=== PATIENT | male | born 1955 | race Caucasian/White ===

== ENCOUNTER 2018-12-06 20:51 | Outpatient (CLI) | payer BC | END 2018-12-07 07:10 | disposition home or self-care (01) | LOC: SLEEP 20:51 | PROVIDERS: ATTEND Nurse Practitioner Family | DX: G47.10 Hypersomnia, unspecified (principal); G47.50 Parasomnia, unspecified; Z72.0 Tobacco use | CPT/HCPCS: 95811 ==

== ENCOUNTER 2019-06-25 09:54 | Inpatient (IN) | payer BC ==
[~2019-06-25] VITALS: Ht 175.3 cm; Wt 65.8 kg
[2019-06-25] MEDS ORDERED: ONDANSETRON 4 MG (ZOFRAN) ORAL DISSOLVE TAB PO PRN (10:30)
[2019-06-25] MEDS ORDERED: DOCUSATE SODIUM 100 MG (COLACE) CAP PO PRN (10:30)
[2019-06-25] MEDS ORDERED: diphenhydrAMINE 25 MG TAB (BENADRYL) PO PRN (10:30)
[2019-06-25] MEDS ORDERED: LOPERAMIDE 2 MG (IMODIUM) TABLET PO PRN (10:30)
[2019-06-25] MEDS ORDERED: MELATONIN 3 MG TABLET PO PRN (10:30)
[2019-06-25] MEDS ORDERED: ACETAMINOPHEN 500 MG TAB (TYLENOL) PO PRN (10:30)
[2019-06-25] MEDS ORDERED: CALCIUM CARBONATE 500 MG (TUMS) TAB.CHEW PO PRN (10:30)
--- NOTE | 2019-06-25 14:15 | NUR ---
Luis Carlos Oneal admitted to room 223-1, with an admitting diagnosis of Right pelvic, rib and facial fractures , on 06/25/19 from via private vehicle from [place], accompanied by Asya, and two adult daughters. LUIS CARLOS ONEAL introduced to surroundings, call light, bed controls, phone, TV, temperature control, lights, meal times, smoking policy, visitor policy, side rail policy, bathrooms and showers. Patient Rights given to patient in the handbook. LUIS CARLOS ONEAL verbalizes understanding that [facility] is not responsible for the loss or damage to any personal effects or valuables that are kept in the patients posession during their hospitalization. The following Patient Care Plans were discussed with the Immobility, Fracture and Discharge Planning. LUIS CARLOS ONEAL verbalizes understanding of Interdisciplinary Patient Education. Patient received Patient Rights Booklet, which includes Privacy Act Statement and Data Collection Information Summary.
[2019-06-25] MEDS ORDERED: HYDR-3820 PO (14:43)
--- NOTE | 2019-06-25 14:44 | NUR ---
UPDATED MED [facility] WITH DISCHARGE ORDERS FROM [facility]. THERE WERE NOT MEDICATIONS TO CONTINUE OR STOP JUST ONE TO START: HYDROCODONE 10-325MG Q4H PRN I WILL REMOVE THIS AND SET THE PROFILE TO NO HOME MEDICATIONS AT A LATER DATE FOR PROPER DISCHARGE TO HOME ORDERS. Addendum: 06/26/19 at 0808 by ALEX PADILLA cigarette package examiner REMOVED THE NEW MEDICATION STARTED AT DISCHARGE AND SET THE PROFILE TO NO MEDICATIONS AT THIS TIME.
--- NOTE | 2019-06-25 15:21 | Occupational Therapy Eval ---
OT Evaluation-General/PLF Medical Diagnosis Admission Date Jun 25, 2019 at 14:15 Medical Diagnosis: Multiple fx secondary to traumatic event. Onset Date: Jun 21, 2019 Therapy Diagnosis Therapy Diagnosis: Weakness, Decreased ADL skills Height/Weight Height (Feet): 5 Height (Inches): 10.00 Weight (Pounds): 165 Weight Bear Status Weight Bearing Restriction: Touch Toe Bearing Location Restriction: R LE Referral Physician: Dr. De La Fuente Referral Reason: Activity Tolerance, Self Care, Evaluation/Treatment, Strengthening/ROM Medical History Additional Medical History COPD, Lung mass Current History Pt. fell off ladder. Pt. sustained right iliac fx, right zygomatic arch fx, right orbital bone fx, and posterior 8th rib fx. Pt. is currently TTWB in right LE. Reviewed History: Yes Social History Home: Single Level Current Living Status: Spouse Entry Into Home: Stairs With Railing Steps Into Home: 2 ADL-Prior Level of Function SCALE: Activities may be completed with or without assistive devices. 8-Kjbuxdqaqd-etrjltv completes the activity by him/herself with no assistance from a helper. 5-Set-up or Clean-up Assistance-helper sets up or cleans up; patient completes activity. [place] assists only prior to or following the activity. 4-Supervision or Touching Assistance-helper provides verbal cues and/or touching/steadying and/or contact guard assistance as patient completes activity. Assistance may be provided throughout the activity or intermittently. 3-Partial/Moderate Assistance-helper does LESS THAN HALF the effort. [place] lifts, holds or supports trunk or limbs, but provides less than half the effort. 2-Substantial/Maximal Assistance-helper does MORE THAN HALF the effort. [place] lifts or holds trunk or limbs and provides more than half the effort. 2-Ebvegqquh-qrmyoi does ALL the effort. Patient does none of the effort to complete the activity. Or, the assistance of 2 or more helpers is required for the patient to complete the activity. If activity was not attempted, code reason: 7-Patient Refused. 9-Not Applicable-not attempted and the patient did not perform the activity before the current illness, exacerbation or injury. 10-Not Attempted due to Environmental Limitations-(lack of equipment, weather restraints, etc.). 88-Not Attempted due to Medical Conditions or Safety Concerns. ADL PLOF Comments Pt. was independent with daily tasks prior to this hospitalization. Self Care: Independent Functional Cognition: Independent DME/Equipment: Shower DME/Equipment Comments Pt. has no AE. Occupation: Pt. just retired from [employer] business. OT Current Status Subjective Pt. states, "I'm okay" when asked if he is having pain. Appearance Pt. in wheelchair. Agrees to treatment. Mental Status/Objective Patient Orientation: Person, Place, Time, Situation Current Glasses/Contacts: Yes Hand Dominance: Right Upper Extremity ROM WFL Pt. reports that he was planning on having a left shoulder replacement this year. ADL-Treatment Lower Body Dressing (QC): 4 On/Off Footwear (QC): 4 Toileting Hygiene (QC): 4 Toilet Transfer (QC): 4 OT/PT co-treated pt. due to fatigue from car ride, decreased activity level, and need of two skilled therapists. OT facilitated ADL skills and energy conservation training while PT focused on mobility and transfers. Pt. is curr ently TTWB. Completed mobility with walker and min assist with wheelchair follow, (see PT note for distance.) Multiple rest breaks needed in between activities. Pt. able to doff/don sock with increased time and discomfort noted. Stood at toilet and managed clothing with min assist for upright stance and balance. Pt. and family educated on therapy goals, as well as rehab goals and treatment. Pt. verbalizes understanding. Transferred sit-supine with mod assist. All needs met. Education OT Patient Education: Correct positioning, Modified ADL techniques, Progress toward Goal/Update tx plan, Purpose of tx/functional activities, Reviewed precautions, Rehab process, Transfer techniques Teaching Recipient: Patient Teaching Methods: Demonstration, Discussion Response to Teaching: Verbalize Understanding, Return Demonstration OT Short Term Goals Short Term Goals 1=Demonstrate adherence to instructed precautions during ADL tasks. 2=Patient will verbalize/demonstrate understanding of assistive devices/modif ications for ADL. 3=Patient will improve strength/tolerance for activity to enable patient to perform ADL's. 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 2=Patient will verbalize/demonstrate understanding of assistive devices/modifications for ADL. 3=Patient will improve strength/tolerance for activity to enable patient to perform ADL's. OT Education/Plan Problem List/Assessment Assessment: Decreased Activ Tolerance, Dependent Transfers, Impaired Bed Mobility, Impaired Funct Balance, Impaired I ADL's, Impaired Self-Care Skills Discharge Recommendations Plan/Recommendations: Continue POC Therapy Discharge Recommendati: Post Acute OT Equpiment Recommendations-D/C: Bath Chair, Hip Kit Comment Pt. will need walker. Treatment Plan/Plan of Care Treatment,Training & Education: Yes Patient would benefit from OT for education, treatment and training to promote i ndependence in ADL's, mobility, safety and/or upper extremity function for ADL's. Plan of Care: ADL Retraining, Functional Mobility, Group Exercise/Act as Ind, UE Funct Exercise/Act Treatment Duration: Jul 09, 2019 Frequency: At least 5 of 7 days/Wk (IRF) Estimated Hrs Per Day: 1.5 hours per day Agreement: Yes Rehab Potential: Good Time/GCodes Start Time: 14:25 Stop Time: 15:05 Total Time Billed (hr/min): 40 Billed Treatment Time 3238-8649 1, EVM x 10minutes [id number] FA x 30 minutes. Co-treat with PT. Please see above note for de signated roles. OMA CORTÉS OT Jun 25, 2019 15:21
[2019-06-25] MEDS: HYDROcodone/APAP 5 MG/325 MG (LORTAB) TAB PO PRN ×2 (15:26→19:30)
--- NOTE | 2019-06-25 15:48 | Progress Note ---
DELFINA AMARO [facility] 06/25/19 1548: Progress Note CC: Fell from ladder, Right facial bone fractures, Right Rib fracture, Right Hip fracture HPI: Pt is alert and oriented x3, pleasant, and excited to be able to come to the rehab unit prior to going home. He states he has some pain in his hip and ribs mainly that has been getting better the last couple days, but has been limiting his ability to move normally. He states he has a cough due to stopping smoking since the accident, which has caused him increased pain in his fractured rib. He also states he has a little bit of a headache near his facial fractures, but this has gotten much better as well. He has been getting a little dizzy when he is struggling to move around. He has sleep apnea that he has recently been wearing a CPAP makes but is not sure it will work with his facial fracture. Barriers: * He is able to use a wheelchair to move himself around very well * He was able to walk a short distance using a walker with only minimal assistance * He was able to stand from the wheelchair and turn to sit in the bed with minimal assistance * He was able to take off and put back on his sock without help * He was able to go in the restroom and transfer to the toilet with some janneth tance * He is still having significant pain with turning himself into the bed from seated to lying * He had pain straightening himself in the bed * He does have 2 steps into the house from the garage that would be his biggest barrier * He thinks he will be able to use the walker for most of his trips inside the house due to the short distances Goals: * He would like to be able to take a shower and get dressed by himself prior to going home * He would like to feel a little more confident using the walker by himself * He would like to gain some strength and learn techniques to make his daily activities easier * He would like to walk without a walker in the future, but understands it may take a couple months of healing MELYSSA SAAVEDRA DO 06/25/192053: Supervisory-Addendum Brief Verification & Attestation Participated in pt care: history, MDM, physical Personally performed: exam, history, MDM, supervision of care Care discussed with: Medical Student Procedures: n/a Results interpretation: Verified all documentation Verification and Attestation of Medical Student E/M Service A medical student performed and documented this service in my presence. I reviewed and verified all information documented by the medical student and made modifications to such information, when appropriate. I personally performed the physical exam and medical decision making. Melyssa Saavedra, Jun 25, 2019,20:54 DELFINA AMARO [facility] Jun 25, 2019 15:48 MELYSSA SAAVEDRA DO Jun 25, 2019 20:54
--- NOTE | 2019-06-25 16:12 | Physical Therapy Evaluation ---
PT Evaluation-General Medical Diagnosis Admission Date Jun 25, 2019 at 14:15 Medical Diagnosis: Multiple fx secondary to traumatic event. Onset Date: Jun 21, 2019 Therapy Diagnosis Therapy Diagnosis: abnormal gait Height/Weight Height (Feet): 5 Height (Inches): 10.00 Weight (Pounds): 165 Precautions Precautions/Isolations: Fall Prevention, Standard Precautions Weight Bear Status Right Lower Extremity: Right Touch Toe Bearing Left Lower Extremity: Left Full Weight Bearing Referral Physician: Dr. De La Fuente Reason for Referral: Evaluation/Treatment Medical History Pertinent Medical History: COPD Additional Medical History newly diagnosed lung CA. Current History Admitted to ARU post acute hospital stay at [facility]. On 06/21/2019, pt fell from a ladder, unwitnessed fall with subsequent short amnesia. Pt was found quickly post fall. Pt taken via EMS to [facility] where he was found to have R iliac crest fx, facial fractures and 8th rib fx. Pt admitted to this unit for skilled therapy intervention to allow him to return home as before. Reviewed History: Yes Social History Home: Single Level Current Living Status: Spouse Entry Into Home: Stairs With Railing PT Steps Into Home: 2 Prior Prior Level of Function SCALE: Activities may be completed with or without assistive devices. 8-Pmjgegogac-nwhgaba completes the activity by him/herself with no assistance from a helper. 5-Set-up or Clean-up Assistance-helper sets up or cleans up; patient completes activity. [place] assists only prior to or following the activity. 4-Supervision or Touching Assistance-helper provides verbal cues and/or touching/steadying and/or contact guard assistance as patient completes activity. Assistance may be provided throughout the activity or intermittently. 3-Partial/Moderate Assistance-helper does LESS THAN HALF the effort. [place]ner lifts, holds or supports trunk or limbs, but provides less than half the effort. 2-Substantial/Maximal Assistance-helper does MORE THAN HALF the effort. Verner lifts or holds trunk or limbs and provides more than half the effort. 6-Adidzscep-bxetmm does ALL the effort. Patient does none of the effort to complete the activity. Or, the assistance of 2 or more helpers is required for the patient to complete the activity. If activity was not attempted, code reason: 7-Patient Refused. 9-Not Applicable-not attempted and the patient did not perform the activity before the current illness, exacerbation or injury. 10-Not Attempted due to Environmental Limitations-(lack of equipment, weather restraints, etc.). 88-Not Attempted due to Medical Conditions or Safety Concerns. Bed Mobility: 6 Transfers (B,C,W/C): 6 Gait: 6 Indoor Mobility (Ambulation): Independent Stairs: Independent Pt indep PLOF; working; able to climb ladders; active; active golfer. PT Evaluation-Current Subjective Agrees to PT. Denies need for pain meds at time of evaluation. and daughter present. Pain Numeric Pain Scale: 4 Location: Right Location Body Site: Hip (pelvic area) Pain Description: Ache, Stabbing Objective Patient Orientation: Person, Place, Time, Situation ROM/Strength ROM Lower Extremities WFL; difficulty with the right LE due to fx; Strength Lower Extremities strength left LE WNL; right LE DF 5/5; quads/hamstrings 3/5; hip flexion 1/5, limited by pain. Integumentary/Posture Integumentary Refer to nursing notes. Bowel Incontinence: No Bladder Incontinence: No Posture normal and symmetrical; good upright posture. Neuromuscular (Tone, Coordination, Reflexes) no noted functional deficits. Sensory Vision: Wears Glasses Hearing: Functional Hand Dominance: Right Sensation Right Lower Extremit: Intact Sensation Left Lower Extremity: Intact Transfers Roll Left to Right (QC): 3 Sit to Lying (QC): 3 (assist with right LE to lift into and out of bed) Lying to Sitting/Side of Bed(Q: 3 Sit to Stand (QC): 3 (min assist to come to a stand with skilled cues for hand placement) Chair/Bgp-dl-Wituc Xfer(QC): 4 (CGA for safety.) Car Transfer (QC): 3 (min assist to move right LE) Gait Does the Patient Walk?: Yes Mode of Locomotion: Walk Anticipated Mode of Locomotion: Walk Distance (FIM): 1=up to 49 ft Walk 10 feet (QC): 3 (min assist for balance and safety.) Walk 50 ft with 2 Turns(QC): 88 Walk 150 ft (QC): 88 Walking 10ft/uneven surface-QC: 88 Distance: 40 ft Gait Assistive Device: FWW Comments/Gait Description Pt demonstrated ability to maintain TTWB right LE. Slow but steady with gait. Wheelchair Training Does the Pt Use a Wheelchair?: Yes Wheel 50 ft with 2 turns (QC): 4 Wheel 150 ft (QC): 4 Type of Wheelchair: Manual Stairs 1 Step (curb) (QC): 88 (unsafe to attempt this date. ) 4 Steps (QC): 88 12 Steps (QC): 88 Balance Sitting Static: Normal Sitting Dynamic: Normal Standing Static: Fair Standing Dynamic: Fair Picking up an Object (QC): 88 (unsafe to attempt) Treatment Functional transfer and static/dynamic standing balance during functional mobiltiy and tasks. Co treat with OT due to the need for 2 skilled clinicians to safely and effectively facilitate transfers and mobility. As OT addressed self care, PT addressed transitional mobiltiy with transfers, standing, turning and functional activity/balance. Assessment/Needs Post fall from ladder with above noted fx. Pt has impaired functional strength and balance as well as pain that limits his ability to safely perform transfers, bed mobility and gait. He will benefit from skilled PT services to address mobility with adaptations as needed to allow him to return home safely at a mod indep level. He has good family support and excellent potential to make functional gains. 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 Stone Driller Goals PT Skilled Nursing Goals Time Frame: Jul 09, 2019 Sit to Lying (QC): 6 Lying-Sitting on Side/Bed(QC): 6 Sit to Stand (QC): 6 Roll Left to Right (QC): 6 Chair/Kkh-zi-Ptsbe Xfer(QC): 6 Car Transfer (QC): 6 Does the Patient Walk: Yes Walk 10 feet (QC): 6 Walk 10ft-Uneven Surface(QC): 6 Walk 50ft with 2 Turns (QC): 6 Walk 150 ft (QC): 6 Gait Assistive Device: FWW Wheel 50 feet with 2 turns (QC: 6 1 Step (curb) (QC): 6 4 Steps (QC): 6 12 Steps (QC): 88 Picking up an Object (QC): 88 PT Plan Problem List Problem List: Activity Tolerance, Functional Strength, Safety, Balance, Gait, Transfer, Bed Mobility Treatment/Plan Treatment Plan: Continue Plan of Care Treatment Plan: Bed Mobility, Education, Functional Activity Francisco, Functional Strength, Group Therapy, Gait, Safety, Therapeutic Exercise, Transfers Treatment Duration: Jul 09, 2019 Frequency: At least 5 of 7 days/Wk (IRF) Estimated Hrs Per Day: 1.5 hours per day Patient and/or Family Agrees t: Yes Safety Risks/Education Patient Education: Transfer Techniques, Safety Issues Teaching Recipient: Patient Teaching Methods: Demonstration, Discussion Response to Teaching: Reinforcement Needed Discharge Recommendations Therapy Discharge Recommendati: Post Acute PT Time/GCodes Time In: 1415 Time Out: 1425 ([id number] treat with OT) Total Billed Treatment Time: 40 Total Billed Treatment visit EVM 10 FA 30 MOISES SALAZAR PT Jun 25, 2019 16:12
[2019-06-25 17:23] VITALS: BP 157/79
--- NOTE | 2019-06-25 17:28 | Consultation - Surgery ---
[facility] 06/25/19 1727: History of Present Illness History of Present Illness Patient Consulted On(toby/time) 06/25/19 17:22 Date Seen by Provider: Jun 25, 2019 Time Seen by Provider: 16:30 History of Present Illness CC: Trauma from fall off of ladder Sunday, patient fell from a ladder resulting in a fracture to his pelvis, ribs, and facial bones. Patient does not complain of any abdominal pain or Shortness of breath. Patient does state he did lose consciousness but denies photophobia, rhinorrhea, or n/v. Coughing and weigh bearing makes his pain worse, but pain medication has helped his pain. Right now he rates his pain as a 3/10 but had just received pain medication. , Allergies and Home Medications Allergies Coded Allergies: No Known Drug Allergies (Unverified , 08/14/14) Home Medications Hydrocodone/Acetaminophen 1 Each Tablet, 1 TAB PO Q4H PRN for PAIN-MODERATE, (Reported) Past Wglmcue-Aidiqd-Kempmm Hx Patient Social History Alcohol Use: Occasionally Uses Number of Drinks Today: 0 Recreational Drug Use: No Smoking Status: Current Everyday Smoker Type Used: Cigarettes Recent Foreign Travel: No Contact w/Someone Who Travel: No Recent Infectious Disease Expo: No Physical Abuse Screen: No Sexual Abuse: No Immunizations Up To Date Date of Influenza Vaccine: Jun 09, 2019 Family Medical History Significant Family History: Other Conditions/Hx (Dad had alzheimers, mom had parkinsons) Family Medial History: Alzheimer's disease 19 FATHER Cataracts 19 MOTHER Osteoporosis 19 MOTHER Parkinson's disease 19 MOTHER Review of Systems-General Constitutional: No chills, No fever EENTM: No blurred vision, No double vision, No vision loss Respiratory: No cough, No dyspnea on exertion Gastrointestinal: No abdominal pain, No nausea, No vomiting Musculoskeletal: other (Rib pain) Other Has had lightheadedness and dizziness Physical Exam-General Problems Physical Exam Vital Signs Capillary Refill : General Appearance: WD/WN, no apparent distress Neck: non-tender, full range of motion, supple Respiratory: lungs clear, normal breath sounds, no respiratory distress, no accessory muscle use Cardiovascular: regular rate, rhythm, no edema, no murmur Peripheral Pulses: 2+ Radial Pulses (R), 2+ Radial Pulses (L) Gastrointestinal: non tender, soft Neurologic/Psychiatric: alert, normal mood/affect, oriented x 3 Assessment/Plan Assessment/Plan Assessment/Plan Pain control and monitor Vitals Clinical Quality Measures DVT/VTE Risk/Contraindication: Risk Factor Score Per Nursin RFS Level Per Nursing on Admit: 4+=Very High HAYDEE LANDAVERDE DO 06/25/192105: History of Present Illness History of Present Illness Time Seen by Provider: 17:04 History of Present Illness Pt seen and examined, surgery asked to consult because he was a Trauma pt and need to make sure all his injuries are cared for and followed up on. Pt thinks the only thing that hasn't been done is regarding the upper jaw fracture. He states they looked at his eye multiple times and it is getting better. He is in rehab for his pelvis fracture. Allergies and Home Medications Allergies Coded Allergies: No Known Drug Allergies (Unverified , 08/14/14) Home Medications Hydrocodone/Acetaminophen 1 Each Tablet, 1 TAB PO Q4H PRN for PAIN-MODERATE, (Reported) Patient Home Medication List Home Medication List Reviewed: Yes Past Cxugpqo-Umbskr-Mmxqlw Hx Family Medical History Significant Family History: Other Conditions/Hx (Dad had alzheimers, mom had parkinsons) Family Medial History: Alzheimer's disease 19 FATHER Cataracts 19 MOTHER Osteoporosis 19 MOTHER Parkinson's disease 19 MOTHER Review of Systems-General EENTM: blurred vision (right eye), eye pain (right); No ear discharge, No mouth swelling, No throat swelling Musculoskeletal: back pain, joint pain, joint swelling, muscle pain, muscle stiffness, muscle cramps, other (Rib pain) Skin: No lesions, No pruritus Psychiatric/Neurological: Denies Anxiety, Denies Depressed, Denies Seizure, Denies Tremors Physical Exam-General Problems Physical Exam HEENT: other (right eye sclera is injected with blood) Back: vertebral tenderness (right side) Extremities: no pedal edema, no calf tenderness, normal capillary refill Assessment/Plan Assessment/Plan Assessment/Plan Right Maxillary Fracture Pelvis Fx Closed head Trauma At this point I need to get the actual films from [place] so I can go over them and find all consults, results and DC summary from [place]. We do not have a complete chart; at this time pt needs PT/OT and rehab no impending surgery needed. Pt had no questions. Supervisory-Addendum Brief Verification & Attestation Participated in pt care: history, MDM, physical Personally performed: exam, history, MDM Care discussed with: Medical Student Procedures: n/a Verification and Attestation of Medical Student E/M Service A medical student performed and documented this service in my presence. I reviewed and verified all information documented by the medical student and made modifications to such information, when appropriate. I personally performed the physical exam and medical decision making. Haydee Landaverde, Jun 25, 2019,21:08 KAYE OLMSTEAD Jun 25, 2019 17:27 HAYDEE LANDAVERDE DO Jun 25, 2019 21:06
[2019-06-25 18:38] VITALS: BP 157/79
[2019-06-25] MEDS ORDERED: LACTULOSE SYRUP 10GM/15ML (ENULOSE) 30ML UDC ONE (19:25)
[2019-06-25] MEDS: ENOXAPARIN 40 MG/0.4 ML (LOVENOX) SYR SQ SCH (19:29)
[2019-06-25] MEDS: SENNA W/DOCUSATE (SENOKOT S) TABLET PO SCH (19:30)
--- NOTE | 2019-06-25 21:01 | PM&R H&P / Post Admit Assess ---
History of Present Illness HPI/Chief Complaint CC: Fall off ladder with multiple fractures HPI: This is a 63yoWM who suffered a fall on 06/21/19 and transferred to [place] for trauma suffered facial fractures and right globe injury and multiple other fracture including ribs and pelvis and was stabilized participating in therapy but in need of increased therapy in order to return home. He did have a mass in his lung that was biopsied and just today received results it is lung cancer but patient is now aware of the dx yet. Pt PCP is Dr. Sandoval and I will reach out to him. He is a smoker and has COPD and he does decrease his O2 saturations at night. He previously was independent with ADLs and ambulation. [facility] CC: Fell from ladder, Right facial bone fractures, Right Rib fracture, Right Hip fracture HPI: Pt is alert and oriented x3, pleasant, and excited to be able to come to the rehab unit prior to going home. He states he has some pain in his hip and ribs mainly that has been getting better the last couple days, but has been limiting his ability to move normally. He states he has a cough due to stopping smoking since the accident, which has caused him increased pain in his fractured rib. He also states he has a little bit of a headache near his facial fractures, but this has gotten much better as well. He has been getting a little dizzy when he is struggling to move around. He has sleep apnea that he has recently been wearing a CPAP makes but is not sure it will work with his facial fracture. Barriers: * He is able to use a wheelchair to move himself around very well * He was able to walk a short distance using a walker with only minimal assistance * He was able to stand from the wheelchair and turn to sit in the bed with minimal assistance * He was able to take off and put back on his sock without help * He was able to go in the restroom and transfer to the toilet with some assistance * He is still having significant pain with turning himself into the bed from seated to lying * He had pain straightening himself in the bed * He does have 2 steps into the house from the garage that would be his biggest barrier * He thinks he will be able to use the walker for most of his trips inside the house due to the short distances Goals: * He would like to be able to take a shower and get dressed by himself prior to going home * He would like to feel a little more confident using the walker by himself * He would like to gain some strength and learn techniques to make his daily activities easier * He would like to walk without a walker in the future, but understands it may take a couple months of healing Source: patient, family, old records Exam Limitations: no limitations Date Seen 06/25/19 Time Seen by a Provider: 17:00 Attending Physician Melyssa De La Fuente DO PCP Simon Sandoval MD Referring Physician Date of Admission Jun 25, 2019 at 14:15 Home Medications & Allergies Home Medications Reviewed patient Home Medication Reconciliation performed by pharmacy medication reconciliations museum technician and/or nursing. Patients Allergies have been reviewed. Allergies Allergies Coded Allergies No Known Drug Allergies (Tzdrbrmriv26/12/14) Past Kuptbdq-Avujxt-Yiuhpd Hx Past Med/Social Hx: Reviewed Nursing Past Med/Soc Hx, Reviewed and Corrections made Patient Social History Marrital Status: Employed/Student: retired Alcohol Use: Occasionally Uses Number of Drinks Today: 0 Alcohol Beverage of Choice: Whiskey Recreational Drug Use: No Smoking Status: Current Everyday Smoker Type Used: Cigarettes Physical Abuse Screen: No Sexual Abuse: No Recent Foreign Travel: No Contact w/other who traveled: No Recent Infectious Disease Expo: No Immunizations Up To Date Date of Influenza Vaccine: Jun 09, 2019 Past Medical History Musculoskeletal: Fractures Family History Alzheimer's disease 19 FATHER Cataracts 19 MOTHER Osteoporosis 19 MOTHER Parkinson's disease 19 MOTHER Other Conditions/Hx (Dad had alzheimers, mom had parkinsons) Review of Systems Constitutional: see HPI, weakness EENTM: eye pain Respiratory: other (right rib pain) Cardiovascular: no symptoms reported Gastrointestinal: constipation Genitourinary: no symptoms reported Musculoskeletal: back pain, joint pain Skin: no symptoms reported Psychiatric/Neurological: No Symptoms Reported All Other Systems Reviewed Negative Unless Noted: Yes Physical Exam Exam Vital Signs Vital Signs Date Time Temp Pulse Resp B/P (MAP) Pulse Ox O2 Delivery O2 Flow Rate FiO2 06/25/19 18:38 37.3 66 18 157/79 (105) 95 Room Air 0.00 Capillary Refill : Less Than 3 Seconds General Appearance: No Apparent Distress, WD/WN, Chronically ill, Thin HEENT: PERRL/EOMI, Normal ENT Inspection, Pharynx Normal, Moist Mucous Membranes Neck: Full Range of Motion, Normal Inspection, Non Tender, Supple Respiratory: Chest Non Tender, Lungs Clear, Normal Breath Sounds, No Accessory Muscle Use, No Respiratory Distress, Decreased Breath Sounds Cardiovascular: Regular Rate, Rhythm, No Edema, No Gallop, No JVD, No Murmur Gastrointestinal: Normal Bowel Sounds, No Organomegaly, No Pulsatile Mass, Non Tender, Soft Back: Normal Inspection, No CVA Tenderness, Decreased Range of Motion, Vertebral Tenderness Extremity: Normal Capillary Refill, Normal Inspection, Normal Range of Motion (except right leg), Non Tender, No Calf Tenderness, No Pedal Edema Neurologic/Psychiatric: Alert, Oriented x3, No Motor/Sensory Deficits, Normal 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 Assessment/Plan Assessment and Plan Assess & Plan/Chief Complaint Assessment: Fall from ladder 15 ft 06/21/19 Facial fractures Right globe eye injury Pelvic fracture Rib fractures Night time hypoxia Plan: Pain management BM regimen Dr Sandoval consultation Lung bx eval (1) Brain injury (2) Facial fracture due to fall (3) Injury of globe of right eye (4) Pelvic fracture (5) Rib fractures (6) COPD (chronic obstructive pulmonary disease) (7) Smoker (8) Lung mass (9) History of lung biopsy Post Admission Physician Asses Date seen by provider: Jun 25, 2019 Time seen by provider: 17:00 Admisison Dx: (1) Brain injury The preadmission screen agrees with the post admission assessment that the patie nt is a good candidate for inpatient rehabilitation. The patient will have a comprehensive program of inpatient rehabilitation with a goal of maximizing level of functional independence prior to discharge home with family. The patient will have PT/OT ninety minutes per day, each discipline, five days a week for gait, strengthening, conditioning, balance, ADLs, any patient/family/caregiver training as necessary. Speech therapy to do cognitive assessment and treat as indicated. Rehabilitation nursing to assist with bowel, bladder, skin, wound care, medication administration, pain management. Line Helper to assist with discharge planning, community reentry. SCD's for DVT prophylaxis. He appears to be well motivated to participate in three hours of therapy a day. He should be able to tolerate three hours of therapy a day from a medical standpoint. He should benefit from the three hours of therapy a day. He has a reasonable discharge plan, reasonable discharge rehabilitation goals and a supportive family. He has various comorbidities that need to be closely monitored with medications and treatments adjusted on a daily basis as needed. These include: see list Barriers to discharge for this patient who had been independent prior to this are for him to be modified independent to supervision for ADLs and mobility skills prior to discharge home with family, so as to lessen the burden of the caregivers. Risks for this patient include: 1. Fall 2. Fracture 3. DVT 4. Pulmonary embolism 5. Wound infection 6. Skin breakdown 7. Contractures 8. Poorly controlled pain 9. Urinary retention 10. UTI 11. Respiratory infection 12. Aspiration Estimated Length of Stay: 7 days Prognosis: Rehab prognosis appears good for goal of discharge home with family modified independent to supervision for ADLs and mobility skills. MELYSSA DE LA FUENTE DO Jun 25, 2019 21:01
[2019-06-26 06:29] VITALS: BP 154/77
[2019-06-26 06:31] LABS: BASOPHILS # (AUTO) 0.1 10^3/uL (0.0-0.1); BASOPHILS % (AUTO) 1 % (0-10); EOSINOPHILS # (AUTO) 0.2 10^3/uL (0.0-0.3); EOSINOPHILS % (AUTO) 3 % (0-10); HEMATOCRIT 35 % (40-54); HEMOGLOBIN 11.7 G/DL (13.3-17.7); LYMPHOCYTES # (AUTO) 1.5 X 10^3 (1.0-4.0); LYMPHOCYTES % (AUTO) 20 % (12-44); MEAN CORPUSCULAR HEMOGLOBIN 30 PG (25-34); MEAN CORPUSCULAR HGB CONC 34 G/DL (32-36); MEAN CORPUSCULAR VOLUME 89 FL (80-99); MEAN PLATELET VOLUME 8.3 FL (7.4-10.4); MONOCYTES # (AUTO) 0.7 X 10^3 (0.0-1.0); MONOCYTES % (AUTO) 9 % (0-12); NEUTROPHILS # (AUTO) 5.3 X 10^3 (1.8-7.8); NEUTROPHILS % (AUTO) 68 % (42-75); PLATELET COUNT 322 10^3/uL (130-400); RED CELL DISTRIBUTION WIDTH 13.2 % (10.0-14.5); WHITE BLOOD COUNT 7.8 10^3/uL (4.3-11.0)
[2019-06-26] MEDS: HYDROcodone/APAP 10 MG/325 MG (LORTAB) TAB PO PRN ×2 (06:41→20:42)
[2019-06-26 06:50] LABS: ALANINE AMINOTRANSFERASE 52 U/L (0-55); ALBUMIN 3.4 GM/DL (3.2-4.5); ALKALINE PHOSPHATASE 107 U/L (40-136); BUN/CREATININE RATIO 16; CALCIUM 8.8 MG/DL (8.5-10.1); CARBON DIOXIDE 25 MMOL/L (21-32); CHLORIDE 106 MMOL/L (98-107); CREATININE SERUM 0.95 MG/DL (0.60-1.30); GFR ESTIMATED > 60; GLUCOSE 122 MG/DL (70-105); POTASSIUM 3.9 MMOL/L (3.6-5.0); SODIUM 141 MMOL/L (135-145); TOTAL PROTEIN 6.1 GM/DL (6.4-8.2)
--- NOTE | 2019-06-26 08:57 | Physical Therapy Daily Note ---
PT Daily Note-Current Subjective Pt is in chair pre-tx. Pt agrees to PT this morning. Pt reports 2/10 pain in the R hip but states it is feeling much better today. Pt reports he has a little pain in his R elbow that is from previous tendonitis. Appearance Pt in chair post-tx. Pt with call light, room phone, tray table, and all needs met at this time. Mental Status Patient Orientation: Person, Place, Time, Situation Transfers SCALE: Activities may be completed with or without assistive devices. 4-Emsqxzqfuf-vklsxim completes the activity by him/herself with no assistance from a helper. 5-Set-up or Clean-up Assistance-helper sets up or cleans up; patient completes activity. [place] assists only prior to or following the activity. 4-Supervision or Touching Assistance-helper provides verbal cues and/or touching/steadying and/or contact guard assistance as patient completes activity. Assistance may be provided throughout the activity or intermittently. 3-Partial/Moderate Assistance-helper does LESS THAN HALF the effort. [place] lifts, holds or supports trunk or limbs, but provides less than half the effort. 2-Substantial/Maximal Assistance-helper does MORE THAN HALF the effort. [place] lifts or holds trunk or limbs and provides more than half the effort. 1-Zisdhubvp-ixdehl does ALL the effort. Patient does none of the effort to complete the activity. Or, the assistance of 2 or more helpers is required for the patient to complete the activity. If activity was not attempted, code reason: 7-Patient Refused. 9-Not Applicable-not attempted and the patient did not perform the activity before the current illness, exacerbation or injury. 10-Not Attempted due to Environmental Limitations-(lack of equipment, weather restraints, etc.). 88-Not Attempted due to Medical Conditions or Safety Concerns. Sit to Stand (QC): 6 Pt is indep for transferring to toilet. Weight Bearing Right Lower Extremity: Right Touch Toe Bearing Left Lower Extremity: Left Full Weight Bearing Gait Training Does the Patient Walk?: Yes Distance: 80'x2, 40'x1 Walk 10 feet (QC): 6 Walk 50 ft with 2 Turns(QC): 6 Walking 10ft/uneven surface-QC: 4 (SBA) Gait Assistive Device: FWW Pt maintains TTWB with the R LE. Pt ambulates with the R LE behind himself with toe on the ground but is functional with this gait. Pt able to ambulate with wit h a 3 point pattern (walker, L LE, R LE) Wheelchair Training Does the Pt Use a Wheelchair?: Yes Wheel 50 ft with 2 turns (QC): 4 (SBA) Type of Wheelchair: Manual Pt wheeled back to room from PT gym and got too close to [place] on 2 occasions and had to readjust to get by. Stair Training Stair Training: Handrails/: uses walker #of Steps: 1 1 Step (curb) (QC): 4 (SBA) Stairs: Pattern: Hops Exercises Seated Therapy Exercises: Ankle pumps, Hip flexion (L LE only. caused pain in R hip), Kicking activity Seated Reps: 15 NuStep Minutes: 10 NuStep Workload: 1 (for R LE ROM) Treatments Pt performed LE strengthening exercise, Stair training, gait training, WCH training, functional transfer training, and education this date. Assessment Current Status: Good Progress Pt katie increased ambulation distance without any complaints of SOB, pain, or fatigue. Pt transferred from chair to toilet with FWW indep and pt feels safe with doing this on his own. Nurse notified that patient can be independent in his room and toilet himself, patient agrees. PT Fpc Goals Fpc Goals PT Fpc Goals Time Frame: Jul 09, 2019 Sit to Lying (QC): 6 Lying-Sitting on Side/Bed(QC): 6 Sit to Stand (QC): 6 Roll Left to Right (QC): 6 Chair/Pyz-hw-Lxgyv Xfer(QC): 6 Car Transfer (QC): 6 Does the Patient Walk: Yes Walk 10 feet (QC): 6 Walk 10ft-Uneven Surface(QC): 6 Walk 50ft with 2 Turns (QC): 6 Walk 150 ft (QC): 6 Gait Assistive Device: FWW Wheel 50 feet with 2 turns (QC: 6 1 Step (curb) (QC): 6 4 Steps (QC): 6 12 Steps (QC): 88 Picking up an Object (QC): 88 PT Plan Problem List Problem List: Activity Tolerance, Functional Strength, Safety, Gait, Transfer Treatment/Plan Treatment Plan: Continue Plan of Care Treatment Plan: Bed Mobility, Education, Functional Activity Francisco, Functional Strength, Group Therapy, Gait, Safety, Therapeutic Exercise, Transfers Treatment Duration: Jul 09, 2019 Frequency: At least 5 of 7 days/Wk (IRF) Estimated Hrs Per Day: 1.5 hours per day Patient and/or Family Agrees t: Yes Safety Risks/Education Patient Education: Gait Training, Transfer Techniques, Steps, Reviewed Precautions, Correct Positioning, W/C Management, Safety Issues Teaching Recipient: Patient Teaching Methods: Demonstration, Discussion Response to Teaching: Verbalize Understanding, Return Demonstration, Reinforcement Needed Time/GCodes Time In: 800 Time Out: 900 Total Billed Treatment Time: 60 Total Billed Treatment 1 visit GT 30' FA 30 ROGE SHULTZ PT Jun 26, 2019 08:57
[2019-06-26] MEDS: LACTULOSE SYRUP 10GM/15ML (ENULOSE) 30ML UDC PO SCH ×2 (09:34→20:36)
[2019-06-26] MEDS: SENNA W/DOCUSATE (SENOKOT S) TABLET PO SCH ×2 (09:34→20:39)
--- NOTE | 2019-06-26 09:38 | PM&R Progress Note ---
Subjective HPI/CC On Admission Date Seen by Provider: Jun 26, 2019 Time Seen by Provider: 08:30 CC: Fall off ladder with multiple fractures HPI: This is a 63yoWM who suffered a fall on 06/21/19 and transferred to [place] for trauma suffered facial fractures and right globe injury and multiple other fracture including ribs and pelvis and was stabilized participating in therapy but in need of increased therapy in order to return home. He did have a mass in his lung that was biopsied and just today received results it is lung cancer but patient is now aware of the dx yet. Pt PCP is Dr. Sandoval and I will reach out to him. He is a smoker and has COPD and he does decrease his O2 saturations at night. He previously was independent with ADLs and ambulation. [facility] CC: Fell from ladder, Right facial bone fractures, Right Rib fracture, Right Hip fracture HPI: Pt is alert and oriented x3, pleasant, and excited to be able to come to the rehab unit prior to going home. He states he has some pain in his hip and ribs mainly that has been getting better the last couple days, but has been limiting his ability to move normally. He states he has a cough due to stopping smoking since the accident, which has caused him increased pain in his fractured rib. He also states he has a little bit of a headache near his facial fractures, but this has gotten much better as well. He has been getting a little dizzy when he is struggling to move around. He has sleep apnea that he has recently been wearing a CPAP makes but is not sure it will work with his facial fracture. Barriers: * He is able to use a wheelchair to move himself around very well * He was able to walk a short distance using a walker with only minimal assistance * He was able to stand from the wheelchair and turn to sit in the bed with minimal assistance * He was able to take off and put back on his sock without help * He was able to go in the restroom and transfer to the toilet with some assistance * He is still having significant pain with turning himself into the bed from seated to lying * He had pain straightening himself in the bed * He does have 2 steps into the house from the garage that would be his biggest barrier * He thinks he will be able to use the walker for most of his trips inside the house due to the short distances Goals: * He would like to be able to take a shower and get dressed by himself prior to going home * He would like to feel a little more confident using the walker by himself * He would like to gain some strength and learn techniques to make his daily activities easier * He would like to walk without a walker in the future, but understands it may take a couple months of healing Subjective/Events-last exam Pt had a good night but Toradol, Ibuprofen and Valium combination was stated by the family what really helped him at [facility] so will evaluate the dosing for that and not for Toradol and Ibuprofen because they are on the same class of medication but will entertain Valium and Ibuprofen. Dr. Sandoval will see the Pt since I did review the pathology and the lung biopsy seems to be Squamous cell carcinoma. No BM yet so will initiate a suppository and soap suds enema to get that moving. Pain is pretty well controlled now. Checked meds and labs Reviewed therapy notes Conferred with office [employer] consultant of Systems General: Fatigue Neurological: Weakness, Numbness, Incoordination Objective Exam Vital Signs Vital Signs Date Time Temp Pulse Resp B/P (MAP) Pulse Ox O2 Delivery O2 Flow Rate FiO2 06/26/19 17:20 37.4 85 16 136/75 (95) 97 06/26/19 08:15 Room Air 0.00 Capillary Refill : Less Than 3 Seconds General Appearance: No Apparent Distress, WD/WN, Chronically ill, Thin HEENT: PERRL/EOMI, Normal ENT Inspection, Pharynx Normal, Moist Mucous Membranes Neck: Full Range of Motion, Normal Inspection, Non Tender, Supple Respiratory: Chest Non Tender, Lungs Clear, Normal Breath Sounds, No Accessory Muscle Use, No Respiratory Distress, Decreased Breath Sounds Cardiovascular: Regular Rate, Rhythm, No Edema, No Gallop, No JVD, No Murmur Gastrointestinal: Normal Bowel Sounds, No Organomegaly, No Pulsatile Mass, Non Tender, Soft Back: Normal Inspection, No CVA Tenderness, Decreased Range of Motion, Vertebral Tenderness Extremity: Normal Capillary Refill, Normal Inspection, Normal Range of Motion (except right leg), Non Tender, No Calf Tenderness, No Pedal Edema Neurologic/Psychiatric: Alert, Oriented x3, No Motor/Sensory Deficits, Normal Mood/Affect, 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 FIM Transfers Therapy Code Descriptions/Definitions Functional Ellis Measure: 0=Not Assessed/NA 4=Minimal Assistance 1=Total Assistance 5=Supervision or Setup 2=Maximal Assistance 6=Modified Ellis 3=Moderate Assistance 7=Complete IndependenceSCALE: Activities may be completed with or without assistive devices. 6-Yxnwcgbadt-fudlfyn completes the activity by him/herself with no assistance from a helper. 5-Set-up or Clean-up Assistance-helper sets up or cleans up; patient completes activity. [place] assists only prior to or following the activity. 4-Supervision or Touching Assistance-helper provides verbal cues and/or touching/steadying and/or contact guard assistance as patient completes activity. Assistance may be provided throughout the activity or intermittently. 3-Partial/Moderate Assistance-helper does LESS THAN HALF the effort. [place] l ifts, holds or supports trunk or limbs, but provides less than half the effort. 2-Substantial/Maximal Assistance-helper does MORE THAN HALF the effort. [place] lifts or holds trunk or limbs and provides more than half the effort. 4-Lnibhtxyl-jvdmjs does ALL the effort. Patient does none of the effort to complete the activity. Or, the assistance of 2 or more helpers is required for the patient to complete the activity. If activity was not attempted, code reason: 7-Patient Refused. 9-Not Applicable-not attempted and the patient did not perform the activity before the current illness, exacerbation or injury. 10-Not Attempted due to Environmental Limitations-(lack of equipment, weather restraints, etc.). 88-Not Attempted due to Medical Conditions or Safety Concerns. Roll Left to Right (QC): 3 Sit to Lying (QC): 3 (assist with right LE to lift into and out of bed) Sit to Stand (QC): 6 Chair/Cqc-fh-Oepyn Xfer(QC): 4 (CGA for safety.) Car Transfer (QC): 3 (min assist to move right LE) Gait Training Does the Patient Walk?: Yes Distance (FIM): 1=up to 49 ft Distance: 80'x2, 40'x1 Walk 10 feet (QC): 6 Walk 50 ft with 2 Turns(QC): 6 Walk 150 ft (QC): 88 Walking 10ft/uneven surface-QC: 4 (SBA) Gait Assistive Device: FWW Wheelchair Training Does the Pt Use a Wheelchair?: Yes Wheel 50 ft with 2 turns (QC): 4 (SBA) Wheel 150 ft (QC): 4 Type of Wheelchair: Manual Stair Training Stair Training: Handrails/: uses walker #of Steps: 1 1 Step (curb) (QC): 4 (SBA) 4 Steps (QC): 88 12 Steps (QC): 88 Stairs: Pattern: Hops Balance Picking up an Object (QC): 88 (unsafe to attempt) ADL-Treatment Lower Body Dressing (QC): 4 On/Off Footwear (QC): 4 Toileting Hygiene (QC): 4 Toilet Transfer (QC): 4 Assessment/Plan Assessment and Plan Assess & Plan/Chief Complaint Assessment: Fall from ladder 15 ft 06/21/19 Facial fractures Right globe eye injury Pelvic fracture Rib fractures Night time hypoxia SCC of lung s/p biopsy at [place] prior to DC Plan: Pain management BM regimen Dr Sandoval consultation Lung bx results will be given by PCP and Dr Melchor (1) Brain injury (2) Squamous cell lung cancer (3) COPD (chronic obstructive pulmonary disease) (4) Rib fractures (5) Pelvic fracture (6) Lung mass (7) Facial fracture due to fall (8) Injury of globe of right eye (9) History of lung biopsy (10) Smoker MÓNICA SAVAEDRA DO Jun 26, 2019 09:38
--- NOTE | 2019-06-26 10:01 | Progress Note ---
[facility] 06/26/19 1001: Progress Note CC: Pelvic Fracture, Facial Fracture, Rib Fracture * Pt reports sleeping well last night with 2L of O2 * Pt reports the PT this morning went very well and they have made him Ad Sintia in his room * Pt reports having some pain with chewing reynoso due to pain, but otherwise was able to eat well * He states his pain as gotten better in his hip especially after PT today * He states he is able to sit up and turn to side of the bed by himself, but does report it still being painful and moderately difficult MELYSSA DE LA FUENTE DO 06/26/192052: Supervisory-Addendum Brief Verification & Attestation Participated in pt care: history, MDM, physical Personally performed: exam, history, MDM, supervision of care Care discussed with: Medical Student Procedures: n/a Results interpretation: Verified all documentation Verification and Attestation of Medical Student E/M Service A medical student performed and documented this service in my presence. I reviewed and verified all information documented by the medical student and made modifications to such information, when appropriate. I personally performed the physical exam and medical decision making. Melyssa De La Fuente, Jun 26, 2019,20:53 [facility] Jun 26, 2019 10:01 MELYSSA DE LA FUENTE DO Jun 26, 2019 20:53
--- NOTE | 2019-06-26 11:22 | ST Cognitive Linguistic Eval ---
Speech Evaluation-General Medical Diagnosis Multiple fx secondary to traumatic event. Onset Date: Jun 21, 2019 Therapy Diagnosis Therapy Diagnosis: Cognitive-communication Precautions Precautions: Fall Referral Referring Physician: Dr. De La Fuente Reason for Referral: Evaluation/Treatment Medical History Pertinent Medical History: COPD Reviewed History: Yes Social History Current Living Status: Spouse Speech PLF-Current Status Prior Level of Function Patient lived at home with his where he was independent for his daily needs. Subjective Patient was pleasant and cooperative with the cognitive assessment. Language Eval: Auditory Comprehends Simple Yes/No Ques: Functional Indent/Objects Multiple [place]: Functional Ident/Pics in Multiple Sampson: Functional Follows 1-Step Commands: Functional Follows Complex Directions: Functional Follows General Conversations: Functional Language Eval: Verbal Language Completes Spontaneous Greeting: Functional Produces Auto, Serial Info: Functional Imitates Simple Words/Phrases: Functional Word Finding: Functional Requests Basic Needs: Functional States Basic Personal Info: Functional Expresses Complex Ideas: Functional Objective Cognitive Domain Attention: WNL Memory: Mild Problem Solving: Functional Executive Functions: WNL Visuospatial Skills: WNL Composite Severity Rating: WNL Clock Drawing Severity Rating: WNL Objective Formal/Standardized Tests [facility] Status ([facility]) Results , within normal range of function Oral Motor/Speech Production Within Functional Limits Impression Patient is a pleasant 63 year old man who was admitted to the ARU s/p fall with injury. The patient was given the SLUMS with a result of . Patient is within normal range of function. He does not require skilled ST at this time. Speech Patient Assess Expression of Ideas/Wants: Expression (4) Understanding Verbal Content: Understands (4) Brief Interview-Mental Status: Yes Repetition of Three Words: Three (3) Temporal Orientation: Year: Correct (3) Temporal Orientation: Month: Accurate within 5 days(2) Temporal Orientation: Day: Correct (1) Recall : Wear to say "Sock": Yes,after cueing (1) Recall : Color: Yes, after cueing (1) Recall : Bed: Yes,after cueing (1) Memory/Recall Ability: Current season, That he or she is in a hsp/hsp unit Speech-Plan Patient/Family Goals Patient/Family Goals: Patient plans on returning to his home, where he lives with his , upon discharge. Treatment Plan Speech Therapy Treatment Plan: Discontinue ST Patient does not require skilled ST at this time. Treatment Duration: Jun 26, 2019 Frequency: 1 time per week Estimated Hrs Per Day: .25 hour per day Rehab Potential: Good Barriers to Learning: None identified Pt/Family Agrees to Plan: Yes Safety Risks/Education Teaching Recipient: Patient, Family Teaching Methods: Discussion Response to Teaching: Verbalize Understanding Education Topics Provided: Safety within his room and communication of his wants/needs Time Speech Therapy Time In: 00:30 Speech Therapy Time Out: 11:45 Total Billed Time: 15 Billed Treatment Time 1, ALLISON Marlow Jun 26, 2019 11:22
--- NOTE | 2019-06-26 12:51 | Occupational Ther Daily Note ---
OT Current Status-Daily Note Subjective Pt seen in recliner chair, present. pt states 3-4/10 pain in R hip. Pt agreeable to OT tx session. Mental Status/Objective Patient Orientation: Person, Place, Time, Situation, Normal For Age ADL-Treatment Therapy Code Descriptions/Definitions Functional [place] Measure: 0=Not Assessed/NA 4=Minimal Assistance 1=Total Assistance 5=Supervision or Setup 2=Maximal Assistance 6=Modified [place] 3=Moderate Assistance 7=Complete IndependenceSCALE: Activities may be completed with or without assistive devices. 9-Egnbkrmjov-empadkr completes the activity by him/herself with no assistance from a helper. 5-Set-up or Clean-up Assistance-helper sets up or cleans up; patient completes activity. [place] assists only prior to or following the activity. 4-Supervision or Touching Assistance-helper provides verbal cues and/or touching/steadying and/or contact guard assistance as patient completes activity. Assistance may be provided throughout the activity or intermittently. 3-Partial/Moderate Assistance-helper does LESS THAN HALF the effort. [place] lifts, holds or supports trunk or limbs, but provides less than half the effort. 2-Substantial/Maximal Assistance-helper does MORE THAN HALF the effort. [place] lifts or holds trunk or limbs and provides more than half the effort. 5-Vhdotppkm-stemeb does ALL the effort. Patient does none of the effort to complete the activity. Or, the assistance of 2 or more helpers is required for the patient to complete the activity. If activity was not attempted, code reason: 7-Patient Refused. 9-Not Applicable-not attempted and the patient did not perform the activity before the current illness, exacerbation or injury. 10-Not Attempted due to Environmental Limitations-(lack of equipment, weather restraints, etc.). 88-Not Attempted due to Medical Conditions or Safety Concerns. Eating (QC): 6 Oral Hygiene (QC): 6 Shower/Bathe Self (QC): 5 (SUP during stance) Upper Body Dressing (QC): 6 (Pt gathers clothing items from closet, dons while seated in recliner chair.) Lower Body Dressing (QC): 5 (Gathers clothes, dons with SBA) Toileting Hygiene (QC): 5 (completes in shower with SUP in stance.) Toilet Transfer (QC): 5 (completes sit to stand with SBA) QC: footwear on/off: 6- completes in chair pt declines use of AE, able to complete without AE Other Treatment Pt completes ADLs within room, functional mobility with FWW. Pt educated on OT role, pt agreeable to therapy gym. Pt completes 10 minutes with 25 watt resistance without breaks, requests increase of resistance. pt demonstrates no SOB. Pt ambulates to room with FWW and SBA, sits in recliner chair. Pt completes theraband exercises with red theraband and skilled cues for positioning and recommendations to accommodate for restricted L shoulder motion and R medial epicondylitis. Pt educated on rest process for healing bones and epicondylitis. Pt expresses understanding. Pt educated on contusions and healing rates, completes skilled manual lymph drainage techniques to decrease swelling of bruised areas for increased healing rates. Pt demonstrates back with accuracy. pt left in room with call light in reach, all needs met. Education OT Patient Education: Exercise program, Home exercise program, Progress toward Goal/Update tx plan, Purpose of tx/functional activities, Rehab process, Safety issues Teaching Recipient: Patient Teaching Methods: Demonstration, Discussion Response to Teaching: Verbalize Understanding, Return Demonstration OT Short Term Goals Short Term Goals 1=Demonstrate adherence to instructed precautions during ADL tasks. 2=Patient will verbalize/demonstrate understanding of assistive devices/modifications for ADL. 3=Patient will improve strength/tolerance for activity to enable patient to perform ADL's. OT Long-Term Goals Ems Instructor Goals Time Frame: Jul 09, 2019 Eating (QC): 6 (met) Oral Hygiene (QC): 6 (met) Shower/Bathe Self (QC): 6 Upper Body Dressing (QC): 6 (met) Lower Body Dressing (QC): 6 On/Off Footwear (QC): 6 (met) Toileting Hygiene (QC): 6 Toilet/Commode Transfer (QC): 6 Additional Goals: 1-Demonstrate ADL Tasks, 2-Verbalize Understanding, 3- ImproveStrength/Francisco 1=Demonstrate adherence to instructed precautions during ADL tasks. 2=Patient will verbalize/demonstrate understanding of assistive devices/modifications for ADL. 3=Patient will improve strength/tolerance for activity to enable patient to perform ADL's. OT Education/Plan Problem List/Assessment Assessment: Decreased Activ Tolerance, Impaired I ADL's, Restricted Funct UE ROM Discharge Recommendations Plan/Recommendations: Continue POC Treatment Plan/Plan of Care Treatment,Training & Education: Yes Patient would benefit from OT for education, treatment and training to promote independence in ADL's, mobility, safety and/or upper extremity function for ADL's. Plan of Care: ADL Retraining, Functional Mobility, Group Exercise/Act as Ind, UE Funct Exercise/Act Treatment Duration: Jul 09, 2019 Frequency: At least 5 of 7 days/Wk (IRF) Estimated Hrs Per Day: 1.5 hours per day Agreement: Yes Rehab Potential: Good Time/GCodes Start Time: 09:45 Stop Time: 11:15 Total Time Billed (hr/min): 90 Billed Treatment Time 1, ADL 4 (60), EX 2 (30)= 90 FRANSISCO BALDERAS OTR Jun 26, 2019 12:51
--- NOTE | 2019-06-26 13:39 | NUR ---
RD ASSESSMENT PMHx: No pertinent PMH. PT INTERACTION: Pt was awake and pleasant during rehab nutrition assessment. Pt states current appetite is "so-so", and it has been this way for the "past week or so." Note pt has been eating well since admit, per chart review. Pt states following a regular diet at home, and currently has some difficulty with chewing food related to facial fractures. Pt states no recent issues with n/v/c/d at this time. Pt states no recent wt changes. Note unable to determine recent wt hx, per chart review. ABNORMAL NUTRITION-RELATED LAB VALUES: glu 122 (H); AST 39 (H); Pro 6.1 (L) Est. kcal needs: 6965-5260 kcal (25-30 kcal/kg) Est. Pro needs: 81-94 g Pro (1.2-1.4 g Pro/kg) PES STATEMENT: Inadequate protein intake ([id number]) related to increased protein needs as evidenced by multiple fractures INTERVENTION: Continue with current diet order of Regular diet. Add Ensure Enlive (vary) to meals TID. Provides 350 kcal and 20 g Pro per serving. MONITOR/EVALUATE: PO Intake; Plan of Care; Hydration Status; Weight Status; Lab Values Akua Kearney, MS, RD, LD Ext. [phone]
--- NOTE | 2019-06-26 13:53 | Physical Therapy Daily Note ---
PT Daily Note-Current Subjective Pt walking toward bathroom pre-tx. Pt agrees to PT this afternoon. pt reports continued pain at this time and RN is notified. Appearance Pt in bed post-tx. Pt has call light, room phone, tray table and FWW in reach and all needs met at this time. Mental Status Patient Orientation: Person, Place, Time, Situation Transfers SCALE: Activities may be completed with or without assistive devices. 8-Hbbtonbjnt-pgofotf completes the activity by him/herself with no assistance from a helper. 5-Set-up or Clean-up Assistance-helper sets up or cleans up; patient completes activity. [place] assists only prior to or following the activity. 4-Supervision or Touching Assistance-helper provides verbal cues and/or touching/steadying and/or contact guard assistance as patient completes activity. Assistance may be provided throughout the activity or intermittently. 3-Partial/Moderate Assistance-helper does LESS THAN HALF the effort. [place] lifts, holds or supports trunk or limbs, but provides less than half the effort. 2-Substantial/Maximal Assistance-helper does MORE THAN HALF the effort. [place] lifts or holds trunk or limbs and provides more than half the effort. 9-Jqkzxdziv-iriemp does ALL the effort. Patient does none of the effort to com plete the activity. Or, the assistance of 2 or more helpers is required for the patient to complete the activity. If activity was not attempted, code reason: 7-Patient Refused. 9-Not Applicable-not attempted and the patient did not perform the activity before the current illness, exacerbation or injury. 10-Not Attempted due to Environmental Limitations-(lack of equipment, weather restraints, etc.). 88-Not Attempted due to Medical Conditions or Safety Concerns. Sit to Lying (QC): 3 (María for R LE) Sit to Stand (QC): 6 Pt requires assist for getting the R LE into bed from EOB. Weight Bearing Right Lower Extremity: Right Touch Toe Bearing Left Lower Extremity: Left Full Weight Bearing Gait Training Does the Patient Walk?: Yes Distance: 180' Walk 10 feet (QC): 6 Walk 50 ft with 2 Turns(QC): 6 Walk 150 ft (QC): 5 Gait Assistive Device: FWW Pt continues to use slow and steady hopping pattern on the L LE with the R LE behind him as he walks. Pt continues to follow TTWB status Wheelchair Training Does the Pt Use a Wheelchair?: No Treatments Pt performed bed mobility, skilled ambulation training, and education this date. Assessment Current Status: Good Progress Pt katie increased distance this afternoon with no breaks and no increase from baseline pain this session. PT Car Installations Supervisor Goals Care Home Goals PT Care Home Goals Time Frame: Jul 09, 2019 Sit to Lying (QC): 6 Lying-Sitting on Side/Bed(QC): 6 Sit to Stand (QC): 6 Roll Left to Right (QC): 6 Chair/Awz-la-Flslu Xfer(QC): 6 Car Transfer (QC): 6 Does the Patient Walk: Yes Walk 10 feet (QC): 6 Walk 10ft-Uneven Surface(QC): 6 Walk 50ft with 2 Turns (QC): 6 Walk 150 ft (QC): 6 Gait Assistive Device: FWW Wheel 50 feet with 2 turns (QC: 6 1 Step (curb) (QC): 6 4 Steps (QC): 6 12 Steps (QC): 88 Picking up an Object (QC): 88 PT Plan Problem List Problem List: Activity Tolerance, Functional Strength, Safety, Balance, Gait, Transfer, Bed Mobility Treatment/Plan Treatment Plan: Bed Mobility, Education, Functional Activity Francisco, Functional Strength, Group Therapy, Gait, Safety, Therapeutic Exercise, Transfers Treatment Duration: Jul 09, 2019 Frequency: At least 5 of 7 days/Wk (IRF) Estimated Hrs Per Day: 1.5 hours per day Patient and/or Family Agrees t: Yes Safety Risks/Education Patient Education: Gait Training, Transfer Techniques, Correct Positioning, Safety Issues Teaching Recipient: Patient Teaching Methods: Demonstration, Discussion Response to Teaching: Return Demonstration, Reinforcement Needed Time/GCodes Time In: 1325 Time Out: 1345 Total Billed Treatment Time: 20 Total Billed Treatment 1 Visit GT 20' MOISES SALAZAR PT Jun 26, 2019 13:53
[2019-06-26] MEDS ORDERED: BISACODYL 10 MG SUPP (DULCOLAX) PR PRN (14:00)
[2019-06-26] MEDS: IBUPROFEN TABLET 200 MG TAB PO PRN (14:02)
[2019-06-26] MEDS: DIAZEPAM 5 MG (VALIUM) TABLET PO PRN (14:03)
--- NOTE | 2019-06-26 15:28 | NUR ---
Met with patient, patient's spouse and patient's daughter to complete initial assessment. Patient admitted to ARU on 06/25/19 with multiple fractures and head injury from a fall off a ladder. Patient lives at home with his spouse, Asya, in a single-level home with 2 entry steps with railing. Prior to hospitalization, patient reports he was independent with ADLs and functional mobility. He was not using any adaptive equipment. Patient reports they have a walker at home that was a family member's. Patient's daughter reports she has a stool for the shower if needed. Patient's reports they have a friend who is currently working on installing a ramp at the front entrance. Patient confirms PCP is Dr. Sandoval. Patient's preferred pharmacy is [email or web address] in [place], [place]. Patient confirms primary insurance as [employer] Blue [employer]. Patient's emergency contacts are: Asya Oneal () - and Margarita (daughter) - . Purpose of the weekly team conference was discussed and patient and his family verbalize understanding. Patient's discharge goal is to return home with his spouse.
[2019-06-26] MEDS: ENOXAPARIN 40 MG/0.4 ML (LOVENOX) SYR SQ SCH (17:17)
[2019-06-26 17:20] VITALS: BP 136/75
[2019-06-27] MEDS: HYDROcodone/APAP 10 MG/325 MG (LORTAB) TAB PO PRN ×3 (02:23→18:32)
[2019-06-27 05:29] VITALS: BP 167/82
--- NOTE | 2019-06-27 08:52 | Physical Therapy Daily Note ---
PT Daily Note-Current Subjective Pt in chair pre-tx. Pt agrees to PT this morning. Pt reports decreased pain this morning to 4/10 in the R hip as he gets up to start ambulating. Follow up about pt's room heat and problem was resolved yesterday. Appearance Pt in chair post-tx with call light, room phone, tray table in reach and all needs met at this time. Pt present in room at this time. Mental Status Patient Orientation: Person, Place, Time, Situation Transfers SCALE: Activities may be completed with or without assistive devices. 7-Ayycidgyfb-zzwwchy completes the activity by him/herself with no assistance from a helper. 5-Set-up or Clean-up Assistance-helper sets up or cleans up; patient completes activity. [place] assists only prior to or following the activity. 4-Supervision or Touching Assistance-helper provides verbal cues and/or touching/steadying and/or contact guard assistance as patient completes activity. Assistance may be provided throughout the activity or intermittently. 3-Partial/Moderate Assistance-helper does LESS THAN HALF the effort. [place] lifts, holds or supports trunk or limbs, but provides less than half the effort. 2-Substantial/Maximal Assistance-helper does MORE THAN HALF the effort. [place] lifts or holds trunk or limbs and provides more than half the effort. 4-Ngecatlyr-relblh does ALL the effort. Patient does none of the effort to complete the activity. Or, the assistance of 2 or more helpers is required for the patient to complete the activity. If activity was not attempted, code reason: 7-Patient Refused. 9-Not Applicable-not attempted and the patient did not perform the activity before the current illness, exacerbation or injury. 10-Not Attempted due to Environmental Limitations-(lack of equipment, weather restraints, etc.). 88-Not Attempted due to Medical Conditions or Safety Concerns. Sit to Stand (QC): 6 Weight Bearing Right Lower Extremity: Right Touch Toe Bearing Left Lower Extremity: Left Full Weight Bearing Gait Training Does the Patient Walk?: Yes Distance: 100' 50' Walk 10 feet (QC): 6 Walk 50 ft with 2 Turns(QC): 6 Gait Assistive Device: FWW Pt continues to use a slow 3 point hop gait pattern with the R LE in TTWB behind the pt. Exercises Seated Therapy Exercises: Ankle pumps, Long arc quads (B/L: LLE used 3# ankle weight. RLE no weight), Hamstring Curls (B/L; LLE with Red Tbd 2 sets. RLE with red Tbd for 2nd set only.) Seated Reps: 30 (2 sets of 15) NuStep Minutes: 10 (5 minutes B/L LE workload 15 minutes with R LE on ground workload 5) NuStep Workload: 1 (see Nustep minutes comments) Treatments Pt performed transfer training, LE strengthening, skilled ambulation training, and education this session Assessment Current Status: Good Progress Pt continues to ambulate indep with no imbalance this session. Pt katie strengthening ex with mod fatigue in L LE following this session. PT Senior Systems Software Engineer Goals Senior Systems Software Engineer Goals PT Fdc Goals Time Frame: Jul 09, 2019 Sit to Lying (QC): 6 Lying-Sitting on Side/Bed(QC): 6 Sit to Stand (QC): 6 Roll Left to Right (QC): 6 Chair/Blh-kb-Hvvrf Xfer(QC): 6 Car Transfer (QC): 6 Does the Patient Walk: Yes Walk 10 feet (QC): 6 Walk 10ft-Uneven Surface(QC): 6 Walk 50ft with 2 Turns (QC): 6 Walk 150 ft (QC): 6 Gait Assistive Device: FWW Wheel 50 feet with 2 turns (QC: 6 1 Step (curb) (QC): 6 4 Steps (QC): 6 12 Steps (QC): 88 Picking up an Object (QC): 88 PT Plan Problem List Problem List: Activity Tolerance, Functional Strength, Safety, Balance, Gait, Transfer Treatment/Plan Treatment Plan: Continue Plan of Care Treatment Plan: Bed Mobility, Education, Functional Activity Francisco, Functional Strength, Group Therapy, Gait, Safety, Therapeutic Exercise, Transfers Treatment Duration: Jul 09, 2019 Frequency: At least 5 of 7 days/Wk (IRF) Estimated Hrs Per Day: 1.5 hours per day Patient and/or Family Agrees t: Yes Safety Risks/Education Patient Education: Gait Training, Transfer Techniques, Reviewed Precautions, Correct Positioning, Safety Issues Teaching Recipient: Patient Teaching Methods: Demonstration, Discussion Response to Teaching: Return Demonstration, Reinforcement Needed Time/GCodes Time In: 800 Time Out: 900 Total Billed Treatment Time: 60 Total Billed Treatment 1 visit EX 30' GT 30' ROGE SHULTZ PT Jun 27, 2019 08:52
--- NOTE | 2019-06-27 09:04 | Individualized Plan of Care ---
Individualized Plan of Care Rehab Nursing IPOC Order Admission Date Jun 25, 2019 at 14:15 Current Orders Orders Admission Order(Inpt,Obs,Sdc) (06/25/19 10:17) Vital Signs: Per Unit Policy ( 08,16,00 (06/25/19 10:17) Eleuterio Bonilla 09,21 (06/25/19 10:17) Sequential Compression Device Q4H (06/25/19 10:17) Paint Factory Worker-Inpt Rehab Con (06/25/19 10:17) Rehab Nursing Orders-Ipoc (06/25/19 10:17) Physical Therapy Rehab Orders (06/25/19 10:17) Occupational Therapy Rehab Ord (06/25/19 10:17) Speech Therapy Rehab Orders (06/25/19 10:17) General/Regular (06/25/19 Dinner) Intake & Output 06,14,22 (06/25/19 10:17) Precautions (Aru) (06/25/19 10:17) Weekly Weight WEEK (06/25/19 10:17) Rehab-Intensity Of Therapy (06/25/19 10:17) Initiate Admission Nursing Pro .admission (06/25/19 10:17) Initiate Admission Nursing Pro .admission (06/25/19 10:17) Cbc With Automated Diff (06/26/19 06:00) Comprehensive Metabolic Panel (06/26/19 06:00) Acetaminophen Tablet (Tylenol Tablet) (06/25/19 10:30) Calcium Carbonate Chew Tablet (Antacid C (06/25/19 10:30) Diphenhydramine Tablet (Benadryl Tablet) (06/25/19 10:30) Docusate Sodium Capsule (Colace Capsule) (06/25/19 10:30) Hydrocodone/Apap 5/325 Tablet (Lortab 5 (06/25/19 10:30) Loperamide Tablet (Imodium Tablet) (06/25/19 10:30) Melatonin Tablet (Melatonin Tablet) (06/25/19 10:30) Ondansetron Oral Dissolve Tab (Zofran (06/25/19 10:30) Senna S Tablet (Senokot S Tablet) (06/25/19 21:00) Follow-Up Appointment D/C (06/25/19 14:26) Follow-Up Appointment D/C (06/25/19 14:26) Follow-Up Appointment D/C (06/25/19 14:26) Follow-Up Appointment D/C (06/25/19 14:26) Physical Therapy Order (06/25/19 14:26) Nursing Communication (Order) (06/25/19 14:26) Patient Visit (06/25/19 ) Pt Eval Moderate Complexity (06/25/19 ) Functional Activities, Ea 15 (06/25/19 ) Sequential Compression Device Q4H (06/25/19 16:13) Dvt/Vte Risk - Notifiy Physici Q4H (06/25/19 16:13) Enoxaparin Injection (Lovenox Injection) (06/25/19 16:30) Lactulose Oral Solution (Enulose Oral So (06/25/19 19:25) Lactulose Oral Solution (Enulose Oral So (06/26/19 09:00) Hydrocodone/Apap 10/325 Tablet (Lortab 1 (06/25/19 21:00) Consult Internal Medicine (06/26/19 09:25) Patient Visit (06/26/19 ) Speech Sound Lang Comp (06/26/19 ) Patient Visit (06/26/19 ) Gait Training, Ea 15 Min (06/26/19 ) Functional Activities, Ea 15 (06/26/19 ) Ibuprofen Tablet (Motrin Tablet) (06/26/19 13:30) Diazepam Tablet (Valium Tablet) (06/26/19 13:30) Bisacodyl Suppository (Dulcolax Supposit (06/26/19 14:00) Soap Suds Enema Until Clear (06/26/19 13:52) Patient Visit (06/26/19 ) Gait Training, Ea 15 Min (06/26/19 ) Ensure Enlive (06/27/19 Breakfast) Incentive Spirometry (Nursing) Q2H (06/26/19 15:33) Rt Request For Service (06/26/19 15:58) Rehab Nursing Orders: Ongoing Assess. of Cognitive Status, Ongoing Assess. of Function Status, Bladder Training, Bowel Training, Disease Management & Educaiton, DVT Prophylaxis, Fall Prevention, Fluid/Electrolyte/Nutrition Mgmt, Infection Prevention, Medication Management & Education, Management of Risks & Complications, Management of Skin Intergrity, Nutrition Management, Pain Management, Patient/Family Support, Safety Management Intensity of Therapy to be met Patient to be seen: Min.3h per day/5 of 7d PT IPOC Problem List: Activity Tolerance, Functional Strength, Safety, Balance, Gait, Transfer Treatment Plan: Continue Plan of Care Bed Mobility, Education, Functional Activity Francisco, Functional Strength, Group Therapy, Gait, Safety, Therapeutic Exercise, Transfers Treatment Duration: Jul 09, 2019 Frequency: At least 5 of 7 days/Wk (IRF) Estimated Hrs Per Day: 1.5 hours per day OT IPOC Problems: Decreased Activ Tolerance, Impaired I ADL's, Restricted Funct UE ROM OT Treatment, Training and Edu: Yes Plan of Care: ADL Retraining, Functional Mobility, Group Exercise/Act as Ind, UE Funct Exercise/Act Treatment Duration: Jul 09, 2019 Frequency: At least 5 of 7 days/Wk (IRF) Estimated Hrs Per Day: 1.[address] IPOC Speech Therapy Treatment Plan: Discontinue ST Treatment Duration: Jun 26, 2019 Frequency: 1 time per week Estimated Hrs Per Day: .25 hour per day Paint Factory Worker/Case Mgmt Paint Factory Worker/Case Managemen: Discharge Planning Dietitian/Reimbursement Analyst Dietitian/Reimbursement Analyst to monitor nutritional status and make changes and/or recommendations as needed and work with speech pathology on dietary upgrades as the occur. Physician IPOC Medical Issues being managed closely and that require the 24 hour availability of a physician: Patient with recent severe injuries from fall off ladder with new diagnosis of lung cancer COPD and hypoxia will be at high risk for decompensation Medical Issues: Bowel/Bladder Function, DVT Prophylaxis, Falls Precautions, Fluid/Electrolyte/Nutrition Balance, Infection Protection, Pain Management Brief Synthesis of Preadmission Screen, Post-Admission Evaluation, and Therapy Evaluations: PT will focus on ambulation with walker OT we'll focus on improving independence with ADLs Medical Prognosis: Good Anticipated Length of Stay: 7 days MÓNICA SAAVEDRA DO Jun 27, 2019 09:04
--- NOTE | 2019-06-27 09:04 | PM&R Progress Note ---
Subjective HPI/CC On Admission Date Seen by Provider: Jun 27, 2019 Time Seen by Provider: 09:15 CC: Fall off ladder with multiple fractures HPI: This is a 63yoWM who suffered a fall on 06/21/19 and transferred to [place] for trauma suffered facial fractures and right globe injury and multiple other fracture including ribs and pelvis and was stabilized participating in therapy but in need of increased therapy in order to return home. He did have a mass in his lung that was biopsied and just today received results it is lung cancer but patient is now aware of the dx yet. Pt PCP is Dr. Sandoval and I will reach out to him. He is a smoker and has COPD and he does decrease his O2 saturations at night. He previously was independent with ADLs and ambulation. CC[facility]HPI [facility] CC: Fell from ladder, Right facial bone fractures, Right Rib fracture, Right Hip fracture HPI: Pt is alert and oriented x3, pleasant, and excited to be able to come to the rehab unit prior to going home. He states he has some pain in his hip and ribs mainly that has been getting better the last couple days, but has been limiting his ability to move normally. He states he has a cough due to stopping smoking since the accident, which has caused him increased pain in his fractured rib. He also states he has a little bit of a headache near his facial fractures, but this has gotten much better as well. He has been getting a little dizzy when he is struggling to move around. He has sleep apnea that he has recently been wearing a CPAP makes but is not sure it will work with his facial fracture. Barriers: * He is able to use a wheelchair to move himself around very well * He was able to walk a short distance using a walker with only minimal assistance * He was able to stand from the wheelchair and turn to sit in the bed with minimal assistance * He was able to take off and put back on his sock without help * He was able to go in the restroom and transfer to the toilet with some assistance * He is still having significant pain with turning himself into the bed from se ated to lying * He had pain straightening himself in the bed * He does have 2 steps into the house from the garage that would be his biggest barrier * He thinks he will be able to use the walker for most of his trips inside the house due to the short distances Goals: * He would like to be able to take a shower and get dressed by himself prior to going home * He would like to feel a little more confident using the walker by himself * He would like to gain some strength and learn techniques to make his daily a ctivities easier * He would like to walk without a walker in the future, but understands it may take a couple months of healing Subjective/Events-last exam Pt had a good night and taking less and less pain medication Patient was notified by the [place] doctor at the 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 Checked meds and labs Reviewed therapy notes Conferred with tube builder of Systems Musculoskeletal: other (facial pain with rib pain), leg pain Objective Exam Vital Signs Vital Signs Date Time Temp Pulse Resp B/P (MAP) Pulse Ox O2 Delivery O2 Flow Rate FiO2 06/27/19 09:00 Room Air 06/27/19 05:29 36.9 68 18 167/82 (110) 98 06/26/19 08:15 0.00 Capillary Refill : Less Than 3 Seconds General Appearance: No Apparent Distress, WD/WN, Chronically ill, Thin HEENT: PERRL/EOMI (except for right eye with bruising), Normal ENT Inspection, Pharynx Normal, Moist Mucous Membranes Neck: Full Range of Motion, Normal Inspection, Non Tender, Supple Respiratory: Chest Non Tender, Lungs Clear, Normal Breath Sounds, No Accessory Muscle Use, No Respiratory Distress, Decreased Breath Sounds Cardiovascular: Regular Rate, Rhythm, No Edema, No Gallop, No JVD, No Murmur Gastrointestinal: Normal Bowel Sounds, No Organomegaly, No Pulsatile Mass, Non Tender, Soft Back: Normal Inspection, No CVA Tenderness, Decreased Range of Motion, Vertebral Tenderness Extremity: Normal Capillary Refill, Normal Inspection, Normal Range of Motion (except right leg), Non Tender, No Calf Tenderness, No Pedal Edema Neurologic/Psychiatric: Alert, Oriented x3, No Motor/Sensory Deficits, Normal Mood/Affect, auction clerk II-XII Norm as Tested Skin: Normal Color, Warm/Dry Lymphatic: No Adenopathy Results/Procedures Lab Patient resulted labs reviewed. FIM Transfers Therapy Code Descriptions/Definitions Functional [place] Measure: 0=Not Assessed/NA 4=Minimal Assistance 1=Total Assistance 5=Supervision or Setup 2=Maximal Assistance 6=Modified [place] 3=Moderate Assistance 7=Complete IndependenceSCALE: Activities may be completed with or without assistive devices. 1-Jsmtgaoqow-blctoev completes the activity by him/herself with no assistance from a helper. 5-Set-up or Clean-up Assistance-helper sets up or cleans up; patient completes activity. [place] assists only prior to or following the activity. 4-Supervision or Touching Assistance-helper provides verbal cues and/or touching/steadying and/or contact guard assistance as patient completes activit y. Assistance may be provided throughout the activity or intermittently. 3-Partial/Moderate Assistance-helper does LESS THAN HALF the effort. [place] lifts, holds or supports trunk or limbs, but provides less than half the effort. 2-Substantial/Maximal Assistance-helper does MORE THAN HALF the effort. [place] lifts or holds trunk or limbs and provides more than half the effort. 2-Drfycfyrv-jmzvab does ALL the effort. Patient does none of the effort to complete the activity. Or, the assistance of 2 or more helpers is required for the patient to complete the activity. If activity was not attempted, code reason: 7-Patient Refused. 9-Not Applicable-not attempted and the patient did not perform the activity before the current illness, exacerbation or injury. 10-Not Attempted due to Environmental Limitations-(lack of equipment, weather restraints, etc.). 88-Not Attempted due to Medical Conditions or Safety Concerns. Roll Left to Right (QC): 3 Sit to Lying (QC): 3 (María for R LE) Sit to Stand (QC): 6 Chair/Wuq-ms-Rtbsq Xfer(QC): 4 (CGA for safety.) Car Transfer (QC): 3 (min assist to move right LE) Gait Training Does the Patient Walk?: Yes Distance (FIM): 1=up to 49 ft Distance: 100' 50' Walk 10 feet (QC): 6 Walk 50 ft with 2 Turns(QC): 6 Walk 150 ft (QC): 5 Walking 10ft/uneven surface-QC: 4 (SBA) Gait Assistive Device: FWW Wheelchair Training Does the Pt Use a Wheelchair?: No Wheel 50 ft with 2 turns (QC): 4 (SBA) Wheel 150 ft (QC): 4 Type of Wheelchair: Manual Stair Training Stair Training: Handrails/: uses walker #of Steps: 1 1 Step (curb) (QC): 4 (SBA) 4 Steps (QC): 88 12 Steps (QC): 88 Stairs: Pattern: Hops Balance Picking up an Object (QC): 88 (unsafe to attempt) ADL-Treatment Eating (QC): 6 Oral Hygiene (QC): 6 Shower/Bathe Self (QC): 5 (SUP during stance) Upper Body Dressing (QC): 6 (Pt gathers clothing items from closet, dons while seated in recliner chair.) Lower Body Dressing (QC): 5 (Gathers clothes, dons with SBA) On/Off Footwear (QC): 4 Toileting Hygiene (QC): 5 (completes in shower with SUP in stance.) Toilet Transfer (QC): 5 (completes sit to stand with SBA) Assessment/Plan Assessment and Plan Assess & Plan/Chief Complaint Assessment: Fall from ladder 15 ft 06/21/19 Facial fractures Right globe eye injury Pelvic fracture Rib fractures Night time hypoxia SCC of lung s/p biopsy at [place] prior to DC and patient was notified yesterday 06/26/19 Plan: Pain management BM regimen Dr Sandoval consultation Inpatient rehabilitation protocol (1) Brain injury (2) Squamous cell lung cancer (3) COPD (chronic obstructive pulmonary disease) (4) Rib fractures (5) Pelvic fracture (6) Lung mass (7) Facial fracture due to fall (8) Injury of globe of right eye (9) History of lung biopsy (10) Smoker MÓNICA SAAVEDRA DO Jun 27, 2019 09:04
[2019-06-27] MEDS: SENNA W/DOCUSATE (SENOKOT S) TABLET PO SCH ×2 (09:53→19:52)
[2019-06-27] MEDS: LACTULOSE SYRUP 10GM/15ML (ENULOSE) 30ML UDC PO SCH ×2 (09:53→19:52)
--- NOTE | 2019-06-27 10:30 | Occupational Ther Daily Note ---
OT Current Status-Daily Note Subjective Pt seen in recliner chair, wrapped in blankets. Pt states his pain is "alright," states 2/10 pain at rest and 4/10 pain with ambulation with FWW. Pt agreeable to OT tx session. Mental Status/Objective Patient Orientation: Normal For Age ADL-Treatment Therapy Code Descriptions/Definitions Functional [place] Measure: 0=Not Assessed/NA 4=Minimal Assistance 1=Total Assistance 5=Supervision or Setup 2=Maximal Assistance 6=Modified [place] 3=Moderate Assistance 7=Complete IndependenceSCALE: Activities may be completed with or without assistive devices. 3-Blltnyknct-ejplmxa completes the activity by him/herself with no assistance from a helper. 5-Set-up or Clean-up Assistance-helper sets up or cleans up; patient completes activity. [place] assists only prior to or following the activity. 4-Supervision or Touching Assistance-helper provides verbal cues and/or touching/steadying and/or contact guard assistance as patient completes activity. Assistance may be provided throughout the activity or intermittently. 3-Partial/Moderate Assistance-helper does LESS THAN HALF the effort. [place] lifts, holds or supports trunk or limbs, but provides less than half the effort. 2-Substantial/Maximal Assistance-helper does MORE THAN HALF the effort. [place] lifts or holds trunk or limbs and provides more than half the effort. 3-Svnkrueri-tluylf does ALL the effort. Patient does none of the effort to complete the activity. Or, the assistance of 2 or more helpers is required for the patient to complete the activity. If activity was not attempted, code reason: 7-Patient Refused. 9-Not Applicable-not attempted and the patient did not perform the activity before the current illness, exacerbation or injury. 10-Not Attempted due to Environmental Limitations-(lack of equipment, weather restraints, etc.). 88-Not Attempted due to Medical Conditions or Safety Concerns. Eating (QC): 6 Other Treatment Pt sit to stand from chair with SBA, ambulates with FWW to therapy gym with SBA - SUP. Pt completes 16 min of arm bike at moderate resistance (25 watt) with one break at 7min. Pt demonstrates ability to complete physical challenge while maintaining attention on conversation and jeopardy game with ease. Pt completes balance/ core activity with skilled cues for positioning and movements from abdomen. Pt utilizes 2 lb weighted bar to bat ball back and forth with diagonal patterns and reaching out of base of support. Pt completes with good hand eye contact, good dynamic sitting balance, and moderate endurance. Pt completes UE bar exercises with 5 lb weighted bar, completes shoulder flexion, biceps curls and abdominal twists (3 sets of 15 exercises). Pt sit to stand from EOM, returns to recliner chair with call light in reach, all needs met. Education OT Patient Education: Correct positioning, Exercise program, Purpose of tx/functional activities, Rehab process, Safety issues Teaching Recipient: Patient Teaching Methods: Demonstration, Discussion Response to Teaching: Verbalize Understanding, Return Demonstration OT Short Term Goals Short Term Goals 1=Demonstrate adherence to instructed precautions during ADL tasks. 2=Patient will verbalize/demonstrate understanding of assistive devices/modifications for ADL. 3=Patient will improve strength/tolerance for activity to enable patient to perform ADL's. OT Orthopedic Technician Goals Long-Term Goals Time Frame: Jul 09, 2019 Eating (QC): 6 (met) Oral Hygiene (QC): 6 (met) Shower/Bathe Self (QC): 6 Upper Body Dressing (QC): 6 (met) Lower Body Dressing (QC): 6 On/Off Footwear (QC): 6 (met) Toileting Hygiene (QC): 6 Toilet/Commode Transfer (QC): 6 Additional Goals: 1-Demonstrate ADL Tasks, 2-Verbalize Understanding, 3-ImproveStrength/Francisco 1=Demonstrate adherence to instructed precautions during ADL tasks. 2=Patient will verbalize/demonstrate understanding of assistive devices/modifications for ADL. 3=Patient will improve strength/tolerance for activity to enable patient to perform ADL's. OT Education/Plan Problem List/Assessment Assessment: Decreased Activ Tolerance, Impaired I ADL's, Impaired Self-Care Skills, Restricted Funct UE ROM Discharge Recommendations Plan/Recommendations: Continue POC Treatment Plan/Plan of Care Treatment,Training & Education: Yes Patient would benefit from OT for education, treatment and training to promote independence in ADL's, mobility, safety and/or upper extremity function for ADL's. Plan of Care: ADL Retraining, Functional Mobility, Group Exercise/Act as Ind, UE Funct Exercise/Act Treatment Duration: Jul 09, 2019 Frequency: At least 5 of 7 days/Wk (IRF) Estimated Hrs Per Day: 1.5 hours per day Agreement: Yes Rehab Potential: Good Time/GCodes Start Time: 09:00 Stop Time: 10:00 Total Time Billed (hr/min): 60 Billed Treatment Time 1, EX 4= 60 FRANSISCO BALDERAS OTR Jun 27, 2019 10:30
--- NOTE | 2019-06-27 14:34 | Therapy Group Daily Note ---
Therapy Daily Group Note Patient Education Topic Other List Below (orientation to rehab expectations and requirements, gait patterns and safety and devices) Exercises LE Seated Exercise, UE Exercise Session Ratio (pt:therapist): 3:1 Goal of Session: UE/LE Strengthing, Other (list) increased gait safety and use of devices, understanding of rehab goals and requirements Goal Met for this Session: Yes Pt Benefit of Group: Contributions to Others, F/U Use of Strategies @Home, Increased Functional Strength, Recognition of Peers, Socialization Other/Notes Pt participated in group PT OT session this date. Pt ambulated to from up ad jon. Pts were social and shared names and hometowns as well as a joke they may recall. Pts. all participated in group U&L extremity exercises and were educated with demonstration of proper gait patterns, gait dysfunction as well as various devices . Pt. back to room after group in chair, light close by. Start Time: 13:00 Stop Time: 14:15 Total Billed Treatment Time: 75 Total Billed Treatment 1,GRP TINO SANDOVAL PAVILION CUTTER Jun 27, 2019 14:34 MOISES POLK Jun 27, 2019 14:57
[2019-06-27] MEDS: ENOXAPARIN 40 MG/0.4 ML (LOVENOX) SYR SQ SCH (17:03)
[2019-06-27 18:01] VITALS: BP 156/84
[2019-06-27] MEDS: DIAZEPAM 5 MG (VALIUM) TABLET PO PRN (19:52)
[2019-06-28] MEDS: HYDROcodone/APAP 10 MG/325 MG (LORTAB) TAB PO PRN ×2 (01:41→19:15)
[2019-06-28 05:04] VITALS: BP 150/87
--- NOTE | 2019-06-28 08:00 | NUR ---
STATES VALIUM HELPED HIM TO SLEEP LAST NIGHT. STATES GETS UNCOMFORTABLE IN BED AND SITTING IN CHAIR IS MOST COMFORTABLE. CAN'T CHEW ON RIGHT SIDE OF MOUTH AND OFFERED TO CHANGE DIET TO MECHANICAL SOFT, BUT PATIENT WISHES TO REMAIN ON A REGULAR DIET FOR NOW. AT BEDSIDE STATES HER BROTHER ALSO JUST DIAGNOSED WITH CANCER AND FEELS THIS HAS BEEN AN OVERWHELMING WEEK.
--- NOTE | 2019-06-28 08:18 | Physical Therapy Daily Note ---
PT Daily Note-Current Subjective Pt sitting up in bed upon arrival. Pt agrees to PT. Pain Numeric Pain Scale: 9 Location Body Site: Pelvic Pain Description: Ache Mental Status Patient Orientation: Person, Place, Time, Situation Transfers SCALE: Activities may be completed with or without assistive devices. 3-Uvjptswjwg-flsismi completes the activity by him/herself with no assistance from a helper. 5-Set-up or Clean-up Assistance-helper sets up or cleans up; patient completes activity. [place] assists only prior to or following the activity. 4-Supervision or Touching Assistance-helper provides verbal cues and/or touching/steadying and/or contact guard assistance as patient completes activity. Assistance may be provided throughout the activity or intermittently. 3-Partial/Moderate Assistance-helper does LESS THAN HALF the effort. [place] lifts, holds or supports trunk or limbs, but provides less than half the effort. 2-Substantial/Maximal Assistance-helper does MORE THAN HALF the effort. [place] lifts or holds trunk or limbs and provides more than half the effort. 7-Uqxupoead-jrurpf does ALL the effort. Patient does none of the effort to complete the activity. Or, the assistance of 2 or more helpers is required for the patient to complete the activity. If activity was not attempted, code reason: 7-Patient Refused. 9-Not Applicable-not attempted and the patient did not perform the activity before the current illness, exacerbation or injury. 10-Not Attempted due to Environmental Limitations-(lack of equipment, weather restraints, etc.). 88-Not Attempted due to Medical Conditions or Safety Concerns. Transfers (B, C, W/C): 5 Sit to Lying (QC): 5 Sit to Stand (QC): 5 Chair/Hmn-vn-Oilnp Xfer(QC): 5 Bed to/from Chair: 5 Weight Bearing Right Lower Extremity: Right Touch Toe Bearing Left Lower Extremity: Left Full Weight Bearing Gait Training Does the Patient Walk?: Yes Gait: 5 Distance: 200' Walk 10 feet (QC): 5 Walk 50 ft with 2 Turns(QC): 5 Walk 150 ft (QC): 5 Gait Persons Needed: 1 Gait Assistive Device: FWW Pt does great job of maintaining WB status. Wheelchair Training Does the Pt Use a Wheelchair?: No Exercises NuStep Minutes: 13 NuStep Workload: 5 Treatments Pt transfers from bed to standing then ambulates in hallway. Pt maintaining WB status. Pt uses NuStep for 13m at WL 5. After short RB, pt returns to room to rest in recliner. Pt has all needs met, call light in hand. Assessment Current Status: Good Progress Pt is motivated to get better and return home. Pt does not let pain limit participation in Rx. Pt is gaining strength and independence of tasks. PT [facility] Goals [facility] Goals PT [facility] Goals Time Frame: Jul 09, 2019 Sit to Lying (QC): 6 Lying-Sitting on Side/Bed(QC): 6 Sit to Stand (QC): 6 Roll Left to Right (QC): 6 Chair/Xry-ca-Bspnr Xfer(QC): 6 Car Transfer (QC): 6 Does the Patient Walk: Yes Walk 10 feet (QC): 6 Walk 10ft-Uneven Surface(QC): 6 Walk 50ft with 2 Turns (QC): 6 Walk 150 ft (QC): 6 Gait Assistive Device: FWW Wheel 50 feet with 2 turns (QC: 6 1 Step (curb) (QC): 6 4 Steps (QC): 6 12 Steps (QC): 88 Picking up an Object (QC): 88 PT Plan Problem List Problem List: Activity Tolerance, Functional Strength Treatment/Plan Treatment Plan: Continue Plan of Care Treatment Plan: Bed Mobility, Education, Functional Activity [place], Functional Strength, Group Therapy, Gait, Safety, Therapeutic Exercise, Transfers Treatment Duration: Jul 09, 2019 Frequency: At least 5 of 7 days/Wk (IRF) Estimated Hrs Per Day: 1.5 hours per day Patient and/or Family Agrees t: Yes Safety Risks/Education Patient Education: Gait Training, Transfer Techniques, Correct Positioning, Safety Issues Teaching Recipient: Patient Teaching Methods: Discussion Response to Teaching: Verbalize Understanding Time/GCodes Time In: 715 Time Out: 745 Total Billed Treatment Time: 30 Total Billed Treatment 1, GT (15m) & EX (15m) FARRUKH BASS CALCULATOR OPERATOR Jun 28, 2019 08:18
[2019-06-28] MEDS: LACTULOSE SYRUP 10GM/15ML (ENULOSE) 30ML UDC PO SCH ×2 (08:49→19:26)
[2019-06-28] MEDS: SENNA W/DOCUSATE (SENOKOT S) TABLET PO SCH ×2 (08:49→19:26)
--- NOTE | 2019-06-28 08:56 | Occupational Ther Daily Note ---
OT Current Status-Daily Note Subjective Pt seen in recliner chair, states minimal pain during the night, no current pain. Pt agreeable to OT tx session. Mental Status/Objective Patient Orientation: Normal For Age ADL-Treatment Therapy Code Descriptions/Definitions Functional [place] Measure: 0=Not Assessed/NA 4=Minimal Assistance 1=Total Assistance 5=Supervision or Setup 2=Maximal Assistance 6=Modified [place] 3=Moderate Assistance 7=Complete IndependenceSCALE: Activities may be completed with or without assistive devices. 9-Hmynvltdzm-nnxncry completes the activity by him/herself with no assistance from a helper. 5-Set-up or Clean-up Assistance-helper sets up or cleans up; patient completes activity. [place] assists only prior to or following the activity. 4-Supervision or Touching Assistance-helper provides verbal cues and/or touching/steadying and/or contact guard assistance as patient completes activity. Assistance may be provided throughout the activity or intermittently. 3-Partial/Moderate Assistance-helper does LESS THAN HALF the effort. [place] lifts, holds or supports trunk or limbs, but provides less than half the effort. 2-Substantial/Maximal Assistance-helper does MORE THAN HALF the effort. [place] lifts or holds trunk or limbs and provides more than half the effort. 1-Vbcumzvii-kmthml does ALL the effort. Patient does none of the effort to complete the activity. Or, the assistance of 2 or more helpers is required for the patient to complete the activity. If activity was not attempted, code reason: 7-Patient Refused. 9-Not Applicable-not attempted and the patient did not perform the activity before the current illness, exacerbation or injury. 10-Not Attempted due to Environmental Limitations-(lack of equipment, weather restraints, etc.). 88-Not Attempted due to Medical Conditions or Safety Concerns. Eating (QC): 6 Shower/Bathe Self (QC): 5 (SUP, pt requires no assist in/out of shower or showering tasks.) Upper Body Dressing (QC): 5 (SBA due to stance while donning shirt. Pt became dizzy during donning, requires SBA. ) Lower Body Dressing (QC): 6 Toileting Hygiene (QC): 6 Toilet Transfer (QC): 6 QC on/off footwear= 6 (increased time.) Other Treatment Pt completes ADLs within room. present end of session. Call light in reach, present, all needs met, nursing present. Education OT Patient Education: Correct positioning, Instructions to caregiver, Purpose of tx/functional activities Teaching Recipient: Patient Teaching Methods: Demonstration, Discussion Response to Teaching: Verbalize Understanding, Return Demonstration OT Short Term Goals Short Term Goals 1=Demonstrate adherence to instructed precautions during ADL tasks. 2=Patient will verbalize/demonstrate understanding of assistive devices/modifications for ADL. 3=Patient will improve strength/tolerance for activity to enable patient to perform ADL's. OT Grooving Lathe Tender Goals Grooving Lathe Tender Goals Time Frame: Jul 09, 2019 Eating (QC): 6 (met) Oral Hygiene (QC): 6 (met) Shower/Bathe Self (QC): 6 Upper Body Dressing (QC): 6 (met) Lower Body Dressing (QC): 6 (met) On/Off Footwear (QC): 6 (met) Toileting Hygiene (QC): 6 (met) Toilet/Commode Transfer (QC): 6 (met) Additional Goals: 1-Demonstrate ADL Tasks, 2-Verbalize Understanding, 3- ImproveStrength/Francisco 1=Demonstrate adherence to instructed precautions during ADL tasks. 2=Patient will verbalize/demonstrate understanding of assistive devices/modifications for ADL. 3=Patient will improve strength/tolerance for activity to enable patient to perform ADL's. OT Education/Plan Problem List/Assessment Assessment: Decreased Activ Tolerance, Impaired Funct Balance, Impaired I ADL's, Restricted Funct UE ROM Discharge Recommendations Plan/Recommendations: Continue POC Equpiment Recommendations-D/C: None Treatment Plan/Plan of Care Treatment,Training & Education: Yes Patient would benefit from OT for education, treatment and training to promote independence in ADL's, mobility, safety and/or upper extremity function for ADL's. Plan of Care: ADL Retraining, Functional Mobility, Group Exercise/Act as Ind, UE Funct Exercise/Act Treatment Duration: Jul 09, 2019 Frequency: At least 5 of 7 days/Wk (IRF) Estimated Hrs Per Day: 1.5 hours per day Agreement: Yes Rehab Potential: Good Time/GCodes Start Time: 08:30 Stop Time: 09:10 Total Time Billed (hr/min): 40 Billed Treatment Time 1 ADL x3= 40 FRANSISCO BALDERAS OTR Jun 28, 2019 08:55
[2019-06-28] MEDS: IBUPROFEN TABLET 200 MG TAB PO PRN (11:30)
--- NOTE | 2019-06-28 12:00 | NUR ---
ADMITS TO RIGHT RIB AND PELVIC PAIN, BUT HESITANT TO TAKE PAIN MEDS. AGREED TO TAKE MOTRIN, BUT STATES IT DIDN'T HELP MUCH.
--- NOTE | 2019-06-28 14:52 | PM&R Progress Note ---
Subjective HPI/CC On Admission Date Seen by Provider: Jun 28, 2019 Time Seen by Provider: 13:30 CC: Fall off ladder with multiple fractures HPI: This is a 63yoWM who suffered a fall on 06/21/19 and transferred to [place] for trauma suffered facial fractures and right globe injury and multiple other fracture including ribs and pelvis and was stabilized participating in therapy but in need of increased therapy in order to return home. He did have a mass in his lung that was biopsied and just today received results it is lung cancer but patient is now aware of the dx yet. Pt PCP is Dr. Sandoval and I will reach out to him. He is a smoker and has COPD and he does decrease his O2 saturations at night. He previously was independent with ADLs and ambulation. CC/HPI per [facility] CC: Fell from ladder, Right facial bone fractures, Right Rib fracture, Right Hip fracture HPI: Pt is alert and oriented x3, pleasant, and excited to be able to come to the rehab unit prior to going home. He states he has some pain in his hip and ribs mainly that has been getting better the last couple days, but has been limiting his ability to move normally. He states he has a cough due to stopping smoking since the accident, which has caused him increased pain in his fractured rib. He also states he has a little bit of a headache near his facial fractures, but this has gotten much better as well. He has been getting a little dizzy when he is struggling to move around. He has sleep apnea that he has recently been wearing a CPAP makes but is not sure it will work with his facial fracture. Barriers: * He is able to use a wheelchair to move himself around very well * He was able to walk a short distance using a walker with only minimal assistance * He was able to stand from the wheelchair and turn to sit in the bed with minimal assistance * He was able to take off and put back on his sock without help * He was able to go in the restroom and transfer to the toilet with some assistance * He is still having significant pain with turning himself into the bed from se ated to lying * He had pain straightening himself in the bed * He does have 2 steps into the house from the garage that would be his biggest barrier * He thinks he will be able to use the walker for most of his trips inside the house due to the short distances Goals: * He would like to be able to take a shower and get dressed by himself prior to going home * He would like to feel a little more confident using the walker by himself * He would like to gain some strength and learn techniques to make his daily a ctivities easier * He would like to walk without a walker in the future, but understands it may take a couple months of healing Subjective/Events-last exam Pt had a good night and Valium helped him sleep Dr Sandoval talked to the patient about the next steps in managing the new dx of lung cancer SCC type Bowels are moving Transferring pretty well now Pain is pretty well controlled now and doesn't like to take pain meds. O2 at night since he can't use his CPAP due to facial fractures on the right Using IS Checked meds and labs Reviewed therapy notes Conferred with real estate site analyst of Systems General: Fatigue HEENT: Eye Pain Pulmonary: Dyspnea Musculoskeletal: arm pain, back pain Objective Exam Vital Signs Vital Signs Date Time Temp Pulse Resp B/P (MAP) Pulse Ox O2 Delivery O2 Flow Rate FiO2 06/28/19 09:00 Room Air 06/28/19 07:01 91 06/28/19 05:04 36.7 71 19 150/87 (108) 06/26/19 08:15 0.00 Capillary Refill : Less Than 3 Seconds General Appearance: No Apparent Distress, WD/WN, Chronically ill, Thin HEENT: PERRL/EOMI (except for right eye with bruising), Normal ENT Inspection, Pharynx Normal, Moist Mucous Membranes Neck: Full Range of Motion, Normal Inspection, Non Tender, Supple Respiratory: Chest Non Tender, Lungs Clear, Normal Breath Sounds, No Accessory Muscle Use, No Respiratory Distress, Decreased Breath Sounds Cardiovascular: Regular Rate, Rhythm, No Edema, No Gallop, No JVD, No Murmur Gastrointestinal: Normal Bowel Sounds, No Organomegaly, No Pulsatile Mass, Non Tender, Soft Back: Normal Inspection, No CVA Tenderness, Decreased Range of Motion, Vertebral Tenderness Extremity: Normal Capillary Refill, Normal Inspection, Normal Range of Motion (except right leg), Non Tender, No Calf Tenderness, No Pedal Edema Neurologic/Psychiatric: Alert, Oriented x3, No Motor/Sensory Deficits, Normal Mood/Affect, menagerie superintendent II-XII Norm as Tested Skin: Normal Color, Warm/Dry Lymphatic: No Adenopathy Results/Procedures Lab Patient resulted labs reviewed. FIM Transfers Therapy Code Descriptions/Definitions Functional [place] Measure: 0=Not Assessed/NA 4=Minimal Assistance 1=Total Assistance 5=Supervision or Setup 2=Maximal Assistance 6=Modified [place] 3=Moderate Assistance 7=Complete IndependenceSCALE: Activities may be completed with or without assistive devices. 7-Ihkvmorajr-tshjvzv completes the activity by him/herself with no assistance from a helper. 5-Set-up or Clean-up Assistance-helper sets up or cleans up; patient completes activity. [place] assists only prior to or following the activity. 4-Supervision or Touching Assistance-helper provides verbal cues and/or touching/steadying and/or contact guard assistance as patient completes activity. Assistance may be provided throughout the activity or intermittently. 3-Partial/Moderate Assistance-helper does LESS THAN HALF the effort. [place] lif ts, holds or supports trunk or limbs, but provides less than half the effort. 2-Substantial/Maximal Assistance-helper does MORE THAN HALF the effort. [place] lifts or holds trunk or limbs and provides more than half the effort. 1-Ovlruwzqv-cnwmfd does ALL the effort. Patient does none of the effort to complete the activity. Or, the assistance of 2 or more helpers is required for the patient to complete the activity. If activity was not attempted, code reason: 7-Patient Refused. 9-Not Applicable-not attempted and the patient did not perform the activity before the current illness, exacerbation or injury. 10-Not Attempted due to Environmental Limitations-(lack of equipment, weather restraints, etc.). 88-Not Attempted due to Medical Conditions or Safety Concerns. Transfers (B, C, W/C) (FIM): 5 Roll Left to Right (QC): 3 Sit to Lying (QC): 5 Sit to Stand (QC): 5 Chair/Qka-xh-Cgfek Xfer(QC): 5 Bed to/from Chair: 5 Car Transfer (QC): 3 (min assist to move right LE) Gait Training Does the Patient Walk?: Yes Gait (FIM): 5 Distance (FIM): 1=up to 49 ft Distance: 200' Walk 10 feet (QC): 5 Walk 50 ft with 2 Turns(QC): 5 Walk 150 ft (QC): 5 Walking 10ft/uneven surface-QC: 4 (SBA) Gait Persons Needed: 1 Gait Assistive Device: FWW Wheelchair Training Does the Pt Use a Wheelchair?: No Wheel 50 ft with 2 turns (QC): 4 (SBA) Wheel 150 ft (QC): 4 Type of Wheelchair: Manual Stair Training Stair Training: Handrails/: uses walker #of Steps: 1 1 Step (curb) (QC): 4 (SBA) 4 Steps (QC): 88 12 Steps (QC): 88 Stairs: Pattern: Hops Balance Picking up an Object (QC): 88 (unsafe to attempt) ADL-Treatment Eating (QC): 6 Oral Hygiene (QC): 6 Shower/Bathe Self (QC): 5 (SUP, pt requires no assist in/out of shower or showering tasks.) Upper Body Dressing (QC): 5 (SBA due to stance while donning shirt. Pt became dizzy during donning, requires SBA. ) Lower Body Dressing (QC): 6 On/Off Footwear (QC): 4 Toileting Hygiene (QC): 6 Toilet Transfer (QC): 6 Assessment/Plan Assessment and Plan Assess & Plan/Chief Complaint Assessment: Fall from ladder 15 ft 06/21/19 Facial fractures Right globe eye injury Pelvic fracture Rib fractures Night time hypoxia SCC of lung s/p biopsy at [place] prior to DC and patient was notified 06/26/19 Plan: Pain management BM regimen Dr Sandoval consultation Inpatient rehabilitation protocol Lung cancer treatment plan per PCP (1) Brain injury (2) Squamous cell lung cancer (3) COPD (chronic obstructive pulmonary disease) (4) Rib fractures (5) Pelvic fracture (6) Lung mass (7) Facial fracture due to fall (8) Injury of globe of right eye (9) History of lung biopsy (10) Smoker MÓNICA SAAVEDRA DO Jun 28, 2019 14:52
[2019-06-28] MEDS: ENOXAPARIN 40 MG/0.4 ML (LOVENOX) SYR SQ SCH (16:30)
[2019-06-28 17:23] VITALS: BP 149/78
--- NOTE | 2019-06-28 18:00 | NUR ---
HAS EATEN WELL SOFT FOODS BROUGHT IN FROM HOME. A FAIRLY GOOD DAY.
[2019-06-28] MEDS: DIAZEPAM 5 MG (VALIUM) TABLET PO PRN (19:40)
[2019-06-29] MEDS: HYDROcodone/APAP 10 MG/325 MG (LORTAB) TAB PO PRN ×2 (01:57→18:27)
[2019-06-29 05:10] VITALS: BP 121/85
--- NOTE | 2019-06-29 08:30 | NUR ---
KEEPS PILLOW NEARBY TO SPLINT SELF WHEN COUGHING OR SNEEZING. MEDICATED WITH TYLENOL FOR RIGHT-SIDED HEADACHE.
[2019-06-29] MEDS: IBUPROFEN TABLET 200 MG TAB PO PRN (08:32)
[2019-06-29] MEDS: LACTULOSE SYRUP 10GM/15ML (ENULOSE) 30ML UDC PO SCH ×2 (08:33→19:13)
[2019-06-29] MEDS: SENNA W/DOCUSATE (SENOKOT S) TABLET PO SCH ×2 (08:33→19:14)
--- NOTE | 2019-06-29 09:10 | PM&R Progress Note ---
Subjective HPI/CC On Admission Date Seen by Provider: Jun 29, 2019 Time Seen by Provider: 09:15 CC: Fall off ladder with multiple fractures HPI: This is a 63yoWM who suffered a fall on 06/21/19 and transferred to [place] for trauma suffered facial fractures and right globe injury and multiple other fracture including ribs and pelvis and was stabilized participating in therapy but in need of increased therapy in order to return home. He did have a mass in his lung that was biopsied and just today received results it is lung cancer but patient is now aware of the dx yet. Pt PCP is Dr. Sandoval and I will reach out to him. He is a smoker and has COPD and he does decrease his O2 saturations at night. He previously was independent with ADLs and ambulation. CC/HPI per [facility] CC: Fell from ladder, Right facial bone fractures, Right Rib fracture, Right Hip fracture HPI: Pt is alert and oriented x3, pleasant, and excited to be able to come to the rehab unit prior to going home. He states he has some pain in his hip and ribs mainly that has been getting better the last couple days, but has been limiting his ability to move normally. He states he has a cough due to stopping smoking since the accident, which has caused him increased pain in his fractured rib. He also states he has a little bit of a headache near his facial fractures, but this has gotten much better as well. He has been getting a little dizzy when he is struggling to move around. He has sleep apnea that he has recently been wearing a CPAP makes but is not sure it will work with his facial fracture. Barriers: * He is able to use a wheelchair to move himself around very well * He was able to walk a short distance using a walker with only minimal assistance * He was able to stand from the wheelchair and turn to sit in the bed with minimal assistance * He was able to take off and put back on his sock without help * He was able to go in the restroom and transfer to the toilet with some assistance * He is still having significant pain with turning himself into the bed from se ated to lying * He had pain straightening himself in the bed * He does have 2 steps into the house from the garage that would be his biggest barrier * He thinks he will be able to use the walker for most of his trips inside the house due to the short distances Goals: * He would like to be able to take a shower and get dressed by himself prior to going home * He would like to feel a little more confident using the walker by himself * He would like to gain some strength and learn techniques to make his daily a ctivities easier * He would like to walk without a walker in the future, but understands it may take a couple months of healing Subjective/Events-last exam Pt had another good night and Valium helped him sleep so will maintain that Ribs are sore from sneezing Bowels are moving well with meds Transferring pretty well now and appears improved Pain is pretty well controlled now and doesn't like to take pain meds. O2 at night since he can't use his CPAP due to facial fractures on the right. Had f/u with Dr Lanier that had to be rescheduled since fall so will have Dr Lanier see him tomorrow Overnight O2 study will be done tomorrow night Using IS Checked meds and labs Reviewed therapy notes Conferred with research and insights executive of Systems General: Fatigue Pulmonary: Dyspnea, Cough Musculoskeletal: arm pain Objective Exam Vital Signs Vital Signs Date Time Temp Pulse Resp B/P (MAP) Pulse Ox O2 Delivery O2 Flow Rate FiO2 06/29/19 05:10 36.2 72 18 121/85 (97) 98 Room Air 06/26/19 08:15 0.00 Capillary Refill : Less Than 3 Seconds General Appearance: No Apparent Distress, WD/WN, Chronically ill, Thin HEENT: PERRL/EOMI (except for right eye with bruising), Normal ENT Inspection, Pharynx Normal, Moist Mucous Membranes Neck: Full Range of Motion, Normal Inspection, Non Tender, Supple Respiratory: Chest Non Tender, Lungs Clear, Normal Breath Sounds, No Accessory Muscle Use, No Respiratory Distress, Decreased Breath Sounds Cardiovascular: Regular Rate, Rhythm, No Edema, No Gallop, No JVD, No Murmur Gastrointestinal: Normal Bowel Sounds, No Organomegaly, No Pulsatile Mass, Non Tender, Soft Back: Normal Inspection, No CVA Tenderness, Decreased Range of Motion, Vertebral Tenderness Extremity: Normal Capillary Refill, Normal Inspection, Normal Range of Motion (except right leg), Non Tender, No Calf Tenderness, No Pedal Edema Neurologic/Psychiatric: Alert, Oriented x3, No Motor/Sensory Deficits, Normal Mood/Affect, data analytics analyst II-XII Norm as Tested Skin: Normal Color, Warm/Dry Lymphatic: No Adenopathy Results/Procedures Lab Patient resulted labs reviewed. FIM Transfers Therapy Code Descriptions/Definitions Functional [place] Measure: 0=Not Assessed/NA 4=Minimal Assistance 1=Total Assistance 5=Supervision or Setup 2=Maximal Assistance 6=Modified [place] 3=Moderate Assistance 7=Complete IndependenceSCALE: Activities may be completed with or without assistive devices. 3-Fgnowgdhnt-bopdooy completes the activity by him/herself with no assistance from a helper. 5-Set-up or Clean-up Assistance-helper sets up or cleans up; patient completes activity. [place] assists only prior to or following the activity. 4-Supervision or Touching Assistance-helper provides verbal cues and/or touching/steadying and/or contact guard assistance as patient completes activity. Assistance may be provided throughout the activity or intermittently. 3-Partial/Moderate Assistance-helper does LESS THAN HALF the effort. [place] lifts, holds or supports trunk or limbs, but provides less than half the effort. 2-Substantial/Maximal Assistance-helper does MORE THAN HALF the effort. [place] lifts or holds trunk or limbs and provides more than half the effort. 1-Pdjejveyp-ezbyhd does ALL the effort. Patient does none of the effort to complete the activity. Or, the assistance of 2 or more helpers is required for the patient to complete the activity. If activity was not attempted, code reason: 7-Patient Refused. 9-Not Applicable-not attempted and the patient did not perform the activity before the current illness, exacerbation or injury. 10-Not Attempted due to Environmental Limitations-(lack of equipment, weather restraints, etc.). 88-Not Attempted due to Medical Conditions or Safety Concerns. Transfers (B, C, W/C) (FIM): 5 Roll Left to Right (QC): 3 Sit to Lying (QC): 5 Sit to Stand (QC): 5 Chair/Pbl-vp-Ematr Xfer(QC): 5 Bed to/from Chair: 5 Car Transfer (QC): 3 (min assist to move right LE) Gait Training Does the Patient Walk?: Yes Gait (FIM): 5 Distance (FIM): 1=up to 49 ft Distance: 200' Walk 10 feet (QC): 5 Walk 50 ft with 2 Turns(QC): 5 Walk 150 ft (QC): 5 Walking 10ft/uneven surface-QC: 4 (SBA) Gait Persons Needed: 1 Gait Assistive Device: FWW Wheelchair Training Does the Pt Use a Wheelchair?: No Wheel 50 ft with 2 turns (QC): 4 (SBA) Wheel 150 ft (QC): 4 Type of Wheelchair: Manual Stair Training Stair Training: Handrails/: uses walker #of Steps: 1 1 Step (curb) (QC): 4 (SBA) 4 Steps (QC): 88 12 Steps (QC): 88 Stairs: Pattern: Hops Balance Picking up an Object (QC): 88 (unsafe to attempt) ADL-Treatment Eating (QC): 6 Oral Hygiene (QC): 6 Shower/Bathe Self (QC): 5 (SUP, pt requires no assist in/out of shower or showering tasks.) Upper Body Dressing (QC): 5 (SBA due to stance while donning shirt. Pt became dizzy during donning, requires SBA. ) Lower Body Dressing (QC): 6 On/Off Footwear (QC): 4 Toileting Hygiene (QC): 6 Toilet Transfer (QC): 6 Assessment/Plan Assessment and Plan Assess & Plan/Chief Complaint Assessment: Fall from ladder 15 ft 06/21/19 Facial fractures Right globe eye injury Pelvic fracture Rib fractures Night time hypoxia SCC of lung s/p biopsy at [place] prior to DC and patient was notified 06/26/19 Plan: Pain management BM regimen Dr Sandoval consultation Inpatient rehabilitation protocol Lung cancer treatment plan per PCP Dr Lanier consultation (1) Brain injury (2) Squamous cell lung cancer (3) COPD (chronic obstructive pulmonary disease) (4) Rib fractures (5) Pelvic fracture (6) Lung mass (7) Facial fracture due to fall (8) Injury of globe of right eye (9) History of lung biopsy (10) Smoker MÓNICA SAAVEDRA DO Jun 29, 2019 09:10
--- NOTE | 2019-06-29 10:00 | NUR ---
DOES WEAR O2 AT HS. STATES THEY HAVE MISSED A DR. JOHNSON APPOINTMENT AND HE IS CONSULTED AND WILL SEE PATIENT TOMORROW RE: SLEEP APNEA AND OVERNIGHT SLEEP OX SCHEDULED FOR TOMORROW NIGHT.
[2019-06-29] MEDS: ENOXAPARIN 40 MG/0.4 ML (LOVENOX) SYR SQ SCH (17:26)
[2019-06-29 18:00] VITALS: BP 144/79
[2019-06-29] MEDS: DIAZEPAM 5 MG (VALIUM) TABLET PO PRN (19:10)
[2019-06-30] MEDS: HYDROcodone/APAP 10 MG/325 MG (LORTAB) TAB PO PRN ×4 (00:44→20:47)
[2019-06-30 05:13] VITALS: BP 137/83
[2019-06-30 05:34] LABS: BASOPHILS # (AUTO) 0.1 10^3/uL (0.0-0.1); BASOPHILS % (AUTO) 1 % (0-10); EOSINOPHILS # (AUTO) 0.4 10^3/uL (0.0-0.3); EOSINOPHILS % (AUTO) 5 % (0-10); HEMATOCRIT 33 % (40-54); HEMOGLOBIN 10.9 G/DL (13.3-17.7); LYMPHOCYTES # (AUTO) 1.9 X 10^3 (1.0-4.0); LYMPHOCYTES % (AUTO) 25 % (12-44); MEAN CORPUSCULAR HEMOGLOBIN 30 PG (25-34); MEAN CORPUSCULAR HGB CONC 34 G/DL (32-36); MEAN CORPUSCULAR VOLUME 91 FL (80-99); MEAN PLATELET VOLUME 8.3 FL (7.4-10.4); MONOCYTES # (AUTO) 1.1 X 10^3 (0.0-1.0); MONOCYTES % (AUTO) 14 % (0-12); NEUTROPHILS # (AUTO) 4.3 X 10^3 (1.8-7.8); NEUTROPHILS % (AUTO) 56 % (42-75); PLATELET COUNT 500 10^3/uL (130-400); RED CELL DISTRIBUTION WIDTH 13.8 % (10.0-14.5); WHITE BLOOD COUNT 7.6 10^3/uL (4.3-11.0)
[2019-06-30 06:06] LABS: ALANINE AMINOTRANSFERASE 40 U/L (0-55); ALBUMIN 3.1 GM/DL (3.2-4.5); ALKALINE PHOSPHATASE 122 U/L (40-136); BILIRUBIN,TOTAL 0.5 MG/DL (0.1-1.0); BUN/CREATININE RATIO 15; CALCIUM 8.6 MG/DL (8.5-10.1); CARBON DIOXIDE 26 MMOL/L (21-32); CHLORIDE 104 MMOL/L (98-107); CREATININE SERUM 0.82 MG/DL (0.60-1.30); GFR ESTIMATED > 60; GLUCOSE 87 MG/DL (70-105); POTASSIUM 4.2 MMOL/L (3.6-5.0); SODIUM 138 MMOL/L (135-145); TOTAL PROTEIN 5.5 GM/DL (6.4-8.2)
--- NOTE | 2019-06-30 08:14 | Progress Note ---
SONDRAMAHNAZ NELSONER [facility] 06/30/19 0813: Progress Note CC: Right Rib fracture, Right Facial fracture, Right Pelvic fracture * Pt states he has been been doing good * He is able to walk around the unit with no assistance * He states his pain is doing better and he only takes the pain medication at night * He is still doing the Toe Touch walking using a walker with no concerns * He reports doing better moving and turning in bed which had previously been the most difficult/painful movements * He is wanting to have the surgery to remove his lung cancer nodule, but states the other doctor told him they wanted to have him heal before the procedure * He states his ribs have been feeling better, but still hurt with coughing and sneezing was tremendously painful * He currently does not appear to have any barriers to returning home Discharge possibly tomorrow or Wed after team meeting. MELYSSA SAAVEDRA DO 06/30/192024: Supervisory-Addendum Brief Verification & Attestation Participated in pt care: history, MDM, physical Personally performed: exam, history, MDM, supervision of care Care discussed with: Medical Student Procedures: n/a Results interpretation: Verified all documentation Verification and Attestation of Medical Student E/M Service A medical student performed and documented this service in my presence. I reviewed and verified all information documented by the medical student and made modifications to such information, when appropriate. I personally performed the physical exam and medical decision making. Melyssa Saavedra, Jun 30, 2019,20:25 DELFINA AMARO [facility] Jun 30, 2019 08:13 MELYSSA CAMPA DO Jun 30, 2019 20:25 POS
[2019-06-30] MEDS: LACTULOSE SYRUP 10GM/15ML (ENULOSE) 30ML UDC PO SCH ×2 (08:49→21:14)
[2019-06-30] MEDS: SENNA W/DOCUSATE (SENOKOT S) TABLET PO SCH ×2 (08:50→21:15)
--- NOTE | 2019-06-30 08:56 | Physical Therapy Daily Note ---
PT Daily Note-Current Subjective Pt in chair pre-tx. Pt agrees to PT this morning. Pt initially reports 4/10 pain in the R flank/ribs Appearance Pt in chair post-tx with present. Pt with call light, room phone, tray table in reach and all needs met at this time. Pt reports increased pain from attempting to roll to R up to 6/10 Mental Status Patient Orientation: Person, Place, Time, Situation Transfers SCALE: Activities may be completed with or without assistive devices. 2-Vbcktfjuxn-fjelziv completes the activity by him/herself with no assistance from a helper. 5-Set-up or Clean-up Assistance-helper sets up or cleans up; patient completes activity. [place] assists only prior to or following the activity. 4-Supervision or Touching Assistance-helper provides verbal cues and/or touching/steadying and/or contact guard assistance as patient completes activity. Assistance may be provided throughout the activity or intermittently. 3-Partial/Moderate Assistance-helper does LESS THAN HALF the effort. [place] lifts, holds or supports trunk or limbs, but provides less than half the effort. 2-Substantial/Maximal Assistance-helper does MORE THAN HALF the effort. [place] lifts or holds trunk or limbs and provides more than half the effort. 5-Bhhfvaame-fbtzis does ALL the effort. Patient does none of the effort to complete the activity. Or, the assistance of 2 or more helpers is required for the patient to complete the activity. If activity was not attempted, code reason: 7-Patient Refused. 9-Not Applicable-not attempted and the patient did not perform the activity before the current illness, exacerbation or injury. 10-Not Attempted due to Environmental Limitations-(lack of equipment, weather restraints, etc.). 88-Not Attempted due to Medical Conditions or Safety Concerns. Roll Left to Right (QC): 88 (Pt unable to roll to R due to R hip and rib pain. Pt indep rolling to L) Sit to Lying (QC): 6 Sit to Stand (QC): 6 Chair/Oum-al-Jeani Xfer(QC): 6 Car Transfer (QC): 6 Weight Bearing Right Lower Extremity: Right Touch Toe Bearing Left Lower Extremity: Left Full Weight Bearing Gait Training Distance: 150'x2 Walk 10 feet (QC): 6 Walk 50 ft with 2 Turns(QC): 6 Walk 150 ft (QC): 6 Walking 10ft/uneven surface-QC: 6 Gait Assistive Device: FWW Pt has started to use a step to pattern and not leaving the R LE as far behind him during ambulation. Pt continues to use a slower gait speed. Compliant with WB status Wheelchair Training Does the Pt Use a Wheelchair?: No Stair Training Stair Training: Handrails/: uses walker #of Steps: 1 1 Step (curb) (QC): 4 (SBA) Stairs: Pattern: Hops Pt able to maintain WB status in R LE. Balance Picking up an Object (QC): 6 Exercises Seated Therapy Exercises: Ankle pumps, Long arc quads (3#), Hamstring Curls (3#) Seated Reps: 15 NuStep Minutes: 10 NuStep Workload: 1 Treatments Pt performed skilled gait training, functional transfer training, step training, and education this date. Assessment Current Status: Good Progress Pt improving gait pattern and maintaining WB status. Pt has increased pain in R flank this date. Pt katie manipulation of step with walker this date. this PT spoke with pt about home situation and possibility of home getting a larger step into garage for pt to use FWW to get into house. 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 PT Usp Goals Time Frame: Jul 09, 2019 Sit to Lying (QC): 6 Lying-Sitting on Side/Bed(QC): 6 Sit to Stand (QC): 6 Roll Left to Right (QC): 6 Chair/Olp-mc-Dpmzf Xfer(QC): 6 Car Transfer (QC): 6 Does the Patient Walk: Yes Walk 10 feet (QC): 6 Walk 10ft-Uneven Surface(QC): 6 Walk 50ft with 2 Turns (QC): 6 Walk 150 ft (QC): 6 Gait Assistive Device: FWW Wheel 50 feet with 2 turns (QC: 6 1 Step (curb) (QC): 6 4 Steps (QC): 6 12 Steps (QC): 88 Picking up an Object (QC): 88 PT Plan Problem List Problem List: Activity Tolerance, Functional Strength, Safety, Gait, Transfer Treatment/Plan Treatment Plan: Continue Plan of Care Treatment Plan: Bed Mobility, Education, Functional Activity Francisco, Functional Strength, Group Therapy, Gait, Safety, Therapeutic Exercise, Transfers Treatment Duration: Jul 09, 2019 Frequency: At least 5 of 7 days/Wk (IRF) Estimated Hrs Per Day: 1.5 hours per day Patient and/or Family Agrees t: Yes Safety Risks/Education Patient Education: Gait Training, Transfer Techniques, Steps, Reviewed Precautions, Correct Positioning, Safety Issues Teaching Recipient: Patient, Family Teaching Methods: Demonstration, Discussion Response to Teaching: Verbalize Understanding, Return Demonstration, Reinforce ment Needed Time/GCodes Time In: 800 Time Out: 900 Total Billed Treatment Time: 60 Total Billed Treatment 1 visit EX 15' GT 30' FA 15' ROGE SHULTZ PT Jun 30, 2019 08:56
--- NOTE | 2019-06-30 09:00 | NUR ---
Pt up ad jon in room. Hygeine done and tolerated well/ bed change done. Pt up with PT/active/cooperative.
--- NOTE | 2019-06-30 09:00 | PM&R Progress Note ---
Subjective HPI/CC On Admission Date Seen by Provider: Jun 30, 2019 Time Seen by Provider: 08:30 CC: Fall off ladder with multiple fractures HPI: This is a 63yoWM who suffered a fall on 06/21/19 and transferred to [facility] for trauma suffered facial fractures and right globe injury and multiple other fracture including ribs and pelvis and was stabilized participating in therapy but in need of increased therapy in order to return home. He did have a mass in his lung that was biopsied and just today received results it is lung cancer but patient is now aware of the dx yet. Pt PCP is Dr. Sandoval and I will reach out to him. He is a smoker and has COPD and he does decrease his O2 saturations at night. He previously was independent with ADLs and ambulation. CC/HPI [facility] CC: Fell from ladder, Right facial bone fractures, Right Rib fracture, Right Hip fracture HPI: Pt is alert and oriented x3, pleasant, and excited to be able to come to the rehab unit prior to going home. He states he has some pain in his hip and ribs mainly that has been getting better the last couple days, but has been limiting his ability to move normally. He states he has a cough due to stopping smoking since the accident, which has caused him increased pain in his fractured rib. He also states he has a little bit of a headache near his facial fractures, but this has gotten much better as well. He has been getting a little dizzy when he is struggling to move around. He has sleep apnea that he has recently been wearing a CPAP makes but is not sure it will work with his facial fracture. Barriers: * He is able to use a wheelchair to move himself around very well * He was able to walk a short distance using a walker with only minimal assistance * He was able to stand from the wheelchair and turn to sit in the bed with minimal assistance * He was able to take off and put back on his sock without help * He was able to go in the restroom and transfer to the toilet with some assistance * He is still having significant pain with turning himself into the bed from seated to lying * He had pain straightening himself in the bed * He does have 2 steps into the house from the garage that would be his biggest barrier * He thinks he will be able to use the walker for most of his trips inside the house due to the short distances Goals: * He would like to be able to take a shower and get dressed by himself prior to going home * He would like to feel a little more confident using the walker by himself * He would like to gain some strength and learn techniques to make his daily activities easier * He would like to walk without a walker in the future, but understands it may take a couple months of healing Subjective/Events-last exam Doing an overnight oxygen study tonight Suture removal per surgery over at [facility], will reach out to them today No pain is reported currently Bowels are moving Pt appearing to be stronger everyday Using IS Checked meds and labs Reviewed therapy notes 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 General: Fatigue Musculoskeletal: back pain, leg pain Objective Exam Vital Signs Vital Signs Date Time Temp Pulse Resp B/P (MAP) Pulse Ox O2 Delivery O2 Flow Rate FiO2 06/30/19 18:11 37.2 85 20 137/74 (95) 95 Room Air 06/30/19 06:16 2.00 Capillary Refill : Less Than 3 Seconds General Appearance: No Apparent Distress, WD/WN, Chronically ill, Thin HEENT: PERRL/EOMI (except for right eye with bruising), Normal ENT Inspection, Pharynx Normal, Moist Mucous Membranes Neck: Full Range of Motion, Normal Inspection, Non Tender, Supple Respiratory: Chest Non Tender, Lungs Clear, Normal Breath Sounds, No Accessory Muscle Use, No Respiratory Distress, Decreased Breath Sounds Cardiovascular: Regular Rate, Rhythm, No Edema, No Gallop, No JVD, No Murmur Gastrointestinal: Normal Bowel Sounds, No Organomegaly, No Pulsatile Mass, Non Tender, Soft Back: Normal Inspection, No CVA Tenderness, Decreased Range of Motion, Vertebral Tenderness Extremity: Normal Capillary Refill, Normal Inspection, Normal Range of Motion (except right leg), Non Tender, No Calf Tenderness, No Pedal Edema Neurologic/Psychiatric: Alert, Oriented x3, No Motor/Sensory Deficits, Normal Mood/Affect, 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 FIM Transfers Therapy Code Descriptions/Definitions Functional [place] Measure: 0=Not Assessed/NA 4=Minimal Assistance 1=Total Assistance 5=Supervision or Setup 2=Maximal Assistance 6=Modified [place] 3=Moderate Assistance 7=Complete IndependenceSCALE: Activities may be completed with or without assistive devices. 1-Fpirsgzsui-yweedhr completes the activity by him/herself with no assistance from a helper. 5-Set-up or Clean-up Assistance-helper sets up or cleans up; patient completes activity. [place] assists only prior to or following the activity. 4-Supervision or Touching Assistance-helper provides verbal cues and/or touching/steadying and/or contact guard assistance as patient completes activity. Assistance may be provided throughout the activity or intermittently. 3-Partial/Moderate Assistance-helper does LESS THAN HALF the effort. [place] lifts, holds or supports trunk or limbs, but provides less than half the effort. 2-Substantial/Maximal Assistance-helper does MORE THAN HALF the effort. [place] lifts or holds trunk or limbs and provides more than half the effort. 7-Cbtoxobws-ztuefv does ALL the effort. Patient does none of the effort to complete the activity. Or, the assistance of 2 or more helpers is required for the patient to complete the activity. If activity was not attempted, code reason: 7-Patient Refused. 9-Not Applicable-not attempted and the patient did not perform the activity before the current illness, exacerbation or injury. 10-Not Attempted due to Environmental Limitations-(lack of equipment, weather r estraints, etc.). 88-Not Attempted due to Medical Conditions or Safety Concerns. Transfers (B, C, W/C) (FIM): 5 Roll Left to Right (QC): 3 Sit to Lying (QC): 5 Sit to Stand (QC): 5 Chair/Bch-kp-Caucm Xfer(QC): 5 Bed to/from Chair: 5 Car Transfer (QC): 3 (min assist to move right LE) Gait Training Does the Patient Walk?: Yes Gait (FIM): 5 Distance (FIM): 1=up to 49 ft Distance: 200' Walk 10 feet (QC): 5 Walk 50 ft with 2 Turns(QC): 5 Walk 150 ft (QC): 5 Walking 10ft/uneven surface-QC: 4 (SBA) Gait Persons Needed: 1 Gait Assistive Device: FWW Wheelchair Training Does the Pt Use a Wheelchair?: No Wheel 50 ft with 2 turns (QC): 4 (SBA) Wheel 150 ft (QC): 4 Type of Wheelchair: Manual Stair Training Stair Training: Handrails/: uses walker #of Steps: 1 1 Step (curb) (QC): 4 (SBA) 4 Steps (QC): 88 12 Steps (QC): 88 Stairs: Pattern: Hops Balance Picking up an Object (QC): 88 (unsafe to attempt) ADL-Treatment Eating (QC): 6 Oral Hygiene (QC): 6 Shower/Bathe Self (QC): 5 (SUP, pt requires no assist in/out of shower or showering tasks.) Upper Body Dressing (QC): 5 (SBA due to stance while donning shirt. Pt became dizzy during donning, requires SBA. ) Lower Body Dressing (QC): 6 On/Off Footwear (QC): 4 Toileting Hygiene (QC): 6 Toilet Transfer (QC): 6 Assessment/Plan Assessment and Plan Assess & Plan/Chief Complaint Assessment: Fall from ladder 15 ft 06/21/19 Facial fractures Right globe eye injury Pelvic fracture Rib fractures Night time hypoxia GIL usually compliant with CPAP SCC of lung s/p biopsy at [facility] prior to DC and patient was notified 06/26/19 Plan: Pain management BM regimen Dr Sandoval consultation Inpatient rehabilitation protocol Lung cancer treatment plan per PCP Dr Lanier consultation (1) Brain injury (2) Squamous cell lung cancer (3) COPD (chronic obstructive pulmonary disease) (4) Rib fractures (5) Pelvic fracture (6) Lung mass (7) Facial fracture due to fall (8) Injury of globe of right eye (9) History of lung biopsy (10) Smoker MÓNICA SAAVEDRA DO Jun 30, 2019 09:00 POS
--- NOTE | 2019-06-30 11:16 | Occupational Ther Daily Note ---
OT Current Status-Daily Note Subjective Pt seen in recliner chair, present through start and end of session. Pt states 7/10 pain in ribs due to sneeze. Pt agreeable to OT tx session; nursing notified of pain and administration of medication prior to start. Mental Status/Objective Patient Orientation: Normal For Age ADL-Treatment Therapy Code Descriptions/Definitions Functional [place] Measure: 0=Not Assessed/NA 4=Minimal Assistance 1=Total Assistance 5=Supervision or Setup 2=Maximal Assistance 6=Modified [place] 3=Moderate Assistance 7=Complete IndependenceSCALE: Activities may be completed with or without assistive devices. 3-Fwhcjwkkdy-qxvmyha completes the activity by him/herself with no assistance from a helper. 5-Set-up or Clean-up Assistance-helper sets up or cleans up; patient completes activity. Angela assists only prior to or following the activity. 4-Supervision or Touching Assistance-helper provides verbal cues and/or touching/steadying and/or contact guard assistance as patient completes activity. Assistance may be provided throughout the activity or intermittently. 3-Partial/Moderate Assistance-helper does LESS THAN HALF the effort. Angela lifts, holds or supports trunk or limbs, but provides less than half the effort. 2-Substantial/Maximal Assistance-helper does MORE THAN HALF the effort. Angela lifts or holds trunk or limbs and provides more than half the effort. 3-Scfvnarla-xmkmaa does ALL the effort. Patient does none of the effort to complete the activity. Or, the assistance of 2 or more helpers is required for the patient to complete the activity. If activity was not attempted, code reason: 7-Patient Refused. 9-Not Applicable-not attempted and the patient did not perform the activity before the current illness, exacerbation or injury. 10-Not Attempted due to Environmental Limitations-(lack of equipment, weather restraints, etc.). 88-Not Attempted due to Medical Conditions or Safety Concerns. Eating (QC): 6 (Pt pours drink and drinks with straw with IND.) Oral Hygiene (QC): 6 (Completes at sink with FWW.) Shower/Bathe Self (QC): 6 (Completes on shower chair, shower transfer with FWW and IND. Pt and spouse educated on recommendations of shower bench and grab bars within walk in shower. ) Upper Body Dressing (QC): 6 (Gathers clothes, completes with IND in chair.) Lower Body Dressing (QC): 6 (Gathers clothes, completes with IND at FWW) Toileting Hygiene (QC): 6 (Completes IND after BM) Toilet Transfer (QC): 6 (Completes without use of grab bars; utilizes FWW. Completes with IND.) QC: on/ off footwear 6= completes edge of chair with IND. Other Treatment Pt completes ADLs with IND within room. Pt and spouse educated on therapy home modification recommendations. Pt and state modifications being completed on stairs into home. Pt and state readiness for d/c. Pt ambulates with FWW and correct WB status to therapy gym, completes 15 minutes of 30 watt resistance of arm bike without SOB with skilled intervention for placement and increased resistance; pt demonstrates good endurance and strength. Pt completes UE exercises focusing on back strengthening and biceps with 3# weight (2 sets of 15 reps). Pt returns to room, sits in recliners with call light in reach, all needs met. Education OT Patient Education: Correct positioning, Disease process, Exercise program, Home exercise program, Instructions to caregiver, Purpose of tx/functional acti vities, Reviewed precautions, Safety issues, Other (therapy home modification recommendations.) Teaching Recipient: Patient, Significant Other Teaching Methods: Demonstration, Discussion Response to Teaching: Verbalize Understanding, Return Demonstration OT Short Term Goals Short Term Goals 1=Demonstrate adherence to instructed precautions during ADL tasks. 2=Patient will verbalize/demonstrate understanding of assistive devices/modifications for ADL. 3=Patient will improve strength/tolerance for activity to enable patient to perform ADL's. 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 2=Patient will verbalize/demonstrate understanding of assistive devices/modifications for ADL. 3=Patient will improve strength/tolerance for activity to enable patient to perform ADL's. OT Education/Plan Problem List/Assessment Assessment: Decreased Activ Tolerance, Impaired I ADL's, Restricted Funct UE ROM Discharge Recommendations Plan/Recommendations: Continue POC Equpiment Recommendations-D/C: Rails on Tub/Shower, Bath Chair Treatment Plan/Plan of Care Treatment,Training & Education: Yes Patient would benefit from OT for education, treatment and training to promote independence in ADL's, mobility, safety and/or upper extremity function for ADL's. Plan of Care: ADL Retraining, Functional Mobility, Group Exercise/Act as Ind, UE Funct Exercise/Act Treatment Duration: Jul 09, 2019 Frequency: At least 5 of 7 days/Wk (IRF) Estimated Hrs Per Day: 1.5 hours per day Agreement: Yes Rehab Potential: Good Time/GCodes Start Time: 09:00 Stop Time: 10:30 Total Time Billed (hr/min): 90 Billed Treatment Time 1, ADLx4 (60), EX x2 (30)= 90 FRANSISCO BALDERAS OTR Jun 30, 2019 11:16
--- NOTE | 2019-06-30 11:52 | Physical Therapy Daily Note ---
PT Daily Note-Current Subjective pt in chair pre-tx. Pt agrees to PT at this time. Pt has pain 5/10 in the ribs at this time. Appearance pt in chair post-tx with in room. Pt has room phone, call light, tray table in reach with all needs met at this time. Pt spouse reports they are going to extend the steps into the house so the pt can ambulate the stairs with the FWW. Mental Status Patient Orientation: Person, Place, Time, Situation Transfers SCALE: Activities may be completed with or without assistive devices. 2-Sjpnleirul-pagtroh completes the activity by him/herself with no assistance from a helper. 5-Set-up or Clean-up Assistance-helper sets up or cleans up; patient completes activity. Petty assists only prior to or following the activity. 4-Supervision or Touching Assistance-helper provides verbal cues and/or touching/steadying and/or contact guard assistance as patient completes activity. Assistance may be provided throughout the activity or intermittently. 3-Partial/Moderate Assistance-helper does LESS THAN HALF the effort. Petty lifts, holds or supports trunk or limbs, but provides less than half the effort. 2-Substantial/Maximal Assistance-helper does MORE THAN HALF the effort. Petty lifts or holds trunk or limbs and provides more than half the effort. 4-Lygtfguft-vhztky does ALL the effort. Patient does none of the effort to complete the activity. Or, the assistance of 2 or more helpers is required for the patient to complete the activity. If activity was not attempted, code reason: 7-Patient Refused. 9-Not Applicable-not attempted and the patient did not perform the activity before the current illness, exacerbation or injury. 10-Not Attempted due to Environmental Limitations-(lack of equipment, weather restraints, etc.). 88-Not Attempted due to Medical Conditions or Safety Concerns. Sit to Stand (QC): 6 Weight Bearing Right Lower Extremity: Right Touch Toe Bearing Left Lower Extremity: Left Full Weight Bearing Gait Training Does the Patient Walk?: Yes Distance: 100'x2 Walk 10 feet (QC): 6 Walk 50 ft with 2 Turns(QC): 6 Gait Assistive Device: FWW Pt beginning to demonstrate slight step through pattern this session with the R LE swing much shorter the L. Wheelchair Training Does the Pt Use a Wheelchair?: No Stair Training Stair Training: Handrails/: uses walker #of Steps: 8 (One step on the floor 8 times.) 1 Step (curb) (QC): 6 4 Steps (QC): 6 Stairs: Pattern: Step to Pt educated on up with the L LE and down with the R LE. Pt reports he is maintaining WB status during steps and has no problem with steps this session. Exercises Standin way Ex=Flex, Abd, Ext Standing Reps: 30 (2sets 15reps) Treatments LE exercises, skilled gait training, Stair training. Assessment Current Status: Good Progress Pt was able to maintain WB status during multiple stairs while using FWW. Pt will be going home using a FWW to climb 3 steps and pt was able to katie this today. PT Store Leader Goals Intermediate Goals PT Store Leader Goals Time Frame: Jul 09, 2019 Sit to Lying (QC): 6 Lying-Sitting on Side/Bed(QC): 6 Sit to Stand (QC): 6 Roll Left to Right (QC): 6 Chair/Rbz-hy-Sghie Xfer(QC): 6 Car Transfer (QC): 6 Does the Patient Walk: Yes Walk 10 feet (QC): 6 Walk 10ft-Uneven Surface(QC): 6 Walk 50ft with 2 Turns (QC): 6 Walk 150 ft (QC): 6 Gait Assistive Device: FWW Wheel 50 feet with 2 turns (QC: 6 1 Step (curb) (QC): 6 4 Steps (QC): 6 12 Steps (QC): 88 Picking up an Object (QC): 88 PT Plan Problem List Problem List: Activity Tolerance, Functional Strength, Safety, Balance, Gait, Transfer Treatment/Plan Treatment Plan: Continue Plan of Care Treatment Plan: Bed Mobility, Education, Functional Activity Francisco, Functional Strength, Group Therapy, Gait, Safety, Therapeutic Exercise, Transfers Treatment Duration: Jul 09, 2019 Frequency: At least 5 of 7 days/Wk (IRF) Estimated Hrs Per Day: 1.5 hours per day Patient and/or Family Agrees t: Yes Safety Risks/Education Patient Education: Gait Training, Transfer Techniques, Steps, Correct Positi oning, Safety Issues Teaching Recipient: Patient Teaching Methods: Demonstration, Discussion Response to Teaching: Verbalize Understanding, Return Demonstration, Reinforcement Needed Time/GCodes Time In: 1122 Time Out: 1152 Total Billed Treatment Time: 30 Total Billed Treatment 1 visit GT 15' EX 15' ROGE SHULTZ PT Jun 30, 2019 11:52
--- NOTE | 2019-06-30 13:42 | NUR ---
New order from Dr Sandoval for referral to [facility]. Dr Melchor notified of Consult for new diagnosis lung cancer
--- NOTE | 2019-06-30 13:57 | NUR ---
Discussed with pt and about [facility] Referral. Pt / state understanding
--- NOTE | 2019-06-30 15:33 | NUR ---
Initial visit with the pt and his . 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 He feels he is healing well, and hopes he can return home soon. The pt grew up working in [employer] 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 They both said they feel they are getting out of the business at a good time as it is no longer as lucrative. I offered active listening and encouraged that sharing of personal experiences and values important to them both.
--- NOTE | 2019-06-30 15:36 | NUR ---
Dr Dinh here to see pt for consult. Pt has at side during consult.
--- NOTE | 2019-06-30 16:25 | Pulmonary Consultation ---
History of Present Illness History of Present Illness Date of Consultation 06/30/19 16:25 Date of Admission Allergies and Home Medications Allergies Coded Allergies: No Known Drug Allergies (Unverified , 08/14/14) Home Medications No Active Prescriptions or Reported Meds Past Qzpcerq-Uqhxjp-Mynzsi Hx Past Med/Social Hx: Reviewed Nursing Past Med/Soc Hx, Reviewed and Corrections made Patient Social History Alcohol Use: Occasionally Uses Number of Drinks Today: 0 Alcohol Beverage of Choice: Whiskey Recreational Drug Use: No Smoking Status: Current Everyday Smoker Type Used: Cigarettes Recent Foreign Travel: No Contact w/Someone Who Travel: No Recent Infectious Disease Expo: No Immunizations Up To Date Date of Influenza Vaccine: Jun 09, 2019 Past Medical History Fractures Family Medical History Alzheimer's disease 19 FATHER Cataracts 19 MOTHER Osteoporosis 19 MOTHER Parkinson's disease 19 MOTHER Other Conditions/Hx (Dad had alzheimers, mom had parkinsons) Sepsis Event Evaluation Height, Weight, BMI Height: 5'10.00" Weight: 165lbs. oz. 74.783801pc; 2.18 BMI Method: Exam Exam Vital Signs Date Time Temp Pulse Resp B/P (MAP) Pulse Ox O2 Delivery O2 Flow Rate FiO2 06/30/19 09:00 Room Air 06/30/19 06:16 Nasal Cannula 2.00 06/30/19 05:13 36.5 71 20 137/83 (101) 97 Room Air 06/29/19 21:39 94 Nasal Cannula 2.00 06/29/19 19:30 Room Air 06/29/19 18:00 36.9 71 18 144/79 (100) 97 Room Air I & O 06/30/19 07:00 Intake Total 1610 ml Balance 1610 ml Height & Weight Height: 5'10.00" Weight: 165lbs. oz. 74.722301ak; 2.18 BMI Method: General Appearance: No Apparent Distress, WD/WN, Chronically ill, Thin HEENT: PERRL/EOMI (except for right eye with bruising), Normal ENT Inspection, Pharynx Normal, Moist Mucous Membranes Neck: Full Range of Motion, Normal Inspection, Non Tender, Supple Respiratory: Chest Non Tender, Lungs Clear, Normal Breath Sounds, No Accessory Muscle Use, No Respiratory Distress, Decreased Breath Sounds Cardiovascular: Regular Rate, Rhythm, No Edema, No Gallop, No JVD, No Murmur Peripheral Pulses: 2+ Radial Pulses (R), 2+ Radial Pulses (L) Gastrointestinal: non tender, soft Extremity: Normal Capillary Refill, Normal Inspection, Normal Range of Motion (except right leg), Non Tender, No Calf Tenderness, No Pedal Edema Neurologic/Psychiatric: Alert, Oriented x3, No Motor/Sensory Deficits, Normal Mood/Affect, language path II-XII Norm as Tested Skin: Normal Color, Warm/Dry Lymphatic: No Adenopathy Results Lab Laboratory Tests 06/30/19 04:40 PHYLLIS JOHNSON DO Jun 30, 2019 16:25 POS
--- NOTE | 2019-06-30 16:33 | NUR ---
Dr Lanier to room to see pt/ Chest x ray 1 view also done at this time
[2019-06-30] MEDS: ENOXAPARIN 40 MG/0.4 ML (LOVENOX) SYR SQ SCH (16:42)
[2019-06-30 18:11] VITALS: BP 137/74
--- NOTE | 2019-06-30 18:30 | Diagnostic Imaging Report ---
EXAMINATION: Chest 1 view HISTORY: Shortness of breath FINDINGS: No comparison available. There is a 3.0 cm nodule in the right mid zone. Lungs are emphysematous. Another nodule more inferiorly in the right lung may represent fluid trapped in the fissure. Heart size is normal. No pneumothorax. No edema or pneumonia. IMPRESSION: 1. Right midlung nodules highly concerning for malignancy. CT of the chest with contrast is recommended for further evaluation. 2. Emphysematous lungs. Dictated by: Dictated on workstation # [id number]
[2019-06-30] MEDS: DIAZEPAM 5 MG (VALIUM) TABLET PO PRN (20:24)
--- NOTE | 2019-06-30 20:59 | CONSULTATION REPORT ---
DATE OF SERVICE: 06/30/2019 REFERRING AND PRIMARY PHYSICIAN: Simon Sandoval MD. The patient is admitted to room 223. IMPRESSION: 1. A 63-year-old male with a history of fall from a ladder on 06/21/2019 with a right facial fracture, right eighth rib fracture and right iliac/pelvic fracture. 2. Right lung nodule with probable hilar and mediastinal lymph nodes incidentally found during evaluations with scans. 3. Status post CT-guided needle biopsy with diagnosis of squamous cell carcinoma. 4. With available CT scans of the chest, abdomen and pelvis, there is no evidence of distant metastatic disease. RECOMMENDATIONS: 1. Continue rehabilitation as you are doing and discharge home when stable. 2. I will see the patient in 1-2 weeks for reevaluation and if he has recovered adequately from the trauma, we will schedule him for a staging CT scan as well as pulmonary function studies on an outpatient basis. 3. Based on these results, we can determine if the patient is a surgical candidate or not. If he is not a surgical candidate, and has limited disease, we will consider combined chemoradiation. If he has evidence of distant metastatic disease, treatment would be palliative in nature. Thank you for allowing me to participate in this patient's care. I will follow the patient with you and make appropriate recommendations. BRIEF HISTORY: The patient is a 63-year-old male who suffered a fall from a ladder on 06/21/2019 in [place]. He is unsure about what happened or how he fell. He was taken to the hospital at [facility] in [place] and had a workup done. He was found to have right facial fractures, right-sided rib fracture and right pelvic fracture, but did not require any surgical intervention. During the workup, incidentally 4.5 cm right lung mass was noted. He underwent a CT-guided biopsy of this mass, which turned out to be a squamous cell carcinoma. The patient was transferred to [facility] for continuation of rehabilitation. He is improving and he is able to ambulate with a walker and a toe touch using the right lower extremity. Medical oncology consultation was requested for further evaluation and management of non-small cell lung cancer. PAST MEDICAL HISTORY: Has been unremarkable except a recent diagnosis of obstructive sleep apnea earlier in 2019. He was using CPAP machine at home with some benefit. PAST SURGICAL HISTORY: No major surgical procedures in the past. SOCIAL HISTORY: The patient is and lives in [place], [place]. He has a biological daughter who lives in [place] and two stepchildren, a stepdaughter who lives in [place] and a stepson who lives in [place]. He gives a history of approximately 41-[id number]-zzzp history of tobacco use and was smoking 1 pack of cigarettes a day until his fall. He uses alcohol socially and denied any recreational drug use. 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 Approximately two months ago, he sold his business and was in the process of completing repairs prior to final closing when he had the fall. FAMILY HISTORY: Only significant for paternal grandfather with an unknown malignancy at an elderly age. No other significant medical problems in the family that the patient knows of. PHYSICAL EXAMINATION: GENERAL: Showed an elderly male, well developed and well nourished, awake and oriented, in mild discomfort due to pain. HEENT: Normocephalic, extraocular muscles are intact, resolving right periorbital hematoma and ecchymosis. Oral mucosa was moist without lesions. unchanged. NECK: Supple, with no JVD. No cervical, supraclavicular or axillary lymphadenopathy palpable. CHEST: Symmetrical. LUNGS: Fairly clear to auscultation without wheezes or rales. CARDIOVASCULAR: Regular in rate and rhythm without murmurs or gallops. ABDOMEN: Soft, nontender with no hepatosplenomegaly or other masses palpable. EXTREMITIES: Showed no edema. NEUROLOGIC: Showed no focal motor deficits. The patient is not bearing full weight on the right lower extremity due to the right pelvic fracture. He uses a front wheel walker for ambulation. CT scan of the chest with contrast done on 06/21/2019 at [facility] in [place] showed a nondisplaced right posterior 8th rib fracture. There was a 4.5 cm right upper lobe mass lesion, which was malignant appearing, nonspecific small, but prominent mediastinal or hilar lymph nodes noted. Further workup was recommended including tissue sampling. Evidence of emphysema. CT scan of the abdomen and pelvis done on the same day showed no solid organ injury. There was comminuted fracture of the right iliac bone with adjacent hematoma. Fracture extends to the right anterior acetabulum. The liver, pancreas, spleen and bilateral adrenal glands demonstrate no acute problems. CT scan of the brain without contrast showed no acute intracranial abnormality. Facial fracture with mildly displaced right zygomatic arch fracture as well as through the right maxillary sinus at right orbit. The age-related cerebral changes with atrophy, white matter chronic small vessel ischemic changes and atherosclerotic calcifications noted. The patient underwent a CT-guided biopsy of the right lung mass on 06/24/2019 which showed a poorly differentiated squamous cell carcinoma. Thank you for allowing me to participate in this patient's care. I will follow the patient with you and make appropriate recommendations. Job ID: [id number] DocumentID: [id number] Dictated Date: 06/30/2019 16:48:54 Night Monitor Date: 06/30/2019 20:58:24 Dictated By: MICA AGRAWAL MD
--- NOTE | 2019-06-30 21:30 | NUR ---
HAS BEEN MEDICATED WITH LORTAB AND VALIUM FOR SLEEP, BUT "CAN'T GET COMFORTABLE DUE TO RIGHT SIDED RIB PAIN". HAS BEEN STARTED ON NOCTURNAL SLEEP STUDY.
[2019-07-01] MEDS: HYDROcodone/APAP 10 MG/325 MG (LORTAB) TAB PO PRN ×2 (00:36→07:48)
--- NOTE | 2019-07-01 06:30 | NUR ---
SLEEP STUDY ENDED. PATIENT TOOK OFF OXIMETER EVERY TIME HE WENT TO BATHROOM AND NURSE NOTICED AT 0300 THAT OXIMETER WAS OFF FINGER AND MACHINE WAS TURNED OFF. NOTED SEVERAL TIMES THAT ROOM AIR SAT WAS 88-89%.
[2019-07-01] MEDS: IBUPROFEN TABLET 200 MG TAB PO PRN (06:33)
[2019-07-01 06:35] VITALS: BP 154/83
--- NOTE | 2019-07-01 08:15 | Progress Note ---
DELFINA AMARO [facility] 07/01/19 0815: Progress Note CC: Right side Facial fracture, Rib fracture, Pelvic fracture * He has been able to walk using the walker unassisted * He states he does still have some pain when adjusting and moving in the bed * He states he feels pretty good and has no worries about returning home * He states that someone came to his house yesterday to fix the stairs in his garage that were the only real concern for him about being home * He also states they worked with him yesterday in OT on going up and down the stairs * He only takes his pain medication at night to help him sleep MELYSSA SAAVEDRA DO 07/01/1920: Supervisory-Addendum Brief Verification & Attestation Participated in pt care: history, MDM, physical Personally performed: exam, history, MDM, supervision of care Care discussed with: Medical Student Procedures: n/a Results interpretation: Verified all documentation Verification and Attestation of Medical Student E/M Service A medical student performed and documented this service in my presence. I reviewed and verified all information documented by the medical student and made modifications to such information, when appropriate. I personally performed the physical exam and medical decision making. Melyssa Saavedra, Jul 01, 2019,09:20 DELFINA AMARO Jul 01, 2019 08:15 MELYSSA CAMPA DO Jul 01, 2019 09:20 POS
[2019-07-01] MEDS: LACTULOSE SYRUP 10GM/15ML (ENULOSE) 30ML UDC PO SCH (08:31)
[2019-07-01] MEDS: SENNA W/DOCUSATE (SENOKOT S) TABLET PO SCH (08:31)
[2019-07-01] MEDS ORDERED: DIAZ5TAB3 PO (08:32)
[2019-07-01] MEDS ORDERED: IBUP-2055 PO (08:32)
[2019-07-01] MEDS ORDERED: HYDR-3820 PO (08:32)
[2019-07-01] MEDS ORDERED: SENN-20 PO (08:32)
--- NOTE | 2019-07-01 08:34 | Discharge Summary ---
Diagnosis/Chief Complaint Date of Admission Jun 25, 2019 at 14:15 Date of Discharge Discharge Date: Jul 01, 2019 Discharge Diagnosis Assessment: Fall from ladder 15 ft 06/21/19 Facial fractures Right globe eye injury Pelvic fracture Rib fractures Night time hypoxia GIL usually compliant with CPAP SCC of lung s/p biopsy at [facility] prior to DC and patient was notified 06/26/19 Plan: Pain management BM regimen Dr Sandoval consultation Inpatient rehabilitation protocol Lung cancer treatment plan per PCP Dr Lanier consultation (1) Brain injury (2) Squamous cell lung cancer (3) COPD (chronic obstructive pulmonary disease) (4) Rib fractures (5) Pelvic fracture (6) Lung mass (7) Facial fracture due to fall (8) Injury of globe of right eye (9) History of lung biopsy (10) Smoker Discharge Summary Discharge Physical Examination Allergies: Coded Allergies: No Known Drug Allergies (Unverified , 08/14/14) Vitals & I&Os Vital Signs Date Time Temp Pulse Resp B/P (MAP) Pulse Ox O2 Delivery O2 Flow Rate FiO2 07/01/19 06:35 36.8 65 18 154/83 (106) 95 Room Air 06/30/19 06:16 2.00 General Appearance: Alert, Oriented X3, Cooperative Respiratory: Clear to Auscultation, Normal Air Movement Cardiovascular: Regular Rate Neuro: Normal Speech, Strength at 5/5 X4 Ext Psych/Mental Status: Mental Status NL, Mood NL Hospital Course Was the Problem List Reviewed?: Yes Hospital course: Patient had an uneventful hospital course for nearly one week in inpatient rehabilitation after [facility] injuries rib fractures and right eye injury. Lung mass biopsy showed squamous cell carcinoma primary care provider was notified an d Dr. Dinh was consulted. He was unable to use his sleep apnea machine due to facial fractures on the right sole oxygen overnight study was evaluated he met criteria for 2 L continuous at night and will have close follow-up with Dr. Lanier. Overall he tolerated therapies well is able to walk up steps and pain was well-controlled and bowels return back to normal and he was assessed to be ready for discharge with his . Labs (last 24 hrs) Laboratory Tests 06/26/19 06:10: White Blood Count 7.8, Red Blood Count 3.87L, Hemoglobin 11.7L, Hematocrit 35L, Mean Corpuscular Volume 89, Mean Corpuscular Hemoglobin 30, Mean Corpuscular Hemoglobin Concent 34, Red Cell Distribution Width 13.2, Platelet Count 322, Mean Platelet Volume 8.3, Neutrophils (%) (Auto) 68, Lymphocytes (%) (Auto) 20, Monocytes (%) (Auto) 9, Eosinophils (%) (Auto) 3, Basophils (%) (Auto) 1, Neutrophils # (Auto) 5.3, Lymphocytes # (Auto) 1.5, Monocytes # (Auto) 0.7, Eosinophils # (Auto) 0.2, Basophils # (Auto) 0.1, Sodium Level 141, Potassium Level 3.9, Chloride Level 106, Carbon Dioxide Level 25, Anion Gap 10, Blood Urea Nitrogen 15, Creatinine 0.95, Estimat Glomerular Filtration Rate > 60, BUN/Creatinine Ratio 16, Glucose Level 122H, Calcium Level 8.8, Corrected Calcium 9.3, Total Bilirubin 1.0, Aspartate Amino Transf (AST/SGOT) 39H, Alanine Aminotransferase (ALT/SGPT) 52, Alkaline Phosphatase 107, Total Protein 6.1L, Albumin 3.4 06/30/19 04:40: White Blood Count 7.6, Red Blood Count 3.59L, Hemoglobin 10.9L, Hematocrit 33L, Mean Corpuscular Volume 91, Mean Corpuscular Hemoglobin 30, Mean Corpuscular Hemoglobin Concent 34, Red Cell Distribution Width 13.8, Platelet Count 500H, Mean Platelet Volume 8.3, Neutrophils (%) (Auto) 56, Lymphocytes (%) (Auto) 25, Monocytes (%) (Auto) 14H, Eosinophils (%) (Auto) 5, Basophils (%) (Auto) 1, Neutrophils # (Auto) 4.3, Lymphocytes # (Auto) 1.9, Monocytes # (Auto) 1.1H, Eosinophils # (Auto) 0.4H, Basophils # (Auto) 0.1, Sodium Level 138, Potassium Level 4.2, Chloride Level 104, Carbon Dioxide Level 26, Anion Gap 8, Blood Urea Nitrogen 12, Creatinine 0.82, Estimat Glomerular Filtration Rate > 60, BUN/Creatinine Ratio 15, Glucose Level 87, Calcium Level 8.6, Corrected Calcium 9.3, Total Bilirubin 0.5, Aspartate Amino Transf (AST/SGOT) 35H, Alanine Aminotransferase (ALT/SGPT) 40, Alkaline Phosphatase 122, Total Protein 5.5L, Albumin 3.1L Pending Labs Laboratory Tests 06/26/19 06:10: White Blood Count 7.8, Red Blood Count 3.87, Hemoglobin 11.7, Hematocrit 35, Mean Corpuscular Volume 89, Mean Corpuscular Hemoglobin 30, Mean Corpuscular Hemoglobin Concent 34, Red Cell Distribution Width 13.2, Platelet Count 322, Mean Platelet Volume 8.3, Neutrophils (%) (Auto) 68, Lymphocytes (%) (Auto) 20, Monocytes (%) (Auto) 9, Eosinophils (%) (Auto) 3, Basophils (%) (Auto) 1, Neutrophils # (Auto) 5.3, Lymphocytes # (Auto) 1.5, Monocytes # (Auto) 0.7, Eosinophils # (Auto) 0.2, Basophils # (Auto) 0.1, Sodium Level 141, Potassium Level 3.9, Chloride Level 106, Carbon Dioxide Level 25, Anion Gap 10, Blood Urea Nitrogen 15, Creatinine 0.95, Estimat Glomerular Filtration Rate > 60, BUN/Creatinine Ratio 16, Glucose Level 122, Calcium Level 8.8, Corrected Calcium 9.3, Total Bilirubin 1.0, Aspartate Amino Transf (AST/SGOT) 39, Alanine Aminotransferase (ALT/SGPT) 52, Alkaline Phosphatase 107, Total Protein 6.1, Albumin 3.4 06/30/19 04:40: White Blood Count 7.6, Red Blood Count 3.59, Hemoglobin 10.9, Hematocrit 33, Mean Corpuscular Volume 91, Mean Corpuscular Hemoglobin 30, Mean Corpuscular Hemoglobin Concent 34, Red Cell Distribution Width 13.8, Platelet Count 500, Mean Platelet Volume 8.3, Neutrophils (%) (Auto) 56, Lymphocytes (%) (Auto) 25, Monocytes (%) (Auto) 14, Eosinophils (%) (Auto) 5, Basophils (%) (Auto) 1, Neutrophils # (Auto) 4.3, Lymphocytes # (Auto) 1.9, Monocytes # (Auto) 1.1, Eosinophils # (Auto) 0.4, Basophils # (Auto) 0.1, Sodium Level 138, Potassium Level 4.2, Chloride Level 104, Carbon Dioxide Level 26, Anion Gap 8, Blood Urea Nitrogen 12, Creatinine 0.82, Estimat Glomerular Filtration Rate > 60, BUN/Creatinine Ratio 15, Glucose Level 87, Calcium Level 8.6, Corrected Calcium 9.3, Total Bilirubin 0.5, Aspartate Amino Transf (AST/SGOT) 35, Alanine Aminotransferase (ALT/SGPT) 40, Alkaline Phosphatase 122, Total Protein 5.5, Albumin 3.1 Discharge Home Medications: Active Scripts Active Senna-Time S Tablet (Sennosides/Docusate Sodium) 1 Each Tablet 2 Ea PO BID Diazepam 5 Mg Tablet 5 Mg PO Q8HR PRN Hydrocodon-Acetaminophn 10-325 (Hydrocodone/Acetaminophen) 1 Each Tablet 1 Ea PO Q4H PRN Ibuprofen 200 Mg Tablet 400 Mg PO Q6H PRN 30 Days Instructions to patient/family Please see electronic discharge instructions given to patient. Diagnosis/Problems Diagnosis/Problems (1) Brain injury Qualifiers: Qualified Codes: S06.9X9A - Unspecified intracranial injury with loss of consciousness of unspecified duration, initial encounter (2) Squamous cell lung cancer (3) COPD (chronic obstructive pulmonary disease) (4) Rib fractures (5) Pelvic fracture (6) Lung mass (7) Facial fracture due to fall (8) Injury of globe of right eye (9) History of lung biopsy (10) Smoker Clinical Quality Measures DVT/VTE Risk/Contraindication: Risk Factor Score Per Nursin RFS Level Per Nursing on Admit: 4+=Very High MÓNICA SAAVEDRA DO Jul 01, 2019 08:34 POS
--- NOTE | 2019-07-01 08:54 | Physical Therapy Daily Note ---
PT Daily Note-Current Subjective pt in chair pre-tx. Pt agrees to PT this morning. pt reports step into the house has been fixed and he is ready to go home. pt reports he doesn't really have pain he just has discomfort in his R hip that he rates 5/10. Appearance pt in chair post-tx. pt with call light, room phone, tray table, and FWW in reach with all needs met at this time. Mental Status Patient Orientation: Person, Place, Time, Situation Transfers SCALE: Activities may be completed with or without assistive devices. 1-Kffxoueakm-tbixjap completes the activity by him/herself with no assistance from a helper. 5-Set-up or Clean-up Assistance-helper sets up or cleans up; patient completes activity. [place] assists only prior to or following the activity. 4-Supervision or Touching Assistance-helper provides verbal cues and/or touching/steadying and/or contact guard assistance as patient completes activity. Assistance may be provided throughout the activity or intermittently. 3-Partial/Moderate Assistance-helper does LESS THAN HALF the effort. [place] lifts, holds or supports trunk or limbs, but provides less than half the effort. 2-Substantial/Maximal Assistance-helper does MORE THAN HALF the effort. [place] lifts or holds trunk or limbs and provides more than half the effort. 8-Djqspuird-nvgvtr does ALL the effort. Patient does none of the effort to complete the activity. Or, the assistance of 2 or more helpers is required for the patient to complete the activity. If activity was not attempted, code reason: 7-Patient Refused. 9-Not Applicable-not attempted and the patient did not perform the activity before the current illness, exacerbation or injury. 10-Not Attempted due to Environmental Limitations-(lack of equipment, weather restraints, etc.). 88-Not Attempted due to Medical Conditions or Safety Concerns. Roll Left to Right (QC): 5 (very painful for pt to roll this direction. Pt is indep rolling to left.) Sit to Lying (QC): 6 Sit to Stand (QC): 6 Chair/Cgp-xb-Idhnl Xfer(QC): 6 Car Transfer (QC): 6 (Pt uses UE to get R LE into car.) Weight Bearing Right Lower Extremity: Right Touch Toe Bearing Left Lower Extremity: Left Full Weight Bearing Gait Training Does the Patient Walk?: Yes Distance: 150'x2 Walk 10 feet (QC): 6 Walk 50 ft with 2 Turns(QC): 6 Walk 150 ft (QC): 6 Walking 10ft/uneven surface-QC: 6 Gait Assistive Device: FWW Pt continues to improve step length and velocity. Pt continues to improve step through with the R LE. Wheelchair Training Does the Pt Use a Wheelchair?: No Stair Training #of Steps: 1 1 Step (curb) (QC): 6 Stairs: Pattern: Step to Pt steps up onto step with FWW and is indep as he will at home. Balance Picking up an Object (QC): 6 Exercises Seated Therapy Exercises: Long arc quads Seated Reps: 30 (2set 15reps) Standing: Hip Abduction (right side), Hamstring curls (with hip flexion, right side), Heel/toe raises (only left side) Standing Reps: 30 (2sets 15reps) NuStep Minutes: 10 NuStep Workload: 5 (right side not used) Treatments Pt performed LE strengthening/endurance exercises, skilled ambulation training, transfer training, and education. Assessment Current Status: Good Progress Pt continues to improve katie being up on his legs. Pt has decreased pain with movement. Pt is able to manipulate step safely. 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 PT [facility] Goals Time Frame: Jul 09, 2019 Sit to Lying (QC): 6 Lying-Sitting on Side/Bed(QC): 6 Sit to Stand (QC): 6 Roll Left to Right (QC): 6 Chair/Qhc-gv-Ggfdr Xfer(QC): 6 Car Transfer (QC): 6 Does the Patient Walk: Yes Walk 10 feet (QC): 6 Walk 10ft-Uneven Surface(QC): 6 Walk 50ft with 2 Turns (QC): 6 Walk 150 ft (QC): 6 Gait Assistive Device: FWW Wheel 50 feet with 2 turns (QC: 6 1 Step (curb) (QC): 6 4 Steps (QC): 6 12 Steps (QC): 88 Picking up an Object (QC): 88 PT Plan Problem List Problem List: Activity Tolerance, Functional Strength, Safety, Balance, Gait, Transfer Treatment/Plan Treatment Plan: Continue Plan of Care Treatment Plan: Bed Mobility, Education, Functional Activity Francisco, Functional Strength, Group Therapy, Gait, Safety, Therapeutic Exercise, Transfers Treatment Duration: Jul 09, 2019 Frequency: At least 5 of 7 days/Wk (IRF) Estimated Hrs Per Day: 1.5 hours per day Patient and/or Family Agrees t: Yes Safety Risks/Education Patient Education: Gait Training, Transfer Techniques, Steps, Correct Positioning Teaching Recipient: Patient, Family, Friend Teaching Methods: Demonstration, Discussion Response to Teaching: Verbalize Understanding, Return Demonstration, Reinforcement Needed Time/GCodes Time In: 800 Time Out: 900 Total Billed Treatment Time: 60 Total Billed Treatment 1 visit GT 15' FA 25' EX 10' ROGE SHULTZ PT Jul 01, 2019 08:54 POS
--- NOTE | 2019-07-01 09:28 | NUR ---
Informed by RN that patient has orders to discharge home today. Discussed discharge with patient and his ; both feel that the patient is ready for discharge. PT recommends FWW (which the patient has at home) and outpatient PT. Patient verbalizes he would like to utilize [facility] [facility]. Referral faxed. OT recommends shower chair (which the patient has at home) and grab bars in the bathroom. When discussed grab bars with the patient and his , they report grab bars in all bathrooms can only be installed on the right side and the patient is unable to pull with his right arm due to right side rib fracture. Patient and his report they think the patient will not require grab bars, OT notified and will discuss this with the patient. Patient had nocturnal oxygen study last night and does qualify for nocturnal oxygen at home. Patient states he has a CPAP, but is not sure he will be able to wear the mask due to facial fractures. Patient and his request nocturnal oxygen order be sent to [facility], as that is where he obtained his CPAP machine. Order sent to [facility].
--- NOTE | 2019-07-01 11:21 | NUR ---
in room at this time. Discharge Instructions discussed/Stitches removed from right eye contusion/ 2 steri strips placed. pt tolerated well
--- NOTE | 2019-07-01 11:24 | NUR ---
Talked with employee's representative from [employer] regarding nocturnal oxygen. [facility] will deliver and set-up nocturnal oxygen today after patient is discharged. Completed Certification of Disability for Disable Parking Placard for patient. Instructed patient and his that Dr. Sandoval would have to sign the form before taking it to the [facility]. Both verbalized understanding.
--- NOTE | 2019-07-01 11:46 | NUR ---
DIETARY CONSULT PUT IN PER 'S REQUEST AND LILY GALICIA, IN TO SPEAK WITH PATIENT/.
--- NOTE | 2019-07-01 11:48 | NUR ---
PATIENT TO F/U WITH DR. JOHNSON ON 07/15/19 AT 10:30. ADDED TO DISCHARGE INSTRUCTIONS AND PATIENT/ VERBALIZE UNDERSTANDING.
--- NOTE | 2019-07-01 11:57 | Occupational Ther Daily Note ---
OT Current Status-Daily Note Subjective Pt seen in recliner chair, pt states minimal pain. Pt drowsy. Pt plans to d/c on this date, agreeable to OT tx session. Mental Status/Objective Patient Orientation: Normal For Age ADL-Treatment Therapy Code Descriptions/Definitions Functional [place] Measure: 0=Not Assessed/NA 4=Minimal Assistance 1=Total Assistance 5=Supervision or Setup 2=Maximal Assistance 6=Modified [place] 3=Moderate Assistance 7=Complete IndependenceSCALE: Activities may be completed with or without assistive devices. 2-Mhisyxgnua-ajxhxai completes the activity by him/herself with no assistance from a helper. 5-Set-up or Clean-up Assistance-helper sets up or cleans up; patient completes activity. Knapp assists only prior to or following the activity. 4-Supervision or Touching Assistance-helper provides verbal cues and/or touching/steadying and/or contact guard assistance as patient completes activity. Assistance may be provided throughout the activity or intermittently. 3-Partial/Moderate Assistance-helper does LESS THAN HALF the effort. Knapp lift s, holds or supports trunk or limbs, but provides less than half the effort. 2-Substantial/Maximal Assistance-helper does MORE THAN HALF the effort. Knapp lifts or holds trunk or limbs and provides more than half the effort. 8-Afjfbevyg-vehnft does ALL the effort. Patient does none of the effort to complete the activity. Or, the assistance of 2 or more helpers is required for the patient to complete the activity. If activity was not attempted, code reason: 7-Patient Refused. 9-Not Applicable-not attempted and the patient did not perform the activity before the current illness, exacerbation or injury. 10-Not Attempted due to Environmental Limitations-(lack of equipment, weather restraints, etc.). 88-Not Attempted due to Medical Conditions or Safety Concerns. Other Treatment Pt states he is ready to go home; pt and clinician discuss pt's shower and recommendation for grab bars. Pt states he can only place grab bars on the R side of the wall, states he does not want to encourage utilizing specific arm if falling as pt states a desire for shoulder replacement/ pain. Pt educated that holding on to grab bar for balance is more beneficial than falling. Pt nodded in agreement; additional home obstacles addressed with education for adaptation. Pt educated on OP/ HH OT role; pt states he may eventually have OT for shoulder replacement in future as he desires to rehab prior to [place] [employer] season, but agrees that OT for current condition is not required. Pt educated on continued use of theraband and other UE exercises at home for continued strengthening/ endurance training. Pt states agreement and knowledge of how to complete. All questions answered. Pt left in recliner chair, all needs met, call light in reach. Education OT Patient Education: Home exercise program, Reviewed precautions, Rehab process, Safety issues, Transfer techniques, Use of adapted equipment Teaching Recipient: Patient Teaching Methods: Demonstration, Discussion Response to Teaching: Verbalize Understanding, Return Demonstration OT Short Term Goals Short Term Goals 1=Demonstrate adherence to instructed precautions during ADL tasks. 2=Patient will verbalize/demonstrate understanding of assistive devices/modifications for ADL. 3=Patient will improve strength/tolerance for activity to enable patient to perform ADL's. OT Derrick Helper Goals Derrick Helper Goals Time Frame: Jul 09, 2019 Eating (QC): 6 (met) Oral Hygiene (QC): 6 (met) Shower/Bathe Self (QC): 6 (met) Upper Body Dressing (QC): 6 (met) Lower Body Dressing (QC): 6 (met) On/Off Footwear (QC): 6 (met) Toileting Hygiene (QC): 6 (met) Toilet/Commode Transfer (QC): 6 (met) Additional Goals: 1-Demonstrate ADL Tasks, 2-Verbalize Understanding, 3- ImproveStrength/Francisco 1=Demonstrate adherence to instructed precautions during ADL tasks. 2=Patient will verbalize/demonstrate understanding of assistive devices/modifications for ADL. 3=Patient will improve strength/tolerance for activity to enable patient to perform ADL's. OT Education/Plan Problem List/Assessment Assessment: Impaired I ADL's, Restricted Funct UE ROM Discharge Recommendations Plan/Recommendations: Discharge/Goals Met Equpiment Recommendations-D/C: Rails on Tub/Shower Treatment Plan/Plan of Care Treatment,Training & Education: Yes Patient would benefit from OT for education, treatment and training to promote independence in ADL's, mobility, safety and/or upper extremity function for ADL's. Plan of Care: ADL Retraining, Functional Mobility, Group Exercise/Act as Ind, UE Funct Exercise/Act Treatment Duration: Jul 09, 2019 Frequency: At least 5 of 7 days/Wk (IRF) Estimated Hrs Per Day: 1.5 hours per day Agreement: Yes Rehab Potential: Good Time/GCodes Start Time: 09:39 Stop Time: 09:49 Total Time Billed (hr/min): 10 Billed Treatment Time 1, FA (10) FRANSISCO BALDERAS OTR Jul 01, 2019 11:57 POS
--- NOTE | 2019-07-01 13:02 | NUR ---
NNAMDI DAVIES demonstrates understanding of discharge instructions and accurately returns instructions upon questioning. Copy of Post-Discharge Instructions given to PATIENT. NNAMDI DAVIES is able to manage continuing needs after discharge. Patient's belongings returned to PATIENT. Patient discharged from [facility] on 07/01/19 at 1300. NNAMDI DAVIES left floor via WHEELCHAIR, accompanied by AND RN.
--- NOTE | 2019-07-01 13:04 | NUR ---
Received consult for dietary education on healthful diet. Pt and had questions on incorporating more fruits/vegetables into pt's eating habits. Pt provided diet hx regarding "excessive sweets." RD provided answers to questions and suggestions for healthier options of desserts. Suggested fresh fruit after supper instead of Oreo cookies. Pt's wanted suggestions for increasing vegetable intake. RD provided suggestion of different preparation methods (roasting instead of boiling). appeared confident to attempt this suggestion at discharge. Discussed with pt and contact information upon discharge if they had more questions. Akua Kearney MS, RD, LD O: Ext 133 C: [phone]
[2019-07-01 13:06] VITALS: BP 154/83
--- NOTE | 2019-07-01 13:10 | Pulmonary Consultation ---
History of Present Illness History of Present Illness Date of Consultation 07/01/19 13:06 Time Seen by Provider: 13:06 Date of Admission History of Present Illness 63yo with hx of COPD who was hospitalized at [facility] after fall resulting in facial fractures, and rib fractures. PT was also found to have a lung mass that was bx at [facility]. 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 Allergies and Home Medications Allergies Coded Allergies: No Known Drug Allergies (Unverified , 08/14/14) Home Medications Diazepam 5 Mg Tablet, 5 MG PO Q8HR PRN for MUSCLE SPASMS Prescribed by: MÓNICA SAAVEDRA on 07/01/19 0832 Hydrocodone/Acetaminophen 1 Each Tablet, 1 EA PO Q4H PRN for PAIN-MODERATE Prescribed by: MÓNICA SAAVEDRA on 07/01/19 0832 Ibuprofen 200 Mg Tablet, 400 MG PO Q6H PRN for PAIN-MILD Prescribed by: MÓNICA SAAVEDRA on 07/01/19 0832 Sennosides/Docusate Sodium 1 Each Tablet, 2 EA PO BID Prescribed by: MÓNICA SAAVEDRA on 07/01/19 0832 Past Cfzwalc-Gckjuy-Syosiq Hx Past Med/Social Hx: Reviewed Nursing Past Med/Soc Hx, Reviewed and Corrections made Patient Social History Alcohol Use: Occasionally Uses Number of Drinks Today: 0 Alcohol Beverage of Choice: Whiskey Recreational Drug Use: No Smoking Status: Current Everyday Smoker Type Used: Cigarettes Recent Foreign Travel: No Contact w/Someone Who Travel: No Recent Infectious Disease Expo: No Immunizations Up To Date Date of Influenza Vaccine: Jun 09, 2019 Past Medical History Fractures Family Medical History Alzheimer's disease 19 FATHER Cataracts 19 MOTHER Osteoporosis 19 MOTHER Parkinson's disease 19 MOTHER Other Conditions/Hx (Dad had alzheimers, mom had parkinsons) Sepsis Event Evaluation Height, Weight, BMI Height: 5'69.00" Weight: 145lbs. oz. 74.712807lh; 2.18 BMI Method: Exam Exam Vital Signs Date Time Temp Pulse Resp B/P (MAP) Pulse Ox O2 Delivery O2 Flow Rate FiO2 07/01/19 09:00 Room Air 07/01/19 06:35 36.8 65 18 154/83 (106) 95 Room Air 06/30/19 21:12 94 Room Air 06/30/19 20:25 Room Air 06/30/19 18:11 37.2 85 20 137/74 (95) 95 Room Air I & O 07/01/19 07:00 Intake Total 2540 ml Balance 2540 ml Height & Weight Height: 5'69.00" Weight: 145lbs. oz. 74.028872dl; 2.18 BMI Method: General Appearance: No Apparent Distress, WD/WN, Chronically ill, Thin HEENT: PERRL/EOMI (except for right eye with bruising), Normal ENT Inspection, Pharynx Normal, Moist Mucous Membranes Neck: Full Range of Motion, Normal Inspection, Non Tender, Supple Respiratory: Chest Non Tender, Lungs Clear, Normal Breath Sounds, No Accessory Muscle Use, No Respiratory Distress, Decreased Breath Sounds Cardiovascular: Regular Rate, Rhythm, No Edema, No Gallop, No JVD, No Murmur Peripheral Pulses: 2+ Radial Pulses (R), 2+ Radial Pulses (L) Gastrointestinal: non tender, soft Extremity: Normal Capillary Refill, Normal Inspection, Normal Range of Motion (except right leg), Non Tender, No Calf Tenderness, No Pedal Edema Neurologic/Psychiatric: Alert, Oriented x3, No Motor/Sensory Deficits, Normal Mood/Affect, quality compliance consultant II-XII Norm as Tested Skin: Normal Color, Warm/Dry Lymphatic: No Adenopathy Results Lab Laboratory Tests 06/30/19 04:40 Assessment/Plan Assessment/Plan PHYLLIS JOHNSON DO Jul 01, 2019 13:10 POS
--- NOTE | 2019-07-02 11:54 | Therapy Team Discharge Summary ---
Therapy Discharge Summary Discharge Recommendations Date of Discharge Jul 01, 2019 at 13:00 Physical Therapy Patient came to rehab with multiple fx secondary to traumatic event. Upon evaluation patient performed bed mobility and transfers with min assist, car transfer min assist, ambulated 40' with a rolling walker with min assist (including 10' over an uneven surface), and was SBA for a manual wheelchair. Patient has been performing bed mobility and transfer training, balance and endurance training, functional strengthening, stair training, gait training, and education. Patient has made good progress and has met all of his longterm goals except for going up and down 4 steps. Now, patient performs bed mobility and transfers with independence, car transfer independent, can to up and down 1 step using a rolling walker with independence, and can ambulate 150' with a rolling walker with independence (including 50' with at least 2 turns of 90 d egrees and 10' over an uneven surface). Patient was discharged from this facility yesterday and will be discharged from PT at this time. Occupational Therapy Impaired I ADL's, Restricted Funct UE ROM PT Journeyman Pipefitter Goals Journeyman Pipefitter Goals PT Intermediate Goals Time Frame: Jul 09, 2019 Roll Left to Right (QC): 6 Sit to Lying (QC): 6 Lying-Sitting on Side/Bed(QC): 6 Sit to Stand (QC): 6 Chair/Dib-fc-Fjkxi Xfer(QC): 6 Car Transfer (QC): 6 Does the Patient Walk: Yes Walk 10 feet (QC): 6 Walk 10ft-Uneven Surface(QC): 6 Walk 50ft with 2 Turns (QC): 6 Walk 150 ft (QC): 6 Gait Assistive Device: FWW Wheel 50 feet with 2 turns (QC: 6 1 Step (curb) (QC): 6 4 Steps (QC): 6 12 Steps (QC): 88 Picking up an Object (QC): 88 OT Journeyman Pipefitter Goals Intermediate Goals Time Frame: Jul 09, 2019 Eating (QC): 6 (met) Oral Hygiene (QC): 6 (met) Shower/Bathe Self (QC): 6 (met) Upper Body Dressing (QC): 6 (met) Lower Body Dressing (QC): 6 (met) On/Off Footwear (QC): 6 (met) Toileting Hygiene (QC): 6 (met) Toilet/Commode Transfer (QC): 6 (met) Additional Goals: 1-Demonstrate ADL Tasks, 2-Verbalize Understanding, 3-ImproveStrength/Francisco 1=Demonstrate adherence to instructed precautions during ADL tasks. 2=Patient will verbalize/demonstrate understanding of assistive devices/modifications for ADL. 3=Patient will improve strength/tolerance for activity to enable patient to perform ADL's. ROGE SHULTZ PT Jul 02, 2019 11:54 POS
--- NOTE | 2019-07-03 11:33 | Therapy Team Discharge Summary ---
Therapy Discharge Summary Discharge Recommendations Date of Discharge Jul 01, 2019 at 13:00 Occupational Therapy Pt admitted with diagnoses of multiple fractures due to traumatic event. Pt TTWB on R LE, use of FWW for ambulation. Upon eval, pt CGA with the following: footwear (with increased time and distress), LB dressing, toileting hygiene and transfer. Pt and OT worked toward IND within I/ADLs by focusing on ADLs, strength/ endurance, HEP, and education. Pt IND within all QC's upon d/c, demonstrates competency with HEP. Therapy d/c recommendations: grab bars; pt and OT discussed proper placement of grab bars in home shower, discussed other home environment modifications/ safety. D/c skilled OT therapy services. Impaired I ADL's, Restricted Funct UE ROM PT Forming Department Supervisor Goals Mcc Goals PT Forming Department Supervisor Goals Time Frame: Jul 09, 2019 Roll Left to Right (QC): 6 Sit to Lying (QC): 6 Lying-Sitting on Side/Bed(QC): 6 Sit to Stand (QC): 6 Chair/Hvr-gg-Tdvue Xfer(QC): 6 Car Transfer (QC): 6 Does the Patient Walk: Yes Walk 10 feet (QC): 6 Walk 10ft-Uneven Surface(QC): 6 Walk 50ft with 2 Turns (QC): 6 Walk 150 ft (QC): 6 Gait Assistive Device: FWW Wheel 50 feet with 2 turns (QC: 6 1 Step (curb) (QC): 6 4 Steps (QC): 6 12 Steps (QC): 88 Picking up an Object (QC): 88 OT Forming Department Supervisor Goals Forming Department Supervisor Goals Time Frame: Jul 09, 2019 Eating (QC): 6 (met) Oral Hygiene (QC): 6 (met) Shower/Bathe Self (QC): 6 (met) Upper Body Dressing (QC): 6 (met) Lower Body Dressing (QC): 6 (met) On/Off Footwear (QC): 6 (met) Toileting Hygiene (QC): 6 (met) Toilet/Commode Transfer (QC): 6 (met) Additional Goals: 1-Demonstrate ADL Tasks, 2-Verbalize Understanding, 3- ImproveStrength/Francisco 1=Demonstrate adherence to instructed precautions during ADL tasks. 2=Patient will verbalize/demonstrate understanding of assistive devices/modifications for ADL. 3=Patient will improve strength/tolerance for activity to enable patient to perform ADL's. FRANSISCO BALDERAS OTR Jul 03, 2019 11:33 POS
== END 2019-07-01 13:00 | disposition home or self-care (01) | DRG 560 ==
PROVIDERS: ADMIT Internal Medicine; ATTEND Internal Medicine
DX: S32.431D Displaced fracture of anterior column [iliopubic] of right acetabulum, subsequent encounter for fracture with routine healing (principal); S02.40ED Zygomatic fracture, right side, subsequent encounter for fracture with routine healing; S02.40CD Maxillary fracture, right side, subsequent encounter for fracture with routine healing; S22.31XD Fracture of one rib, right side, subsequent encounter for fracture with routine healing; C34.11 Malignant neoplasm of upper lobe, right bronchus or lung; J43.9 Emphysema, unspecified; G47.33 Obstructive sleep apnea (adult) (pediatric); F17.210 Nicotine dependence, cigarettes, uncomplicated; R09.02 Hypoxemia; W11.XXXD Fall on and from ladder, subsequent encounter; Y92.513 Shop (commercial) as the place of occurrence of the external cause
CPT/HCPCS: 36415; 71045; 80053; 85025; 94760; 94762

== ENCOUNTER 2019-07-03 15:17 | Outpatient (RCR) | payer BC ==
[~2019-07-03 15:17] MED LIST: DIAZ5TAB49 PO; HYDR-3820 PO; IBUP-2473 PO; SENN-20 PO
== END 2019-09-23 09:08 | disposition home or self-care (01) ==
PROVIDERS: ATTEND Internal Medicine
DX: S32.391D Other fracture of right ilium, subsequent encounter for fracture with routine healing (principal); S22.41XD Multiple fractures of ribs, right side, subsequent encounter for fracture with routine healing; R29.898 Other symptoms and signs involving the musculoskeletal system

== ENCOUNTER → 2019-07-14 | Outpatient (CLI) | payer BC ==
[~2019-07-14] MED LIST changes: +DIAZ5TAB3 PO; -DIAZ5TAB49 PO; +IBUP-2055 PO; -IBUP-2473 PO; +RT-ALBUTEROL SULF 2.5 MG/3 ML PRE-MIX VIAL INH ONE
== END ==
LOC: RT 13:06
PROVIDERS: ATTEND Internal Medicine Hematology & Oncology
DX: C34.90 Malignant neoplasm of unspecified part of unspecified bronchus or lung (principal)
CPT/HCPCS: 94060; 94726; 94729

== ENCOUNTER → 2019-07-22 | Outpatient (CLI) | payer BC ==
[~2019-07-22] MED LIST changes: -RT-ALBUTEROL SULF 2.5 MG/3 ML PRE-MIX VIAL INH ONE
--- NOTE | 2019-07-22 13:17 | Diagnostic Imaging Report ---
INDICATION: Right lung masses. This study is performed for further evaluation. TECHNIQUE: The serum blood glucose level at the time of injection was 83 mg/dL. The patient was administered 14 mCi of F18 FDG intravenously in the right antecubital location and PET imaging from the top of the skull to the mid thighs was performed. Noncontrast CT was also performed for attenuation correction and anatomic correlation. COMPARISON: Correlation is made with the chest radiograph from 06/30/2019. No prior PET or CT study is available for comparison. FINDINGS: There is symmetric activity throughout the brain. Physiologic activity in the soft tissues of the neck is identified. There is a focus of increased uptake involving the right vocal cord with an SUV max of approximately 4.9. There is also mild uptake involving a right thyroid nodule with an SUV max of approximately 5.9. Imaging through the chest demonstrates a markedly hypermetabolic mass in the right upper lobe with an SUV max value of approximately 20. This correlates with the 4 cm spiculated mass in the posterior right upper lobe. No definite mediastinal or hilar hypermetabolism is seen. There is some mild uptake involving right sided rib fractures. Physiologic activity within the GI and tracts within the abdomen and pelvis is noted. No suspicious hypermetabolism is seen. IMPRESSION: 1. Hypermetabolic right upper lobe mass, consistent with the patient's known primary lung neoplasm. No definite mediastinal or hilar hypermetabolism is seen to suggest metastatic disease. 2. Mild uptake involving the right vocal cord which shows some thickening on the CT study. Direct visualization with laryngoscopy would be useful. There is also some uptake involving a right thyroid nodule. A dedicated thyroid ultrasound would be useful for further evaluation. Dictated by: Dictated on workstation # [id number]
== END ==
LOC: RAD 07:57
PROVIDERS: ATTEND Internal Medicine Hematology & Oncology
DX: C34.90 Malignant neoplasm of unspecified part of unspecified bronchus or lung (principal); J38.3 Other diseases of vocal cords; E04.1 Nontoxic single thyroid nodule; R91.8 Other nonspecific abnormal finding of lung field

== ENCOUNTER → 2019-07-25 | Outpatient (CLI) | payer BC ==
--- NOTE | 2019-07-25 10:00 | Diagnostic Imaging Report ---
PROCEDURE: US Thyroid. TECHNIQUE: Multiple real-time grayscale images were obtained of the thyroid in various projections. INDICATION: Abnormal PET demonstrating right thyroid nodule uptake. COMPARISON: Correlation is made with a PET study from 07/22/2019. FINDINGS: Right lobe of the thyroid measures 5.9 x 2.3 x 1.9 cm and the left lobe measures 4.9 x 1.6 x 1.5 cm. Isthmus is 3 mm in thickness. Tiny approximately 5 mm hypoechoic nodule in the lower pole right lobe of the thyroid is noted. This could account for the uptake on PET. A left lobe does demonstrate a hypoechoic nodule in the upper pole measuring 6 mm x 4 mm. There is also a cystic nodule in the lower pole of the left lobe approximately 8 mm in size. No dominant thyroid mass is identified. IMPRESSION: Bilateral thyroid nodules. No dominant thyroid mass is detected. Dictated by: Dictated on workstation # [id number]
== END ==
LOC: RAD 08:45
PROVIDERS: ATTEND Internal Medicine Hematology & Oncology
DX: E04.2 Nontoxic multinodular goiter (principal)
CPT/HCPCS: 76536

== ENCOUNTER 2019-08-15 08:46 | Outpatient (RCR) | payer BC ==
[~2019-08-15 08:46] MED LIST changes: -DIAZ5TAB3 PO; +DIAZ5TAB49 PO; -IBUP-2055 PO; +IBUP-2473 PO
== END 2019-10-09 08:59 | disposition home or self-care (01) ==
LOC: ONC 08:46
PROVIDERS: ATTEND Internal Medicine Hematology & Oncology
DX: C34.91 Malignant neoplasm of unspecified part of right bronchus or lung (principal); Z87.891 Personal history of nicotine dependence
CPT/HCPCS: 99213

== ENCOUNTER 2019-10-23 13:50 | Emergency (ER) | payer MEDICARE ==
[~2019-10-23] VITALS: Ht 175 cm; Wt 73.5 kg
[2019-10-23] MEDS ORDERED: diphenhydrAMINE 50 MG/ML INJ (BENADRYL) IVP ONE (14:30)
[2019-10-23] MEDS ORDERED: NS IV 1000 ML 1,000 ML IV SCH (14:30)
[2019-10-23] MEDS ORDERED: PANTOPRAZOLE 40 MG (PROTONIX) VIAL IV ONE (14:30)
[2019-10-23] MEDS ORDERED: PROCHLORPERAZINE 10 MG/2ML INJ (COMPAZINE) IV ONE (14:30)
[2019-10-23 14:33] LABS: BASOPHILS % (AUTO) 0 % (0-10); EOSINOPHILS % (AUTO) 0 % (0-10); HEMATOCRIT 42 % (40-54); HEMOGLOBIN 14.2 G/DL (13.3-17.7); LYMPHOCYTES # (AUTO) 0.6 X 10^3 (1.0-4.0); LYMPHOCYTES % (AUTO) 4 % (12-44); MEAN CORPUSCULAR HEMOGLOBIN 29 PG (25-34); MEAN CORPUSCULAR HGB CONC 34 G/DL (32-36); MEAN CORPUSCULAR VOLUME 87 FL (80-99); MEAN PLATELET VOLUME 8.2 FL (7.4-10.4); MONOCYTES # (AUTO) 0.7 X 10^3 (0.0-1.0); MONOCYTES % (AUTO) 5 % (0-12); NEUTROPHILS % (AUTO) 91 % (42-75); PLATELET COUNT 477 10^3/uL (130-400); RED CELL DISTRIBUTION WIDTH 13.9 % (10.0-14.5); WHITE BLOOD COUNT 13.2 10^3/uL (4.3-11.0)
--- NOTE | 2019-10-23 14:34 | ED GI ---
General Chief Complaint: Abdominal/GI Problems Stated Complaint: N/V;REACTION TO CHEMO Nursing Triage Note: TO TRIAGE WITH COMPLAINTS OF VOMITING STARTING AT 0200. STATES HE HAD HIS FIRST DOSE OF CHEMO YETERDAY. Sepsis Screen: No Definite Risk Source of Information: Patient Exam Limitations: No Limitations History of Present Illness Date Seen by Provider: Oct 23, 2019 Time Seen by Provider: 14:29 Initial Comments ER with reports of nausea and vomiting. This began about 2 AM this morning. He received his first dose of chemotherapy (which believes was gemcitabine and cisplatin) yesterday for treatment of lung cancer. He has a headache but he had that on Sunday before starting the chemotherapy. He is still quite nauseous, he's had hiccups as well which he believes contributes to the nausea and vomiting. He formerly took ibupforen 3 tabs 3 times a day for general aches and pain. Vomit at one point was "coffee ground" appearance according to . His headache is quite a bit better at this time. Timing/Duration: 1-2 Days Severity/Quality: Moderate Radiation: No Radiation Activities at Onset: None Associated Symptoms: No Fever/Chills; Headache, Nausea/Vomiting Allergies and Home Medications Allergies Coded Allergies: No Known Drug Allergies (Unverified , 08/14/14) Home Medications Diazepam 5 Mg Tablet, 5 MG PO Q8HR PRN for MUSCLE SPASMS Prescribed by: MÓNICA SAAVEDRA on 07/01/19831 Hydrocodone/Acetaminophen 1 Each Tablet, 1 EA PO Q4H PRN for PAIN-MODERATE Prescribed by: MÓNICA SAAVEDRA on 07/01/19831 Ibuprofen 200 Mg Tablet, 400 MG PO Q6H PRN for PAIN-MILD Prescribed by: MÓNICA SAAVEDRA on 07/01/19831 Sennosides/Docusate Sodium 1 Each Tablet, 2 EA PO BID Prescribed by: MÓNICA SAAVEDRA on 07/01/19831 Patient Home Medication List Home Medication List Reviewed: Yes Review of Systems Review of Systems Constitutional: see HPI EENTM: No Symptoms Reported Respiratory: No Symptoms Reported Cardiovascular: No Symptoms Reported Gastrointestinal: See HPI; Denies Diarrhea; Nausea, Vomiting Genitourinary: No Symptoms Reported Musculoskeletal: no symptoms reported Skin: no symptoms reported Psychiatric/Neurological: No Symptoms Reported Endocrine: No Symptoms Reported Hematologic/Lymphatic: No Symptoms Reported Past Msdtqej-Elibna-Xyvxua Hx Patient Social History Alcohol Use: Rarely Uses Alcohol Beverage of Choice: Whiskey Recreational Drug Use: No Smoking Status: Former Smoker Type Used: Cigarettes Recent Foreign Travel: No Contact w/Someone Who Travel: No Recent Infectious Disease Expo: No Recent Hopitalizations: No Immunizations Up To Date Date of Influenza Vaccine: Jun 09, 2019 Seasonal Allergies Seasonal Allergies: No Past Medical History Lobectomy Respiratory: No Cardiac: No Neurological: No Genitourinary: No Gastrointestinal: No Musculoskeletal: No Fractures Endocrine: No Cancer: Yes Lung Did You Recieve Any Treatments: Yes What Type of Treatment Did You: Chemotherapy Psychosocial: No Family Medical History Alzheimer's disease 19 FATHER Cataracts 19 MOTHER Osteoporosis 19 MOTHER Parkinson's disease 19 MOTHER Other Conditions/Hx Physical Exam Vital Signs Vital Signs - First Documented 10/23/19 14:00 Temp 36.5 Pulse 82 Resp 16 B/P (MAP) 160/99 (119) Pulse Ox 98 O2 Delivery Room Air Capillary Refill : Less Than 3 Seconds Height/Weight/BMI Height: 5'69.00" Weight: 145lbs. oz. 74.336165hu; 24.00 BMI Method: General Appearance: WD/WN, no apparent distress HEENT: PERRL/EOMI, normal ENT inspection Respiratory: no respiratory distress, no accessory muscle use Cardiovascular: regular rate, rhythm, no murmur Gastrointestinal: normal bowel sounds, non tender, soft Extremities: normal range of motion, non-tender Neurologic/Psychiatric: alert, normal mood/affect, oriented x 3 Skin: normal color, warm/dry Progress/Results/Core Measures Results/Orders Lab Results Laboratory Tests Test 10/23/19 14:10 Range/Units White Blood Count 13.2 H 4.3-11.0 10^3/uL Red Blood Count 4.84 4.35-5.85 10^6/uL Hemoglobin 14.2 13.3-17.7 G/DL Hematocrit 42 40-54 % Mean Corpuscular Volume 87 80-99 FL Mean Corpuscular Hemoglobin 29 25-34 PG Mean Corpuscular Hemoglobin Concent 34 32-36 G/DL Red Cell Distribution Width 13.9 10.0-14.5 % Platelet Count 477 H 130-400 10^3/uL Mean Platelet Volume 8.2 7.4-10.4 FL Neutrophils (%) (Auto) 91 H 42-75 % Lymphocytes (%) (Auto) 4 L 12-44 % Monocytes (%) (Auto) 5 0-12 % Eosinophils (%) (Auto) 0 0-10 % Basophils (%) (Auto) 0 0-10 % Neutrophils # (Auto) 12.0 H 1.8-7.8 X 10^3 Lymphocytes # (Auto) 0.6 L 1.0-4.0 X 10^3 Monocytes # (Auto) 0.7 0.0-1.0 X 10^3 Eosinophils # (Auto) 0.0 0.0-0.3 10^3/uL Basophils # (Auto) 0.0 0.0-0.1 10^3/uL Lipase 32 8-78 U/L My Orders Orders - LEIGH DANIEL [employer]CE [employer]PERVIS[employer] Cbc With Automated Diff (10/23/19 14:27) Lipase (10/23/19 14:27) Ua Culture If Indicated (10/23/19 14:27) Ed Iv/Invasive Line Start (10/23/19 14:27) Pantoprazole Injection (Protonix Injecti (10/23/19 14:30) Diphenhydramine Injection (Benadryl Inje (10/23/19 14:30) Prochlorperazine Injection (Compazine In (10/23/19 14:30) Ns Iv 1000 Ml (Sodium Chloride 0.9%) (10/23/19 14:30) Ct Head Wo (10/23/19 14:40) Manual Differential (10/23/19 14:10) Comprehensive Metabolic Panel (10/23/19 15:01) Medications Given in ED Current Medications Medications Dose Ordered Sig/Teri Route Start Time Stop Time Status Last Admin Dose Admin Diphenhydramine HCl 25 mg ONCE ONCE IVP 10/23/19 14:30 10/23/19 14:31 DC 10/23/19 14:37 25 MG Pantoprazole 40 mg ONCE ONCE IV 10/23/19 14:30 10/23/19 14:31 DC 10/23/19 14:37 40 MG Prochlorperazine Edisylate 5 mg ONCE ONCE IV 10/23/19 14:30 10/23/19 14:31 DC 10/23/19 14:37 5 MG Vital Signs/I&O 10/23/19 14:00 Temp 36.5 Pulse 82 Resp 16 B/P (MAP) 160/99 (119) Pulse Ox 98 O2 Delivery Room Air Blood Pressure Mean: 119 Diagnostic Imaging Diagonstic Imaging: CT Comments NAME: NNAMDI [facility] REC#: [id number] PT STATUS: REG ER : 1955 PHYSICIAN: LEIGH DANIEL APRN ADMIT DATE: 10/23/19/ER Draft Date of Exam:10/23/19 CT HEAD WO CLINICAL INDICATION: Patient with nausea and vomiting, coughing up dark sputum. Patient with history of lung cancer. Patient started chemotherapy yesterday. EXAM: Axial CT scan of the brain performed without IV contrast. COMPARISON: None. FINDINGS: There is no evidence of acute cerebral infarct, intracranial hemorrhage, or gross mass effect. The brain parenchymal volume appears appropriate for patient's age. There are multiple patchy areas of low density changes involving both cerebral hemispheres. There is normal kauffman-white matter distinction. There is no significant midline shift or herniation. There is no evidence of hydrocephalus. The basal cisterns are unremarkable. The skull, extracranial soft tissue, and orbits are unremarkable. The paranasal sinuses are unremarkable. Temporal bones show no significant abnormality. IMPRESSION: 1. There is no definite evidence of acute intracranial process. If there is concern for intracranial metastasis, MRI of the brain with and without contrast would better evaluate. 2. There are multiple patchy areas of low attenuation white matter changes involving both cerebral hemispheres which is suspected to represent chronic small vessel ischemic disease. Dictated on workstation # [id number] Dict: 10/23/19 1458 Trans: 10/23/19 1503 [facility] [id number] Interpreted by: JAMISON ABDALLA MD Electronically signed by: Departure Impression Primary Impression: Nausea and vomiting Qualified Codes: R11.2 - Nausea with vomiting, unspecified Disposition: 01 HOME, SELF-CARE Condition: Stable Departure-Patient Inst. Decision time for Depature: 15:13 Referrals: KADY PINTO MD (PCP/Family) Primary Care Physician Patient Instructions: Nausea and Vomiting, Adult (DC) Add. Discharge Instructions: 1. Nausea medication as directed 2. Return to ER for any concerns 3. All discharge instructions reviewed with patient and/or family. Voiced understanding. Scripts Promethazine HCl (Promethazine Tablet) 25 Mg Tablet 25 MG PO Q8H PRN for NAUSEA/VOMITING, #14 TAB 0 Refills Prov: LEIGH DANIEL APRN 10/23/19 LEIGH DANIEL APRN Oct 23, 2019 14:34
--- NOTE | 2019-10-23 15:03 | Diagnostic Imaging Report ---
CLINICAL INDICATION: Patient with nausea and vomiting, coughing up dark sputum. Patient with history of lung cancer. Patient started chemotherapy yesterday. EXAM: Axial CT scan of the brain performed without IV contrast. COMPARISON: None. FINDINGS: There is no evidence of acute cerebral infarct, intracranial hemorrhage, or gross mass effect. The brain parenchymal volume appears appropriate for patient's age. There are multiple patchy areas of low density changes involving both cerebral hemispheres. There is normal kauffman-white matter distinction. There is no significant midline shift or herniation. There is no evidence of hydrocephalus. The basal cisterns are unremarkable. The skull, extracranial soft tissue, and orbits are unremarkable. The paranasal sinuses are unremarkable. Temporal bones show no significant abnormality. IMPRESSION: 1. There is no definite evidence of acute intracranial process. If there is concern for intracranial metastasis, MRI of the brain with and without contrast would better evaluate. 2. There are multiple patchy areas of low attenuation white matter changes involving both cerebral hemispheres which is suspected to represent chronic small vessel ischemic disease. Dictated by: Dictated on workstation # [id number]
[2019-10-23] MEDS ORDERED: PROM25TA14 PO (15:13)
[2019-10-23 15:21] LABS: ALANINE AMINOTRANSFERASE 50 U/L (0-55); ALBUMIN 4.1 GM/DL (3.2-4.5); ALKALINE PHOSPHATASE 86 U/L (40-136); BILIRUBIN,TOTAL 0.8 MG/DL (0.1-1.0); BUN/CREATININE RATIO 33; CALCIUM 9.1 MG/DL (8.5-10.1); CARBON DIOXIDE 23 MMOL/L (21-32); CHLORIDE 104 MMOL/L (98-107); CREATININE SERUM 0.89 MG/DL (0.60-1.30); GFR ESTIMATED > 60; GLUCOSE 116 MG/DL (70-105); POTASSIUM 4.4 MMOL/L (3.6-5.0); SODIUM 136 MMOL/L (135-145); TOTAL PROTEIN 6.9 GM/DL (6.4-8.2)
--- NOTE | 2019-10-23 15:30 | NUR ---
PT STATES HE IS FEELING MUCH BETTER.
[2019-10-23 15:37] LABS: BILIRUBIN,URINE NEGATIVE (NEGATIVE); CLARITY,URINE CLEAR; COLOR,URINE YELLOW; GLUCOSE, URINE (UA) NEGATIVE (NEGATIVE); KETONES,URINE NEGATIVE (NEGATIVE); LEUKOCYTE ESTERASE ,URINE NEGATIVE (NEGATIVE); NITRITE,URINE NEGATIVE (NEGATIVE); PROTEIN,URINE NEGATIVE (NEGATIVE)
[2019-10-23 15:53] LABS: BAND NEUTROPHILS 2 %; LYMPHOCYTES % (MANUAL) 2 %; MONOCYTES % (MANUAL) 7 %; NEUTROPHILS % (MANUAL) 89 %; RBC MORPH NORMAL
[2019-10-23 16:01] LABS: BACTERIA,URINE TRACE /HPF; SQUAMOUS EPITHELIAL CELL,UR RARE /HPF; WBC,URINE RARE /HPF
[2019-10-23 16:15] VITALS: BP 160/99
== END 2019-10-23 16:15 | disposition home or self-care (01) ==
LOC: EDUNIT# 13:50 → ER 13:51
DX: R11.2 Nausea with vomiting, unspecified (principal); C34.90 Malignant neoplasm of unspecified part of unspecified bronchus or lung; Z87.891 Personal history of nicotine dependence
CPT/HCPCS: 36415; 70450; 80053; 81000; 83690; 85007; 85027

== ENCOUNTER → 2019-11-05 | Outpatient (CLI) | payer MEDICARE ==
[~2019-11-05] MED LIST changes: +ACHYD1T PO; -HYDR-3820 PO; +PROM25TA14 PO; +RT-ALBUTEROL SULF 2.5 MG/3 ML PRE-MIX VIAL INH ONE
--- NOTE | 2019-11-05 15:11 | Diagnostic Imaging Report ---
Indication: Follow-up right pneumonectomy PA and lateral chest There are postsurgical changes from partial right pneumonectomy. There has been interval removal of the right perihilar mass. There are emphysematous changes in the lungs. There are no effusions or pneumothoraces. IMPRESSION: COPD. No acute abnormalities seen. Dictated by: Dictated on workstation # [id number]
== END ==
LOC: RT 13:17
PROVIDERS: ATTEND Internal Medicine Critical Care Medicine
DX: J44.9 Chronic obstructive pulmonary disease, unspecified (principal); Z90.2 Acquired absence of lung [part of]; Z72.0 Tobacco use
CPT/HCPCS: 71046; 94060; 94726; 94729

== ENCOUNTER 2019-12-09 08:50 | Outpatient (RCR) | payer MEDICARE ==
[2019-10-17 11:33] LABS: BASOPHILS % (AUTO) 1 % (0-10); EOSINOPHILS # (AUTO) 0.6 10^3/uL (0.0-0.3); EOSINOPHILS % (AUTO) 9 % (0-10); HEMATOCRIT 41 % (40-54); HEMOGLOBIN 13.7 G/DL (13.3-17.7); LYMPHOCYTES # (AUTO) 1.9 X 10^3 (1.0-4.0); LYMPHOCYTES % (AUTO) 27 % (12-44); MEAN CORPUSCULAR HEMOGLOBIN 29 PG (25-34); MEAN CORPUSCULAR HGB CONC 33 G/DL (32-36); MEAN CORPUSCULAR VOLUME 87 FL (80-99); MEAN PLATELET VOLUME 8.2 FL (7.4-10.4); MONOCYTES # (AUTO) 0.8 X 10^3 (0.0-1.0); MONOCYTES % (AUTO) 11 % (0-12); NEUTROPHILS # (AUTO) 3.7 X 10^3 (1.8-7.8); NEUTROPHILS % (AUTO) 52 % (42-75); PLATELET COUNT 397 10^3/uL (130-400); RED CELL DISTRIBUTION WIDTH 13.8 % (10.0-14.5); WHITE BLOOD COUNT 7.1 10^3/uL (4.3-11.0)
[2019-10-17 11:54] LABS: ALANINE AMINOTRANSFERASE 18 U/L (0-55); ALBUMIN 3.8 GM/DL (3.2-4.5); ALKALINE PHOSPHATASE 85 U/L (40-136); BILIRUBIN,TOTAL 0.4 MG/DL (0.1-1.0); BUN/CREATININE RATIO 19; CALCIUM 9.2 MG/DL (8.5-10.1); CARBON DIOXIDE 23 MMOL/L (21-32); CHLORIDE 107 MMOL/L (98-107); CREATININE SERUM 0.96 MG/DL (0.60-1.30); GFR ESTIMATED > 60; GLUCOSE 104 MG/DL (70-105); MAGNESIUM 2.1 MG/DL (1.6-2.4); POTASSIUM 4.1 MMOL/L (3.6-5.0); SODIUM 139 MMOL/L (135-145); TOTAL PROTEIN 6.5 GM/DL (6.4-8.2)
[2019-10-28 14:05] LABS: BASOPHILS % (AUTO) 0 % (0-10); EOSINOPHILS # (AUTO) 0.2 10^3/uL (0.0-0.3); EOSINOPHILS % (AUTO) 3 % (0-10); HEMATOCRIT 42 % (40-54); HEMOGLOBIN 14.3 G/DL (13.3-17.7); LYMPHOCYTES # (AUTO) 1.6 X 10^3 (1.0-4.0); LYMPHOCYTES % (AUTO) 31 % (12-44); MEAN CORPUSCULAR HEMOGLOBIN 29 PG (25-34); MEAN CORPUSCULAR HGB CONC 34 G/DL (32-36); MEAN CORPUSCULAR VOLUME 85 FL (80-99); MEAN PLATELET VOLUME 8.2 FL (7.4-10.4); MONOCYTES # (AUTO) 0.2 X 10^3 (0.0-1.0); MONOCYTES % (AUTO) 5 % (0-12); NEUTROPHILS # (AUTO) 3.1 X 10^3 (1.8-7.8); NEUTROPHILS % (AUTO) 60 % (42-75); PLATELET COUNT 216 10^3/uL (130-400); RED CELL DISTRIBUTION WIDTH 12.9 % (10.0-14.5); WHITE BLOOD COUNT 5.1 10^3/uL (4.3-11.0)
[2019-10-28 14:25] LABS: ALANINE AMINOTRANSFERASE 32 U/L (0-55); ALBUMIN 3.8 GM/DL (3.2-4.5); ALKALINE PHOSPHATASE 85 U/L (40-136); BILIRUBIN,TOTAL 0.6 MG/DL (0.1-1.0); BUN/CREATININE RATIO 15; CALCIUM 8.9 MG/DL (8.5-10.1); CARBON DIOXIDE 30 MMOL/L (21-32); CHLORIDE 101 MMOL/L (98-107); CREATININE SERUM 1.02 MG/DL (0.60-1.30); GFR ESTIMATED > 60; GLUCOSE 81 MG/DL (70-105); MAGNESIUM 2.1 MG/DL (1.6-2.4); POTASSIUM 4.1 MMOL/L (3.6-5.0); SODIUM 136 MMOL/L (135-145); TOTAL PROTEIN 6.5 GM/DL (6.4-8.2)
[2019-11-12 09:36] LABS: BASOPHILS # (AUTO) 0.1 10^3/uL (0.0-0.1); BASOPHILS % (AUTO) 1 % (0-10); EOSINOPHILS # (AUTO) 0.1 10^3/uL (0.0-0.3); EOSINOPHILS % (AUTO) 2 % (0-10); HEMATOCRIT 45 % (40-54); HEMOGLOBIN 14.9 G/DL (13.3-17.7); LYMPHOCYTES # (AUTO) 2.2 X 10^3 (1.0-4.0); LYMPHOCYTES % (AUTO) 28 % (12-44); MEAN CORPUSCULAR HEMOGLOBIN 29 PG (25-34); MEAN CORPUSCULAR HGB CONC 33 G/DL (32-36); MEAN CORPUSCULAR VOLUME 88 FL (80-99); MEAN PLATELET VOLUME 8.4 FL (7.4-10.4); MONOCYTES # (AUTO) 0.9 X 10^3 (0.0-1.0); MONOCYTES % (AUTO) 11 % (0-12); NEUTROPHILS # (AUTO) 4.6 X 10^3 (1.8-7.8); NEUTROPHILS % (AUTO) 58 % (42-75); PLATELET COUNT 534 10^3/uL (130-400); RED CELL DISTRIBUTION WIDTH 14.7 % (10.0-14.5); WHITE BLOOD COUNT 7.8 10^3/uL (4.3-11.0)
[2019-11-12 09:57] LABS: ALANINE AMINOTRANSFERASE 32 U/L (0-55); ALBUMIN 4.1 GM/DL (3.2-4.5); ALKALINE PHOSPHATASE 100 U/L (40-136); BILIRUBIN,TOTAL 0.6 MG/DL (0.1-1.0); BUN/CREATININE RATIO 17; CALCIUM 9.6 MG/DL (8.5-10.1); CARBON DIOXIDE 22 MMOL/L (21-32); CHLORIDE 104 MMOL/L (98-107); CREATININE SERUM 1.15 MG/DL (0.60-1.30); GFR ESTIMATED > 60; GLUCOSE 166 MG/DL (70-105); MAGNESIUM 1.9 MG/DL (1.6-2.4); POTASSIUM 4.2 MMOL/L (3.6-5.0); SODIUM 137 MMOL/L (135-145)
[2019-11-25 11:32] LABS: BASOPHILS # (AUTO) 0.2 10^3/uL (0.0-0.1); BASOPHILS % (AUTO) 1 % (0-10); EOSINOPHILS # (AUTO) 0.5 10^3/uL (0.0-0.3); EOSINOPHILS % (AUTO) 3 % (0-10); HEMATOCRIT 46 % (40-54); HEMOGLOBIN 15.6 G/DL (13.3-17.7); LYMPHOCYTES # (AUTO) 2.2 X 10^3 (1.0-4.0); LYMPHOCYTES % (AUTO) 13 % (12-44); MEAN CORPUSCULAR HEMOGLOBIN 29 PG (25-34); MEAN CORPUSCULAR HGB CONC 34 G/DL (32-36); MEAN CORPUSCULAR VOLUME 85 FL (80-99); MEAN PLATELET VOLUME 10.1 FL (7.4-10.4); MONOCYTES # (AUTO) 3.9 X 10^3 (0.0-1.0); MONOCYTES % (AUTO) 23 % (0-12); NEUTROPHILS # (AUTO) 10.1 X 10^3 (1.8-7.8); NEUTROPHILS % (AUTO) 60 % (42-75); PLATELET COUNT 191 10^3/uL (130-400); RED CELL DISTRIBUTION WIDTH 14.3 % (10.0-14.5); WHITE BLOOD COUNT 16.9 10^3/uL (4.3-11.0)
[2019-11-25 11:51] LABS: BUN/CREATININE RATIO 16; CALCIUM 9.5 MG/DL (8.5-10.1); CARBON DIOXIDE 25 MMOL/L (21-32); CHLORIDE 96 MMOL/L (98-107); CREATININE SERUM 1.18 MG/DL (0.60-1.30); GFR ESTIMATED > 60; GLUCOSE 110 MG/DL (70-105); POTASSIUM 4.1 MMOL/L (3.6-5.0); SODIUM 133 MMOL/L (135-145)
[2019-12-02 10:46] LABS: BASOPHILS # (AUTO) 0.1 10^3/uL (0.0-0.1); BASOPHILS % (AUTO) 0 % (0-10); EOSINOPHILS # (AUTO) 0.1 10^3/uL (0.0-0.3); EOSINOPHILS % (AUTO) 1 % (0-10); HEMATOCRIT 41 % (40-54); HEMOGLOBIN 13.9 G/DL (13.3-17.7); LYMPHOCYTES # (AUTO) 1.5 X 10^3 (1.0-4.0); LYMPHOCYTES % (AUTO) 7 % (12-44); MEAN CORPUSCULAR HEMOGLOBIN 29 PG (25-34); MEAN CORPUSCULAR HGB CONC 34 G/DL (32-36); MEAN CORPUSCULAR VOLUME 86 FL (80-99); MEAN PLATELET VOLUME 8.8 FL (7.4-10.4); MONOCYTES # (AUTO) 1.1 X 10^3 (0.0-1.0); MONOCYTES % (AUTO) 5 % (0-12); NEUTROPHILS % (AUTO) 87 % (42-75); PLATELET COUNT 406 10^3/uL (130-400); RED CELL DISTRIBUTION WIDTH 14.6 % (10.0-14.5); WHITE BLOOD COUNT 20.7 10^3/uL (4.3-11.0)
[2019-12-02 11:02] LABS: CALCIUM 9.6 MG/DL (8.5-10.1); CREATININE SERUM 1.47 MG/DL (0.60-1.30); POTASSIUM 4.5 MMOL/L (3.6-5.0)
[~2019-12-09] VITALS: Ht 175.3 cm; Wt 71.2 kg
[~2019-12-09 08:50] MED LIST changes: +CISPLATIN IV SCH; +FAMOTIDINE 20MG/2ML IV (CANCER CTR) IV SCH; +FOSAPREPITANT DIMEGLUMINE 150 MG in NS (IVPB) CANCER CENTER ONLY 150 ML IV SCH; +GEMCITABINE HCL IV SCH; +MANNITOL IV SCH; +NS IV 1000 ML (CANCER CTR) IV SCH; +NS IV SCH; +ONDANSETRON 8 MG, DEXAMETHASONE 4 MG/NS 50 ML IVPB (Cancer Ctr) IV SCH; +PALONOSETRON HCL 0.25 MG, DEXAMETHASONE INJECTION 10 MG in NS (IVPB) CANCER CENTER 50 ML IV SCH; +PEGFILGRASTIM 6 MG/0.6ML NEULASTA SC SCH; -RT-ALBUTEROL SULF 2.5 MG/3 ML PRE-MIX VIAL INH ONE; +SUCRALFATE 1 GM (CARAFATE) TAB PO ONE; +[UNRECOGNIZED DRUG - OTHER] IV SCH; +diphenhydrAMINE 50 MG/ML INJ (CANCER CENTER) IV PRN; +diphenhydrAMINE 50 MG/ML INJ (CANCER CENTER) ONE
[2019-12-09 09:08] LABS: BASOPHILS # (AUTO) 0.2 10^3/uL (0.0-0.1); BASOPHILS % (AUTO) 2 % (0-10); EOSINOPHILS # (AUTO) 0.2 10^3/uL (0.0-0.3); EOSINOPHILS % (AUTO) 3 % (0-10); HEMATOCRIT 41 % (40-54); HEMOGLOBIN 13.6 G/DL (13.3-17.7); LYMPHOCYTES # (AUTO) 1.7 X 10^3 (1.0-4.0); LYMPHOCYTES % (AUTO) 20 % (12-44); MEAN CORPUSCULAR HEMOGLOBIN 29 PG (25-34); MEAN CORPUSCULAR HGB CONC 33 G/DL (32-36); MEAN CORPUSCULAR VOLUME 87 FL (80-99); MONOCYTES # (AUTO) 0.8 X 10^3 (0.0-1.0); MONOCYTES % (AUTO) 10 % (0-12); NEUTROPHILS # (AUTO) 5.4 X 10^3 (1.8-7.8); NEUTROPHILS % (AUTO) 65 % (42-75); PLATELET COUNT 728 10^3/uL (130-400); RED CELL DISTRIBUTION WIDTH 14.9 % (10.0-14.5); WHITE BLOOD COUNT 8.3 10^3/uL (4.3-11.0)
[2019-12-09 09:17] LABS: CHLORIDE 103 MMOL/L (98-107); POTASSIUM 4.8 MMOL/L (3.6-5.0); SODIUM 138 MMOL/L (135-145)
[2019-12-09 09:19] LABS: CALCIUM 9.8 MG/DL (8.5-10.1)
[2019-12-09 09:20] LABS: GLUCOSE 92 MG/DL (70-105); TOTAL PROTEIN 7.4 GM/DL (6.4-8.2)
[2019-12-09 09:21] LABS: CARBON DIOXIDE 25 MMOL/L (21-32)
[2019-12-09 09:22] LABS: BILIRUBIN,TOTAL 0.3 MG/DL (0.1-1.0)
[2019-12-09 09:23] LABS: ALKALINE PHOSPHATASE 207 U/L (40-136); CREATININE SERUM 0.96 MG/DL (0.60-1.30); GFR ESTIMATED > 60
[2019-12-09 09:24] LABS: BUN/CREATININE RATIO 22
[2019-12-09 09:26] LABS: ALANINE AMINOTRANSFERASE 49 U/L (0-55); MAGNESIUM 2.1 MG/DL (1.6-2.4)
== END 2020-01-07 | disposition home or self-care (01) ==
LOC: ONC 08:50
PROVIDERS: ATTEND Internal Medicine Hematology & Oncology
DX: Z51.11 Encounter for antineoplastic chemotherapy (principal); C34.91 Malignant neoplasm of unspecified part of right bronchus or lung; Z87.891 Personal history of nicotine dependence; Z90.2 Acquired absence of lung [part of]
CPT/HCPCS: 80048; 80053; 83735; 85025; 96360; 96361; 96367; 96372; 96374; 96375; 96413; 96415; 96417; 99213

== ENCOUNTER → 2020-01-29 | Outpatient (CLI) | payer MEDICARE ==
[~2020-01-29] MED LIST changes: -CISPLATIN IV SCH; -FAMOTIDINE 20MG/2ML IV (CANCER CTR) IV SCH; -FOSAPREPITANT DIMEGLUMINE 150 MG in NS (IVPB) CANCER CENTER ONLY 150 ML IV SCH; -GEMCITABINE HCL IV SCH; -MANNITOL IV SCH; -NS IV 1000 ML (CANCER CTR) IV SCH; -NS IV SCH; -ONDANSETRON 8 MG, DEXAMETHASONE 4 MG/NS 50 ML IVPB (Cancer Ctr) IV SCH; -PALONOSETRON HCL 0.25 MG, DEXAMETHASONE INJECTION 10 MG in NS (IVPB) CANCER CENTER 50 ML IV SCH; -PEGFILGRASTIM 6 MG/0.6ML NEULASTA SC SCH; -SUCRALFATE 1 GM (CARAFATE) TAB PO ONE; -[UNRECOGNIZED DRUG - OTHER] IV SCH; -diphenhydrAMINE 50 MG/ML INJ (CANCER CENTER) IV PRN; -diphenhydrAMINE 50 MG/ML INJ (CANCER CENTER) ONE
--- NOTE | 2020-01-29 15:36 | Diagnostic Imaging Report ---
CLINICAL INDICATION: Follow-up thyroid nodule. COMPARISONS: Ultrasound of the thyroid gland dated 07/25/2019. FINDINGS: THYROID NODULES: There is a 5 mm x 3 mm x 4 mm circumscribed hypoechoic nodule within the mid to inferior aspect of the right thyroid gland. There is no significant central Doppler flow. This nodule is not significantly changed compared to the prior study. There is a 5 mm x 3 mm x 4 mm hypoechoic solid nodule involving the upper pole of the left thyroid gland which demonstrates central Doppler flow. This nodule previously measured 6 mm x 4 mm x 4 mm. There is a 6 mm x 5 mm x 6 mm circumscribed cystic nodule involving the inferior portion of the left thyroid lobe which previously measured 8 mm x 5 mm x 6 mm. There are smaller hypoechoic nodules involving both thyroid glands again noted. THYROID GLAND: Besides the thyroid nodules, the thyroid gland has normal size, shape and echogenicity. The right lobe measures 5.5 cm x 2.0 cm x 2.4 cm and the left lobe measures 5.1 cm x 1.6 cm x 1.3 cm in their three dimensions. ISTHMUS: The isthmus is unremarkable and measures 2.6 mm in thickness. IMPRESSION: Overall, there is no significant change in size of the multiple bilateral thyroid gland nodules which are all 6 mm or less in size. This is described above. Dictated by: Dictated on workstation # [id number]
== END ==
LOC: RAD 13:40
PROVIDERS: ATTEND Otolaryngology Otolaryngology/Facial Plastic Surgery
DX: E04.1 Nontoxic single thyroid nodule (principal)
CPT/HCPCS: 76536

== ENCOUNTER → 2020-03-08 | Outpatient (CLI) | payer MEDICARE ==
[~2020-03-08] MED LIST changes: +CATHETER FLUSH 10 ML SYR IV PRN; +HOLD METFORMIN - RECEIVED CONTRAST 20 ML VIAL IV SCH; +IOHEXOL 350 MG/ML 100 ML (OMNIPAQUE 350) VIAL IV ONE; +NS 100 ML (IVPB) BAG IV ONE
--- NOTE | 2020-03-08 12:13 | Diagnostic Imaging Report ---
PROCEDURE: CT chest with contrast only. TECHNIQUE: Multiple contiguous axial images were obtained through the chest after administration of intravenous contrast. Auto Exposure Controls were utilized during the CT exam to meet ALARA standards for radiation dose reduction. INDICATION: Squamous cell carcinoma right lung. Correlation is made with prior PET/CT study from 07/22/2019. FINDINGS: No axillary lymphadenopathy is identified. No definite pathologically enlarged mediastinal or hilar lymph nodes are identified. There are postop changes of a right upper lobectomy with volume loss in the right hemithorax. Significant bolus emphysematous changes in both lungs are noted. No discrete mass is seen. There is an area of pleural thickening posteriorly and right upper chest. Upper abdomen demonstrates a large stone in the region of the gallbladder neck. No adrenal mass is detected. IMPRESSION: Status post right upper lobectomy with resection of known right upper lobe malignancy. No mediastinal or hilar lymphadenopathy or evidence of recurrent mass is identified. Dictated by: Dictated on workstation # [id number]
== END ==
LOC: RAD 10:43
PROVIDERS: ATTEND Nurse Practitioner Adult Health
DX: Z01.89 Encounter for other specified special examinations (principal); Z85.118 Personal history of other malignant neoplasm of bronchus and lung; Z90.2 Acquired absence of lung [part of]
CPT/HCPCS: 71260

== ENCOUNTER 2020-03-10 09:58 | Outpatient (RCR) | payer MEDICARE ==
[2020-03-08 10:27] LABS: BASOPHILS # (AUTO) 0.1 10^3/uL (0.0-0.1); BASOPHILS % (AUTO) 1 % (0-10); EOSINOPHILS # (AUTO) 0.4 10^3/uL (0.0-0.3); EOSINOPHILS % (AUTO) 5 % (0-10); HEMATOCRIT 43 % (40-54); HEMOGLOBIN 14.4 G/DL (13.3-17.7); LYMPHOCYTES # (AUTO) 2.3 X 10^3 (1.0-4.0); LYMPHOCYTES % (AUTO) 29 % (12-44); MEAN CORPUSCULAR HEMOGLOBIN 29 PG (25-34); MEAN CORPUSCULAR HGB CONC 34 G/DL (32-36); MEAN CORPUSCULAR VOLUME 87 FL (80-99); MONOCYTES # (AUTO) 0.9 X 10^3 (0.0-1.0); MONOCYTES % (AUTO) 11 % (0-12); NEUTROPHILS # (AUTO) 4.3 X 10^3 (1.8-7.8); NEUTROPHILS % (AUTO) 54 % (42-75); PLATELET COUNT 383 10^3/uL (130-400)
[2020-03-08 10:43] LABS: ALANINE AMINOTRANSFERASE 29 U/L (0-55); ALBUMIN 3.8 GM/DL (3.2-4.5); ALKALINE PHOSPHATASE 81 U/L (40-136); BILIRUBIN,TOTAL 0.4 MG/DL (0.1-1.0); BUN/CREATININE RATIO 18; CALCIUM 8.8 MG/DL (8.5-10.1); CARBON DIOXIDE 24 MMOL/L (21-32); CHLORIDE 106 MMOL/L (98-107); CREATININE SERUM 0.99 MG/DL (0.60-1.30); GFR ESTIMATED > 60; GLUCOSE 87 MG/DL (70-105); POTASSIUM 4.5 MMOL/L (3.6-5.0); SODIUM 137 MMOL/L (135-145); TOTAL PROTEIN 6.4 GM/DL (6.4-8.2)
[~2020-03-10 09:58] MED LIST changes: -CATHETER FLUSH 10 ML SYR IV PRN; -HOLD METFORMIN - RECEIVED CONTRAST 20 ML VIAL IV SCH; -IOHEXOL 350 MG/ML 100 ML (OMNIPAQUE 350) VIAL IV ONE; -NS 100 ML (IVPB) BAG IV ONE
== END 2020-06-06 | disposition home or self-care (01) ==
LOC: ONC 09:58
PROVIDERS: ATTEND Internal Medicine Hematology & Oncology
DX: C34.11 Malignant neoplasm of upper lobe, right bronchus or lung (principal); E04.2 Nontoxic multinodular goiter; Z92.21 Personal history of antineoplastic chemotherapy; Z87.81 Personal history of (healed) traumatic fracture; Z91.81 History of falling; Z90.2 Acquired absence of lung [part of]; Z98.890 Other specified postprocedural states
CPT/HCPCS: 80053; 85025; 99213

== ENCOUNTER 2020-06-09 09:19 | Outpatient (RCR) | payer MEDICARE ==
[2020-06-09 09:29] LABS: BASOPHILS # (AUTO) 0.1 10^3/uL (0.0-0.1); BASOPHILS % (AUTO) 1 % (0-10); EOSINOPHILS # (AUTO) 0.2 10^3/uL (0.0-0.3); EOSINOPHILS % (AUTO) 4 % (0-10); HEMATOCRIT 44 % (40-54); HEMOGLOBIN 14.5 g/dL (13.3-17.7); LYMPHOCYTES # (AUTO) 1.8 10^3/uL (1.0-4.0); LYMPHOCYTES % (AUTO) 30 % (12-44); MEAN CORPUSCULAR HEMOGLOBIN 29 pg (25-34); MEAN CORPUSCULAR HGB CONC 33 g/dL (32-36); MEAN CORPUSCULAR VOLUME 88 fL (80-99); MEAN PLATELET VOLUME 8.3 fL (9.0-12.2); MONOCYTES # (AUTO) 0.7 10^3/uL (0.0-1.0); MONOCYTES % (AUTO) 11 % (0-12); NEUTROPHILS # (AUTO) 3.2 10^3/uL (1.8-7.8); NEUTROPHILS % (AUTO) 54 % (42-75); PLATELET COUNT 386 10^3/uL (130-400)
[2020-06-09 09:51] LABS: ALANINE AMINOTRANSFERASE 28 U/L (0-55); ALKALINE PHOSPHATASE 69 U/L (40-136); BILIRUBIN,TOTAL 0.9 MG/DL (0.1-1.0); BUN/CREATININE RATIO 21; CALCIUM 8.9 MG/DL (8.5-10.1); CARBON DIOXIDE 23 MMOL/L (21-32); CHLORIDE 104 MMOL/L (98-107); CREATININE SERUM 1.13 MG/DL (0.60-1.30); GFR ESTIMATED > 60; GLUCOSE 92 MG/DL (70-105); POTASSIUM 4.3 MMOL/L (3.6-5.0); SODIUM 139 MMOL/L (135-145); TOTAL PROTEIN 6.7 GM/DL (6.4-8.2)
[2020-09-06 10:32] LABS: BASOPHILS # (AUTO) 0.1 10^3/uL (0.0-0.1); BASOPHILS % (AUTO) 2 % (0-10); EOSINOPHILS # (AUTO) 0.4 10^3/uL (0.0-0.3); EOSINOPHILS % (AUTO) 6 % (0-10); HEMATOCRIT 45 % (40-54); HEMOGLOBIN 14.7 g/dL (13.3-17.7); LYMPHOCYTES # (AUTO) 1.6 10^3/uL (1.0-4.0); LYMPHOCYTES % (AUTO) 24 % (12-44); MEAN CORPUSCULAR HEMOGLOBIN 30 pg (25-34); MEAN CORPUSCULAR HGB CONC 33 g/dL (32-36); MEAN CORPUSCULAR VOLUME 90 fL (80-99); MEAN PLATELET VOLUME 8.2 fL (9.0-12.2); MONOCYTES # (AUTO) 0.7 10^3/uL (0.0-1.0); MONOCYTES % (AUTO) 10 % (0-12); NEUTROPHILS # (AUTO) 3.9 10^3/uL (1.8-7.8); NEUTROPHILS % (AUTO) 58 % (42-75); PLATELET COUNT 418 10^3/uL (130-400); WHITE BLOOD COUNT 6.7 10^3/uL (4.3-11.0)
[2020-09-06 10:52] LABS: ALANINE AMINOTRANSFERASE 34 U/L (0-55); ALKALINE PHOSPHATASE 91 U/L (40-136); BILIRUBIN,TOTAL 0.5 MG/DL (0.1-1.0); BUN/CREATININE RATIO 21; CALCIUM 9.3 MG/DL (8.5-10.1); CARBON DIOXIDE 25 MMOL/L (21-32); CHLORIDE 106 MMOL/L (98-107); CREATININE SERUM 1.14 MG/DL (0.60-1.30); GFR ESTIMATED > 60; GLUCOSE 87 MG/DL (70-105); POTASSIUM 4.6 MMOL/L (3.6-5.0); SODIUM 138 MMOL/L (135-145); TOTAL PROTEIN 7.3 GM/DL (6.4-8.2)
== END 2020-09-06 09:28 | disposition home or self-care (01) ==
LOC: ONC 09:19
PROVIDERS: ATTEND Internal Medicine Hematology & Oncology
DX: C34.11 Malignant neoplasm of upper lobe, right bronchus or lung (principal); E04.2 Nontoxic multinodular goiter; Z92.21 Personal history of antineoplastic chemotherapy; Z87.81 Personal history of (healed) traumatic fracture; Z91.81 History of falling; Z90.2 Acquired absence of lung [part of]; Z98.890 Other specified postprocedural states
CPT/HCPCS: 80053 ×2; 85025 ×2; G0463; 99213

== ENCOUNTER → 2020-09-06 | Outpatient (CLI) | payer MEDICARE ==
[~2020-09-06] MED LIST changes: +CATHETER FLUSH 10 ML SYR IV PRN; +HOLD METFORMIN - RECEIVED CONTRAST 20 ML VIAL IV SCH; +IOHEXOL 350 MG/ML 100 ML (OMNIPAQUE 350) VIAL IV ONE
[2020-09-06] MEDS: CATHETER FLUSH 10 ML SYR IV PRN ×2 (10:49→12:00)
--- NOTE | 2020-09-06 12:18 | Diagnostic Imaging Report ---
PROCEDURE: CT chest with contrast, CT abdomen with and without contrast. TECHNIQUE: Precontrast acquisitions were acquired through the abdomen. Multiple contiguous axial images were obtained through the chest and abdomen after administration of intravenous contrast. Auto Exposure Controls were utilized during the CT exam to meet ALARA standards for radiation dose reduction. INDICATION: Restage neoplasm. Patient has history of right lung carcinoma. COMPARISON: Correlation is made with prior CT chest from 03/08/2020. FINDINGS: CT chest: No axillary lymphadenopathy is identified. Small lymph nodes in the mediastinum are noted. No definite pathologically enlarged nodes are seen. No hilar lymphadenopathy is detected. No pericardial or pleural fluid is identified. Severe bullous emphysematous changes in both lungs are noted. There are postop changes right upper lobectomy again noted. No definite recurrent mass is identified. No pulmonary nodules or evidence of metastatic disease is detected. IMPRESSION: Postop changes right upper lobectomy. No recurrent mass or lymphadenopathy is seen. There are multiple lymph nodes in the mediastinum which appear to be slightly larger when compared with prior exam but remain within normal limits in size. Continued follow-up would be recommended. CT abdomen with and without: No discrete liver mass is detected. There appears to be stone in the region of the gallbladder neck. No gallbladder wall thickening or pericholecystic fluid is seen. There is no biliary ductal dilatation. Pancreas and spleen are unremarkable. There is no adrenal mass. Kidneys are unremarkable. Aorta is nonaneurysmal. There is no central retroperitoneal or mesenteric lymphadenopathy. Delayed images are unremarkable. Bony structures are nonacute. IMPRESSION: 1. No evidence of abdominal lymphadenopathy or metastatic disease. 2. Findings suggestive of cholelithiasis. Dictated by: Dictated on workstation # [id number]
--- NOTE | 2020-09-06 14:32 | Diagnostic Imaging Report ---
INDICATION: Lung carcinoma. TECHNIQUE: Patient was administered 26.1 mCi technetium 99m MDP intravenously and whole body imaging was performed after three-hour delay. COMPARISON: No prior studies are available for comparison. FINDINGS: Normal uptake of activity by the axial and appendicular skeleton is noted. There is uptake by the kidneys with excretion into the urinary bladder. There is uptake in the proximal left humerus as well as the mid shaft of the left humerus, consistent with left shoulder prosthesis. Vague uptake involving right-sided posterior ribs is noted which may represent healed fractures when correlated with CT from the same day. No other suspicious foci are identified. IMPRESSION: No scintigraphic evidence of osseous metastatic disease. Dictated by: Dictated on workstation # [id number]
== END ==
LOC: CARD 11:00
PROVIDERS: ATTEND Nurse Practitioner Adult Health
DX: Z01.89 Encounter for other specified special examinations (principal); C34.11 Malignant neoplasm of upper lobe, right bronchus or lung
CPT/HCPCS: 71260; 74170; 78306; A9503

== ENCOUNTER 2020-09-08 09:44 | Outpatient (RCR) | payer MEDICARE ==
[~2020-09-08 09:44] MED LIST changes: -CATHETER FLUSH 10 ML SYR IV PRN; -HOLD METFORMIN - RECEIVED CONTRAST 20 ML VIAL IV SCH; -IOHEXOL 350 MG/ML 100 ML (OMNIPAQUE 350) VIAL IV ONE
== END 2020-12-05 | disposition home or self-care (01) ==
LOC: ONC 09:44
PROVIDERS: ATTEND Internal Medicine Hematology & Oncology
DX: C34.11 Malignant neoplasm of upper lobe, right bronchus or lung (principal); E04.2 Nontoxic multinodular goiter; Z87.81 Personal history of (healed) traumatic fracture; Z91.81 History of falling; Z90.2 Acquired absence of lung [part of]; Z98.890 Other specified postprocedural states; Z92.21 Personal history of antineoplastic chemotherapy
CPT/HCPCS: 99213

== ENCOUNTER → 2021-01-17 | Outpatient (CLI) | payer MEDICARE ==
[~2021-01-17] MED LIST changes: +CATHETER FLUSH 10 ML SYR IV PRN; +HOLD METFORMIN - RECEIVED CONTRAST 20 ML VIAL IV SCH; +IOHEXOL 350 MG/ML 100 ML (OMNIPAQUE 350) VIAL IV ONE; +NS 100 ML (IVPB) BAG IV ONE
[2021-01-17 08:55] LABS: CREATININE SERUM 1.3 MG/DL (0.60-1.30)
--- NOTE | 2021-01-17 11:16 | Diagnostic Imaging Report ---
INDICATION: COPD, history of previous right lung surgery. TECHNIQUE: Multiple contiguous axial images were obtained through the chest after administration of intravenous contrast. Auto Exposure Controls were utilized during the CT exam to meet ALARA standards for radiation dose reduction. Comparison made with prior study of 09/06/2020. There are no appreciably enlarged nodes in the mediastinum or denisha. There are no enlarged axillary nodes or chest wall lesions. There are no overt bony abnormalities. There is no pleural or pericardial fluid. Lung parenchymal windows demonstrate severe emphysematous changes with large biapical bullae. There is a small density which may represent nodule or scar in the right upper lung, best seen on image 57 of series 3, measuring 14 x 8 mm. This density measured about 11 x 8 mm on the previous study. There is no other new abnormality. Visualized portions of the upper abdomen demonstrate a large gallstone in the gallbladder neck, unchanged compared to the prior study. IMPRESSION: There is severe emphysematous changes throughout both lungs. There is a area of scarring versus nodule in the right upper lobe which has increased in size compared to the prior study, recurrent neoplasm not excluded. Recommend continued follow-up or PET imaging for further evaluation. There is a gallstone in the gallbladder neck. There is no pleural fluid. There is no overt adenopathy. Dictated by: Dictated on workstation # [id number]
== END ==
LOC: RAD 08:24
PROVIDERS: ATTEND Nurse Practitioner Family
DX: J43.9 Emphysema, unspecified (principal); Z98.890 Other specified postprocedural states
CPT/HCPCS: 36415; 71260; 82565; 84520

== ENCOUNTER → 2021-01-25 | Outpatient (CLI) | payer MEDICARE ==
[~2021-01-25] MED LIST changes: -CATHETER FLUSH 10 ML SYR IV PRN; -HOLD METFORMIN - RECEIVED CONTRAST 20 ML VIAL IV SCH; -IOHEXOL 350 MG/ML 100 ML (OMNIPAQUE 350) VIAL IV ONE; -NS 100 ML (IVPB) BAG IV ONE
--- NOTE | 2021-01-25 14:08 | Diagnostic Imaging Report ---
INDICATION: Solitary pulmonary nodule. Serum blood glucose level at time of injection is 93 mg per deciliter. Patient was administered 14.4 mCi F-18 FDG intravenously and PET imaging was performed from the top of skull to middle thighs. Noncontrast CT was also performed for attenuation correction and anatomic correlation. Correlation is made with recent CT chest from 01/17/2021 as well as prior PET/CT study from 07/22/2019. There is symmetric activity throughout the brain. Hypermetabolic nodule right lobe of thyroid is noted with SUV max of 6.6. No other areas of significant uptake in the soft tissues of the neck are identified. There is an area of hypermetabolism corresponding with the new area of nodularity in the right upper chest with SUV max 9.7. This is suspicious for an area of recurrence. Severe bullous lung disease is identified bilaterally. No definite mediastinal or hilar hypermetabolism is identified. No other pulmonary parenchymal regions of hypermetabolism are identified. Physiologic activity throughout the gastrointestinal and genitourinary tracts of abdomen and pelvis is noted. No suspicious hypermetabolism is identified. IMPRESSION: The areas of nodularity described in the right upper lobe on recent CT chest demonstrates significant FDG avidity and are suspicious for focal recurrence. No mediastinal or hilar hypermetabolism is identified. Hypermetabolic right lobe thyroid nodule. Prior thyroid ultrasound in July 2019 demonstrated multiple small nodules but additional follow-up thyroid ultrasound could be performed for further evaluation. Dictated by: Dictated on workstation # [id number]
== END ==
LOC: RAD 08:15
PROVIDERS: ATTEND Internal Medicine Hematology & Oncology
DX: R91.1 Solitary pulmonary nodule (principal); Z85.118 Personal history of other malignant neoplasm of bronchus and lung
CPT/HCPCS: 78815; A9552

== ENCOUNTER → 2021-02-11 | Outpatient (CLI) | payer MEDICARE ==
--- NOTE | 2021-02-11 09:54 | Diagnostic Imaging Report ---
INDICATION: MULTINODULE GOITER, followup TECHNIQUE: Grayscale sonographic images of the thyroid gland. CORRELATION STUDY: 01/21/2020 FINDINGS: RIGHT LOBE: Mildly enlarged, 5.2 x 2.5 x 2.3 cm. Mid aspect is a hypoechoic largely cystic nodule at 0.7 x 0.5 x 0.6 cm (previously 0.5 x 0.3 x 0.4 cm). LEFT LOBE: Borderline enlarged 5.0 x 1.6 x 1.4 cm. Small hypoechoic cystic nodule inferior pole 0.7 x 0.5 x 0.6 cm (previously 0.6 x 0.5 x 0.6). Superior pole is a slightly hypoechoic but solid nodule 0.7 x 0.5 0.5 cm (previously 0.5 x 0.3 x 0.4 cm). Isthmus appears unremarkable. IMPRESSION: Bilateral thyroid nodules in a borderline enlarged thyroid gland. Solid nodule superior pole left lobe very slight increased in size from most recent imaging but generally stable from baseline. Followup ultrasound imaging one year recommended. No definitive concerning right sided nodule to account for recent PET findings. Findings at PET are rather pronounced and are changed from prior studies. Given this, correlation with thyroid laboratory function tests and potentially contrast-enhanced MRI soft tissue neck would be recommended. (Normal gland size: 4-5 x 2 x 2 cm) Dictated by: Dictated on workstation # [id number]
== END ==
LOC: RAD 08:45
PROVIDERS: ATTEND Otolaryngology Otolaryngology/Facial Plastic Surgery
DX: E04.2 Nontoxic multinodular goiter (principal)
CPT/HCPCS: 76536

== ENCOUNTER → 2021-02-22 | Outpatient (CLI) | payer MEDICARE ==
[~2021-02-22] MED LIST changes: +GADOBUTROL 7.5 MMOL/7.5 ML (GADAVIST) VIAL IV ONE
--- NOTE | 2021-02-22 12:06 | Diagnostic Imaging Report ---
PROCEDURE: MRI neck with and without contrast. TECHNIQUE: Multiplanar, multisequence MRI of the neck was performed with and without contrast. INDICATION: Right-sided thyroid nodule. Followup. COMPARISON: 02/11/2021. 01/25/2021. FINDINGS: The right lobe of the thyroid is asymmetrically larger than the left. No particularly suspicious thyroid nodules are visualized. No abnormal enhancement is seen within the thyroid gland. The parotid and submandibular glands are unremarkable. The posterior nasopharynx and oropharynx demonstrate appropriate symmetry. There is no displacement of the parapharyngeal fat planes. There is no abnormal process evident within the prevertebral or retropharyngeal space. There is no evidence of abnormal thickening of the epiglottis or aryepiglottic folds. The vocal folds appear symmetric. No pathologically enlarged cervical lymph nodes are evident. No focal inflammatory changes are demonstrated. No soft tissue mass or fluid collection demonstrated. The vascular structures the neck demonstrate no evidence of high-grade stenosis on this nondedicated exam. The visualized lung apices are clear. The visualized intracranial contents demonstrate no evidence of pathologic intracranial enhancement or intracranial mass effect. Visualized orbital contents are unremarkable. The visualized paranasal sinuses are clear. The mastoids and middle ears are clear. No acute osseous abnormality in the cervical spine. IMPRESSION: 1. Stable asymmetric prominence of the right lobe of the thyroid relative to the left. No suspicious enhancement or concerning thyroid nodules are seen. No pathologically enlarged lymphadenopathy in neck. Recommend continued surveillance of the thyroid with thyroid ultrasound 12 months from the prior exam on 02/11/2021. 2. Normal appearance of the aerodigestive tract. No evidence of soft tissue mass or fluid collection in the neck. No airway compromise. Dictated by: Dictated on workstation # [id number]
== END ==
LOC: RAD 10:11
PROVIDERS: ATTEND Otolaryngology Otolaryngology/Facial Plastic Surgery
DX: E04.1 Nontoxic single thyroid nodule (principal)
CPT/HCPCS: 70543

== ENCOUNTER 2021-02-28 09:25 | Outpatient (RCR) | payer MEDICARE ==
[2020-12-14 10:12] LABS: BASOPHILS # (AUTO) 0.1 10^3/uL (0.0-0.1); BASOPHILS % (AUTO) 1 % (0-10); EOSINOPHILS # (AUTO) 0.2 10^3/uL (0.0-0.3); EOSINOPHILS % (AUTO) 3 % (0-10); HEMATOCRIT 47 % (40-54); HEMOGLOBIN 15.6 g/dL (13.3-17.7); LYMPHOCYTES # (AUTO) 1.4 10^3/uL (1.0-4.0); LYMPHOCYTES % (AUTO) 22 % (12-44); MEAN CORPUSCULAR HEMOGLOBIN 29 pg (25-34); MEAN CORPUSCULAR HGB CONC 33 g/dL (32-36); MEAN CORPUSCULAR VOLUME 89 fL (80-99); MEAN PLATELET VOLUME 8.2 fL (9.0-12.2); MONOCYTES # (AUTO) 0.6 10^3/uL (0.0-1.0); MONOCYTES % (AUTO) 10 % (0-12); NEUTROPHILS # (AUTO) 4.1 10^3/uL (1.8-7.8); NEUTROPHILS % (AUTO) 64 % (42-75); PLATELET COUNT 373 10^3/uL (130-400); WHITE BLOOD COUNT 6.4 10^3/uL (4.3-11.0)
[2020-12-14 10:33] LABS: ALANINE AMINOTRANSFERASE 25 U/L (0-55); ALKALINE PHOSPHATASE 91 U/L (40-136); BILIRUBIN,TOTAL 0.4 MG/DL (0.1-1.0); BUN/CREATININE RATIO 20; CARBON DIOXIDE 23 MMOL/L (21-32); CHLORIDE 106 MMOL/L (98-107); CREATININE SERUM 1.19 MG/DL (0.60-1.30); GFR ESTIMATED > 60; GLUCOSE 97 MG/DL (70-105); POTASSIUM 4.2 MMOL/L (3.6-5.0); SODIUM 137 MMOL/L (135-145)
[~2021-02-28 09:25] MED LIST changes: -GADOBUTROL 7.5 MMOL/7.5 ML (GADAVIST) VIAL IV ONE
== END 2021-03-14 | disposition home or self-care (01) ==
LOC: ONC 09:25
PROVIDERS: ATTEND Internal Medicine Hematology & Oncology
DX: C34.11 Malignant neoplasm of upper lobe, right bronchus or lung (principal); E04.2 Nontoxic multinodular goiter; Z87.81 Personal history of (healed) traumatic fracture; Z91.81 History of falling; Z90.2 Acquired absence of lung [part of]; Z98.890 Other specified postprocedural states; Z92.21 Personal history of antineoplastic chemotherapy
CPT/HCPCS: 80053; 85025; G0463; 77290; 77293; 77300; 77301; 77334; 77338; 77370; 77470; 99204; 99213; 99214

== ENCOUNTER → 2021-03-08 | Outpatient (CLI) | payer MEDICARE ==
[2021-03-08 10:29] LABS: FREE T4 (FREE THYROXINE) 1.07 NG/DL (0.70-1.48)
== END ==
LOC: LAB 09:26
PROVIDERS: ATTEND Otolaryngology Otolaryngology/Facial Plastic Surgery
DX: E04.1 Nontoxic single thyroid nodule (principal)
CPT/HCPCS: 36415; 84439; 84443

== ENCOUNTER → 2021-05-05 | Outpatient (CLI) | payer MEDICARE ==
[~2021-05-05] MED LIST changes: +CATHETER FLUSH 10 ML SYR IV PRN; +HOLD METFORMIN - RECEIVED CONTRAST 20 ML VIAL IV SCH; +IOHEXOL 350 MG/ML 100 ML (OMNIPAQUE 350) VIAL IV ONE; +NS 100 ML (IVPB) BAG IV ONE
--- NOTE | 2021-05-05 10:39 | Diagnostic Imaging Report ---
PROCEDURE: CT chest with contrast, CT abdomen with and without contrast. TECHNIQUE: Precontrast acquisitions were acquired through the abdomen. Multiple contiguous axial images were obtained through the chest and abdomen after administration of intravenous contrast. Auto Exposure Controls were utilized during the CT exam to meet ALARA standards for radiation dose reduction. INDICATION: Right lung neoplasm. Patient is status post surgery and radiation therapy. COMPARISON: Correlation is made with prior CT from 01/17/2021. CT CHEST: No axillary lymphadenopathy is detected. No definite mediastinal or hilar lymphadenopathy is identified. No pericardial or pleural fluid is detected. Parenchymal evaluation does show severe emphysematous changes in both lungs. The area of nodularity in the right upper lobe is much less prominent on today's study. No discrete mass is seen. Left lung is unremarkable. IMPRESSION: The area of nodularity in the right upper lobe seen previously is no longer appreciated. No new mass or evidence of thoracic lymphadenopathy is identified. CT ABDOMEN: No discrete liver mass is detected. There is a stone in the region of the gallbladder neck. No biliary ductal dilatation is seen. The pancreas and spleen are unremarkable. No adrenal mass is detected. Kidneys are unremarkable. Aorta is nonaneurysmal. No central retroperitoneal or mesenteric lymphadenopathy is identified. Bowel loops are normal in caliber. There is no ascites. Bony structures are nonacute. IMPRESSION: 1. Cholelithiasis. CT abdomen is otherwise unremarkable. No abdominal lymphadenopathy or evidence of metastatic disease is detected. Dictated by: Dictated on workstation # [id number]
== END ==
LOC: RAD 09:43
PROVIDERS: ATTEND Internal Medicine Hematology & Oncology
DX: C34.11 Malignant neoplasm of upper lobe, right bronchus or lung (principal); K80.20 Calculus of gallbladder without cholecystitis without obstruction
CPT/HCPCS: 71260; 74170

== ENCOUNTER 2021-05-12 09:26 | Outpatient (RCR) | payer MEDICARE ==
[2021-04-18 09:36] LABS: BASOPHILS # (AUTO) 0.1 10^3/uL (0.0-0.1); BASOPHILS % (AUTO) 3 % (0-10); EOSINOPHILS # (AUTO) 0.3 10^3/uL (0.0-0.3); EOSINOPHILS % (AUTO) 6 % (0-10); HEMATOCRIT 45 % (40-54); HEMOGLOBIN 15.3 g/dL (13.3-17.7); LYMPHOCYTES # (AUTO) 0.9 10^3/uL (1.0-4.0); LYMPHOCYTES % (AUTO) 21 % (12-44); MEAN CORPUSCULAR HEMOGLOBIN 30 pg (25-34); MEAN CORPUSCULAR HGB CONC 34 g/dL (32-36); MEAN CORPUSCULAR VOLUME 88 fL (80-99); MEAN PLATELET VOLUME 8.3 fL (9.0-12.2); MONOCYTES # (AUTO) 0.7 10^3/uL (0.0-1.0); MONOCYTES % (AUTO) 15 % (0-12); NEUTROPHILS # (AUTO) 2.5 10^3/uL (1.8-7.8); NEUTROPHILS % (AUTO) 56 % (42-75); PLATELET COUNT 308 10^3/uL (130-400); WHITE BLOOD COUNT 4.4 10^3/uL (4.3-11.0)
[2021-04-18 09:56] LABS: ALBUMIN 3.8 GM/DL (3.2-4.5); BILIRUBIN,TOTAL 0.8 MG/DL (0.1-1.0); CALCIUM 8.9 MG/DL (8.5-10.1); CREATININE SERUM 1.11 MG/DL (0.60-1.30); POTASSIUM 4.1 MMOL/L (3.6-5.0); TOTAL PROTEIN 6.6 GM/DL (6.4-8.2)
[~2021-05-12 09:26] MED LIST changes: -CATHETER FLUSH 10 ML SYR IV PRN; -HOLD METFORMIN - RECEIVED CONTRAST 20 ML VIAL IV SCH; -IOHEXOL 350 MG/ML 100 ML (OMNIPAQUE 350) VIAL IV ONE; -NS 100 ML (IVPB) BAG IV ONE
== END 2021-06-13 | disposition home or self-care (01) ==
LOC: ONC 09:26
PROVIDERS: ATTEND Internal Medicine Hematology & Oncology
DX: Z51.0 Encounter for antineoplastic radiation therapy (principal); C34.11 Malignant neoplasm of upper lobe, right bronchus or lung; E04.2 Nontoxic multinodular goiter; Z87.81 Personal history of (healed) traumatic fracture; Z91.81 History of falling; Z90.2 Acquired absence of lung [part of]; Z98.890 Other specified postprocedural states; Z92.21 Personal history of antineoplastic chemotherapy
CPT/HCPCS: 77373; G0463; 77336; 80053; 85025; 99213

== ENCOUNTER → 2021-08-04 | Outpatient (CLI) | payer MEDICARE ==
[~2021-08-04] MED LIST changes: +CATHETER FLUSH 10 ML SYR IV PRN; +HOLD METFORMIN - RECEIVED CONTRAST 20 ML VIAL IV SCH; +IOHEXOL 350 MG/ML 100 ML (OMNIPAQUE 350) VIAL IV ONE; +NS 100 ML (IVPB) BAG IV ONE
--- NOTE | 2021-08-04 14:01 | Diagnostic Imaging Report ---
PROCEDURE: CT chest with contrast, CT abdomen with and without contrast. TECHNIQUE: Precontrast acquisitions were acquired through the abdomen. Multiple contiguous axial images were obtained through the chest and abdomen after administration of intravenous contrast. Auto Exposure Controls were utilized during the CT exam to meet ALARA standards for radiation dose reduction. INDICATION: Lung cancer. COMPARISON: Exam compared with studies of 05/05/2021. FINDINGS: CHEST: Severe bullous emphysema in the lungs is present. No discrete or measurable soft tissue lung mass. No pathologically enlarged or suspect thoracic lymph nodes. No effusion or pneumothorax. No chest wall abnormality. Aorta is patent, nonaneurysmal, and nonacute. No central PE. ABDOMEN: Stones at the gallbladder neck are present. No bile duct dilatation. There is no liver, adrenal, splenic, or pancreatic mass. The kidneys are unobstructed. There is no abdominal mesenteric or retroperitoneal lymphadenopathy. No acute or suspect bony lesion. There is no ascites. IMPRESSION: 1. Chest: Stable severe emphysematous changes without visualized neoplastic recurrence. 2. Abdomen: No findings of abdominal metastasis. Dictated by: Dictated on workstation # [id number]
== END ==
LOC: RAD 11:15
PROVIDERS: ATTEND Internal Medicine Hematology & Oncology
DX: C34.11 Malignant neoplasm of upper lobe, right bronchus or lung (principal); J43.9 Emphysema, unspecified
CPT/HCPCS: 71260; 74170

== ENCOUNTER 2021-08-08 09:59 | Outpatient (RCR) | payer MEDICARE ==
[2021-08-04 09:23] LABS: BASOPHILS # (AUTO) 0.1 10^3/uL (0.0-0.1); BASOPHILS % (AUTO) 1 % (0-10); EOSINOPHILS # (AUTO) 0.1 10^3/uL (0.0-0.3); EOSINOPHILS % (AUTO) 1 % (0-10); HEMATOCRIT 51 % (40-54); HEMOGLOBIN 17.2 g/dL (13.3-17.7); LYMPHOCYTES % (AUTO) 23 % (12-44); MEAN CORPUSCULAR HEMOGLOBIN 29 pg (25-34); MEAN CORPUSCULAR HGB CONC 34 g/dL (32-36); MEAN CORPUSCULAR VOLUME 87 fL (80-99); MEAN PLATELET VOLUME 8.2 fL (9.0-12.2); MONOCYTES # (AUTO) 0.8 10^3/uL (0.0-1.0); MONOCYTES % (AUTO) 9 % (0-12); NEUTROPHILS # (AUTO) 5.7 10^3/uL (1.8-7.8); NEUTROPHILS % (AUTO) 66 % (42-75); PLATELET COUNT 379 10^3/uL (130-400); WHITE BLOOD COUNT 8.6 10^3/uL (4.3-11.0)
[2021-08-04 09:48] LABS: ALBUMIN 4.1 GM/DL (3.2-4.5); BILIRUBIN,TOTAL 1.3 MG/DL (0.1-1.0); CALCIUM 9.5 MG/DL (8.5-10.1); CREATININE SERUM 1.19 MG/DL (0.60-1.30); POTASSIUM 3.8 MMOL/L (3.6-5.0); TOTAL PROTEIN 7.1 GM/DL (6.4-8.2)
[~2021-08-08 09:59] MED LIST changes: -CATHETER FLUSH 10 ML SYR IV PRN; -HOLD METFORMIN - RECEIVED CONTRAST 20 ML VIAL IV SCH; -IOHEXOL 350 MG/ML 100 ML (OMNIPAQUE 350) VIAL IV ONE; -NS 100 ML (IVPB) BAG IV ONE
== END 2021-09-02 | disposition home or self-care (01) ==
LOC: ONC 09:59
PROVIDERS: ATTEND Internal Medicine Hematology & Oncology
DX: C34.11 Malignant neoplasm of upper lobe, right bronchus or lung (principal); E04.2 Nontoxic multinodular goiter; J44.9 Chronic obstructive pulmonary disease, unspecified; Z87.81 Personal history of (healed) traumatic fracture; Z91.81 History of falling; Z90.2 Acquired absence of lung [part of]; Z98.890 Other specified postprocedural states; Z92.21 Personal history of antineoplastic chemotherapy
CPT/HCPCS: 80053; 85025; 99213

== ENCOUNTER → 2021-08-16 | Outpatient (CLI) | payer MEDICARE ==
[~2021-08-16] MED LIST changes: +GADOTERATE 0.5 MMOL/ML (CLARISCAN) 20 ML VIAL IV ONE
--- NOTE | 2021-08-16 14:58 | Diagnostic Imaging Report ---
PROCEDURE: MR imaging of the brain with and without contrast. TECHNIQUE: Multiplanar, multisequence MR imaging of the brain was performed with and without contrast. INDICATION: History of lung cancer with worsening memory. COMPARISON: Limited to head CT of 10/23/2019. FINDINGS: On images 13 and 14 of series 3, there are tiny punctate foci of abnormal diffusion restriction of about 2 mm in diameter in the inferomedial left occipital lobe, consistent with small foci of acute to subacute ischemia. No hemorrhagic component and no resultant mass effect. In addition, there are substantial areas of subcortical and periventricular white matter disease, T2 hyperintense and best seen on the FLAIR weighted pulse sequences. This was present on the earlier head CT but is more conspicuous at this exam; however, this may be owing to improved modality sensitivity or some progression of chronic white matter small vessel disease. The cerebral cortical volume is normal and there is no hydrocephalus. There is no mass or mass effect. After contrast was administered, there are no foci of abnormal parenchymal or meningeal enhancement. There are no features felt suggestive of metastatic disease. No findings of cortical edema or elevated pressures. The basilar cistern is patent. There is no sulcal effacement. The orbits and sinuses are unremarkable. IMPRESSION: 1. There are two tiny foci of left occipital lobe inferomedial diffusion restriction, consistent with tiny foci of recent ischemia. No mass effect or hemorrhagic component. 2. No findings suggestive of metastatic disease or hemorrhage. 3. Extensive subcortical white matter disease favors nonspecific chronic small vessel sequelae which may have progressed from the correlative head CT. Dictated by: Dictated on workstation # [id number]
== END ==
LOC: RAD 13:15
PROVIDERS: ATTEND Internal Medicine Hematology & Oncology
DX: D49.1 Neoplasm of unspecified behavior of respiratory system (principal); R90.82 White matter disease, unspecified; Z85.118 Personal history of other malignant neoplasm of bronchus and lung
CPT/HCPCS: 70553

== ENCOUNTER → 2021-09-06 | Outpatient (CLI) | payer MEDICARE ==
[~2021-09-06] MED LIST changes: -GADOTERATE 0.5 MMOL/ML (CLARISCAN) 20 ML VIAL IV ONE
--- NOTE | 2021-09-06 16:29 | Diagnostic Imaging Report ---
PROCEDURE: US carotid duplex bilateral. TECHNIQUE: Multiple real-time grayscale images were obtained over the carotid arteries in various projections bilaterally. Additional spectral analysis and color Doppler duplex images were also obtained. INDICATION: Hyperlipidemia. COMPARISON: There are no prior studies available for comparison. FINDINGS: There is mild soft plaque formation in both carotid systems. The flow velocities fail to show any sign of a hemodynamically significant stenosis of the common or internal carotid arteries. Both vertebral arteries were noted and there is antegrade flow bilaterally. IMPRESSION: There is mild atherosclerotic disease involving both carotid systems. There is no evidence for a hemodynamically significant stenosis. Parameters based on the consensus panel Lomas-Scale and Doppler ultrasound criteria published July 2003, Radiology, Volume 229. DOPPLER (peak systolic velocity M/S Right Left CCA .73 .80 ICA Proximal .85 .51 ICA Mid .77 .42 ICA Distal .85 .48 RATIO 1.17 .64 ECA 1.97 .62 VERT .57 .57 Dictated by: Dictated on workstation # [id number]
== END ==
LOC: RAD 13:45
PROVIDERS: ATTEND Internal Medicine
DX: I65.23 Occlusion and stenosis of bilateral carotid arteries (principal); E78.5 Hyperlipidemia, unspecified
CPT/HCPCS: 93880

== ENCOUNTER → 2021-11-02 | Outpatient (CLI) | payer MEDICARE ==
--- NOTE | 2021-11-02 12:57 | Diagnostic Imaging Report ---
PROCEDURE: CT sinuses without contrast TECHNIQUE: Multiple contiguous axial images were obtained through the sinuses without the use of intravenous contrast. Coronal and sagittal reformations were then performed. Auto Exposure Controls were utilized during the CT exam to meet ALARA standards for radiation dose reduction. INDICATION: Chronic sinus infections for several months, left worse. The frontal sinuses clear. Ethmoid air cells and sphenoid sinus are clear. Bilateral maxillary sinuses are clear. No mucosal thickening or air-fluid levels are detected. The ostiomeatal complexes are patent bilaterally. There is a nasal septal spur projecting projecting to the left. Mastoids are well aerated. IMPRESSION: No evidence of sinusitis. Dictated by: Dictated on workstation # [id number]
== END ==
LOC: RAD 11:15
PROVIDERS: ATTEND Otolaryngology Otolaryngology/Facial Plastic Surgery
DX: J32.9 Chronic sinusitis, unspecified (principal)
CPT/HCPCS: 70486

== ENCOUNTER 2022-01-05 05:30 | Outpatient (CLI) | payer MEDICARE ==
[~2022-01-05] VITALS: Ht 175.3 cm; Wt 79.5 kg
[2022-01-05 10:23] LABS: BASOPHILS # (AUTO) 0.1 10^3/uL (0.0-0.1); BASOPHILS % (AUTO) 1 % (0-10); EOSINOPHILS # (AUTO) 0.3 10^3/uL (0.0-0.3); EOSINOPHILS % (AUTO) 4 % (0-10); HEMATOCRIT 46 % (40-54); HEMOGLOBIN 15.7 g/dL (13.3-17.7); LYMPHOCYTES % (AUTO) 14 % (12-44); MEAN CORPUSCULAR HEMOGLOBIN 30 pg (25-34); MEAN CORPUSCULAR HGB CONC 34 g/dL (32-36); MEAN CORPUSCULAR VOLUME 88 fL (80-99); MONOCYTES # (AUTO) 0.6 10^3/uL (0.0-1.0); MONOCYTES % (AUTO) 8 % (0-12); NEUTROPHILS # (AUTO) 5.4 10^3/uL (1.8-7.8); NEUTROPHILS % (AUTO) 73 % (42-75); PLATELET COUNT 370 10^3/uL (130-400); WHITE BLOOD COUNT 7.3 10^3/uL (4.3-11.0)
[2022-01-05 10:43] LABS: CALCIUM 9.3 MG/DL (8.5-10.1); CREATININE SERUM 1.03 MG/DL (0.60-1.30); POTASSIUM 3.9 MMOL/L (3.6-5.0)
[2022-01-05] MEDS ORDERED: MONT-40 PO (11:28)
[2022-01-05] MEDS ORDERED: CAND1TAB14 PO (11:28)
[2022-01-05] MEDS ORDERED: FLUT12AE4 IH (11:28)
[2022-01-05] MEDS ORDERED: CETI10TA17 PO (11:28)
[2022-01-05] MEDS ORDERED: ALBU8.5H9 IH (11:28)
[2022-01-05] MEDS ORDERED: TIOT18CA2 IH (11:28)
[2022-01-05] MEDS ORDERED: PANT40TA52 PO (11:28)
[2022-01-05 11:47] VITALS: BP 154/103
--- NOTE | 2022-01-05 12:29 | Diagnostic Imaging Report ---
Indication: Preop for nasal septoplasty. Time of Exam: 11:04 AM Correlation is made with prior chest from 11/05/2019. Heart size normal. Right hemidiaphragm is elevated. Appears to be some infiltrate versus scarring in the right midlung field. There is some interstitial scarring in the left base as well. No effusion or pneumothorax is seen. Postop changes to the left shoulder are noted. IMPRESSION: There are chronic interstitial changes in both lungs. An area of infiltrate or scarring in the right midlung field is noted but new when compared to examination from 2 years earlier. Dictated by: Dictated on workstation # [id number]
== END 2022-01-05 11:59 ==
LOC: PREOP 05:30
PROVIDERS: ATTEND Otolaryngology Otolaryngology/Facial Plastic Surgery
DX: Z01.812 Encounter for preprocedural laboratory examination (principal); Z01.810 Encounter for preprocedural cardiovascular examination; J34.2 Deviated nasal septum; J98.8 Other specified respiratory disorders; J34.3 Hypertrophy of nasal turbinates
CPT/HCPCS: 36415; 71046; 80048; 85025; 87081; 93005

== ENCOUNTER → 2022-01-09 | Outpatient (CLI) | payer MEDICARE ==
[~2022-01-09] MED LIST changes: +ACHD5005 PO; +ALBU8.5H9 IH; +AMOX-355 PO; +CAND1TAB14 PO; +CETI10TA17 PO; +FLUT12AE4 IH; +MONT-40 PO; +PANT40TA52 PO; +RT-ALBUTEROL SULF 2.5 MG/3 ML PRE-MIX VIAL INH ONE; +TIOT18CA2 IH
== END ==
LOC: RT 10:45
PROVIDERS: ATTEND Internal Medicine Critical Care Medicine
DX: C34.11 Malignant neoplasm of upper lobe, right bronchus or lung (principal)
CPT/HCPCS: 94060; 94621; 94726; 94729

== ENCOUNTER 2022-01-12 06:55 | Day surgery (SDC) | payer MEDICARE ==
[~2022-01-12] VITALS: Ht 175.3 cm; Wt 79.5 kg
[2022-01-12] VITALS (12 sets, daily range): BP systolic 99–152; BP diastolic 64–93
[~2022-01-12 06:55] MED LIST changes: -ACHD5005 PO; -AMOX-355 PO; -RT-ALBUTEROL SULF 2.5 MG/3 ML PRE-MIX VIAL INH ONE
[2022-01-12] MEDS: LACTATED RINGERS 1,000 ML IV PRN ×2 (07:15→09:44)
--- NOTE | 2022-01-12 08:13 | Progress Note-Pre Operative ---
Pre-Operative Progress Note H&P Reviewed The H&P was reviewed, patient examined and no changes noted. Date Seen by Provider: January 12, 2022 Time Seen by Provider: 08:00 Date H&P Reviewed: January 12, 2022 Time H&P Reviewed: 08:00 Pre-Operative Diagnosis: Deviated Nasal Septum, Bilat Hyper of Inf Turbs MARIELA HAWKINS MD January 12, 2022 08:13
[2022-01-12] MEDS ORDERED: fentaNYL INJ 100 MCG/2 ML AMP ONE (08:15)
[2022-01-12] MEDS ORDERED: LIDOCAINE PF 2% 5 ML (XYLOCAINE) VIAL ONE (08:15)
[2022-01-12] MEDS ORDERED: proPOfol 200 MG/20 ML (DIPRIVAN) VIAL IV ONE (08:15)
[2022-01-12] MEDS ORDERED: MIDAZOLAM 2 MG/2 ML (VERSED) VIAL ONE (08:15)
[2022-01-12] MEDS ORDERED: PHENYLEPHRINE 0.5% NASAL SPR (NEO-SYNEPHRINE) REG ONE (08:16)
[2022-01-12] MEDS ORDERED: LIDOCAINE/EPI 1%-1:200,000 (XYLOCAINE) 30 ML VIAL ONE (08:16)
[2022-01-12] MEDS ORDERED: COCAINE HCL 4% 2 ML SYR ONE (08:16)
[2022-01-12] MEDS ORDERED: ONDANSETRON 4 MG/2 ML (SDV) Z0FRAN ONE (09:16)
[2022-01-12] MEDS ORDERED: PHENYLEPHRINE 100 MCG/ML 10 ML (ANESTHESIA) SYR ONE (09:16)
[2022-01-12] MEDS ORDERED: ROCURONIUM 50 MG/5 ML (ZEMURON) VIAL IV ONE (09:16)
[2022-01-12] MEDS ORDERED: SEVOFLURANE (ULTANE) 15 ML INHAL SOLN ONE (09:18)
--- NOTE | 2022-01-12 09:29 | Progress Note-Post Operative ---
Post-Operative Progess Note Surgeon (s)/Associate Professor Of Mathematics (s) Surgeon MARIELA HAWKINS MD Associate Professor Of Mathematics n/a Pre-Operative Diagnosis Deviated Nasal Septum, Bilat Hyper of Inf Turbs Post-Operative Diagnosis same Post-Op Procedure Note Date of Procedure: January 12, 2022 Name of Procedure Performed: Nasal Septoplasty, Bialteral Red of Inf Turbinates Description & Findings Description and Findings: n/a Anesthesia Type get Estimated Blood Loss minimal Packing none. Specimen(s) collected/removed nasal septum MARIELA HAWKINS MD January 12, 2022 09:29
[2022-01-12] MEDS ORDERED: PROMETHAZINE INJ 25 MG/ML (PHENERGAN) AMP IVP PRN (09:30)
[2022-01-12] MEDS ORDERED: HYDROcodone/APAP 5 MG/325 MG (LORTAB) TAB PO PRN (09:30)
[2022-01-12] MEDS ORDERED: D5 1/2 NS W/KCL 20 MEQ/L 1,000 ML IV SCH (09:30)
[2022-01-12] MEDS ORDERED: AMOX-355 PO (10:49)
[2022-01-12] MEDS ORDERED: ACHD5005 PO (10:49)
--- NOTE | 2022-01-12 12:30 | Anesthesia-General Post-Op ---
General Patient Condition Mental Status/LOC: Same as Preop Cardiovascular: Satisfactory Nausea/Vomiting: Absent Respiratory: Satisfactory Pain: Controlled Complications: Absent Post Op Complications Complications None Follow Up Care/Instructions Patient Instructions None needed. Anesthesia/Patient Condition Patient Condition Patient is doing well, no complaints, stable vital signs, no apparent adverse anesthesia problems. No complications reported per nursing. LILLIANA GAYLE CRNA January 12, 2022 12:30
== END 2022-01-12 11:35 | disposition home or self-care (01) ==
LOC: SDC 06:55
PROVIDERS: ATTEND Otolaryngology Otolaryngology/Facial Plastic Surgery
DX: J34.2 Deviated nasal septum (principal); J34.3 Hypertrophy of nasal turbinates; J31.0 Chronic rhinitis; Z98.890 Other specified postprocedural states
CPT/HCPCS: 87081; 88300

== ENCOUNTER → 2022-02-02 | Outpatient (CLI) | payer MEDICARE ==
[~2022-02-02] MED LIST changes: +ACHD5005 PO; +AMOX-355 PO
--- NOTE | 2022-02-02 17:08 | Diagnostic Imaging Report ---
PROCEDURE: US Thyroid. TECHNIQUE: Multiple real-time grayscale images were obtained of the thyroid in various projections. INDICATION: Thyroid nodules COMPARISON: 02/11/2021 and 07/25/2019 FINDINGS: The right lobe of the thyroid gland measures 5.7 x 2.4 x 2.2 cm, mildly increased in size. A 0.6 x 0.6 x 0.5 cm ovoid cystic nodule is present within the mid right thyroid lobe, stable from the prior examination, though very minimally more prominent than prior exam from 2019. No new right thyroid nodules. The left lobe of the thyroid gland measures 4.9 x 1.7 x 1.6 cm. A 0.7 x 0.5 x 0.4 cm ovoid solid hypoechoic circumscribed nodule within the superior pole of the left thyroid lobe is again identified, not significantly changed since 2019. A round thin-walled anechoic cyst without internal vascularity measuring 0.7 x 0.7 cm is identified within the inferior pole of the left thyroid lobe, not significantly changed since 2019. No new left thyroid nodules. The isthmus is unremarkable. IMPRESSION: Bilateral subcentimeter thyroid nodules, unchanged since the prior examination of one year prior. Additionally, nodules within the left thyroid lobe appear unchanged since 2019 while the nodule within the right thyroid lobe has changed by approximately 1 to 2 mm since 2019. No new thyroid nodules. Dictated by: Dictated on workstation # [id number]
== END ==
LOC: RAD 10:51
PROVIDERS: ATTEND Otolaryngology Otolaryngology/Facial Plastic Surgery
DX: E04.2 Nontoxic multinodular goiter (principal)
CPT/HCPCS: 76536

== ENCOUNTER → 2022-02-16 | Outpatient (CLI) | payer MEDICARE | LOC: RT 10:42 | PROVIDERS: ATTEND Internal Medicine Critical Care Medicine | DX: C34.11 Malignant neoplasm of upper lobe, right bronchus or lung (principal) | CPT/HCPCS: 94621 ==

== ENCOUNTER 2022-03-03 14:46 | Inpatient (IN) | payer MEDICARE ==
[~2022-03-03] VITALS: Ht 175 cm; Wt 76.4 kg
[2022-03-03 15:25] LABS: CLARITY,URINE CLEAR; COLOR,URINE YELLOW; GLUCOSE, URINE (UA) NEGATIVE (NEGATIVE); KETONES,URINE NEGATIVE (NEGATIVE); LEUKOCYTE ESTERASE ,URINE NEGATIVE (NEGATIVE); NITRITE,URINE NEGATIVE (NEGATIVE); PH,URINE 5.5 (5-9); PROTEIN,URINE NEGATIVE (NEGATIVE)
[2022-03-03 15:54] LABS: BACTERIA,URINE FEW /HPF; RBC,URINE 0-2 /HPF
[2022-03-03 16:08] LABS: BILIRUBIN,URINE 1+ (NEGATIVE)
[2022-03-03] MEDS ORDERED: BENZONATATE 100 MG (TESSALON) CAPSULE PO STA (16:20)
[2022-03-03 16:28] LABS: BASOPHILS % (AUTO) 0 % (0-10); EOSINOPHILS # (AUTO) 0.1 10^3/uL (0.0-0.3); EOSINOPHILS % (AUTO) 1 % (0-10); HEMATOCRIT 45 % (40-54); HEMOGLOBIN 15.1 g/dL (13.3-17.7); LYMPHOCYTES # (AUTO) 0.8 10^3/uL (1.0-4.0); LYMPHOCYTES % (AUTO) 8 % (12-44); MEAN CORPUSCULAR HEMOGLOBIN 31 pg (25-34); MEAN CORPUSCULAR HGB CONC 34 g/dL (32-36); MEAN CORPUSCULAR VOLUME 93 fL (80-99); MEAN PLATELET VOLUME 8.6 fL (9.0-12.2); MONOCYTES % (AUTO) 9 % (0-12); NEUTROPHILS # (AUTO) 8.6 10^3/uL (1.8-7.8); NEUTROPHILS % (AUTO) 82 % (42-75); PLATELET COUNT 339 10^3/uL (130-400); WHITE BLOOD COUNT 10.6 10^3/uL (4.3-11.0)
[2022-03-03] MEDS ORDERED: HYDROcodone/APAP 5 MG/325 MG (LORTAB) TAB PO ONE ×2 (16:30→17:15)
[2022-03-03] MEDS ORDERED: LACTATED RINGERS 1,000 ML IV ONE (16:30)
[2022-03-03 16:32] LABS: ALBUMIN 3.8 GM/DL (3.2-4.5)
[2022-03-03 16:33] LABS: POTASSIUM 4.1 MMOL/L (3.6-5.0)
[2022-03-03 16:34] LABS: PROTHROMBIN TIME PATIENT 13.1 SEC (12.2-14.7)
[2022-03-03 16:35] LABS: TOTAL PROTEIN 7.3 GM/DL (6.4-8.2)
[2022-03-03 16:37] LABS: BILIRUBIN,TOTAL 3.7 MG/DL (0.1-1.0)
[2022-03-03 16:39] LABS: CREATININE SERUM 1.08 MG/DL (0.60-1.30)
--- NOTE | 2022-03-03 16:45 | Diagnostic Imaging Report ---
CLINICAL INDICATION: Patient with cough and hemoptysis. EXAM: Chest x-ray PA and lateral views. COMPARISON: Chest x-ray dated 01/05/2022 FINDINGS: Again seen elevation of the right hemidiaphragm. There is slight progression of amorphous airspace opacities involving the peripheral right midlung field and an increase curvilinear opacities in left perihilar region. This is superimposed upon interstitial thickening throughout both lungs. There is no pleural effusion or pneumothorax. Pulmonary vasculature and cardiac silhouettes within normal limits. Reverse left total shoulder arthroplasty is seen. Tortuous spurs involving the spine. IMPRESSION: 1: There is interval progression of amorphous airspace opacities involving the peripheral right midlung field and increased curvilinear opacities in the left midlung field which may be related to lung infiltrates. 2: There is superimposed interstitial thickening and increased lung markings involving both lungs which may related to chronic lung changes. 3: Stable elevation of the right hemidiaphragm. Dictated by: Dictated on workstation # [id number]
[2022-03-03] MEDS ORDERED: ACETAMINOPHEN 500 MG TAB (TYLENOL) PO ONE (17:00)
[2022-03-03 17:06] LABS: ANISOCYTOSIS SLIGHT; LYMPHOCYTES % (MANUAL) 6 %; MONOCYTES % (MANUAL) 8 %; NEUTROPHILS % (MANUAL) 86 %
[2022-03-03] MEDS ORDERED: ACETAMINOPHEN 325 MG TABLET PO ONE (17:15)
[2022-03-03] MEDS ORDERED: ONDANSETRON 4 MG/2 ML (SDV) Z0FRAN IVP ONE (17:15)
[2022-03-03] MEDS ORDERED: CEFEPIME INJECTION 2,000 MG in NS (IVPB) 50 ML IV ONE (17:30)
--- NOTE | 2022-03-03 17:33 | ED General ---
General Chief Complaint: Cough/Cold/Flu Symptoms Stated Complaint: BLOOD IN URINE,COUGH,CONGESTION Nursing Triage Note: PT AMB TO RM 9. PT STATED THAT HE WOKE UP THIS MORNING WITH WEAKNESS "THAT IS NOT NORMAL FOR HIM", COUGHING, SOB, AND URINE THAT IS "DARK YELLOW WITH RED IN IT ONE HOUR AGO". PT STATED THAT HE COUGHED TODAY AND YESTERDAY AND NOTICED BLOOD IN THE SPUTUM. HE STATED THAT THE COUGHING STARTED 3 DAYS AGO. Source of Information: Patient Exam Limitations: No Limitations History of Present Illness Date Seen by Provider: Mar 03, 2022 Time Seen by Provider: 15:07 Initial Comments This is 66-year-old gentleman presents to the emergency room with complaints of intolerable persistent cough for 3 days. This morning he woke up feeling very fatigued. He reports some episodes of coughing up sputum that appears blood- tinged. He also noted his urine has been dark in color today. Temperature is almost febrile during assessment. He has chronic shortness of breath due to history of lung cancer and right upper lobectomy. He is presently in remission after surgical and radiation therapy. He also had surgery on his nose by Dr. Hassan several weeks ago. He has had persistent swelling of the left side of his nose making breathing at night difficult. He states this did not improve after the surgery. Allergies and Home Medications Allergies Coded Allergies: No Known Drug Allergies (Unverified , 08/14/14) Patient Home Medication List Home Medication List Reviewed: Yes Albuterol Sulfate (Proair Hfa) 90 Mcg Hfa.aer.ad, 8.5 GM IH UD, (Reported) Entered as Reported by: DEVONTE MORATAYA on 01/05/22 1128 Amoxicillin/Potassium Clav (Augmentin 500-125 Tablet) 500 Mg-125 Mg Tablet, 1 EACH PO BID Prescribed by: Yue Curiel on 01/12/22 1049 Candesartan/Hydrochlorothiazid (Candesartan-Hctz 16-12.5 mg Tb) 16 Mg-12.5 Mg Tablet, 1 EACH PO UD, (Reported) Entered as Reported by: DEVONTE MORATAYA on 01/05/22 1128 Cetirizine HCl (Cetirizine HCl) 10 Mg Tablet, 10 MG PO UD, (Reported) Entered as Reported by: DEVONTE MORATAYA on 01/05/22 1128 Fluticasone/Salmeterol (Advair Hfa 115-21 Mcg Inhaler) 115 Mcg-21 Mcg/Actuation Hfa.aer.ad, 12 GM IH UD, (Reported) Entered as Reported by: DEVONTE MORATAYA on 01/05/22 1128 Hydrocodone/Acetaminophen (Hydrocodone-Acetamin 5-325 mg) 5 Mg-325 Mg Tablet, 1- 2 TAB PO Q4H PRN for PAIN-MODERATE (5-7) Prescribed by: Yue Curiel on 01/12/22 1049 Montelukast Sodium (Montelukast Sodium) 10 Mg Tablet, 10 MG PO UD, (Reported) Entered as Reported by: DEVONTE MORATAYA on 01/05/22 1128 Pantoprazole Sodium (Pantoprazole Sodium) 40 Mg Tablet.dr, 40 MG PO DAILY, (Reported) Entered as Reported by: DEVONTE MORATAYA on 01/05/22 112 Tiotropium [place] (Spiriva) 18 Mcg Aerp, 1 INH IH UD, (Reported) Entered as Reported by: DEVONTE MORATAYA on 01/05/22 1128 Review of Systems Review of Systems Constitutional: see HPI EENTM: see HPI Respiratory: see HPI Cardiovascular: no symptoms reported Gastrointestinal: nausea Genitourinary: see HPI Musculoskeletal: no symptoms reported Skin: no symptoms reported Psychiatric/Neurological: No Symptoms Reported Hematologic/Lymphatic: No Symptoms Reported Immunological/Allergic: see HPI Past Hpuhwto-Jhjdry-Bqwqns Hx Patient Social History Tobacco Use?: Yes Smoking Status: Former Smoker Substance use?: No Alcohol Use?: Yes Alcohol type: Hard Liquor Alcohol Frequency: Several times a month Pt feels they are or have been: No Immunizations Up To Date First/Initial COVID19 Vaccinat: 2021 Second COVID19 Vaccination Rusty: 2021 Third COVID19 Vaccination Date: 2021 COVID19 Vaccine Proof Sorter: MODERNA Seasonal Allergies Seasonal Allergies: Yes (INHALER USE) Past Medical History Surgeries: Yes (LOBECTOMY FROM LUNG CA, SHOULDER X4, REVERSE SHOULDER REPLACEMENT) Lobectomy, Orthopedic Respiratory: Yes (HX OF LUNG CA, ) COPD Currently Using CPAP: No Currently Using BIPAP: No Cardiac: Yes Hypertension Neurological: Yes ("MINI STROKES TWICE") TIA Genitourinary: No Gastrointestinal: No Musculoskeletal: Yes Arthritis, Fractures Endocrine: No HEENT: Yes (WEARS GLASSES, CHRONIC SINUS ISSUES) Cancer: Yes Lung Did You Recieve Any Treatments: Yes What Type of Treatment Did You: Chemotherapy, Radiation, Surgical Intervention Psychosocial: Yes (DUE TO SINUS ISSUES AND MOUTH BREATHING) Sleep Difficulties Integumentary: No Blood Disorders: No Family Medical History Alzheimer's disease 19 FATHER Cataracts 19 MOTHER Osteoporosis 19 MOTHER Parkinson's disease 19 MOTHER Other Conditions/Hx Physical Exam-Suspected Sepsis Physical Exam Vital Signs Vital Signs - First Documented 03/03/22 03/03/22 03/03/22 15:00 18:39 19:36 Temp 37.8 Pulse 109 Resp 22 B/P (MAP) 138/103 (115) Pulse Ox 97 O2 Delivery Room Air O2 Flow Rate 2.00 FiO2 21 Capillary Refill : Less Than 3 Seconds Blood Pressure Mean: 115 Height, Weight, BMI Height: 5'69.00" Weight: 145lbs. oz. 74.595688ri; 24.00 BMI Method: General Appearance: WD/WN, Mild Distress, Thin HEENT: PERRL/EOMI, Normal ENT Inspection, Pharynx Normal Neck: Normal Inspection Respiratory: Lungs Clear, Normal Breath Sounds, No Accessory Muscle Use Cardiovascular: No Edema, No Murmur, Tachycardia Gastrointestinal: Normal Bowel Sounds, Non Tender, Soft; No Hernia Extremity: Normal Inspection, Non Tender, No Calf Tenderness, No Pedal Edema Neurologic/Psychiatric: Alert, Oriented x3, No Motor/Sensory Deficits, brickmason helper II- XII Norm as Tested, Other (Anxious) Skin: normal color, warm/dry Focused Exam Lactate Level 03/03/22 15:03: Lactic Acid Level 1.49 Lactic Acid Level Progress/Results/Core Measures Suspected Sepsis SIRS Temperature: Pulse: 109 Respiratory Rate: 22 Laboratory Tests 03/03/22 15:03: White Blood Count 10.6 Blood Pressure 138 /103 Mean: 115 03/03/22 15:03: Lactic Acid Level 1.49 Laboratory Tests 03/03/22 15:03: Creatinine 1.08, INR Comment 1.0, Platelet Count 339, Total Bilirubin 3.7H Results/Orders Lab Results Laboratory Tests Test 03/03/22 15:03 03/03/22 15:05 03/03/22 15:16 Range/Units White Blood Count 10.6 4.3-11.0 10^3/uL Red Blood Count 4.82 4.30-5.52 10^6/uL Hemoglobin 15.1 13.3-17.7 g/dL Hematocrit 45 40-54 % Mean Corpuscular Volume 93 80-99 fL Mean Corpuscular Hemoglobin 31 25-34 pg Mean Corpuscular Hemoglobin Concent 34 32-36 g/dL Red Cell Distribution Width 14.1 10.0-14.5 % Platelet Count 339 130-400 10^3/uL Mean Platelet Volume 8.6 L 9.0-12.2 fL Immature Granulocyte % (Auto) 0 % Neutrophils (%) (Auto) 82 H 42-75 % Lymphocytes (%) (Auto) 8 L 12-44 % Monocytes (%) (Auto) 9 0-12 % Eosinophils (%) (Auto) 1 0-10 % Basophils (%) (Auto) 0 0-10 % Neutrophils # (Auto) 8.6 H 1.8-7.8 10^3/uL Lymphocytes # (Auto) 0.8 L 1.0-4.0 10^3/uL Monocytes # (Auto) 1.0 0.0-1.0 10^3/uL Eosinophils # (Auto) 0.1 0.0-0.3 10^3/uL Basophils # (Auto) 0.0 0.0-0.1 10^3/uL Immature Granulocyte # (Auto) 0.0 0.0-0.1 10^3/uL Neutrophils % (Manual) 86 % Lymphocytes % (Manual) 6 % Monocytes % (Manual) 8 % Anisocytosis SLIGHT Prothrombin Time 13.1 12.2-14.7 SEC INR Comment 1.0 0.8-1.4 Activated Partial Thromboplast Time 35 24-35 SEC Sodium Level 132 L 135-145 MMOL/L Potassium Level 4.1 3.6-5.0 MMOL/L Chloride Level 98 98-107 MMOL/L Carbon Dioxide Level 22 21-32 MMOL/L Anion Gap 12 5-14 MMOL/L Blood Urea Nitrogen 17 7-18 MG/DL Creatinine 1.08 0.60-1.30 MG/DL Estimat Glomerular Filtration Rate 75 BUN/Creatinine Ratio 16 Glucose Level 99 70-105 MG/DL Lactic Acid Level 1.49 0.50-2.00 MMOL/L Calcium Level 10.0 8.5-10.1 MG/DL Corrected Calcium 10.2 H 8.5-10.1 MG/DL Total Bilirubin 3.7 H 0.1-1.0 MG/DL Aspartate Amino Transf (AST/SGOT) 44 H 5-34 U/L Alanine Aminotransferase (ALT/SGPT) 84 H 0-55 U/L Alkaline Phosphatase 210 H 40-136 U/L Total Protein 7.3 6.4-8.2 GM/DL Albumin 3.8 3.2-4.5 GM/DL Influenza Type A (RT-PCR) Not Detected Not Detecte Influenza Type B (RT-PCR) Not Detected Not Detecte SARS-CoV-2 RNA (RT-PCR) Not Detected Not Detecte C-Reactive Protein High Sensitivity 22.65 H 0.00-0.50 MG/DL Procalcitonin 0.27 H <0.10 NG/ML Urine Color YELLOW Urine Clarity CLEAR Urine pH 5.5 5-9 Urine Specific [place] 1.020 1.016-1.022 Urine Protein NEGATIVE NEGATIVE Urine Glucose (UA) NEGATIVE NEGATIVE Urine Ketones NEGATIVE NEGATIVE Urine Nitrite NEGATIVE NEGATIVE Urine Bilirubin 1+ H NEGATIVE Urine Urobilinogen 1.0 < = 1.0 MG/DL Urine Leukocyte Esterase NEGATIVE NEGATIVE Urine RBC (Auto) TRACE-I H NEGATIVE Urine RBC 0-2 /HPF Urine WBC NONE /HPF Urine Squamous Epithelial Cells NONE /HPF Urine Crystals NONE /LPF Urine Bacteria FEW H /HPF Urine Casts NONE /LPF Urine Mucus SMALL H /LPF Urine Culture Indicated YES My Orders Orders - PEPPER PATRICIA MD Ua Culture If Indicated (03/03/22 15:07) Covid 19 Inhouse Test (03/03/22 15:07) Influenza A And B By Pcr (03/03/22 15:07) Urine Culture (03/03/22 15:16) Cbc With Automated Diff (03/03/22 16:20) Comprehensive Metabolic Panel (03/03/22 16:20) Blood Culture (03/03/22 16:20) Sputum Culture (03/03/22 16:20) Protime With Inr (03/03/22 16:20) Partial Thromboplastin Time (03/03/22 16:20) Ed Iv/Invasive Line Start (03/03/22 16:20) Ed Iv/Invasive Line Start (03/03/22 16:20) Vital Signs Adult Sepsis Patie Q15M (03/03/22 16:20) O2 (03/03/22 16:20) Remove Rings In Anticipation O (03/03/22 16:20) Lactic Acid Analyzer (03/03/22 16:20) Hydrocodone/Apap 5/325 Tablet (Lortab 5 (03/03/22 16:30) Benzonatate Capsule (Tessalon Perles) (03/03/22 16:20) Lactated Ringers (Lr 1000 Ml Iv Solution (03/03/22 16:30) Chest Pa/Lat (2 View) (03/03/22 16:20) Manual Differential (03/03/22 15:03) Hs C Reactive Protein (03/03/22 16:37) Procalcitonin (Pct) (03/03/22 16:37) Ondansetron Injection (Zofran Injectio (03/03/22 17:15) Acetaminophen Tablet/Caplet (Tylenol T (03/03/22 17:15) Hydrocodone/Apap 5/325 Tablet (Lortab 5 (03/03/22 17:15) Cefepime Injection (Maxipime Injection) (03/03/22 17:30) Code/Resuscitation (03/03/22 17:29) Alprazolam Tablet (Xanax Tablet) (03/03/22 17:45) Medications Given in ED Current Medications Medications Dose Ordered Sig/Teri Route Start Time Stop Time Status Last Admin Dose Admin Acetaminophen 325 mg ONCE ONCE PO 03/03/22 17:15 03/03/22 17:16 DC 03/03/22 17:45 325 MG Acetaminophen/ Hydrocodone Bitart 1 ea ONCE ONCE PO 03/03/22 16:30 03/03/22 16:31 DC 03/03/22 16:45 1 EA Acetaminophen/ Hydrocodone Bitart 1 ea ONCE ONCE PO 03/03/22 17:15 03/03/22 17:16 DC 03/03/22 17:46 1 EA Lactated Ringer's 1,000 ml @ 0 mls/hr Q0M ONCE IV 03/03/22 16:30 03/03/22 16:31 DC 03/03/22 16:43 1,000 MLS/HR Ondansetron HCl 8 mg ONCE ONCE IVP 03/03/22 17:15 03/03/22 17:16 DC 03/03/22 17:10 8 MG Vital Signs/I&O 03/03/22 03/03/22 03/03/22 03/03/22 15:00 17:45 18:29 18:39 Temp 37.8 39.3 38.8 37.0 Pulse 109 115 111 Resp B/P (MAP) 138/103 (115) 107/69 138/81 Pulse Ox 97 96 96 O2 Delivery Room Air Room Air Nasal Cannula O2 Flow Rate 2.00 03/03/22 03/03/22 03/03/22 18:45 19:36 19:52 Temp 37.8 Pulse 109 101 Pulse Ox 96 97 O2 Delivery Nasal Cannula O2 Flow Rate 2.00 FiO2 21 Capillary Refill : Less Than 3 Seconds Blood Pressure Mean: 115 Progress Note : Progress Note Patient spiked a high fever during his work-up. Septic work-up was pursued. He appeared to have pneumonia. Antibiotic therapy with cefepime was initiated after blood cultures were obtained. Influenza and COVID screens were negative. Tessalon Perles and hydrocodone were given for cough. He vomited after receiving those medications due to posttussive emesis. He received Zofran and then. Hydrocodone was later repeated along with a Tylenol tablet. Xanax was given for his escalating anxiety. Diagnostic Imaging Diagonstic Imaging: Xray Plain Films/CT/US/NM/MRI: chest Comments Chest x-ray viewed by me and report reviewed. See report below: NAME: NNAMDI DAVIES [facility] REC#: [id number] PT STATUS: REG ER : 1955 PHYSICIAN: PEPPER PATRICIA MD ADMIT DATE: 03/03/22/ER Signed Date of Exam:03/03/22 CHEST PA/LAT (2 VIEW) CLINICAL INDICATION: Patient with cough and hemoptysis. EXAM: Chest x-ray PA and lateral views. COMPARISON: Chest x-ray dated 01/05/2022 FINDINGS: Again seen elevation of the right hemidiaphragm. There is slight progression of amorphous airspace opacities involving the peripheral right midlung field and an increase curvilinear opacities in left perihilar region. This is superimposed upon interstitial thickening throughout both lungs. There is no pleural effusion or pneumothorax. Pulmonary vasculature and cardiac silhouettes within normal limits. Reverse left total shoulder arthroplasty is seen. Tortuous spurs involving the spine. IMPRESSION: 1: There is interval progression of amorphous airspace opacities involving the peripheral right midlung field and increased curvilinear opacities in the left midlung field which may be related to lung infiltrates. 2: There is superimposed interstitial thickening and increased lung markings involving both lungs which may related to chronic lung changes. 3: Stable elevation of the right hemidiaphragm. Dictated by: Dictated on workstation # [id number] Dict: 03/03/22 1639 Trans: 03/03/22 165 CV [id number] Interpreted by: JAMISON ABDALLA MD Electronically signed by: JAMISON ABDALLA MD 03/03/228 Departure Communication (Admissions) Time/Spoke to Admitting Phy: 17:10 Dr. Ruiz Impression Primary Impression: Sepsis Qualified Codes: A41.9 - Sepsis, unspecified organism Additional Impressions: Pneumonia Qualified Codes: J18.9 - Pneumonia, unspecified organism History of lung cancer Post-tussive emesis Anxiety Disposition: 09 ADMITTED INPATIENT Condition: Stable Admissions Decision to Admit Reason: Admit from ER (General) Decision to Admit/Date: Mar 03, 2022 Time/Decision to Admit Time: 17:10 Departure-Patient Inst. Referrals: KADY PINTO MD (PCP/Family) Primary Care Physician PEPPER PATRICIA MD Mar 03, 2022 17:33
[2022-03-03] MEDS ORDERED: ALPRAZolam 0.25 MG (XANAX) TAB PO ONE (17:45)
[2022-03-03 19:36] VITALS: BP 138/103
[2022-03-03] MEDS: AZITHROMYCIN 500 MG/NS 250 ML IVPB IV SCH ×2 (19:54)
[2022-03-03] MEDS: LACTATED RINGERS 1,000 ML IV SCH (19:54)
[2022-03-04] MEDS: BENZONATATE 100 MG (TESSALON) CAPSULE PO PRN ×2 (00:02→16:06)
[2022-03-04] MEDS: HYDROcodone/APAP 5 MG/325 MG (LORTAB) TAB PO PRN ×4 (02:22→21:49)
[2022-03-04] MEDS: LACTATED RINGERS 1,000 ML IV SCH ×3 (02:22→10:08)
[2022-03-04] MEDS ORDERED: RT-ALBUTEROL SULF 2.5 MG/3 ML PRE-MIX VIAL INH PRN (02:30)
[2022-03-04] MEDS ORDERED: RT-ALBUTEROL SULF 2.5 MG/3 ML PRE-MIX VIAL ONE (02:31)
[2022-03-04 05:08] LABS: BASOPHILS # (AUTO) 0.1 10^3/uL (0.0-0.1); BASOPHILS % (AUTO) 1 % (0-10); EOSINOPHILS # (AUTO) 0.1 10^3/uL (0.0-0.3); EOSINOPHILS % (AUTO) 1 % (0-10); HEMATOCRIT 38 % (40-54); HEMOGLOBIN 12.6 g/dL (13.3-17.7); LYMPHOCYTES # (AUTO) 0.5 10^3/uL (1.0-4.0); LYMPHOCYTES % (AUTO) 7 % (12-44); MEAN CORPUSCULAR HEMOGLOBIN 31 pg (25-34); MEAN CORPUSCULAR HGB CONC 33 g/dL (32-36); MEAN CORPUSCULAR VOLUME 94 fL (80-99); MEAN PLATELET VOLUME 8.6 fL (9.0-12.2); MONOCYTES # (AUTO) 0.8 10^3/uL (0.0-1.0); MONOCYTES % (AUTO) 9 % (0-12); NEUTROPHILS # (AUTO) 6.9 10^3/uL (1.8-7.8); NEUTROPHILS % (AUTO) 82 % (42-75); PLATELET COUNT 253 10^3/uL (130-400); WHITE BLOOD COUNT 8.4 10^3/uL (4.3-11.0)
[2022-03-04 05:19] LABS: ALBUMIN 3.1 GM/DL (3.2-4.5)
[2022-03-04 05:20] LABS: POTASSIUM 4.2 MMOL/L (3.6-5.0)
[2022-03-04 05:21] LABS: CALCIUM 8.9 MG/DL (8.5-10.1)
[2022-03-04 05:22] LABS: TOTAL PROTEIN 5.8 GM/DL (6.4-8.2)
[2022-03-04 05:24] LABS: BILIRUBIN,TOTAL 2.9 MG/DL (0.1-1.0)
[2022-03-04 05:26] LABS: CREATININE SERUM 0.78 MG/DL (0.60-1.30)
[2022-03-04] MEDS: CEFEPIME 1,000 MG/NS 50 ML IVPB IV SCH ×6 (06:18→17:48)
--- NOTE | 2022-03-04 07:06 | Diagnostic Imaging Report ---
INDICATION: Follow-up pneumonia. COMPARISON: 03/03/2022 FINDINGS: Single frontal radiographic view of the chest was obtained and demonstrates persistent asymmetric elevation of the right hemidiaphragm with diffuse coarse prominence of the interstitium. More patchy airspace opacities are noted on the right. No new large effusion or pneumothorax is seen. Cardiac silhouette and pulmonary vasculature stable. Osseous structures show no new acute abnormalities. IMPRESSION: 1. Stable exam of the chest suggesting patchy right-sided infiltrate superimposed on background chronic interstitial lung disease. Dictated by: Dictated on workstation # [id number]
[2022-03-04] MEDS: PANTOPRAZOLE 40 MG (PROTONIX) VIAL IV SCH (08:18)
[2022-03-04] MEDS ORDERED: CAND1TAB14 PO (08:25)
[2022-03-04] MEDS ORDERED: FLUT12AE4 IH (08:25)
--- NOTE | 2022-03-04 09:53 | History & Physical-Hospitalist ---
History of Present Illness HPI/Chief Complaint Patient 66-year-old male with a past medical history of lung cancer, hypertension, COPD who presented to the emergency department due to cough. He states that he saw his doctor earlier this week and was doing fine though he thought he may have been wheezing a little. He also follows with pulmonary rehab and seemed to be fine with that. But then 2 or 3 days ago he started to worsen. His cough got much worse and he also noticed some blood-tinged sputum. He decided to seek evaluation in the emergency room yesterday as he continued to worsen. He was found to have pneumonia and meet sepsis criteria so was admitted for further management. He reports feeling better today though did have very severe episode of coughing for 2 hours overnight. This was improved with hydrocodone. Tessalon has not been helping him. Source: patient Date Seen 03/04/22 Time Seen by a Provider: 09:53 Attending Physician Kady Sandoval MD PCP Admitting Physician: Katharina Ruiz MD Attending Physician: Katharina Ruiz MD Referring Physician Date of Admission Mar 03, 2022 at 17:26 Home Medications & Allergies Home Medications Reviewed patient Home Medication Reconciliation performed by pharmacy medication reconciliations explosive technician and/or nursing. Patients Allergies have been reviewed. Allergies Allergies Coded Allergies No Known Drug Allergies (Mhoznbknou53/12/14) Past Mrrjoos-Ablugp-Ryuwru Hx Patient Social History Marrital Status: Employed/Student: retired Tobacco Use?: No Smoking Status: Former Smoker Smokeless Tobacco Frequency: Former User Use of E-Cig and/or Vaping dev: No Substance use?: No Alcohol Use?: Yes Alcohol type: Hard Liquor Additional alcohol type: SOCIAL Alcohol Frequency: Once in a while Additional Alcohol Comments: WEEKENDS Pt feels they are or have been: No Immunizations Up To Date Date of Influenza Vaccine: Jun 09, 2019 First/Initial COVID19 Vaccinat: 2021 Second COVID19 Vaccination Rusty: 2021 Seasonal Allergies Seasonal Allergies: Yes (INHALER USE) Current Status Advance Directives: Yes Advance Directive Location: Family to bring in copy Communicates: Verbally Primary Language: [place]er Preferred Spoken Language: [place]er Is interpretation needed?: No Sensory deficits: Vision impairment Implanted or Applied Medical D: Orthopedic hardware Past Medical History Surgeries: Lobectomy, Orthopedic COPD Currently Using CPAP: No Currently Using BIPAP: No Hypertension TIA Arthritis, Fractures Lung Did You Recieve Any Treatments: Yes What Type of Treatment Did You: Chemotherapy, Radiation, Surgical Intervention Sleep Difficulties Blood Disorders: No Family Medical History Reviewed Nursing Family Hx Alzheimer's disease 19 FATHER Cataracts 19 MOTHER Osteoporosis 19 MOTHER Parkinson's disease 19 MOTHER Other Conditions/Hx Review of Systems Constitutional: No chills, No fever; malaise, weakness EENTM: nose congestion (chronic) Respiratory: see HPI, cough, phlegm, short of breath Cardiovascular: No chest pain, No edema, No palpitations Gastrointestinal: no symptoms reported Genitourinary: no symptoms reported Musculoskeletal: no symptoms reported Skin: no symptoms reported Psychiatric/Neurological: No Symptoms Reported Physical Exam Physical Exam Vital Signs Vital Signs - First Documented 03/03/22 03/03/22 03/03/22 15:00 18:39 19:36 Temp 37.8 Pulse 109 Resp 22 B/P (MAP) 138/103 (115) Pulse Ox 97 O2 Delivery Room Air O2 Flow Rate 2.00 FiO2 21 Capillary Refill : Less Than 3 Seconds Height, Weight, BMI Height: 5'69.00" Weight: 145lbs. oz. 74.621555cd; 23.57 BMI Method: General Appearance: No Apparent Distress, Chronically ill, Thin HEENT: PERRL/EOMI, Moist Mucous Membranes; No Scleral Icterus (L), No Scleral Icterus (R) Neck: Normal Inspection, Supple Respiratory: No Accessory Muscle Use, No Respiratory Distress, Wheezing (scant expiratory wheeze) Cardiovascular: Regular Rate, Rhythm, No Murmur Gastrointestinal: Normal Bowel Sounds, Non Tender, Soft Extremity: Normal Capillary Refill, No Calf Tenderness, No Pedal Edema Neurologic/Psychiatric: Alert, Oriented x3 Results Results/Procedures Labs Laboratory Tests 03/03/22 15:03 03/04/22 04:40 Patient resulted labs reviewed. Imaging: Reviewed Imaging Report Imaging [facility], [place] NAME: NNAMDI DAVIES MED REC#: [id number] PT STATUS: REG ER : 1955 PHYSICIAN: PEPPER PATRICIA MD ADMIT DATE: 03/03/22/ER Signed Date of Exam:03/03/22 CHEST PA/LAT (2 VIEW) CLINICAL INDICATION: Patient with cough and hemoptysis. EXAM: Chest x-ray PA and lateral views. COMPARISON: Chest x-ray dated 01/05/2022 FINDINGS: Again seen elevation of the right hemidiaphragm. There is slight progression of amorphous airspace opacities involving the peripheral right midlung field and an increase curvilinear opacities in left perihilar region. This is superimposed upon interstitial thickening throughout both lungs. There is no pleural effusion or pneumothorax. Pulmonary vasculature and cardiac silhouettes within normal limits. Reverse left total shoulder arthroplasty is seen. Tortuous spurs involving the spine. IMPRESSION: 1: There is interval progression of amorphous airspace opacities involving the peripheral right midlung field and increased curvilinear opacities in the left midlung field which may be related to lung infiltrates. 2: There is superimposed interstitial thickening and increased lung markings involving both lungs which may related to chronic lung changes. 3: Stable elevation of the right hemidiaphragm. Dictated by: Dictated on workstation # [id number] Dict: 03/03/22 1639 Trans: 03/03/22 165 CV [id number] Interpreted by: JAMISON ABDALLA MD Electronically signed by: JAMISON ABDALLA MD 03/03/22 8451 Assessment/Plan Admission Diagnosis Sepsis due to pneumonia Admission Status: Inpatient Order (span 2 midnights) Reason for Inpatient Admission: see below Assessment and Plan Sepsis due to pneumonia Acute on chronic respiratory failure COPD Lung cancer Continue on IV abx MAT protocol Await cultures WEan oxygen as able- baseline is use only with exertion Transaminitis Hyperbilirubinemia Improving likely due to sepsis but will trend Bili was elevated in August as well HTN BP well controlled DVT ppx: SCDs only due to some hemoptysis Diagnosis/Problems Diagnosis/Problems (1) Essential (primary) hypertension (2) Transaminitis (3) Hyperbilirubinemia (4) Hyponatremia (5) Sepsis Status: Acute Qualifiers: Sepsis type: sepsis due to unspecified organism Sepsis acute organ dysfunction status: unspecified Qualified Codes: A41.9 - Sepsis, unspecified organism (6) Pneumonia Status: Acute Qualifiers: Pneumonia type: due to unspecified organism Laterality: bilateral Lung location: unspecified part of lung Qualified Codes: J18.9 - Pneumonia, unspecified organism (7) History of lung cancer Status: Acute (8) Post-tussive emesis Status: Acute (9) Hypertrophy of both inferior nasal turbinates Copy Copies To 1: KADY SANDOVAL MD, KATELYN M MD Mar 04, 2022 09:53
[2022-03-04] MEDS: ACETAMINOPHEN 500 MG TAB (TYLENOL) PO PRN ×2 (10:11→16:29)
[2022-03-04] MEDS: ALPRAZolam 0.25 MG (XANAX) TAB PO PRN ×2 (10:12→16:06)
[2022-03-04] MEDS: RT-ALBUTEROL SULF 2.5 MG/3 ML PRE-MIX VIAL INH SCH ×4 (14:42→22:13)
[2022-03-04] MEDS: guaiFENesin/CODEINE (ROBITUSSIN AC) 10ML UDC PO PRN ×2 (16:29→21:49)
[2022-03-04] MEDS ORDERED: FUROSEMIDE 40 MG/4 ML INJ (LASIX) IVP NR (16:30)
[2022-03-04] MEDS: AZITHROMYCIN 500 MG/NS 250 ML IVPB IV SCH ×2 (20:25)
[2022-03-05] MEDS: CEFEPIME 1,000 MG/NS 50 ML IVPB IV SCH ×8 (00:23→17:37)
[2022-03-05] MEDS: BENZONATATE 100 MG (TESSALON) CAPSULE PO PRN ×4 (01:01→22:37)
[2022-03-05] MEDS: ALPRAZolam 0.25 MG (XANAX) TAB PO PRN ×3 (01:20→16:49)
[2022-03-05] MEDS: ACETAMINOPHEN 500 MG TAB (TYLENOL) PO PRN ×2 (01:20→16:49)
[2022-03-05] MEDS: ONDANSETRON 4 MG/2 ML (SDV) Z0FRAN IV PRN ×2 (01:41→08:53)
[2022-03-05] MEDS: RT-ALBUTEROL SULF 2.5 MG/3 ML PRE-MIX VIAL INH SCH ×6 (02:14→22:38)
[2022-03-05] MEDS: guaiFENesin/CODEINE (ROBITUSSIN AC) 10ML UDC PO PRN ×5 (03:37→22:37)
[2022-03-05] MEDS: HYDROcodone/APAP 5 MG/325 MG (LORTAB) TAB PO PRN ×5 (03:37→22:36)
[2022-03-05 07:42] LABS: HEMATOCRIT 42 % (40-54); HEMOGLOBIN 13.3 g/dL (13.3-17.7); MEAN CORPUSCULAR HEMOGLOBIN 31 pg (25-34); MEAN CORPUSCULAR HGB CONC 32 g/dL (32-36); MEAN CORPUSCULAR VOLUME 97 fL (80-99); MEAN PLATELET VOLUME 8.5 fL (9.0-12.2); PLATELET COUNT 253 10^3/uL (130-400); WHITE BLOOD COUNT 6.4 10^3/uL (4.3-11.0)
[2022-03-05 07:50] LABS: POTASSIUM 4.1 MMOL/L (3.6-5.0)
[2022-03-05 07:51] LABS: CALCIUM 9.2 MG/DL (8.5-10.1)
[2022-03-05 07:56] LABS: CREATININE SERUM 0.87 MG/DL (0.60-1.30)
[2022-03-05] MEDS: PANTOPRAZOLE 40 MG (PROTONIX) VIAL IV SCH (08:53)
--- NOTE | 2022-03-05 09:56 | Tele-ICU Progress Note ---
Subjective Date Seen by a Provider: Mar 05, 2022 Time Seen by a Provider: 09:15 Subjective/Events-last exam This virtual visit was conducted using real time audio/video. Thank you for asking us to see this patient for respiratory insufficiency due to pna, sepsis Recent events: Transferred from floor due to increased resp. distress, vomiting. Admitted 03/03. PMH: s/p RULobectomy/chemo/RT. SH: smoking history: former. FH: Non-contributory. PE: VSS. O2 sat 96% on 6LPM NC. HEENT: No obvious masses, adenopathy or JVD. Chest: crackles on auscultation. CV: RRR S1 S2 No murmur or added sounds. Abd: Non-tender. Bowel sounds Y. : Unremarkable. Alarcon N. ADMINISTRATOR [employer] WELFARE/psychiatric: Grossly intact. No obvious focal findings. Extremities: No edema. Capillary refill < 3 seconds. Skin: unremarkable. Results: Elevated Na 132, BG 106. BG: Pending. CXR: Hyperinflated on left, B infilts., elevated R hemidiaph. Available chart/ vitals / labs / images reviewed. Video assessment done using teleICU camera, rest of exam as per RN. A/P: Respiratory insufficiency: Continue present management with O2, Albuterol Monitor for increasing oxygenation needs and/or need for intubation. Critical Care: critically ill patient. Cont. abx, PPI. Discussed with VENITA Villarreal. Asked RN to reach out to eICU if any questions or concerns later. Time spent with patient/coordination of care with other health professionals (mins): 32 Sepsis Event Evaluation Height, Weight, BMI Height: 5'69.00" Weight: 145lbs. oz. 74.625947lh; 23.57 BMI Method: Focused Exam Lactate Level 03/03/22 15:03: Lactic Acid Level 1.49 Exam Exam Patient acknowledged, consented, and participated in this virtual visit which was conducted using real time audio/video Vital Signs Date Time Temp Pulse Resp B/P (MAP) Pulse Ox O2 Delivery O2 Flow Rate FiO2 03/05/22 07:55 36.6 117 26 101/85 91 Nasal Cannula 3.00 03/05/22 07:00 112 03/05/22 06:34 96 Nasal Cannula 6.00 03/05/22 04:00 114 26 123/78 95 Nasal Cannula 4.00 03/05/22 02:14 93 Nasal Cannula 6.00 03/05/22 01:50 37.3 03/05/22 01:00 122 03/05/22 00:00 105 26 123/78 95 Nasal Cannula 4.00 03/04/22 22:13 93 Nasal Cannula 1.50 03/04/22 21:00 93 Nasal Cannula 2.00 03/04/22 20:00 37.0 110 29 115/69 91 03/04/22 19:00 113 03/04/22 18:34 95 Nasal Cannula 2.00 03/04/22 17:47 37.0 03/04/22 16:29 37.3 03/04/22 16:12 37.3 113 32 133/82 93 Nasal Cannula 4.00 03/04/22 14:41 98 Nasal Cannula 2.00 03/04/22 12:42 87 03/04/22 12:00 36.7 86 33 112/71 93 Nasal Cannula 2.00 I & O 03/05/22 07:00 Intake Total 3480 ml Output Total 2025 ml Balance 1455 ml Height & Weight Height: 5'69.00" Weight: 145lbs. oz. 74.919016ui; 23.57 BMI Method: General Appearance: No Apparent Distress, Chronically ill, Thin HEENT: PERRL/EOMI, Moist Mucous Membranes; No Scleral Icterus (L), No Scleral Icterus (R) Neck: Normal Inspection, Supple Respiratory: No Accessory Muscle Use, No Respiratory Distress, Wheezing (scant expiratory wheeze) Cardiovascular: Regular Rate, Rhythm, No Murmur Capillary Refill: Less Than 3 Seconds Extremity: Normal Capillary Refill, No Calf Tenderness, No Pedal Edema Neurologic/Psychiatric: Alert, Oriented x3 Results Lab Laboratory Tests 03/03/22 15:03 03/04/22 04:40 03/05/22 07:25 Assessment/Plan Assessment/Plan See free text. Critical Care: Critically Ill Patient SHERIF ZARAGOZA MD Mar 05, 2022 09:56
--- NOTE | 2022-03-05 10:19 | Progress Note - Hospitalist ---
Subjective HPI/CC On Admission Date Seen by Provider: Mar 05, 2022 Patient 66-year-old male with a past medical history of lung cancer, hypertension, COPD who presented to the emergency department due to cough. He states that he saw his doctor earlier this week and was doing fine though he thought he may have been wheezing a little. He also follows with pulmonary rehab and seemed to be fine with that. But then 2 or 3 days ago he started to worsen. His cough got much worse and he also noticed some blood-tinged sputum. He decided to seek evaluation in the emergency room yesterday as he continued to worsen. He was found to have pneumonia and meet sepsis criteria so was admitted for further management. He reports feeling better today though did have very severe episode of coughing for 2 hours overnight. This was improved with hydr ocodone. Tessalon has not been helping him. Subjective/Events-last exam Pt reports not feeling as well today. Was up a lot over night coughing. Just reports being very tired. at bedside and agrees he does not look as well. RN reports they tried oxi mask last night up to 12lpm during his coughing spells. Also fevered overnight. Focused Exam Lactate Level 03/03/22 15:03: Lactic Acid Level 1.49 Objective Exam Vital Signs Vital Signs Date Time Temp Pulse Resp B/P (MAP) Pulse Ox O2 Delivery O2 Flow Rate FiO2 03/05/22 07:55 36.6 117 26 101/85 91 Nasal Cannula 3.00 03/03/22 19:36 21 Capillary Refill : Less Than 3 Seconds General Appearance: No Apparent Distress, Chronically ill Respiratory: Crackles (bilateral bases); No Wheezing Cardiovascular: Regular Rate, Rhythm, No Murmur Gastrointestinal: Normal Bowel Sounds, Non Tender, Soft Neurologic/Psychiatric: Alert, Oriented x3 Results/Procedures Lab Laboratory Tests 03/05/22 07:25 Patient resulted labs reviewed. Imaging: Reviewed Imaging Report Assessment/Plan Assessment and Plan Assess & Plan/Chief Complaint Sepsis due to pneumonia Acute on chronic respiratory failure COPD Lung cancer Continue on IV abx MAT protocol NGTD on blood and urine cultures Wean oxygen as able- baseline is use only with exertion Currently on 3lpm Transaminitis Hyperbilirubinemia likely due to sepsis but will trend Bili was elevated in August as well HTN BP well controlled DVT ppx: SCDs only due to some hemoptysis Critical Care Critically Ill Patient Diagnosis/Problems Diagnosis/Problems (1) Essential (primary) hypertension (2) Transaminitis (3) Hyperbilirubinemia (4) Hyponatremia (5) Sepsis Status: Acute Qualifiers: Sepsis type: sepsis due to unspecified organism Sepsis acute organ dysfunction status: unspecified Qualified Codes: A41.9 - Sepsis, unspecified organism (6) Pneumonia Status: Acute Qualifiers: Pneumonia type: due to unspecified organism Laterality: bilateral Lung location: unspecified part of lung Qualified Codes: J18.9 - Pneumonia, unspecified organism (7) History of lung cancer Status: Acute (8) Post-tussive emesis Status: Acute (9) Hypertrophy of both inferior nasal turbinates ELIN CHEEK MD Mar 05, 2022 10:19
[2022-03-05] MEDS ORDERED: SALINE NASAL SPRAY (OCEAN) 45 ML BTL PRN (10:30)
[2022-03-05 11:31] LABS: ABG BASE EXCESS 0.7 MMOL/L (-2.5-2.5); ABG OXYGEN SATURATION 96 % (94-100); ABG PCO2 43 MMHG (35-45); ABG PH 7.38 (7.37-7.43); ABG PO2 82 MMHG (79-93); ABG TCO2 26.6 MMOL/L (21.0-31.0)
[2022-03-05] MEDS: FLUTICASONE NASAL SPRAY (FLONASE) 16 GM BTL NS SCH (11:33)
[2022-03-05 11:34] LABS: ALLENS TEST YES-POS; INSPIRED O2 6L; PATIENT TEMP 36.8; VENTILATOR NO
[2022-03-05] MEDS: AZITHROMYCIN 500 MG/NS 250 ML IVPB IV SCH ×2 (18:28)
[2022-03-06] MEDS: CEFEPIME 1,000 MG/NS 50 ML IVPB IV SCH ×8 (01:23→18:37)
[2022-03-06] MEDS: RT-ALBUTEROL SULF 2.5 MG/3 ML PRE-MIX VIAL INH SCH ×6 (02:40→22:34)
[2022-03-06] MEDS: HYDROcodone/APAP 5 MG/325 MG (LORTAB) TAB PO PRN ×3 (03:00→21:46)
[2022-03-06] MEDS: guaiFENesin/CODEINE (ROBITUSSIN AC) 10ML UDC PO PRN ×2 (03:01→21:41)
[2022-03-06] MEDS: ONDANSETRON 4 MG/2 ML (SDV) Z0FRAN IV PRN (08:04)
[2022-03-06] MEDS: ACETAMINOPHEN 500 MG TAB (TYLENOL) PO PRN (09:06)
[2022-03-06] MEDS: FLUTICASONE NASAL SPRAY (FLONASE) 16 GM BTL NS SCH (09:09)
--- NOTE | 2022-03-06 09:15 | Tele-ICU Progress Note ---
Subjective Date Seen by a Provider: Mar 06, 2022 Time Seen by a Provider: 09:15 Subjective/Events-last exam Available chart/vitals/labs/images reviewed. Video assessment done using telemetry ICU camera, rest of exam as per RN. Discussion with the RN, exam as per RN. Hospital course Today patient is resting comfortably with oxygen 3 L nasal cannula. Denies any chest pain. He complains of some headache but he is getting codeine containing cough syrup as well as a Clark. And it may be the cause for headache. He is c urrently on 3 L nasal cannula. Chest x-ray reviewed and showed bibasilar atelectasis and some infiltrate on the right side. Adjacent to the diaphragm. Right hemidiaphragm is elevated chronically. He has a history of for lung cancer none probably underwent lobectomy causing elevation of the right hemidiaphragm Review of Systems ROS PER RN Sepsis Event Evaluation Height, Weight, BMI Height: 5'69.00" Weight: 145lbs. oz. 74.946344rh; 23.57 BMI Method: Focused Exam Lactate Level 03/03/22 15:03: Lactic Acid Level 1.49 Exam Exam Patient acknowledged, consented, and participated in this virtual visit which was conducted using real time audio/video Vital Signs Date Time Temp Pulse Resp B/P (MAP) Pulse Ox O2 Delivery O2 Flow Rate FiO2 03/06/22 08:15 96 Nasal Cannula 3.00 03/06/22 08:00 98 26 135/86 96 Nasal Cannula 3.00 03/06/22 07:51 92 Nasal Cannula 4.00 03/06/22 07:00 98 03/06/22 06:11 36.4 03/06/22 06:00 99 24 95 Nasal Cannula 3.00 03/06/22 05:00 121 28 123/87 95 Nasal Cannula 3.00 03/06/22 04:00 99 20 119/78 91 Nasal Cannula 3.00 03/06/22 03:00 99 20 121/76 95 Nasal Cannula 3.00 03/06/22 02:40 94 Nasal Cannula 4.00 03/06/22 02:00 96 28 118/76 95 Nasal Cannula 3.00 03/06/22 01:00 96 22 123/76 96 Nasal Cannula 3.00 03/06/22 00:58 98 03/06/22 00:00 36.4 03/06/22 00:00 103 24 120/74 97 Nasal Cannula 3.00 03/05/22 23:00 Nasal Cannula 3.00 03/05/22 23:00 103 22 121/84 91 Nasal Cannula 3.00 03/05/22 22:38 93 Nasal Cannula 4.00 03/05/22 22:00 71 17 121/84 91 Nasal Cannula 3.00 03/05/22 21:00 89 21 114/82 91 Nasal Cannula 3.00 03/05/22 20:00 96 Nasal Cannula 4.00 03/05/22 20:00 93 22 111/78 94 Nasal Cannula 3.00 03/05/22 19:00 102 03/05/22 19:00 103 20 119/76 95 Nasal Cannula 3.00 03/05/22 18:25 96 Nasal Cannula 5.00 03/05/22 16:00 98 27 119/80 97 Nasal Cannula 3.00 03/05/22 14:29 96 Nasal Cannula 5.00 03/05/22 12:35 101 03/05/22 12:00 101 22 118/77 96 Nasal Cannula 3.00 03/05/22 11:24 97 Nasal Cannula 5.00 I & O 03/06/22 07:00 Intake Total 1115 ml Output Total 1850 ml Balance -735 ml Height & Weight Height: 5'69.00" Weight: 145lbs. oz. 74.715053bp; 23.57 BMI Method: General Appearance: No Apparent Distress, Chronically ill HEENT: PERRL/EOMI, Moist Mucous Membranes; No Scleral Icterus (L), No Scleral Icterus (R) Neck: Normal Inspection, Supple Respiratory: Crackles (bilateral bases); No Wheezing Cardiovascular: Regular Rate, Rhythm, No Murmur Capillary Refill: Less Than 3 Seconds Extremity: Normal Capillary Refill, No Calf Tenderness, No Pedal Edema Neurologic/Psychiatric: Alert, Oriented x3 Other comments PE PER RN Results Lab Laboratory Tests 03/05/22 07:25 Assessment/Plan Assessment/Plan 1. Acute on chronic hypoxic respiratory failure improving 2. Possible pneumonia and sepsis clinically improving. Headache probably related to codeine. 3. History of lung cancer 4. Elevated liver enzymes etioly not clear Recommendations 1. Continue to wean oxygen as tolerated 2. Continue IV antibiotics 3. Suggest aggressive incentive spirometry. 4. Ambulate patient in the room as tolerated. 5. DVT prophylaxis and ulcer prophylaxis 6. get liver ultrasound Critical Care: Critically Ill Patient Time spent with patient (mins): 15 MISAEL DELGADO MD Mar 06, 2022 09:15
--- NOTE | 2022-03-06 10:32 | Diagnostic Imaging Report ---
PROCEDURE: US Hepatic (Liver). TECHNIQUE: Multiple Real-time grayscale images were obtained over the right upper quadrant in various projections. INDICATION: Elevated liver enzymes. COMPARISON: CT chest and abdomen 08/04/2021. FINDINGS: Normal echogenicity of the liver with no focal mass or fluid collection. Normal hepatopetal flow in the main portal vein. Common bile duct, pancreas, aorta, IVC, and right kidney are obscured by bowel gas. Negative sonographic Cote sign. No free fluid in the abdomen. No cholelithiasis. No pericholecystic fluid or significant wall thickening. IMPRESSION: 1. Examination is limited by bowel gas with multiple structures not identified. 2. Normal-appearing gallbladder. Negative sonographic Cote sign. The common bile duct is not well seen. Dictated by: Dictated on workstation # [id number]
[2022-03-06] MEDS ORDERED: IBUPROFEN 800 MG (MOTRIN) TAB PO NR (11:00)
[2022-03-06] MEDS: PANTOPRAZOLE 40 MG (PROTONIX) VIAL IV SCH (11:21)
[2022-03-06] MEDS: ENOXAPARIN 40 MG/0.4 ML (LOVENOX) SYR SC SCH (11:21)
--- NOTE | 2022-03-06 15:21 | Progress Note - Hospitalist ---
Subjective HPI/CC On Admission Date Seen by Provider: Mar 06, 2022 Time Seen by Provider: 09:55 Patient 66-year-old male with a past medical history of lung cancer, hypertension, COPD who presented to the emergency department due to cough. He states that he saw his doctor earlier this week and was doing fine though he thought he may have been wheezing a little. He also follows with pulmonary rehab and seemed to be fine with that. But then 2 or 3 days ago he started to worsen. His cough got much worse and he also noticed some blood-tinged sputum. He decided to seek evaluation in the emergency room yesterday as he continued to worsen. He was found to have pneumonia and meet sepsis criteria so was admitted for further management. He reports feeling better today though did have very severe episode of coughing for 2 hours overnight. This was improved with hydrocodone. Tessalon has not been helping him. Subjective/Events-last exam He is still short of breath. He is feeling about the same as yesterday. He denies pain. Objective Exam Vital Signs Vital Signs Date Time Temp Pulse Resp B/P (MAP) Pulse Ox O2 Delivery O2 Flow Rate FiO2 03/06/22 16:10 36.3 03/06/22 16:00 100 18 93/74 95 Nasal Cannula 3.00 03/03/22 19:36 21 Capillary Refill : Less Than 3 Seconds General Appearance: No Apparent Distress, Anxious Respiratory: Lungs Clear, No Respiratory Distress Cardiovascular: No Murmur, Tachycardia Gastrointestinal: Normal Bowel Sounds, Non Tender, Soft Extremity: Normal Inspection, No Pedal Edema Neurologic/Psychiatric: Alert, Normal Mood/Affect Skin: Normal Color, Warm/Dry Results/Procedures Lab Patient resulted labs reviewed. Imaging: Reviewed Imaging Report Assessment/Plan Assessment and Plan Assess & Plan/Chief Complaint Sepsis due to pneumonia Acute on chronic respiratory failure COPD Lung cancer Continue on IV abx MAT protocol NGTD on blood and urine cultures Wean oxygen as able- baseline is use only with exertion Currently on 3lpm Elevated LFTs Improving RUQ ultrasound unremarkable HTN BP well controlled DVT ppx: SCDs only due to some hemoptysis Diagnosis/Problems Diagnosis/Problems (1) Acute on chronic respiratory failure with hypoxia Status: Acute (2) Sepsis Status: Acute Qualifiers: Sepsis type: sepsis due to unspecified organism Sepsis acute organ dysfunction status: unspecified Qualified Codes: A41.9 - Sepsis, unspecified organism (3) Pneumonia Status: Acute Qualifiers: Pneumonia type: due to unspecified organism Laterality: bilateral Lung location: unspecified part of lung Qualified Codes: J18.9 - Pneumonia, unspecified organism (4) History of lung cancer Status: Acute (5) Elevated LFTs Status: Acute URIEL XAVIER MD Mar 06, 2022 15:21
[2022-03-06] MEDS: AZITHROMYCIN 500 MG/NS 250 ML IVPB IV SCH ×2 (19:19)
[2022-03-06] MEDS: BENZONATATE 100 MG (TESSALON) CAPSULE PO PRN (21:41)
[2022-03-06] MEDS: IBUPROFEN 600 MG (MOTRIN) TAB PO PRN (21:45)
[2022-03-07] MEDS: RT-ALBUTEROL SULF 2.5 MG/3 ML PRE-MIX VIAL INH SCH ×6 (01:40→21:55)
[2022-03-07] MEDS: CEFEPIME 1,000 MG/NS 50 ML IVPB IV SCH ×8 (01:51→19:24)
[2022-03-07] MEDS: guaiFENesin/CODEINE (ROBITUSSIN AC) 10ML UDC PO PRN ×4 (04:46→19:28)
[2022-03-07] MEDS: HYDROcodone/APAP 5 MG/325 MG (LORTAB) TAB PO PRN ×3 (06:02→23:12)
[2022-03-07 06:12] LABS: ALBUMIN 2.8 GM/DL (3.2-4.5); POTASSIUM 3.7 MMOL/L (3.6-5.0)
[2022-03-07 06:13] LABS: CALCIUM 8.7 MG/DL (8.5-10.1)
[2022-03-07 06:15] LABS: TOTAL PROTEIN 5.7 GM/DL (6.4-8.2)
[2022-03-07 06:16] LABS: BILIRUBIN,TOTAL 1.2 MG/DL (0.1-1.0)
[2022-03-07 06:18] LABS: CREATININE SERUM 0.68 MG/DL (0.60-1.30)
[2022-03-07] MEDS: PANTOPRAZOLE 40 MG (PROTONIX) VIAL IV SCH (08:23)
[2022-03-07] MEDS: FLUTICASONE NASAL SPRAY (FLONASE) 16 GM BTL NS SCH (08:23)
[2022-03-07] MEDS: ENOXAPARIN 40 MG/0.4 ML (LOVENOX) SYR SC SCH (08:23)
[2022-03-07] MEDS: BENZONATATE 100 MG (TESSALON) CAPSULE PO PRN ×2 (09:41→15:33)
[2022-03-07] MEDS: IBUPROFEN 600 MG (MOTRIN) TAB PO PRN ×2 (09:42→19:28)
[2022-03-07] MEDS ORDERED: NS IV 1000 ML 1,000 ML IV SCH (09:45)
[2022-03-07] MEDS ORDERED: NS 100 ML (IVPB) BAG IV ONE (10:00)
[2022-03-07] MEDS ORDERED: IOHEXOL 350 MG/ML 100 ML (OMNIPAQUE 350) VIAL IV ONE (10:00)
[2022-03-07] MEDS ORDERED: HOLD METFORMIN - RECEIVED CONTRAST 20 ML VIAL IV SCH (10:00)
[2022-03-07] MEDS ORDERED: ACET-3075 PO (10:06)
[2022-03-07] MEDS ORDERED: CAND1TAB14 PO (10:06)
[2022-03-07] MEDS ORDERED: ACET-2267 PO (10:06)
[2022-03-07] MEDS ORDERED: FLUT12AE4 IH (10:06)
[2022-03-07] MEDS ORDERED: SENN-234 PO (10:06)
[2022-03-07] MEDS ORDERED: FLUT9.9S NSEACH (10:06)
--- NOTE | 2022-03-07 10:59 | Diagnostic Imaging Report ---
EXAMINATION: CT angiography of the chest. TECHNIQUE: Contrast enhanced thin section helical images were obtained through the chest with intravenous contrast timed for the optimal opacification of the arterial structures per CTA protocol. Post-processing, reconstructions and interpretation of angiographic images of the vessels was performed. 3D MIP reconstructions were performed and reviewed. All CT scans use one or more of the following dose optimizing techniques: automated exposure control, MA and/or KvP adjustment based on a patient size and exam type, or iterative reconstruction. HISTORY: Lung cancer, difficulty breathing COMPARISON: 08/04/2021 FINDINGS: There is no pulmonary embolism. There is severe emphysema. There are large bulla in both lungs. There is groundglass and consolidation in the right upper lung. There appears to be have been prior right upper lobe resection. No pleural effusion. No pneumothorax. No suspicious nodules. There is no axillary or supraclavicular lymphadenopathy. There is no mediastinal lymphadenopathy. Heart size is normal. There are no coronary artery calcifications. No pericardial effusion. Aorta is normal in caliber. Limited views of the upper abdomen show stone in the gallbladder neck. There are no suspicious osseus lesions. IMPRESSION: 1. No pulmonary embolism. 2. Groundglass and consolidation in the right upper lung in the setting of severe emphysema concerning for pneumonia. Follow-up to resolution recommended. Dictated by: Dictated on workstation # [id number]
--- NOTE | 2022-03-07 12:35 | Consultation - Surgery ---
JOSE LUIS BOWLING 03/07/22 1235: History of Present Illness History of Present Illness Patient Consulted On(toby/time) 03/07/22 12:30 Date Seen by Provider: Mar 07, 2022 Time Seen by Provider: 12:30 Reason for Visit: Pneumonia History of Present Illness Mr. Oneal is a 66 year old male currently being treated in the ICU for sepsis due to pneumonia with acute on chronic respiratory failure. He has a past medical history of COPD, lung cancer, and HTN. General surgery was consulted for an gallstone shown in the neck of the gallbladder on CT. He says he was first told about having a gallstone around a year ago by Dr. Melchor. Patient denies any abdominal pain, post-prandial pain, or symptoms of biliary colic. He endorses a history of GERD controlled with medication. He reports he had minor nausea and vomiting upon admission to the hospital. Allergies and Home Medications Allergies Coded Allergies: No Known Drug Allergies (Unverified , 08/14/14) Patient Home Medication List Acetaminophen (Tylenol Extra Strength) 500 Mg Tablet, 500-1,000 MG PO Q8H PRN f or PAIN-MILD (1-4), (Reported) Entered as Reported by: DEE OLIVARES on 03/07/22 1006 Last Action: Reviewed Acetaminophen/Diphenhydramine (Tylenol Pm Ex-Strength Caplet) 500 Mg-25 Mg Tablet, 1 EACH PO HS PRN for SLEEP, (Reported) Entered as Reported by: DEE OLIVARES on 03/07/22 1006 Last Action: Reviewed Albuterol Sulfate (Proair Hfa) 90 Mcg Hfa.aer.ad, 2 PUFF IH Q6H PRN for SHORTNESS OF BREATH, (Reported) Entered as Reported by: DEVONTE MORATAYA on 01/05/22 1128 Last Action: Reviewed Candesartan/Hydrochlorothiazid (Candesartan-Hctz 16-12.5 mg Tb) 16 Mg-12.5 Mg Tablet, 0.5 EACH PO DAILY PRN for SBP <140, (Reported) Entered as Reported by: DEE OLIVARES on 03/07/22 1006 Last Action: Reviewed Fluticasone Propionate (Flonase Allergy Relief) 50 Mcg/Actuation [place].susp, 1 SPRAY NSEACH DAILY PRN for CONGESTION, (Reported) Entered as Reported by: DEE OLIVARES on 03/07/22 100 Last Action: Reviewed Fluticasone/Salmeterol (Advair Hfa 115-21 Mcg Inhaler) 115 Mcg-21 Mcg/Actuation Hfa.aer.ad, 2 PUFF IH BID, (Reported) Entered as Reported by: DEE OLIVARES on 03/07/22 100 Last Action: Reviewed Pantoprazole Sodium (Pantoprazole Sodium) 40 Mg Tablet.dr, 40 MG PO DAILY, (Reported) Entered as Reported by: DEVONTE MORATAYA on 01/05/221127 Last Action: Reviewed Sennosides (Senna) 8.6 Mg Tablet, 8.6 MG PO DAILY PRN for CONSTIPATION-5TH LINE, (Reported) Entered as Reported by: DEE OLIVARES on 03/07/221005 Last Action: Reviewed Tiotropium Peerless (Spiriva) 18 Mcg Aerp, 1 INH IH DAILY, (Reported) Entered as Reported by: DEVONTE MORATAYA on 01/05/221127 Last Action: Reviewed Discontinued Medications Amoxicillin/Potassium Clav (Augmentin 500-125 Tablet) 500 Mg-125 Mg Tablet, 1 EACH PO BID Discontinued Reason: No Longer Taking Prescribed by: Yue Curiel on 01/12/22 104 Last Action: Discontinued Candesartan/Hydrochlorothiazid (Candesartan-Hctz 16-12.5 mg Tb) 16 Mg-12.5 Mg Tablet, 0.5 EACH PO UD Discontinued Reason: Duplicate Order Prescribed by: AMOL SINGH on 03/04/22 0825 Last Action: Discontinued Cetirizine HCl (Cetirizine HCl) 10 Mg Tablet, 10 MG PO UD, (Reported) Discontinued Reason: No Longer Taking Entered as Reported by: DEVONTE MORATAYA on 01/05/221127 Last Action: Discontinued Fluticasone/Salmeterol (Advair Hfa 115-21 Mcg Inhaler) 115 Mcg-21 Mcg/Actuation Hfa.aer.ad, 12 GM IH UD, (Reported) Discontinued Reason: Duplicate Order Entered as Reported by: DEVONTE MORATAYA on 01/05/221127 Last Action: Discontinued Fluticasone/Salmeterol (Advair Hfa 115-21 Mcg Inhaler) 115 Mcg-21 Mcg/Actuation Hfa.aer.ad, 12 GM IH BID Discontinued Reason: Duplicate Order Prescribed by: AMOL SINGH on 03/04/22 0872 Last Action: Discontinued Hydrocodone/Acetaminophen (Hydrocodone-Acetamin 5-325 mg) 5 Mg-325 Mg Tablet, 1- 2 TAB PO Q4H PRN for PAIN-MODERATE (5-7) Discontinued Reason: No Longer Taking Prescribed by: Yue Curiel on 01/12/22 1049 Last Action: Discontinued Montelukast Sodium (Montelukast Sodium) 10 Mg Tablet, 10 MG PO UD, (Reported) Discontinued Reason: No Longer Taking Entered as Reported by: DEVONTE MORATAYA on 01/05/22 1128 Last Action: Discontinued Past Tkvuwhw-Hlvkbd-Erektq Hx Patient Social History Smoking Status: Former Smoker (Quit 2.5 years ago. Smoked 1 PPD for 40 years.) Former Smoker, Quit: Jun 21, 2019 Type Used: Cigarettes Recent Hopitalizations: No Alcohol Use?: Yes Have you traveled recently?: Yes Immunizations Up To Date Date of Influenza Vaccine: Jun 09, 2019 Seasonal Allergies Seasonal Allergies: Yes (INHALER USE) Surgeries History of Surgeries: Yes (LOBECTOMY FROM LUNG CA, SHOULDER X4, REVERSE SHOULDER REPLACEMENT) Surgeries: Lobectomy, Orthopedic Respiratory History of Respiratory Disorde: Yes (HX OF LUNG CA, ) Respiratory Disorders: COPD Cardiovascular History of Cardiac Disorders: Yes Cardiac Disorders: Hypertension Neurological History of Neurological Disord: Yes ("MINI STROKES TWICE") Neurological Disorders: TIA Genitourinary History of Genitourinary Disor: No Gastrointestinal History of Gastrointestinal Di: No Musculoskeletal History of Musculoskeletal Dis: Yes Musculoskeletal Disorders: Arthritis, Fractures Endocrine History of Endocrine Disorders: No HEENT History of HEENT Disorders: Yes (WEARS GLASSES, CHRONIC SINUS ISSUES) Cancer History of Cancer: Yes Cancer: Lung Psychosocial History of Psychiatric Problem: Yes (DUE TO SINUS ISSUES AND MOUTH BREATHING) Behavioral Health Disorders: Sleep Difficulties Integumentary History of Skin or Integumenta: No Blood Transfusions History of Blood Disorders: No Family Medical History Family Medial History: Alzheimer's disease 19 FATHER Cataracts 19 MOTHER Osteoporosis 19 MOTHER Parkinson's disease 19 MOTHER Review of Systems-General Constitutional: chills; No fever EENTM: No blurred vision, No double vision Respiratory: cough, dyspnea on exertion, short of breath Cardiovascular: No chest pain, No palpitations Gastrointestinal: abdominal pain (Minor tenderness to very deep palpation around umbilicus. Patient reports he feels like he pulled a muscle in this area after coughing.); No constipation, No diarrhea; loss of appetite, nausea, vomiting (Reports minor vomiting "mostly spit") Psychiatric/Neurological: Denies Numbness, Denies Paresthesia Physical Exam-General Problems Physical Exam Vital Signs Vital Signs - First Documented 03/03/22 03/03/22 03/03/22 15:00 18:39 19:36 Temp 37.8 Pulse 109 Resp 22 B/P (MAP) 138/103 (115) Pulse Ox 97 O2 Delivery Room Air O2 Flow Rate 2.00 FiO2 21 Capillary Refill : Less Than 3 Seconds General Appearance: WD/WN, no apparent distress HEENT: PERRL/EOMI; No pale conjunctivae (R), No pale conjunctivae (L) Neck: supple, normal inspection Respiratory: chest non-tender, no respiratory distress (Increased work of breathing but no distress), no accessory muscle use, crackles (Right-sided); No wheezing Cardiovascular: normal peripheral pulses, no murmur, tachycardia Peripheral Pulses: 2+ Dorsalis Pedis (R), 2+ Left Dors-Pedis (L), 2+ Radial Pulses (R), 2+ Radial Pulses (L) Gastrointestinal: soft, abnormal bowel sounds (Decreased); No distended, No g uarding, No rebound; tenderness (Minor tenderness around umbilicus. Patient reports pain in this area after coughing.) Extremities: non-tender, no pedal edema Neurologic/Psychiatric: visual developer II-XII nml as tested, no motor/sensory deficits, alert, normal mood/affect, oriented x 3 Skin: normal color, warm/dry Data Review Labs Laboratory Tests 03/07/22 05:28: Sodium Level 134L, Potassium Level 3.7, Chloride Level 100, Carbon Dioxide Level 25, Anion Gap 9, Blood Urea Nitrogen 10, Creatinine 0.68, Estimat Glomerular Filtration Rate 102, BUN/Creatinine Ratio 15, Glucose Level 121H, Calcium Level 8.7, Corrected Calcium 9.7, Total Bilirubin 1.2H, Aspartate Amino Transf (AST/SGOT) 38H, Alanine Aminotransferase (ALT/SGPT) 55, Alkaline Phosphatase 161H, Total Protein 5.7L, Albumin 2.8L Microbiology 03/03/22 Blood Culture - Preliminary, Resulted No growth 03/03/22 Urine Culture - Final, Complete NO GROWTH Assessment/Plan Assessment/Plan Assessment/Plan Assessment: Sepsis 2/2 pneumonia Acute on chronic respiratory failure COPD h/o Lung cancer Cholelithiasis - Not seen on U/S - Incidental gallstone in neck of gallbladder seen on CT - Asymptomatic Transaminitis - AST and ALT at 38 and 55 - ALP of 161 Hyperbilirubinemia - Trending down to 1.2 Plan: Continue on IV abx and supplemental oxygen Defer to medicine for medical management Incidental gallstone found on CT imaging. At this time I don't believe any surgical management is warranted. Continue to monitor. Trend bilirubin and LFTs. HAYDEE FRANKLIN DO 03/07/22 1723: History of Present Illness History of Present Illness Time Seen by Provider: 16:41 History of Present Illness Surgery asked to consult regarding Gallstone. HPI Per ED: This is 66-year-old gentleman presents to the emergency room with complaints of intolerable persistent cough for 3 days. This morning he woke up feeling very fatigued. He reports some episodes of coughing up sputum that appears blood-tinged. He also noted his urine has been dark in color today. Temperature is almost febrile during assessment. He has chronic shortness of breath due to history of lung cancer and right upper lobectomy. He is presently in remission after surgical and radiation therapy. He also had surgery on his nose by Dr. Hassan several weeks ago. He has had persistent swelling of the left side of his nose making breathing at night difficult. He states this did not improve after the surgery. When I spoke to the pt this afternoon, he denied any pain associated with foods. He thinks he may have had abdominal pain before, but nothing bad enough to pay attention to. His main complaint right now is his trouble breathing because of the pneumonia. He always has some trouble breathing mainly due to sinus problems and had surgery to try and correct that; but didn't really work. Allergies and Home Medications Allergies Coded Allergies: No Known Drug Allergies (Unverified , 08/14/14) Patient Home Medication List Home Medication List Reviewed: Yes Acetaminophen (Tylenol Extra Strength) 500 Mg Tablet, 500-1,000 MG PO Q8H PRN for PAIN-MILD (1-4), (Reported) Entered as Reported by: DEE OLIVARES on 03/07/22 1006 Last Action: Reviewed Acetaminophen/Diphenhydramine (Tylenol Pm Ex-Strength Caplet) 500 Mg-25 Mg Tablet, 1 EACH PO HS PRN for SLEEP, (Reported) Entered as Reported by: DEE OLIVARES on 03/07/221005 Last Action: Reviewed Albuterol Sulfate (Proair Hfa) 90 Mcg Hfa.aer.ad, 2 PUFF IH Q6H PRN for SHORTNESS OF BREATH, (Reported) Entered as Reported by: DEVONTE MORATAYA on 01/05/221127 Last Action: Reviewed Candesartan/Hydrochlorothiazid (Candesartan-Hctz 16-12.5 mg Tb) 16 Mg-12.5 Mg Tablet, 0.5 EACH PO DAILY PRN for SBP <140, (Reported) Entered as Reported by: DEE OLIVARES on 03/07/221005 Last Action: Reviewed Fluticasone Propionate (Flonase Allergy Relief) 50 Mcg/Actuation [place].susp, 1 SPRAY NSEACH DAILY PRN for CONGESTION, (Reported) Entered as Reported by: DEE OLIVARES on 03/07/221005 Last Action: Reviewed Fluticasone/Salmeterol (Advair Hfa 115-21 Mcg Inhaler) 115 Mcg-21 Mcg/Actuation Hfa.aer.ad, 2 PUFF IH BID, (Reported) Entered as Reported by: DEE OLIVARES on 03/07/221005 Last Action: Reviewed Pantoprazole Sodium (Pantoprazole Sodium) 40 Mg Tablet.dr, 40 MG PO DAILY, (Reported) Entered as Reported by: DEVONTE MORATAYA on 01/05/221127 Last Action: Reviewed Sennosides (Senna) 8.6 Mg Tablet, 8.6 MG PO DAILY PRN for CONSTIPATION-5TH LINE, (Reported) Entered as Reported by: DEE OLIVARES on 03/07/221005 Last Action: Reviewed Tiotropium Peerless (Spiriva) 18 Mcg Aerp, 1 INH IH DAILY, (Reported) Entered as Reported by: DEVONTE MORATAYA on 01/05/221127 Last Action: Reviewed Discontinued Medications Amoxicillin/Potassium Clav (Augmentin 500-125 Tablet) 500 Mg-125 Mg Tablet, 1 EACH PO BID Discontinued Reason: No Longer Taking Prescribed by: Yue Curiel on 01/12/22 1049 Last Action: Discontinued Candesartan/Hydrochlorothiazid (Candesartan-Hctz 16-12.5 mg Tb) 16 Mg-12.5 Mg Tablet, 0.5 EACH PO UD Discontinued Reason: Duplicate Order Prescribed by: AMOL SINGH on 03/04/22824 Last Action: Discontinued Cetirizine HCl (Cetirizine HCl) 10 Mg Tablet, 10 MG PO UD, (Reported) Discontinued Reason: No Longer Taking Entered as Reported by: DEVONTE MORATAYA on 01/05/221127 Last Action: Discontinued Fluticasone/Salmeterol (Advair Hfa 115-21 Mcg Inhaler) 115 Mcg-21 Mcg/Actuation Hfa.aer.ad, 12 GM IH UD, (Reported) Discontinued Reason: Duplicate Order Entered as Reported by: DEVONTE MORATAYA on 01/05/221127 Last Action: Discontinued Fluticasone/Salmeterol (Advair Hfa 115-21 Mcg Inhaler) 115 Mcg-21 Mcg/Actuation Hfa.aer.ad, 12 GM IH BID Discontinued Reason: Duplicate Order Prescribed by: AMOL SINGH on 03/04/22824 Last Action: Discontinued Hydrocodone/Acetaminophen (Hydrocodone-Acetamin 5-325 mg) 5 Mg-325 Mg Tablet, 1- 2 TAB PO Q4H PRN for PAIN-MODERATE (5-7) Discontinued Reason: No Longer Taking Prescribed by: Yue Curiel on 01/12/221048 Last Action: Discontinued Montelukast Sodium (Montelukast Sodium) 10 Mg Tablet, 10 MG PO UD, (Reported) Discontinued Reason: No Longer Taking Entered as Reported by: DEVONTE MORATAYA on 01/05/221127 Last Action: Discontinued Past Jzjusaa-Dwwehp-Ifuyct Hx Patient Social History Smoking Status: Former Smoker (Quit 2.5 years ago. Smoked 1 PPD for 40 years.) Type Used: Cigarettes Surgeries History of Surgeries: Yes (sinus surgery) Surgeries: Abdominal (b/l inguinal), Lobectomy, Orthopedic (shoulder x 4) Respiratory History of Respiratory Disorde: Yes Respiratory Disorders: COPD, Emphysema Cardiovascular History of Cardiac Disorders: Yes Cardiac Disorders: Hypertension Neurological History of Neurological Disord: No Genitourinary History of Genitourinary Disor: No Gastrointestinal History of Gastrointestinal Di: Yes Gastrointestinal Disorders: Gall Bladder Disease Musculoskeletal History of Musculoskeletal Dis: Yes Musculoskeletal Disorders: Arthritis Endocrine History of Endocrine Disorders: No HEENT History of HEENT Disorders: Yes (chronic sinusitis) Loss of Vision: Denies Hearing Impairment: Denies Cancer History of Cancer: Yes Cancer: Lung Psychosocial History of Psychiatric Problem: No Integumentary History of Skin or Integumenta: No Family Medical History Significant Family History: Other Conditions/Hx (Alzheimers, Parkinsons, Osteoporosis) Family Medial History: Alzheimer's disease 19 FATHER Cataracts 19 MOTHER Osteoporosis 19 MOTHER Parkinson's disease 19 MOTHER Review of Systems-General Constitutional: chills; No fever EENTM: nose congestion; No blurred vision, No double vision, No throat swelling Respiratory: cough, dyspnea on exertion, short of breath Cardiovascular: No chest pain, No palpitations Gastrointestinal: abdominal pain (Minor tenderness to very deep palpation around umbilicus. Patient reports he feels like he pulled a muscle in this area after coughing.); No constipation, No diarrhea; loss of appetite, nausea, vomiting (Reports minor vomiting "mostly spit") Genitourinary: No dysuria, No frequency, No hematuria Musculoskeletal: joint pain, joint swelling, muscle pain, muscle stiffness Skin: No change in color, No change in hair/nails Psychiatric/Neurological: Denies Anxiety, Denies Depressed, Denies Numbness, Denies Paresthesia Physical Exam-General Problems Physical Exam General Appearance: WD/WN, moderate distress (secondary to work of breathing) Eyes: Bilateral Eye PERRL, Bilateral Eye EOMI HEENT: pharynx normal; No scleral icterus (R), No scleral icterus (L), No pale conjunctivae (R), No pale conjunctivae (L) Neck: supple, normal inspection Respiratory: chest non-tender, respiratory distress, decreased breath sounds (right greateer than left), accessory muscle use, crackles (Right-sided); No wh eezing Cardiovascular: normal peripheral pulses, no murmur, tachycardia Gastrointestinal: abnormal bowel sounds (Decreased); No distended, No guarding, No rebound; tenderness (Minor tenderness around umbilicus. Patient reports pain in this area after coughing.) Rectal: deferred Back: no CVA tenderness, no vertebral tenderness Extremities: non-tender, no pedal edema Neurologic/Psychiatric: visual developer II-XII nml as tested, no motor/sensory deficits, alert, normal mood/affect, oriented x 3 Skin: normal color, warm/dry Lymphatic: no adenopathy (neck or groin) Data Review Radiology Date of Exam:03/07/22 CT ANGIO CHEST W EXAMINATION: CT angiography of the chest. TECHNIQUE: Contrast enhanced thin section helical images were obtained through the chest with intravenous contrast timed for the optimal opacification of the arterial structures per CTA protocol. Post-processing, reconstructions and interpretation of angiographic images of the vessels was performed. 3D MIP reconstructions were performed and reviewed. All CT scans use one or more of the following dose optimizing techniques: automated exposure control, MA and/or KvP adjustment based on a patient size and exam type, or iterative reconstruction. HISTORY: Lung cancer, difficulty breathing COMPARISON: 08/04/2021 FINDINGS: There is no pulmonary embolism. There is severe emphysema. There are large bulla in both lungs. There is groundglass and consolidation in the right upper lung. There appears to be have been prior right upper lobe resection. No pleural effusion. No pneumothorax. No suspicious nodules. There is no axillary or supraclavicular lymphadenopathy. There is no mediastinal lymphadenopathy. Heart size is normal. There are no coronary artery calcifications. No pericardial effusion. Aorta is normal in caliber. Limited views of the upper abdomen show stone in the gallbladder neck. There are no suspicious osseus lesions. IMPRESSION: 1. No pulmonary embolism. 2. Groundglass and consolidation in the right upper lung in the setting of severe emphysema concerning for pneumonia. Follow-up to resolution recommended. Dictated by: Dictated on workstation # [id number] Dict: 03/07/22 1051 Trans: 03/07/22 1650 [facility] [id number] Interpreted by: ULICES HUBBARD MD Electronically signed by: ULICES HUBBARD MD 03/07/22 1650 Assessment/Plan Assessment/Plan Assessment/Plan Cholelithiasis - Not seen on U/S, CT read as gallstone in neck of gallbladder, appears to be asymptomatic. Pt has know about it for at least a year. - I reviewed the CT myself and am concerned that the stone could be in the common duct or at least pushing on the common duct. I ordered a HIDA for tomorrow to ascertain if there is an obstruction and need for further procedure; like common bile duct exploration, PTC or cholecystostomy tube, ERCP Sepsis - most likely secondary to pneumonia Acute on chronic respiratory failure COPD h/o Lung cancer Transaminitis - AST and ALT at 38 and 55 - ALP of 161 Hyperbilirubinemia - Trending down to 1.2 Plan: Continue on IV abx and supplemental oxygen, Incidental gallstone again noted on CT imaging; unknown if this was cause of elevated Bilirubin. Will await HIDA and hope it give us some more information. Continue to monitor pain and trend bilirubin and LFTs. Supervisory-Addendum Brief Verification & Attestation Participated in pt care: history, MDM, physical Personally performed: exam, history, MDM, supervision of care Care discussed with: Medical Student Procedures: n/a Verification and Attestation of Medical Student E/M Service A medical student performed and documented this service. I then reviewed and verified all information documented by the medical student and made modifications to such information, when appropriate. I personally performed a physical exam, medical decision making and then discussed any differences between the notes and made revisions as necessary to create one note. Haydee Franklin , 03/07/22 , 17:37 JOSE LUIS BOWLING Mar 07, 2022 12:35 HAYDEE FRANKLIN DO Mar 07, 2022 17:23
[2022-03-07] MEDS: ALPRAZolam 0.25 MG (XANAX) TAB PO PRN (15:33)
--- NOTE | 2022-03-07 18:12 | Tele-ICU Progress Note ---
Subjective Date Seen by a Provider: Mar 07, 2022 Time Seen by a Provider: 10:19 Subjective/Events-last exam (Tele-ICU Physician , Progress Note ) Available chart/ vitals / labs / Images reviewed Video assessment done using teleICU camera, rest of exam as per RN Discussed with RN , EXAM PER RN Events overnight : increased need for o2 to 10 L Afebrile FiO2 - 10 L I/O = neg Drips: Pressors: , hemodynamically stable Consultants: Hospital course: (03/03) 66 Y admitted with sepsis pneumonia pt has history of lung cancer (03/05) Transfer to ICU with vomiting and increased respiratory distress 03/07 - increased needs for O2 to 10L A/P Acute on chronic hypoxic respiratory failure - CTA pending - ? br spam , ? VO, ? PNA Possible pneumonia and sepsis -clinically improving., cont abx - flu covif NEG Headache probably related to codeine. History of lung cancer Elevated liver enzymes etiology not clear - LIver US 03/06 - limited exanm ,no acute findings Hyponatremia - miild Lines : (Central Line Necessity Reviewed) Alarcon: OG: Nutrition: Analgesia: Anxiety/ delirium VTE Prophylaxis: breann 40 Stress Ulcer Prophylaxis: ppi Plans in collaboration with bedside consultants and IM MDs. Discussed with RN to reach out if any questions or concerns A total of 33 minutes of critical care time was devoted to this patient today, required to treat and/or prevent further deterioration of critical care condition ( as above) . Sepsis Event Evaluation Height, Weight, BMI Height: 5'69.00" Weight: 145lbs. oz. [id number]; 23.57 BMI Method: Exam Exam Patient acknowledged, consented, and participated in this virtual visit which was conducted using real time audio/video Vital Signs Date Time Temp Pulse Resp B/P (MAP) Pulse Ox O2 Delivery O2 Flow Rate FiO2 03/07/22 16:00 114 20 134/74 96 High Flow N/C 6.00 03/07/22 15:40 97 Nasal Cannula 5.00 03/07/22 13:00 106 03/07/22 12:00 112 24 130/82 97 High Flow N/C 6.00 03/07/22 12:00 36.7 03/07/22 11:28 97 OxyMask 5.00 03/07/22 09:00 113 96 OxyMask 10.00 03/07/22 08:30 96 Nasal Cannula 3.00 03/07/22 08:06 119 03/07/22 08:00 110 137/85 95 Nasal Cannula 3.00 03/07/22 08:00 37.0 03/07/22 07:05 96 Nasal Cannula 4.00 03/07/22 07:00 106 20 124/97 97 Nasal Cannula 3.00 03/07/22 06:14 36.7 03/07/22 04:00 93 25 115/74 99 Nasal Cannula 3.00 03/07/22 01:40 94 Nasal Cannula 4.00 03/07/22 00:58 91 03/07/22 00:00 105 33 102/76 95 Nasal Cannula 3.00 03/06/22 22:34 88 Nasal Cannula 4.00 03/06/22 20:34 96 Nasal Cannula 3.00 03/06/22 20:00 99 27 121/79 96 Nasal Cannula 3.00 03/06/22 19:29 36.6 03/06/22 19:00 103 03/06/22 18:38 96 Nasal Cannula 4.00 I & O 03/07/22 07:00 Intake Total 2300 ml Output Total 2700 ml Balance -400 ml Height & Weight Height: 5'69.00" Weight: 145lbs. oz. [id number]; 23.57 BMI Method: General Appearance: No Apparent Distress, Anxious HEENT: PERRL/EOMI, Moist Mucous Membranes; No Scleral Icterus (L), No Scleral Icterus (R) Neck: Normal Inspection, Supple Respiratory: Lungs Clear, No Respiratory Distress Cardiovascular: No Murmur, Tachycardia Capillary Refill: Less Than 3 Seconds Peripheral Pulses: 2+ Dorsalis Pedis (R), 2+ Left Dors-Pedis (L), 2+ Radial Pulses (R), 2+ Radial Pulses (L) Gastrointestinal: abnormal bowel sounds (Decreased); No distended, No guarding, No rebound; tenderness (Minor tenderness around umbilicus. Patient reports pain in this area after coughing.) Extremity: Normal Inspection, No Pedal Edema Neurologic/Psychiatric: Alert, Normal Mood/Affect Skin: Normal Color, Warm/Dry Results Lab Laboratory Tests 03/07/22 05:28 Assessment/Plan Assessment/Plan 1 ALEX LEDESMA MD Mar 07, 2022 18:12
[2022-03-07 18:31] LABS: ABG OXYGEN SATURATION 96 % (94-100); ABG PCO2 43 MMHG (35-45); ABG PH 7.41 (7.37-7.43); ABG PO2 70 MMHG (79-93); ABG TCO2 28.5 MMOL/L (21.0-31.0)
[2022-03-07 18:32] LABS: ALLENS TEST YES-POS; INSPIRED O2 5L HF NC; PATIENT TEMP 37.2; VENTILATOR NO
[2022-03-07] MEDS: AZITHROMYCIN 500 MG/NS 250 ML IVPB IV SCH ×2 (19:24)
--- NOTE | 2022-03-07 22:08 | Progress Note - Hospitalist ---
Subjective HPI/CC On Admission Date Seen by Provider: Mar 07, 2022 Time Seen by Provider: 09:30 Patient 66-year-old male with a past medical history of lung cancer, hypertension, COPD who presented to the emergency department due to cough. He states that he saw his doctor earlier this week and was doing fine though he tho ught he may have been wheezing a little. He also follows with pulmonary rehab and seemed to be fine with that. But then 2 or 3 days ago he started to worsen. His cough got much worse and he also noticed some blood-tinged sputum. He decided to seek evaluation in the emergency room yesterday as he continued to worsen. He was found to have pneumonia and meet sepsis criteria so was admitted for further management. He reports feeling better today though did have very severe episode of coughing for 2 hours overnight. This was improved with hydrocodone. Tessalon has not been helping him. Subjective/Events-last exam He is short of breath with any activity. He still has a cough productive of sputum. Objective Exam Vital Signs Vital Signs Date Time Temp Pulse Resp B/P (MAP) Pulse Ox O2 Delivery O2 Flow Rate FiO2 03/07/22 21:56 94 Nasal Cannula 5.00 03/07/22 19:00 115 03/07/22 16:00 20 134/74 03/07/22 12:00 36.7 03/03/22 19:36 21 Capillary Refill : Less Than 3 Seconds General Appearance: WD/WN, Mild Distress (respiratory) Respiratory: Decreased Breath Sounds, Respiratory Distress Cardiovascular: No Murmur, Tachycardia Gastrointestinal: Normal Bowel Sounds, Soft Extremity: Normal Inspection, No Pedal Edema Neurologic/Psychiatric: Alert, No Motor/Sensory Deficits Skin: Normal Color, Warm/Dry Results/Procedures Lab Laboratory Tests 03/07/22 05:28 Patient resulted labs reviewed. Imaging: Reviewed Imaging Report Assessment/Plan Assessment and Plan Assess & Plan/Chief Complaint Sepsis due to pneumonia Acute on chronic respiratory failure COPD Lung cancer Continue on IV abx IV fluids MAT protocol NGTD on blood and urine cultures Wean oxygen as able- baseline is use only with exertion CTA chest Elevated LFTs Cholelithiasis RUQ ultrasound unremarkable CT with stone in the gallbladder neck Surgery consulted HTN BP well controlled DVT ppx: SCDs only due to some hemoptysis Critical Care Critically Ill Patient Diagnosis/Problems Diagnosis/Problems (1) Acute on chronic respiratory failure with hypoxia Status: Acute (2) Sepsis Status: Acute Qualifiers: Sepsis type: sepsis due to unspecified organism Sepsis acute organ dysfu nction status: unspecified Qualified Codes: A41.9 - Sepsis, unspecified organism (3) Pneumonia Status: Acute Qualifiers: Pneumonia type: due to unspecified organism Laterality: bilateral Lung location: unspecified part of lung Qualified Codes: J18.9 - Pneumonia, unspecified organism (4) History of lung cancer Status: Acute (5) Elevated LFTs Status: Acute URIEL XAVIER MD Mar 07, 2022 22:08
[2022-03-08] MEDS: CEFEPIME 1,000 MG/NS 50 ML IVPB IV SCH ×2 (00:57)
[2022-03-08] MEDS: RT-ALBUTEROL SULF 2.5 MG/3 ML PRE-MIX VIAL INH SCH ×6 (02:08→22:12)
[2022-03-08] MEDS: guaiFENesin/CODEINE (ROBITUSSIN AC) 10ML UDC PO PRN (04:27)
[2022-03-08] MEDS: ENOXAPARIN 40 MG/0.4 ML (LOVENOX) SYR SC SCH (07:59)
--- NOTE | 2022-03-08 08:44 | Progress Note - Surgery ---
JOSE LUIS BOWLING Michael 03/08/22 0844: Subjective Date Seen by a Provider: Mar 08, 2022 Time Seen by a Provider: 06:40 Subjective/Events-last exam Mr. Oneal is being followed by surgery for asymptomatic cholelithiasis. He is being treated in the ICU for sepsis d/t pneumonia. This morning he denies any abdominal pain. He continues to have trouble breathing, shortness of breath, and productive cough. He has new onset pain, redness, and induration in his left arm. He is scheduled for a HIDA scan today. His latest bilirubin level was 1.2. Review of Systems General: No Chills, No Fatigue HEENT: No Head Aches, No Visual Changes Pulmonary: Dyspnea, Cough Cardiovascular: No: Chest Pain, Palpitations Gastrointestinal: No: Nausea, Vomiting, Abdominal Pain Genitourinary: No Dysuria, No Frequency Musculoskeletal: arm pain; No: hand pain Neurological: No: Weakness, Confusion Objective Exam Vital Signs Date Time Temp Pulse Resp B/P (MAP) Pulse Ox O2 Delivery O2 Flow Rate FiO2 03/08/22 08:00 37.6 03/08/22 07:35 98 Nasal Cannula 5.00 03/08/22 06:33 117 03/08/22 04:00 112 134/85 97 High Flow N/C 6.00 03/08/22 02:08 98 Nasal Cannula 5.00 03/08/22 01:00 100 03/08/22 00:00 96 Nasal Cannula 3.00 03/08/22 00:00 100 23 108/71 95 High Flow N/C 6.00 03/07/22 21:56 94 Nasal Cannula 5.00 03/07/22 21:00 96 Nasal Cannula 3.00 03/07/22 20:00 130 113/73 93 High Flow N/C 6.00 03/07/22 19:00 115 03/07/22 18:58 93 Nasal Cannula 5.00 03/07/22 16:00 114 20 134/74 96 High Flow N/C 6.00 03/07/22 15:40 97 Nasal Cannula 5.00 03/07/22 13:00 106 03/07/22 12:00 112 24 130/82 97 High Flow N/C 6.00 03/07/22 12:00 36.7 03/07/22 11:28 97 OxyMask 5.00 03/07/22 09:00 113 96 OxyMask 10.00 I & O 03/08/22 06:59 Intake Total 1875 ml Output Total 1800 ml Balance 75 ml Capillary Refill : Less Than 3 Seconds General Appearance: WD/WN, Mild Distress (SOB) HEENT: PERRL/EOMI, Moist Mucous Membranes; No Scleral Icterus (L), No Scleral Icterus (R) Neck: Normal Inspection, Supple Respiratory: Chest Non Tender, No Accessory Muscle Use, Crackles, Decreased Breath Sounds, Respiratory Distress Cardiovascular: No Murmur, Tachycardia Peripheral Pulses: 2+ Dorsalis Pedis (R), 2+ Left Dors-Pedis (L), 2+ Radial Pulses (R), 2+ Radial Pulses (L) Gastrointestinal: No distended, No guarding, No rebound, No tenderness Extremity: Normal Inspection, No Pedal Edema, Other (Redness, erythema, and induration on left posterior forearm) Neurologic/Psychiatric: Alert, Oriented x3, No Motor/Sensory Deficits Skin: Normal Color, Warm/Dry Results Lab Laboratory Tests 03/07/22 18:24: Blood Gas Puncture Site RT RAD, Blood Gas Patient Temperature 37.2, Arterial Blood pH 7.41, Arterial Blood Partial Pressure CO2 43, Arterial Blood Partial Pressure O2 70L, Arterial Blood HCO3 27, Arterial Blood Total CO2 28.5, Arterial Blood Oxygen Saturation 96, Arterial Blood Base Excess 3.0H, Salvador Test YES-POS, Blood Gas Ventilator Setting NO, Blood Gas Inspired Oxygen 5L HF NC Microbiology 03/07/22 Gram Stain - Final, Resulted 03/07/22 Sputum Culture, Resulted Pending 03/03/22 Blood Culture - Preliminary, Resulted No growth 03/03/22 Urine Culture - Final, Complete NO GROWTH Assessment/Plan Assessment/Plan Assessment/Plan Assessment: Cholelithiasis - Not seen on U/S, CT read as gallstone in neck of gallbladder, appears to be asymptomatic. Pt has know about it for at least a year. - Stone possibly in CBD or cystic duct or neck of GB Sepsis - most likely secondary to pneumonia Acute on chronic respiratory failure COPD h/o Lung cancer Transaminitis - AST and ALT at 38 and 55 - ALP of 161 Hyperbilirubinemia - Trending down to 1.2 Plan: Continue on IV abx and supplemental oxygen Incidental gallstone again noted on CT imaging; unknown if this was cause of elevated Bilirubin. Will await HIDA and hope it give us some more information. Plan for HIDA today. Consider cholecystostomy, cholecystecomy, or ERCP after results. More information needed before a decision can be made at this time. Continue to monitor pain and trend bilirubin and LFTs. OLEGARIOJERRIHAYDEE Nathaniel DO 03/08/221940: Subjective Time Seen by a Provider: 10:46 Subjective/Events-last exam Pt seen and examined, is in the room. Pt denied any abdominal pain, is still having SOB. Nurse states the lV in left arm infiltrated and now he has some pain and redness. Review of Systems General: No Chills; Fatigue HEENT: No Head Aches, No Visual Changes Pulmonary: Dyspnea, Cough Cardiovascular: No: Chest Pain, Palpitations Gastrointestinal: No: Nausea, Vomiting, Abdominal Pain Genitourinary: No Dysuria, No Frequency Musculoskeletal: arm pain Objective Exam General Appearance: Chronically ill, Mild Distress (SOB) HEENT: Moist Mucous Membranes; No Scleral Icterus (L), No Scleral Icterus (R) Neck: Supple Respiratory: Chest Non Tender, Accessory Muscle Use, Crackles, Decreased Breath Sounds, Respiratory Distress Cardiovascular: No Murmur, Tachycardia Gastrointestinal: No distended, No guarding, No rebound, No tenderness Extremity: Other (Redness, erythema, and induration on left posterior forearm) Neurologic/Psychiatric: Alert, Oriented x3, No Motor/Sensory Deficits Assessment/Plan Assessment/Plan Assessment/Plan Cholelithiasis - Not seen on U/S, CT read as gallstone in neck of gallbladder, appears to be asymptomatic. Pt has know about it for at least a year. - HIDA scan did not show obstruction of CBD, but it does look like obstruction of Cystic duct. Good flow from Liver down into small bowel Cellulitis of Left arm -Most likely this is just due to the infiltration of the IV, will monitor. Sepsis - most likely secondary to pneumonia Acute on chronic respiratory failure COPD h/o Lung cancer Transaminitis - AST and ALT at 38 and 55 - ALP of 161 Hyperbilirubinemia - Trending down to 1.2 Plan: Continue on IV abx and supplemental oxygen Incidental gallstone again noted on CT imaging; unknown if this was cause of elevated Bilirubin. Will await HIDA and hope it give us some more information. Plan for HIDA today. Consider cholecystostomy, cholecystecomy, or ERCP after results. More information needed before a decision can be made at this time. Continue to monitor pain and trend bilirubin and LFTs. Supervisory-Addendum Brief Verification & Attestation Participated in pt care: history, MDM, physical Personally performed: exam, history, MDM, supervision of care Care discussed with: Medical Student Procedures: n/a Verification and Attestation of Medical Student E/M Service A medical student performed and documented this service. I then reviewed and verified all information documented by the medical student and made jimbo fications to such information, when appropriate. I personally performed a physical exam, medical decision making and then discussed any differences between the notes and made revisions as necessary to create one note. Haydee Franklin , 03/08/22 , 19:41 JOSE LUIS BOWLING Mar 08, 2022 08:44 HAYDEE FRANKLIN DO Mar 08, 2022 19:41
[2022-03-08] MEDS: PANTOPRAZOLE 40 MG (PROTONIX) VIAL IV SCH (09:43)
[2022-03-08] MEDS: HYDROcodone/APAP 5 MG/325 MG (LORTAB) TAB PO PRN (09:43)
--- NOTE | 2022-03-08 09:58 | Diagnostic Imaging Report ---
INDICATION: Questionable common bile duct stone. TECHNIQUE: The patient was administered 5.4 mCi of technetium 99m Choletec and imaging over the abdomen was performed. FINDINGS: There is homogeneous uptake of activity by the liver. There appears to be excretion of activity into the common duct with passage of activity into the small bowel; however, the gallbladder is nonvisualized, consistent with cystic duct obstruction. IMPRESSION: Nonvisualized gallbladder, suggestive of acute cholecystitis. The common bile duct is patent. Dictated by: Dictated on workstation # [id number]
[2022-03-08] MEDS ORDERED: VANCOMYCIN INJECTION 0.1 MG in NS (IVPB) 250 ML IV SCH (10:00)
--- NOTE | 2022-03-08 10:51 | Tele-ICU Progress Note ---
Subjective Date Seen by a Provider: Mar 08, 2022 Time Seen by a Provider: 10:51 Subjective/Events-last exam (Tele-ICU Physician , Progress Note ) Available chart/ vitals / labs / Images reviewed Video assessment done using teleICU camera, rest of exam as per RN Discussed with RN , EXAM PER RN Events overnight : increased need for o2 to 10 L Afebrile FiO2 - 6 L I/O = neg Drips: Pressors: , hemodynamically stable Consultants: sx Hospital course: (03/03) 66 Y admitted with sepsis pneumonia pt has history of lung cancer (03/05) Transfer to ICU with vomiting and increased respiratory distress 03/07 - increased needs for O2 to 10L, CTA neg for PE 03/08 - 5 l O2 A/P Acute on chronic hypoxic respiratory failure - CTA neg for PE 03/07 - cont tx br spasm - added ICS/LABA and nebs schedulled ( sebvere emphysema on CT , rest of lung parenchima with infiltrate - cont tx for PNA , carefull with not VO Possible pneumonia and sepsis -clinically improving., cont abx - flu covid NEG Headache probably related to codeine. History of lung cancer Elevated liver enzymes etiology not clear - LIver US 03/06 - limited exanm ,no acute findings -asymptomatic cholelithiasis suspected - for HIDA today - sx follow Hyponatremia - miild Lines : (Central Line Necessity Reviewed) Alarcon: OG: Nutrition: Analgesia: Anxiety/ delirium VTE Prophylaxis: breann 40 Stress Ulcer Prophylaxis: ppi Plans in collaboration with bedside consultants and IM MDs. Discussed with RN to reach out if any questions or concerns A total of 33 minutes of critical care time was devoted to this patient today, required to treat and/or prevent further deterioration of critical care condition ( as above) . Sepsis Event Evaluation Height, Weight, BMI Height: 5'69.00" Weight: 145lbs. oz. 74.962423dk; 23.57 BMI Method: Exam Exam Patient acknowledged, consented, and participated in this virtual visit which was conducted using real time audio/video Vital Signs Date Time Temp Pulse Resp B/P (MAP) Pulse Ox O2 Delivery O2 Flow Rate FiO2 03/08/22 10:00 120 134/85 96 High Flow N/C 6.00 03/08/22 08:00 37.6 03/08/22 07:35 98 Nasal Cannula 5.00 03/08/22 06:33 117 03/08/22 04:00 112 134/85 97 High Flow N/C 6.00 03/08/22 02:08 98 Nasal Cannula 5.00 03/08/22 01:00 100 03/08/22 00:00 96 Nasal Cannula 3.00 03/08/22 00:00 100 23 108/71 95 High Flow N/C 6.00 03/07/22 21:56 94 Nasal Cannula 5.00 03/07/22 21:00 96 Nasal Cannula 3.00 03/07/22 20:00 130 113/73 93 High Flow N/C 6.00 03/07/22 19:00 115 03/07/22 18:58 93 Nasal Cannula 5.00 03/07/22 16:00 114 20 134/74 96 High Flow N/C 6.00 03/07/22 15:40 97 Nasal Cannula 5.00 03/07/22 13:00 106 03/07/22 12:00 112 24 130/82 97 High Flow N/C 6.00 03/07/22 12:00 36.7 03/07/22 11:28 97 OxyMask 5.00 I & O 03/08/22 07:00 Intake Total 1825 ml Output Total 1800 ml Balance 25 ml Height & Weight Height: 5'69.00" Weight: 145lbs. oz. 74.435191to; 23.57 BMI Method: General Appearance: WD/WN, Mild Distress (SOB) HEENT: PERRL/EOMI, Moist Mucous Membranes; No Scleral Icterus (L), No Scleral Icterus (R) Neck: Normal Inspection, Supple Respiratory: Chest Non Tender, No Accessory Muscle Use, Crackles, Decreased Breath Sounds, Respiratory Distress Cardiovascular: No Murmur, Tachycardia Capillary Refill: Less Than 3 Seconds Peripheral Pulses: 2+ Dorsalis Pedis (R), 2+ Left Dors-Pedis (L), 2+ Radial Pulses (R), 2+ Radial Pulses (L) Gastrointestinal: No distended, No guarding, No rebound, No tenderness Extremity: Normal Inspection, No Pedal Edema, Other (Redness, erythema, and induration on left posterior forearm) Neurologic/Psychiatric: Alert, Oriented x3, No Motor/Sensory Deficits Skin: Normal Color, Warm/Dry Results Lab Laboratory Tests 03/07/22 05:28 Assessment/Plan Assessment/Plan 1 ALEX LEDESMA MD Mar 08, 2022 10:51
[2022-03-08] MEDS ORDERED: VANCOMYCIN 1500 MG/NS 500 ML IVPB IV NR ×2 (11:00)
[2022-03-08] MEDS: CEFEPIME INJECTION 1,000 MG in NS (IVPB) 50 ML IV SCH ×3 (11:31→22:05)
[2022-03-08 11:37] LABS: BASOPHILS # (AUTO) 0.1 10^3/uL (0.0-0.1); BASOPHILS % (AUTO) 0 % (0-10); EOSINOPHILS # (AUTO) 0.1 10^3/uL (0.0-0.3); EOSINOPHILS % (AUTO) 1 % (0-10); HEMATOCRIT 36 % (40-54); LYMPHOCYTES # (AUTO) 0.7 10^3/uL (1.0-4.0); LYMPHOCYTES % (AUTO) 6 % (12-44); MEAN CORPUSCULAR HEMOGLOBIN 31 pg (25-34); MEAN CORPUSCULAR HGB CONC 33 g/dL (32-36); MEAN CORPUSCULAR VOLUME 93 fL (80-99); MEAN PLATELET VOLUME 8.8 fL (9.0-12.2); MONOCYTES # (AUTO) 1.2 10^3/uL (0.0-1.0); MONOCYTES % (AUTO) 10 % (0-12); NEUTROPHILS # (AUTO) 9.8 10^3/uL (1.8-7.8); NEUTROPHILS % (AUTO) 82 % (42-75); PLATELET COUNT 364 10^3/uL (130-400); WHITE BLOOD COUNT 11.9 10^3/uL (4.3-11.0)
[2022-03-08 11:40] LABS: ALBUMIN 2.7 GM/DL (3.2-4.5); POTASSIUM 4.4 MMOL/L (3.6-5.0)
[2022-03-08 11:41] LABS: CALCIUM 8.7 MG/DL (8.5-10.1)
[2022-03-08 11:42] LABS: TOTAL PROTEIN 5.6 GM/DL (6.4-8.2)
[2022-03-08 11:44] LABS: BILIRUBIN,TOTAL 1.6 MG/DL (0.1-1.0)
[2022-03-08 11:46] LABS: CREATININE SERUM 0.68 MG/DL (0.60-1.30)
[2022-03-08 11:48] LABS: BILIRUBIN,DIRECT 1.1 MG/DL (0.0-0.3); BILIRUBIN,INDIRECT 0.5 MG/DL
[2022-03-08] MEDS: guaiFENesin/DM (ROBITUSSIN DM) 10 ML UDC PO PRN (11:50)
--- NOTE | 2022-03-08 11:52 | Diagnostic Imaging Report ---
INDICATION: Pain and redness to the left upper extremity in the region of the forearm. FINDINGS: Sonographic interrogation of the area of pain and redness of the left forearm was performed. There is a thrombosed superficial vein, consistent with superficial thrombophlebitis. There is some edema in the soft tissues but no well-formed fluid collection or abscess is identified. IMPRESSION: Findings are consistent with superficial thrombophlebitis in the left forearm. No abscess is detected. Dictated by: Dictated on workstation # [id number]
[2022-03-08] MEDS ORDERED: IBUPROFEN 800 MG (MOTRIN) TAB PO NR (13:30)
--- NOTE | 2022-03-08 13:36 | Progress Note - Hospitalist ---
Subjective HPI/CC On Admission Date Seen by Provider: Mar 08, 2022 Time Seen by Provider: 09:45 Patient 66-year-old male with a past medical history of lung cancer, hypertension, COPD who presented to the emergency department due to cough. He states that he saw his doctor earlier this week and was doing fine though he tho ught he may have been wheezing a little. He also follows with pulmonary rehab and seemed to be fine with that. But then 2 or 3 days ago he started to worsen. His cough got much worse and he also noticed some blood-tinged sputum. He decided to seek evaluation in the emergency room yesterday as he continued to worsen. He was found to have pneumonia and meet sepsis criteria so was admitted for further management. He reports feeling better today though did have very severe episode of coughing for 2 hours overnight. This was improved with hydrocodone. Tessalon has not been helping him. Subjective/Events-last exam He is having left arm pain. He is still short of breath. He denies abdominal pain. Objective Exam Vital Signs Vital Signs Date Time Temp Pulse Resp B/P (MAP) Pulse Ox O2 Delivery O2 Flow Rate FiO2 03/08/22 12:51 112 03/08/22 12:00 37 120/82 96 High Flow N/C 6.00 03/08/22 08:00 37.6 03/03/22 19:36 21 Capillary Refill : Less Than 3 Seconds General Appearance: No Apparent Distress, Anxious Respiratory: No Respiratory Distress, Crackles, Decreased Breath Sounds, Wheezing Cardiovascular: No Murmur, Tachycardia Gastrointestinal: Normal Bowel Sounds, Soft Extremity: Inflammation, Swelling (left arm) Neurologic/Psychiatric: Alert, Normal Mood/Affect Skin: Normal Color, Warm/Dry Results/Procedures Lab Laboratory Tests 03/08/22 11:20 Patient resulted labs reviewed. Imaging: Reviewed Imaging Report Assessment/Plan Assessment and Plan Assess & Plan/Chief Complaint Sepsis due to pneumonia Acute on chronic respiratory failure with hypoxia COPD History of lung cancer and lobectomy Transition to [facility] consulted MAT protocol CTA chest without PE, right upper lobe infiltrate, extensive emphysematous changes Continue supplemental oxygen as needed Elevated LFTs Acute cholecystitis RUQ ultrasound unremarkable CT with stone in the gallbladder neck HIDA without contrast in the gallbladder, consistent with acute cholecystitis Surgery following Superficial thrombophlebitis Cellulitis s/p IV infiltration Repeat blood cultures ordered US negative for abscess, showed superficial thrombophlebitis Begin Vancomycin Warm compresses Schedule Ibuprofen HTN BP well controlled DVT ppx: SCDs only due to some hemoptysis Critical Care Critically Ill Patient Diagnosis/Problems Diagnosis/Problems (1) Acute on chronic respiratory failure with hypoxia Status: Acute (2) Sepsis Status: Acute Qualifiers: Sepsis type: sepsis due to unspecified organism Sepsis acute organ dysfunction status: unspecified Qualified Codes: A41.9 - Sepsis, unspecified organism (3) Pneumonia Status: Acute Qualifiers: Pneumonia type: due to unspecified organism Laterality: bilateral Lung location: unspecified part of lung Qualified Codes: J18.9 - Pneumonia, unspecified organism (4) History of lung cancer Status: Acute (5) Elevated LFTs Status: Acute (6) Acute cholecystitis Status: Acute (7) Superficial thrombophlebitis of left upper extremity Status: Acute (8) Cellulitis of left arm Status: Acute URIEL XAVIER MD Mar 08, 2022 13:36
[2022-03-08] MEDS: RT-ALBUTEROL/IPRATROPIUM 3 ML (DUONEB) VIAL INH SCH ×3 (14:01→22:12)
[2022-03-08] MEDS: ONDANSETRON 4 MG/2 ML (SDV) Z0FRAN IV PRN (17:08)
[2022-03-08] MEDS: FLUTICASONE NASAL SPRAY (FLONASE) 16 GM BTL NS SCH (17:08)
[2022-03-08] MEDS ORDERED: METOCLOPRAMIDE INJ 10 MG/2 ML (REGLAN) ONE (18:25)
[2022-03-08] MEDS ORDERED: METOCLOPRAMIDE INJ 10 MG/2 ML (REGLAN) IVP NR (18:30)
[2022-03-08] MEDS: RT--FLUTICASONE/SALMETEROL 232-14 (AIRDUO RespiCLICK) IH SCH (19:00)
[2022-03-08] MEDS: IBUPROFEN 800 MG (MOTRIN) TAB PO SCH (22:05)
[2022-03-08] MEDS: VANCOMYCIN 1250 MG/NS 250 ML IVPB IV SCH ×2 (22:42)
[2022-03-08 23:32] VITALS: BP 142/76
[2022-03-09] MEDS: RT-ALBUTEROL/IPRATROPIUM 3 ML (DUONEB) VIAL INH SCH ×5 (02:13→19:15)
[2022-03-09] MEDS: RT-ALBUTEROL SULF 2.5 MG/3 ML PRE-MIX VIAL INH SCH ×2 (02:14→06:47)
[2022-03-09] MEDS: CEFEPIME INJECTION 1,000 MG in NS (IVPB) 50 ML IV SCH (04:33)
[2022-03-09 05:32] LABS: HEMATOCRIT 35 % (40-54); HEMOGLOBIN 11.4 g/dL (13.3-17.7); MEAN CORPUSCULAR HEMOGLOBIN 31 pg (25-34); MEAN CORPUSCULAR HGB CONC 33 g/dL (32-36); MEAN CORPUSCULAR VOLUME 94 fL (80-99); MEAN PLATELET VOLUME 8.9 fL (9.0-12.2); PLATELET COUNT 404 10^3/uL (130-400); WHITE BLOOD COUNT 12.7 10^3/uL (4.3-11.0)
[2022-03-09 05:51] LABS: ALBUMIN 2.7 GM/DL (3.2-4.5); POTASSIUM 4.1 MMOL/L (3.6-5.0)
[2022-03-09 05:52] LABS: CALCIUM 8.6 MG/DL (8.5-10.1)
[2022-03-09 05:53] LABS: TOTAL PROTEIN 5.9 GM/DL (6.4-8.2)
[2022-03-09 05:55] LABS: BILIRUBIN,TOTAL 1.2 MG/DL (0.1-1.0)
[2022-03-09 05:57] LABS: CREATININE SERUM 0.66 MG/DL (0.60-1.30)
[2022-03-09] MEDS: RT--FLUTICASONE/SALMETEROL 232-14 (AIRDUO RespiCLICK) IH SCH (06:50)
--- NOTE | 2022-03-09 08:03 | Progress Note - Surgery ---
BOWLINGJOSE LUIS Michael 03/09/22 0803: Subjective Date Seen by a Provider: Mar 09, 2022 Time Seen by a Provider: 05:48 Subjective/Events-last exam Mr. Oneal is being followed by surgery for asymptomatic cholelithiasis. He is being treated in the ICU for sepsis d/t pneumonia. This morning he denies any abdominal pain. He continues to have trouble breathing, shortness of breath, and productive cough. He has redness, erythema, and induration of his left forearm. He reports 6/10 pain in the area. Review of Systems General: No Chills, No Fatigue HEENT: No Head Aches, No Visual Changes Pulmonary: Dyspnea, Cough Cardiovascular: No: Chest Pain, Palpitations Gastrointestinal: No: Nausea, Vomiting, Abdominal Pain Musculoskeletal: arm pain; No: hand pain Neurological: No: Weakness, Confusion Objective Exam Vital Signs Date Time Temp Pulse Resp B/P (MAP) Pulse Ox O2 Delivery O2 Flow Rate FiO2 03/09/22 07:45 37.2 113 29 144/93 97 03/09/22 06:50 97 Nasal Cannula 8.00 03/09/22 06:00 107 29 139/94 96 High Flow N/C 10.00 03/09/22 05:00 109 29 97 High Flow N/C 10.00 03/09/22 04:00 36.7 03/09/22 04:00 112 26 128/98 95 High Flow N/C 10.00 03/09/22 03:00 111 29 132/92 96 High Flow N/C 10.00 03/09/22 02:00 109 29 121/83 98 High Flow N/C 10.00 03/09/22 01:00 117 29 134/87 92 High Flow N/C 10.00 03/09/22 01:00 117 03/09/22 00:00 117 25 127/78 96 High Flow N/C 8.00 03/09/22 00:00 37.4 03/08/22 23:00 120 29 128/81 96 High Flow N/C 8.00 03/08/22 22:13 96 Nasal Cannula 8.00 03/08/22 22:00 116 35 129/84 96 High Flow N/C 8.00 03/08/22 21:00 96 Nasal Cannula 3.00 03/08/22 21:00 120 32 129/82 95 High Flow N/C 8.00 03/08/22 20:00 123 33 139/93 95 High Flow N/C 8.00 03/08/22 19:00 123 31 144/94 98 High Flow N/C 8.00 03/08/22 19:00 123 03/08/22 18:54 93 Nasal Cannula 8.00 03/08/22 16:00 96 Nasal Cannula 3.00 03/08/22 16:00 116 29 144/110 96 High Flow N/C 6.00 03/08/22 14:02 95 Nasal Cannula 5.00 03/08/22 12:51 112 03/08/22 12:00 114 37 120/82 96 High Flow N/C 6.00 03/08/22 12:00 96 Nasal Cannula 3.00 03/08/22 11:19 98 Nasal Cannula 5.00 03/08/22 10:00 120 134/85 96 High Flow N/C 6.00 03/08/22 09:00 96 Nasal Cannula 3.00 I & O 03/09/22 07:00 Intake Total 800 ml Output Total 2300 ml Balance -1500 ml Capillary Refill : Less Than 3 Seconds General Appearance: Chronically ill, Mild Distress (SOB) HEENT: Moist Mucous Membranes; No Scleral Icterus (L), No Scleral Icterus (R) Neck: Non Tender, Supple Respiratory: Chest Non Tender, Accessory Muscle Use, Crackles, Decreased Breath Sounds Cardiovascular: No Murmur, Normal Peripheral Pulses, Tachycardia Peripheral Pulses: 2+ Radial Pulses (R), 2+ Radial Pulses (L) Gastrointestinal: No distended, No guarding, No rebound, No tenderness Extremity: Other (Redness, erythema, and induration on left posterior forearm) Neurologic/Psychiatric: Alert, Oriented x3, No Motor/Sensory Deficits Skin: Normal Color, Warm/Dry Results Lab Laboratory Tests 03/08/22 11:20: White Blood Count 11.9H, Red Blood Count 3.87L, Hemoglobin 12.0L, Hematocrit 36L , Mean Corpuscular Volume 93, Mean Corpuscular Hemoglobin 31, Mean Corpuscular Hemoglobin Concent 33, Red Cell Distribution Width 13.5, Platelet Count 364, Mean Platelet Volume 8.8L, Immature Granulocyte % (Auto) 1, Neutrophils (%) (Auto) 82H, Lymphocytes (%) (Auto) 6L, Monocytes (%) (Auto) 10, Eosinophils (%) (Auto) 1, Basophils (%) (Auto) 0, Neutrophils # (Auto) 9.8H, Lymphocytes # (Auto) 0.7L, Monocytes # (Auto) 1.2H, Eosinophils # (Auto) 0.1, Basophils # (Auto) 0.1, Immature Granulocyte # (Auto) 0.1, Sodium Level 133L, Potassium Level 4.4, Chloride Level 98, Carbon Dioxide Level 26, Anion Gap 9, Blood Urea Nitrogen 12, Creatinine 0.68, Estimat Glomerular Filtration Rate 102, BUN/Creatinine Ratio 18, Glucose Level 96, Calcium Level 8.7, Total Bilirubin 1.6H, Direct Bilirubin 1.1H, Indirect Bilirubin 0.5, Aspartate Amino Transf (AST/SGOT) 36H, Alanine Aminotransferase (ALT/SGPT) 55, Alkaline Phosphatase 171H, Total Protein 5.6L, Albumin 2.7L, Procalcitonin 0.95H 03/09/22 05:20: White Blood Count 12.7H, Red Blood Count 3.67L, Hemoglobin 11.4L, Hematocrit 35L , Mean Corpuscular Volume 94, Mean Corpuscular Hemoglobin 31, Mean Corpuscular Hemoglobin Concent 33, Red Cell Distribution Width 13.5, Platelet Count 404H, Mean Platelet Volume 8.9L, Sodium Level 131L, Potassium Level 4.1, Chloride Level 96L, Carbon Dioxide Level 23, Anion Gap 12, Blood Urea Nitrogen 17, Creatinine 0.66, Estimat Glomerular Filtration Rate 103, BUN/Creatinine Ratio 26, Glucose Level 96, Calcium Level 8.6, Total Bilirubin 1.2H, Aspartate Amino Transf (AST/SGOT) 27, Alanine Aminotransferase (ALT/SGPT) 47, Alkaline Phosphatase 182H, Total Protein 5.9L, Albumin 2.7L, Corrected Calcium 9.6 Microbiology 03/07/22 Gram Stain - Final, Resulted 03/07/22 Sputum Culture - Preliminary, Resulted Usual upper respiratory marlon 03/03/22 Blood Culture - Preliminary, Resulted No growth 03/03/22 Urine Culture - Final, Complete NO GROWTH Assessment/Plan Assessment/Plan Assessment/Plan Cholelithiasis Not seen on U/S, CT read as gallstone in neck of gallbladder, appears to be asymptomatic. Pt has know about it for at least a year. HIDA scan did not show obstruction of CBD, but it does look like obstruction of Cystic duct. Good flow from Liver down into small bowel. Superficial thrombophleblitis of Left arm Most likely this is just due to the infiltration of the IV Abx for PNA will cover possible organisms Sepsis Most likely secondary to pneumonia Acute on chronic respiratory failure COPD h/o Lung cancer Transaminitis AST and ALT at 27 and 47 ALP of 182 Hyperbilirubinemia Trending down to 1.2 Plan: Continue on IV abx and supplemental oxygen Incidental gallstone again noted on CT imaging; unknown if this was cause of elevated Bilirubin. HIDA scan did not show obstruction of CBD, but it does look like obstruction of Cystic duct. Good flow from Liver down into small bowel. At this point patient is not a candidate for cholecystectomy. Outpatient follow- up with outpatient cholecystectomy recommended. Continue to monitor pain and trend bilirubin and LFTs. HAYDEE FRANKLIN DO 03/09/22 1743: Subjective Time Seen by a Provider: 11:04 Subjective/Events-last exam Pt seen and examined, states his arm is about the same as yesterday. Review of Systems General: No Chills; Fatigue HEENT: No Head Aches, No Visual Changes Pulmonary: Dyspnea, Cough Cardiovascular: No: Chest Pain, Palpitations Gastrointestinal: No: Nausea, Vomiting, Abdominal Pain Musculoskeletal: arm pain; No: hand pain Objective Exam General Appearance: Chronically ill, Mild Distress (SOB) HEENT: Moist Mucous Membranes Respiratory: Chest Non Tender, Accessory Muscle Use, Crackles, Decreased Breath Sounds Gastrointestinal: No distended, No guarding, No rebound, No tenderness Extremity: Other (Redness, erythema, and induration on left posterior forearm) Neurologic/Psychiatric: Alert, Oriented x3 Assessment/Plan Assessment/Plan Assessment/Plan Cholelithiasis Not seen on U/S, CT read as gallstone in neck of gallbladder, appears to be asymptomatic. Pt has know about it for at least a year. HIDA scan did not show obstruction of CBD, but it does look like obstruction of Cystic duct. Good flow from Liver down into small bowel. Superficial thrombophleblitis of Left arm Most likely this is just due to the infiltration of the IV Abx for PNA will cover possible organisms Sepsis Most likely secondary to pneumonia Acute on chronic respiratory failure COPD h/o Lung cancer Transaminitis AST and ALT at 27 and 47 ALP of 182 Hyperbilirubinemia Trending down to 1.2 Plan: Continue on IV abx and supplemental oxygen Incidental gallstone again noted on CT imaging; unknown if this was cause of elevated Bilirubin. HIDA scan did not show obstruction of CBD, but it does look like obstruction of Cystic duct. Good flow from Liver down into small bowel. At this point patient is not a candidate for cholecystectomy. Outpatient follow- up with outpatient cholecystectomy recommended. Continue to monitor pain and trend bilirubin and LFTs. Will sign off and can re-evaluate as needed. Supervisory-Addendum Brief Verification & Attestation Participated in pt care: history, MDM, physical Personally performed: exam, history, MDM, supervision of care Care discussed with: Medical Student Procedures: n/a Verification and Attestation of Medical Student E/M Service A medical student performed and documented this service. I then reviewed and verified all information documented by the medical student and made modifications to such information, when appropriate. I personally performed a physical exam, medical decision making and then discussed any differences between the notes and made revisions as necessary to create one note. Haydee Franklin , 03/09/22 , 17:44 JOSE LUIS BOWLING Mar 09, 2022 08:03 HAYDEE FRANKLIN DO Mar 09, 2022 17:43
[2022-03-09] MEDS ORDERED: PIPERACILLIN SODIUM/TAZOBACTAM 4.5 GM in NS (IVPB) 100 ML IV NR (08:32)
[2022-03-09] MEDS: ENOXAPARIN 40 MG/0.4 ML (LOVENOX) SYR SC SCH (08:58)
[2022-03-09] MEDS: FLUTICASONE NASAL SPRAY (FLONASE) 16 GM BTL NS SCH (08:58)
[2022-03-09] MEDS: PANTOPRAZOLE 40 MG (PROTONIX) VIAL IV SCH (08:58)
[2022-03-09] MEDS: IBUPROFEN 800 MG (MOTRIN) TAB PO SCH ×3 (08:58→20:47)
--- NOTE | 2022-03-09 10:32 | Pulmonary Progress Note ---
Subjective Date Seen by a Provider: Mar 09, 2022 Time Seen by a Provider: 10:31 Subjective/Events-last exam Tele-ICU PULMONARY F/UP Available chart/ vitals / labs / Images reviewed Video assessment done using teleICU camera, rest of exam as per RN Discussed with RN , EXAM PER RN Patient is feeling sligtly better still on6- 10 L o2 cough + Hospital course: (03/03) 66 Y admitted with sepsis pneumonia pt has history of lung cancer (03/05) Transfer to ICU with vomiting and increased respiratory distress 03/07 - increased needs for O2 to 10L, CTA neg for PE 03/08 - 5 l O2 , started on ICS/LABA + nebs 03/09 started on IV steroids , changed to Zosyn and added VANCO with increased PCT A/P Acute on chronic hypoxic respiratory failure - CTA neg for PE 03/07 -severe emphysema on CT , rest of lung parenchima with infiltrate - cont tx for PNA - changed to Zosyn and added VANCO with increased PCT 03/09 - started on ICS/LABA + nebs on 03/08 - slighterly better - STARTING IV STEROIDS 03/09 -carefull with not to VO PNA - flu covid NEG -changed to Zosyn and added VANCO with increased PCT 03/09 History of lung cancer Elevated liver enzymes etiology not clear - LIver US 03/06 - limited exanm ,no acute findings -asymptomatic cholelithiasis suspected - s/p HIDA - sx follow Hyponatremia - miild - semms littel worse - ? SIADH Peripheral thromboflebitis VTE Prophylaxis: breann 40 Stress Ulcer Prophylaxis: ppi Plans in collaboration with bedside consultants and IM MDs. Discussed with RN to reach out if any questions or concerns Sepsis Event Evaluation Height, Weight, BMI Height: 5'69.00" Weight: 145lbs. oz. 74.228479ij; 25.01 BMI Method: Exam Exam Patient acknowledged, consented, and participated in this virtual visit which was conducted using real time audio/video Vital Signs Date Time Temp Pulse Resp B/P (MAP) Pulse Ox O2 Delivery O2 Flow Rate FiO2 03/09/22 08:00 96 Nasal Cannula 10.00 03/09/22 07:45 37.2 113 29 144/93 97 03/09/22 07:00 114 03/09/22 06:50 97 Nasal Cannula 8.00 03/09/22 06:00 107 29 139/94 96 High Flow N/C 10.00 03/09/22 05:00 109 29 97 High Flow N/C 10.00 03/09/22 04:00 36.7 03/09/22 04:00 112 26 128/98 95 High Flow N/C 10.00 03/09/22 03:00 111 29 132/92 96 High Flow N/C 10.00 03/09/22 02:00 109 29 121/83 98 High Flow N/C 10.00 03/09/22 01:00 117 29 134/87 92 High Flow N/C 10.00 03/09/22 01:00 117 03/09/22 00:00 117 25 127/78 96 High Flow N/C 8.00 03/09/22 00:00 37.4 03/08/22 23:00 120 29 128/81 96 High Flow N/C 8.00 03/08/22 22:13 96 Nasal Cannula 8.00 03/08/22 22:00 116 35 129/84 96 High Flow N/C 8.00 03/08/22 21:00 96 Nasal Cannula 3.00 03/08/22 21:00 120 32 129/82 95 High Flow N/C 8.00 03/08/22 20:00 123 33 139/93 95 High Flow N/C 8.00 03/08/22 19:00 123 31 144/94 98 High Flow N/C 8.00 03/08/22 19:00 123 03/08/22 18:54 93 Nasal Cannula 8.00 03/08/22 16:00 96 Nasal Cannula 3.00 03/08/22 16:00 116 29 144/110 96 High Flow N/C 6.00 03/08/22 14:02 95 Nasal Cannula 5.00 03/08/22 12:51 112 03/08/22 12:00 114 37 120/82 96 High Flow N/C 6.00 03/08/22 12:00 96 Nasal Cannula 3.00 03/08/22 11:19 98 Nasal Cannula 5.00 I & O 03/09/22 07:00 Intake Total 800 ml Output Total 2300 ml Balance -1500 ml Height & Weight Height: 5'69.00" Weight: 145lbs. oz. 74.703754pk; 25.01 BMI Method: General Appearance: Chronically ill, Mild Distress (SOB) HEENT: Moist Mucous Membranes; No Scleral Icterus (L), No Scleral Icterus (R) Neck: Non Tender, Supple Respiratory: Chest Non Tender, Accessory Muscle Use, Crackles, Decreased Breath Sounds Cardiovascular: No Murmur, Normal Peripheral Pulses, Tachycardia Capillary Refill: Less Than 3 Seconds Peripheral Pulses: 2+ Radial Pulses (R), 2+ Radial Pulses (L) Gastrointestinal: No distended, No guarding, No rebound, No tenderness Extremity: Other (Redness, erythema, and induration on left posterior forearm) Neurologic/Psychiatric: Alert, Oriented x3, No Motor/Sensory Deficits Skin: Normal Color, Warm/Dry Results Lab Laboratory Tests 03/08/22 11:20 03/09/22 05:20 Assessment/Plan Assessment/Plan 1 ALEX LEDESMA MD Mar 09, 2022 10:31
[2022-03-09] MEDS: methylPREDNISolone 125 MG (Solu-MEDROL) VIAL IVP SCH ×2 (11:35→18:45)
[2022-03-09] MEDS: VANCOMYCIN 1250 MG/NS 250 ML IVPB IV SCH ×4 (11:35→22:53)
[2022-03-09] MEDS: PIPERACILLIN SODIUM/TAZOBACTAM 4.5 GM in NS (IVPB) 100 ML IV SCH (15:18)
--- NOTE | 2022-03-09 18:24 | Progress Note - Hospitalist ---
Subjective HPI/CC On Admission Date Seen by Provider: Mar 09, 2022 Time Seen by Provider: 09:50 Patient 66-year-old male with a past medical history of lung cancer, hypertension, COPD who presented to the emergency department due to cough. He states that he saw his doctor earlier this week and was doing fine though he tho ught he may have been wheezing a little. He also follows with pulmonary rehab and seemed to be fine with that. But then 2 or 3 days ago he started to worsen. His cough got much worse and he also noticed some blood-tinged sputum. He decided to seek evaluation in the emergency room yesterday as he continued to worsen. He was found to have pneumonia and meet sepsis criteria so was admitted for further management. He reports feeling better today though did have very severe episode of coughing for 2 hours overnight. This was improved with hydrocodone. Tessalon has not been helping him. Subjective/Events-last exam He is feeling a little better today. He is still short of breath. His arm is a little better. Objective Exam Vital Signs Vital Signs Date Time Temp Pulse Resp B/P (MAP) Pulse Ox O2 Delivery O2 Flow Rate FiO2 03/09/22 16:00 100 30 109/74 98 High Flow N/C 10.00 03/09/22 16:00 36.3 03/03/22 19:36 21 Capillary Refill : Less Than 3 Seconds General Appearance: No Apparent Distress, WD/WN Respiratory: No Respiratory Distress, Crackles, Wheezing Cardiovascular: Regular Rate, Rhythm, No Murmur Gastrointestinal: Normal Bowel Sounds, Soft Extremity: Other (left arm warmth and swelling) Neurologic/Psychiatric: Alert, Normal Mood/Affect Skin: Normal Color, Warm/Dry Results/Procedures Lab Laboratory Tests 03/09/22 05:20 Patient resulted labs reviewed. Imaging: Reviewed Imaging Report Assessment/Plan Assessment and Plan Assess & Plan/Chief Complaint Sepsis due to pneumonia Acute on chronic respiratory failure with hypoxia COPD History of lung cancer and lobectomy Sputum culture now with Staph aureus Continue Vancomycin and Zosyn TeleICU consulted MAT protocol CTA chest without PE, right upper lobe infiltrate, extensive emphysematous changes Continue supplemental oxygen as needed Elevated LFTs Cholelithiasis RUQ ultrasound unremarkable CT with stone in the gallbladder neck HIDA without contrast in the gallbladder, consistent with acute cholecystitis Surgery following, planning for outpatient follow up for possible cholecystectomy Superficial thrombophlebitis Cellulitis s/p IV infiltration US negative for abscess, showed superficial thrombophlebitis Warm compresses Scheduled Ibuprofen HTN BP well controlled DVT ppx: SCDs only due to some hemoptysis Critical Care Critically Ill Patient Diagnosis/Problems Diagnosis/Problems (1) Acute on chronic respiratory failure with hypoxia Status: Acute (2) Sepsis Status: Acute Qualifiers: Sepsis type: sepsis due to unspecified organism Sepsis acute organ dysfunction status: unspecified Qualified Codes: A41.9 - Sepsis, unspecified organism (3) Pneumonia Status: Acute Qualifiers: Pneumonia type: due to unspecified organism Laterality: right Lung loc ation: upper lobe of lung Qualified Codes: J18.9 - Pneumonia, unspecified organism (4) History of lung cancer Status: Acute (5) Elevated LFTs Status: Acute (6) Acute cholecystitis Status: Acute (7) Superficial thrombophlebitis of left upper extremity Status: Acute (8) Cellulitis of left arm Status: Acute URIEL XAVIER MD Mar 09, 2022 18:24
[2022-03-09] MEDS: guaiFENesin/DM (ROBITUSSIN DM) 10 ML UDC PO PRN ×2 (18:46→22:54)
[2022-03-09] MEDS: BENZONATATE 100 MG (TESSALON) CAPSULE PO PRN (20:46)
[2022-03-09] MEDS: HYDROcodone/APAP 5 MG/325 MG (LORTAB) TAB PO PRN (20:47)
[2022-03-09] MEDS ORDERED: TROUGH ORDER-PHARMACY XX NR (22:00)
[2022-03-10] MEDS: RT--FLUTICASONE/SALMETEROL 232-14 (AIRDUO RespiCLICK) IH SCH ×3 (00:02→18:54)
[2022-03-10] MEDS: RT-ALBUTEROL/IPRATROPIUM 3 ML (DUONEB) VIAL INH SCH ×7 (00:03→22:56)
[2022-03-10] MEDS: methylPREDNISolone 125 MG (Solu-MEDROL) VIAL IVP SCH ×5 (00:10→23:13)
[2022-03-10] MEDS: PIPERACILLIN SODIUM/TAZOBACTAM 4.5 GM in NS (IVPB) 100 ML IV SCH ×4 (00:11→23:12)
[2022-03-10] MEDS: guaiFENesin/DM (ROBITUSSIN DM) 10 ML UDC PO PRN (03:36)
[2022-03-10 04:51] LABS: BASOPHILS % (AUTO) 0 % (0-10); EOSINOPHILS % (AUTO) 0 % (0-10); HEMATOCRIT 33 % (40-54); LYMPHOCYTES # (AUTO) 0.6 10^3/uL (1.0-4.0); LYMPHOCYTES % (AUTO) 5 % (12-44); MEAN CORPUSCULAR HEMOGLOBIN 31 pg (25-34); MEAN CORPUSCULAR HGB CONC 33 g/dL (32-36); MEAN CORPUSCULAR VOLUME 93 fL (80-99); MEAN PLATELET VOLUME 9.1 fL (9.0-12.2); MONOCYTES # (AUTO) 0.4 10^3/uL (0.0-1.0); MONOCYTES % (AUTO) 4 % (0-12); NEUTROPHILS % (AUTO) 90 % (42-75); PLATELET COUNT 423 10^3/uL (130-400); WHITE BLOOD COUNT 11.1 10^3/uL (4.3-11.0)
[2022-03-10 05:06] LABS: ALBUMIN 2.6 GM/DL (3.2-4.5); POTASSIUM 3.9 MMOL/L (3.6-5.0)
[2022-03-10 05:08] LABS: CALCIUM 8.6 MG/DL (8.5-10.1)
[2022-03-10 05:09] LABS: TOTAL PROTEIN 5.6 GM/DL (6.4-8.2)
[2022-03-10 05:11] LABS: BILIRUBIN,TOTAL 0.7 MG/DL (0.1-1.0)
[2022-03-10 05:12] LABS: CREATININE SERUM 0.71 MG/DL (0.60-1.30)
[2022-03-10] MEDS: IBUPROFEN 800 MG (MOTRIN) TAB PO SCH ×3 (08:15→20:46)
[2022-03-10] MEDS: PANTOPRAZOLE 40 MG (PROTONIX) VIAL IV SCH (08:15)
[2022-03-10] MEDS: ENOXAPARIN 40 MG/0.4 ML (LOVENOX) SYR SC SCH (08:16)
[2022-03-10] MEDS: FLUTICASONE NASAL SPRAY (FLONASE) 16 GM BTL NS SCH (08:16)
--- NOTE | 2022-03-10 08:37 | Tele-ICU Progress Note ---
Subjective Date Seen by a Provider: Mar 10, 2022 Time Seen by a Provider: 08:37 Subjective/Events-last exam Available chart/vitals/labs/images reviewed. Video assessment done using telemetry ICU camera, rest of exam as per RN. Discussion with the RN, exam as per RN. Hospital course This patient who has a history of right upper lobe lung cancer underwent right upper lobectomy. Now he is admitted with shortness of breath and found to have a pneumonia. Sputum cultures grew MSSA. He also found to have elevated LFTs and further evaluation led to the finding that patient probably has acute cholecystitis. Surgery is following the patient but any surgical intervention is on hold due to his medical condition. He is a slowly improving currently on a oxygen via nasal cannula 6 L. Denies any chest pain. No history of for hemoptysis lately. He has a superficial thrombophlebitis. He is on DVT p rophylaxis with Lovenox. He is afebrile. He is currently on IV Zosyn and vancomycin. Review of Systems ROS PER RN Sepsis Event Evaluation Height, Weight, BMI Height: 5'69.00" Weight: 145lbs. oz. 74.543717do; 25.01 BMI Method: Exam Exam Patient acknowledged, consented, and participated in this virtual visit which was conducted using real time audio/video Vital Signs Date Time Temp Pulse Resp B/P (MAP) Pulse Ox O2 Delivery O2 Flow Rate FiO2 03/10/22 08:25 95 Nasal Cannula 8.00 03/10/22 08:14 36.0 03/10/22 07:50 High Flow N/C 8.00 03/10/22 07:43 96 High Flow N/C 8.00 03/10/22 07:35 96 High Flow N/C 9.00 03/10/22 04:00 96 19 128/88 96 High Flow N/C 10.00 03/10/22 04:00 36.8 03/10/22 01:59 97 High Flow N/C 10.00 03/10/22 01:00 90 03/10/22 00:00 37.0 03/10/22 00:00 93 19 120/87 99 High Flow N/C 10.00 03/09/22 21:00 96 Nasal Cannula 10.00 03/09/22 20:00 36.0 101 28 128/82 94 High Flow N/C 10.00 03/09/22 19:17 96 High Flow N/C 10.00 03/09/22 19:00 101 03/09/22 16:00 100 30 109/74 98 High Flow N/C 10.00 03/09/22 16:00 36.3 03/09/22 15:16 97 High Flow N/C 10.00 03/09/22 13:00 101 03/09/22 12:00 36.4 03/09/22 12:00 112 29 102/72 96 High Flow N/C 10.00 03/09/22 10:37 95 High Flow N/C 10.00 I & O 03/10/22 07:00 Intake Total 1862.5 ml Output Total 2125 ml Balance -262.5 ml Height & Weight Height: 5'69.00" Weight: 145lbs. oz. 74.110915vy; 25.01 BMI Method: General Appearance: No Apparent Distress, WD/WN HEENT: Moist Mucous Membranes Neck: Non Tender, Supple Respiratory: No Respiratory Distress, Crackles, Wheezing Cardiovascular: Regular Rate, Rhythm, No Murmur Capillary Refill: Less Than 3 Seconds Peripheral Pulses: 2+ Radial Pulses (R), 2+ Radial Pulses (L) Gastrointestinal: No distended, No guarding, No rebound, No tenderness Extremity: Other (left arm warmth and swelling) Neurologic/Psychiatric: Alert, Normal Mood/Affect Skin: Normal Color, Warm/Dry Results Lab Laboratory Tests 03/08/22 11:20 03/09/22 05:20 03/10/22 04:30 Assessment/Plan Assessment/Plan 1. Acute on chronic respiratory failure slowly improving 2. MSSA pneumonia 3. Acute cholecystitis 4. Elevated liver enzymes improving 5. History of right upper lobectomy for carcinoma of the lung as a result he had a chronically elevated right hemidiaphragm. Recommendations 1. Continue to wean oxygen as tolerated and also wean steroids 2. De-escalate antibiotic therapy due to isolation of MSSA 3. When stable surgical intervention for acute cholecystitis. 4. Discussed with the patient and family over the video visit. 5. DVT prophylaxis with the Lovenox Critical Care: Critically Ill Patient Time spent with patient (mins): 25 MISAEL DELGADO MD Mar 10, 2022 08:37
[2022-03-10] MEDS ORDERED: VANCOMYCIN INJECTION 1,500 MG in NS IV 500 ML 500 ML IV SCH (11:00)
--- NOTE | 2022-03-10 12:08 | Progress Note - Hospitalist ---
Subjective HPI/CC On Admission Date Seen by Provider: Mar 10, 2022 Time Seen by Provider: 09:25 Patient 66-year-old male with a past medical history of lung cancer, hypertension, COPD who presented to the emergency department due to cough. He states that he saw his doctor earlier this week and was doing fine though he tho ught he may have been wheezing a little. He also follows with pulmonary rehab and seemed to be fine with that. But then 2 or 3 days ago he started to worsen. His cough got much worse and he also noticed some blood-tinged sputum. He decided to seek evaluation in the emergency room yesterday as he continued to worsen. He was found to have pneumonia and meet sepsis criteria so was admitted for further management. He reports feeling better today though did have very severe episode of coughing for 2 hours overnight. This was improved with hydrocodone. Tessalon has not been helping him. Subjective/Events-last exam He is feeling a bit better today. He is not as short of breath with moving. His arm is feeling a bit better too. Objective Exam Vital Signs Vital Signs Date Time Temp Pulse Resp B/P (MAP) Pulse Ox O2 Delivery O2 Flow Rate FiO2 03/10/22 11:22 High Flow N/C 4.00 03/10/22 11:18 95 03/10/22 08:14 36.0 03/10/22 08:00 104 19 143/95 Capillary Refill : Less Than 3 Seconds General Appearance: No Apparent Distress, WD/WN Respiratory: Lungs Clear, No Respiratory Distress Cardiovascular: No Murmur, Tachycardia Gastrointestinal: Normal Bowel Sounds, Soft Extremity: Normal Inspection, No Pedal Edema Neurologic/Psychiatric: Alert, Normal Mood/Affect Results/Procedures Lab Laboratory Tests 03/10/22 04:30 Patient resulted labs reviewed. Imaging: Reviewed Imaging Report Assessment/Plan Assessment and Plan Assess & Plan/Chief Complaint Sepsis due to MSSA pneumonia Acute on chronic respiratory failure with hypoxia COPD History of lung cancer and lobectomy Sputum culture with MSSA Continue Zosyn Stop Vancomycin Continue steroids TeleICU following MAT protocol CTA chest without PE, right upper lobe infiltrate, extensive emphysematous changes Continue supplemental oxygen as needed, weaning as able Elevated LFTs Cholelithiasis RUQ ultrasound unremarkable CT with stone in the gallbladder neck HIDA without contrast in the gallbladder, consistent with acute cholecystitis Surgery following, planning for outpatient follow up for possible cholecystectomy Superficial thrombophlebitis Cellulitis s/p IV infiltration US negative for abscess, showed superficial thrombophlebitis Warm compresses Scheduled Ibuprofen HTN BP well controlled DVT ppx: SCDs only due to some hemoptysis Critical Care Critically Ill Patient Diagnosis/Problems Diagnosis/Problems (1) Acute on chronic respiratory failure with hypoxia Status: Acute (2) Sepsis Status: Acute Qualifiers: Sepsis type: sepsis due to unspecified organism Sepsis acute organ dysfunction status: unspecified Qualified Codes: A41.9 - Sepsis, unspecified organism (3) Pneumonia Status: Acute Qualifiers: Pneumonia type: due to unspecified organism Laterality: right Lung loc ation: upper lobe of lung Qualified Codes: J18.9 - Pneumonia, unspecified organism (4) History of lung cancer Status: Acute (5) Elevated LFTs Status: Acute (6) Acute cholecystitis Status: Acute (7) Superficial thrombophlebitis of left upper extremity Status: Acute (8) Cellulitis of left arm Status: Acute URIEL XAVIER MD Mar 10, 2022 12:07
[2022-03-10] MEDS: BENZONATATE 100 MG (TESSALON) CAPSULE PO PRN (20:46)
[2022-03-10] MEDS: HYDROcodone/APAP 5 MG/325 MG (LORTAB) TAB PO PRN (20:47)
[2022-03-10] MEDS ORDERED: SUMAtriptan 50 MG (IMITREX) TAB PO ONE (23:00)
[2022-03-11] MEDS: RT-ALBUTEROL/IPRATROPIUM 3 ML (DUONEB) VIAL INH SCH ×6 (03:48→22:12)
[2022-03-11] MEDS: PIPERACILLIN SODIUM/TAZOBACTAM 4.5 GM in NS (IVPB) 100 ML IV SCH ×3 (05:32→22:18)
[2022-03-11] MEDS: methylPREDNISolone 125 MG (Solu-MEDROL) VIAL IVP SCH ×3 (05:32→22:18)
[2022-03-11] MEDS: guaiFENesin/DM (ROBITUSSIN DM) 10 ML UDC PO PRN (06:12)
[2022-03-11] MEDS: RT--FLUTICASONE/SALMETEROL 232-14 (AIRDUO RespiCLICK) IH SCH ×2 (06:46→19:23)
[2022-03-11] MEDS: ACETAMINOPHEN 500 MG TAB (TYLENOL) PO PRN (08:14)
[2022-03-11] MEDS: FLUTICASONE NASAL SPRAY (FLONASE) 16 GM BTL NS SCH (08:14)
[2022-03-11] MEDS: ENOXAPARIN 40 MG/0.4 ML (LOVENOX) SYR SC SCH (08:14)
[2022-03-11] MEDS: IBUPROFEN 800 MG (MOTRIN) TAB PO SCH (08:14)
[2022-03-11] MEDS: PANTOPRAZOLE 40 MG (PROTONIX) VIAL IV SCH (08:14)
--- NOTE | 2022-03-11 09:29 | Tele-ICU Progress Note ---
Subjective Date Seen by a Provider: Mar 11, 2022 Time Seen by a Provider: 08:30 Subjective/Events-last exam This virtual visit was conducted using real time audio/video. Thank you for asking us to see this patient for respiratory insufficiency due to MSSA pna, sepsis. Also developed acute cholecystitis for which surgery is following. PMH: s/p RULobectomy/chemo/RT, HTN, COPD. SH: smoking history: former. PE: VSS. O2 sat 94% on 6LPM NC. HEENT: No obvious masses, adenopathy or JVD. Chest: coarse breath sounds CV: RRR S1 S2 No murmur or added sounds. Abd: Non-tender. Bowel sounds Y. : Unremarkable. Alarcon N. [employer]/psychiatric: Grossly intact. No obvious focal findings. Extremities: No edema. Capillary refill < 3 seconds. Skin: L arm w IV infiltration. Still swollen. Results: Elevated BUN 25, BG 155. Albumin 2.6. CXR: Hyperinflated on left, B infilts., elevated R hemidiaph. CTAC with severe emphysematous changes, RULobectomy changes. Available chart/ vitals / labs / images reviewed. Video assessment done using teleICU camera, rest of exam as per RN. A/P: Respiratory insufficiency: Continue present management with O2, Albuterol, Airduo, medrol, Flonase, Perles, Robitussin. Monitor for increasing oxygenation needs and/or need for intubation. Critical Care: critically ill patient. Cont. abx, PPI, Endy. Would D/C Ibuprofen with rising BUN. Discussed with VENITA Harrison. Asked RN to reach out to eICU if any questions or concerns later. Time spent with patient/coordination of care with other health professionals (mins): 31 Sepsis Event Evaluation Height, Weight, BMI Height: 5'69.00" Weight: 145lbs. oz. 74.494221pg; 25.01 BMI Method: Exam Exam Patient acknowledged, consented, and participated in this virtual visit which was conducted using real time audio/video Vital Signs Date Time Temp Pulse Resp B/P (MAP) Pulse Ox O2 Delivery O2 Flow Rate FiO2 03/11/22 08:00 36.6 111 17 159/102 93 Nasal Cannula 5.00 03/11/22 07:35 112 03/11/22 07:00 110 32 159/102 93 Nasal Cannula 6.00 03/11/22 06:54 92 High Flow N/C 6.00 03/11/22 06:54 83 High Flow N/C 5.00 03/11/22 06:50 High Flow N/C 5.00 03/11/22 06:46 92 High Flow N/C 7.00 03/11/22 04:00 107 32 93 Nasal Cannula 5.00 03/11/22 03:49 95 High Flow N/C 5.00 03/11/22 03:08 99 23 159/102 94 Nasal Cannula 5.00 03/11/22 01:00 98 03/11/22 00:19 103 29 163/92 94 Nasal Cannula 5.00 03/10/22 22:56 98 High Flow N/C 5.00 03/10/22 21:00 92 Nasal Cannula 6.00 03/10/22 20:38 110 22 160/97 91 Nasal Cannula 5.00 03/10/22 20:00 36.2 03/10/22 20:00 109 26 93 Nasal Cannula 5.00 03/10/22 19:01 95 High Flow N/C 5.00 03/10/22 19:00 104 03/10/22 15:53 36.3 115 13 143/75 92 Nasal Cannula 5.00 03/10/22 15:09 92 High Flow N/C 5.00 03/10/22 13:36 Nasal Cannula 5.00 03/10/22 13:16 116 03/10/22 12:00 112 22 133/77 89 High Flow N/C 4.00 03/10/22 11:22 High Flow N/C 4.00 03/10/22 11:18 95 High Flow N/C 4.00 03/10/22 11:13 94 High Flow N/C 6.00 I & O 03/11/22 07:00 Intake Total 2320 ml Output Total 950 ml Balance 1370 ml Height & Weight Height: 5'69.00" Weight: 145lbs. oz. 74.224675gv; 25.01 BMI Method: General Appearance: No Apparent Distress, WD/WN HEENT: Moist Mucous Membranes Neck: Non Tender, Supple Respiratory: Lungs Clear, No Respiratory Distress Cardiovascular: No Murmur, Tachycardia Capillary Refill: Less Than 3 Seconds Peripheral Pulses: 2+ Radial Pulses (R), 2+ Radial Pulses (L) Gastrointestinal: No distended, No guarding, No rebound, No tenderness Extremity: Normal Inspection, No Pedal Edema Neurologic/Psychiatric: Alert, Normal Mood/Affect Skin: Normal Color, Warm/Dry Results Lab Laboratory Tests 03/10/22 04:30 Assessment/Plan Assessment/Plan See free text. Critical Care: Critically Ill Patient SHERIF ZARAGOZA MD Mar 11, 2022 09:29
[2022-03-11 10:00] VITALS: BP 159/102
[2022-03-11] MEDS ORDERED: CHLORASEPTIC SPRAY 177 ML LIQUID MC PRN (10:15)
[2022-03-11] MEDS ORDERED: amLODIPine 10 MG (NORVASC) TAB PO ONE (10:15)
[2022-03-11] MEDS: NS IV 500 ML 500 ML IV SCH ×2 (10:27→11:16)
--- NOTE | 2022-03-11 11:04 | Diagnostic Imaging Report ---
PROCEDURE: CT head without contrast. TECHNIQUE: Multiple contiguous axial images were obtained through the brain without the use of intravenous contrast. Auto Exposure Controls were utilized during the CT exam to meet ALARA standards for radiation dose reduction. INDICATION: Headache. COMPARISON: 10/23/2019 FINDINGS: No intracranial hyperdense hemorrhage or space-occupying mass. No hydrocephalus or midline shift. The kauffman-white matter differentiation is well-preserved. Stable subcortical and periventricular hypoattenuation most likely due to chronic microvascular ischemic change. No skull fracture. Paranasal sinuses and mastoid air cells are clear. IMPRESSION: 1. No acute intracranial process by CT 2. Chronic microvascular ischemic changes in the white matter are stable. Dictated by: Dictated on workstation # [id number]
--- NOTE | 2022-03-11 11:36 | Progress Note - Hospitalist ---
Subjective HPI/CC On Admission Date Seen by Provider: Mar 11, 2022 Time Seen by Provider: 10:10 Patient 66-year-old male with a past medical history of lung cancer, hypertension, COPD who presented to the emergency department due to cough. He states that he saw his doctor earlier this week and was doing fine though he thought he may have been wheezing a little. He also follows with pulmonary rehab and seemed to be fine with that. But then 2 or 3 days ago he started to worsen. His cough got much worse and he also noticed some blood-tinged sputum. He decided to seek evaluation in the emergency room yesterday as he continued to worsen. He was found to have pneumonia and meet sepsis criteria so was admitted for further management. He reports feeling better today though did have very severe episode of coughing for 2 hours overnight. This was improved with hydrocodone. Tessalon has not been helping him. Subjective/Events-last exam He is having a headache. He thinks it was caused by his coughing. He is not short of breath. His arm is doing better. Objective Exam Vital Signs Vital Signs Date Time Temp Pulse Resp B/P (MAP) Pulse Ox O2 Delivery O2 Flow Rate FiO2 03/11/22 11:11 116 27 156/94 94 Nasal Cannula 5.00 03/11/22 10:00 36.6 Capillary Refill : Less Than 3 Seconds General Appearance: Anxious, Mild Distress (uncomfortable) HEENT: PERRL/EOMI, Pharynx Normal Respiratory: Lungs Clear, No Respiratory Distress Cardiovascular: No Murmur, Tachycardia Gastrointestinal: Normal Bowel Sounds, Non Tender, Soft Extremity: Non Tender, No Pedal Edema Neurologic/Psychiatric: Alert, Depressed Affect Results/Procedures Lab Patient resulted labs reviewed. Imaging: Reviewed Imaging Report Assessment/Plan Assessment and Plan Assess & Plan/Chief Complaint Sepsis due to MSSA pneumonia Acute on chronic respiratory failure with hypoxia COPD History of lung cancer and lobectomy Sputum culture with MSSA Continue Zosyn Decrease steroids MAT protocol Continue supplemental oxygen as needed, weaning as able TeleICU following, consult pulmonology when moves to the floor Transfer to 4th floor Headache Tylenol Ibuprofen Hydrocodone Robitussin CT Head negative for acute pathology Elevated LFTs Cholelithiasis RUQ ultrasound unremarkable CT with stone in the gallbladder neck HIDA without contrast in the gallbladder, consistent with acute cholecystitis Surgery following, planning for outpatient follow up for possible cholecystectomy Superficial thrombophlebitis Cellulitis s/p IV infiltration US negative for abscess, showed superficial thrombophlebitis Warm compresses Scheduled Ibuprofen HTN BP increasing Add Amlodipine DVT ppx: Lovenox Diagnosis/Problems Diagnosis/Problems (1) Acute on chronic respiratory failure with hypoxia Status: Acute (2) Sepsis Status: Acute Qualifiers: Sepsis type: sepsis due to unspecified organism Sepsis acute organ dysfu nction status: unspecified Qualified Codes: A41.9 - Sepsis, unspecified organism (3) Pneumonia Status: Acute Qualifiers: Pneumonia type: due to methicillin-sensitive Staphylococcus aureus (MSSA) Laterality: right Lung location: upper lobe of lung Qualified Codes: J15.211 - Pneumonia due to methicillin susceptible Staphylococcus aureus (4) History of lung cancer Status: Acute (5) Elevated LFTs Status: Acute (6) Acute cholecystitis Status: Acute (7) Superficial thrombophlebitis of left upper extremity Status: Acute (8) Cellulitis of left arm Status: Acute URIEL XAVIER MD Mar 11, 2022 11:36
[2022-03-11] MEDS ORDERED: ENOXAPARIN 40 MG/0.4 ML (LOVENOX) SYR SQ SCH (11:45)
[2022-03-11] MEDS ORDERED: RT-ALBUTEROL/IPRATROPIUM 3 ML (DUONEB) VIAL INH PRN (12:00)
[2022-03-11] MEDS: IBUPROFEN 600 MG (MOTRIN) TAB PO SCH ×2 (14:09→20:00)
[2022-03-11] MEDS: HYDROcodone/APAP 5 MG/325 MG (LORTAB) TAB PO PRN (14:09)
[2022-03-11] MEDS: ONDANSETRON 4 MG/2 ML (SDV) Z0FRAN IV PRN (17:55)
[2022-03-11] MEDS: ALPRAZolam 0.5 MG (XANAX) TAB PO PRN (17:56)
[2022-03-12] MEDS: HYDROcodone/APAP 5 MG/325 MG (LORTAB) TAB PO PRN (01:07)
[2022-03-12] MEDS: RT-ALBUTEROL/IPRATROPIUM 3 ML (DUONEB) VIAL INH SCH ×6 (02:35→21:18)
[2022-03-12] MEDS: ONDANSETRON 4 MG/2 ML (SDV) Z0FRAN IV PRN (06:08)
[2022-03-12] MEDS: PIPERACILLIN SODIUM/TAZOBACTAM 4.5 GM in NS (IVPB) 100 ML IV SCH ×3 (06:08→23:57)
[2022-03-12] MEDS: methylPREDNISolone 125 MG (Solu-MEDROL) VIAL IVP SCH (06:08)
[2022-03-12] MEDS: RT--FLUTICASONE/SALMETEROL 232-14 (AIRDUO RespiCLICK) IH SCH ×2 (06:25→21:18)
[2022-03-12 06:31] LABS: BASOPHILS % (AUTO) 0 % (0-10); EOSINOPHILS % (AUTO) 0 % (0-10); HEMATOCRIT 37 % (40-54); HEMOGLOBIN 12.2 g/dL (13.3-17.7); LYMPHOCYTES # (AUTO) 0.9 10^3/uL (1.0-4.0); LYMPHOCYTES % (AUTO) 6 % (12-44); MEAN CORPUSCULAR HEMOGLOBIN 31 pg (25-34); MEAN CORPUSCULAR HGB CONC 33 g/dL (32-36); MEAN CORPUSCULAR VOLUME 93 fL (80-99); MEAN PLATELET VOLUME 9.1 fL (9.0-12.2); MONOCYTES # (AUTO) 0.8 10^3/uL (0.0-1.0); MONOCYTES % (AUTO) 5 % (0-12); NEUTROPHILS # (AUTO) 13.4 10^3/uL (1.8-7.8); NEUTROPHILS % (AUTO) 85 % (42-75); PLATELET COUNT 643 10^3/uL (130-400); WHITE BLOOD COUNT 15.8 10^3/uL (4.3-11.0)
[2022-03-12 07:18] LABS: CREATININE SERUM 0.74 MG/DL (0.60-1.30)
[2022-03-12] MEDS: amLODIPine 10 MG (NORVASC) TAB PO SCH (08:23)
[2022-03-12] MEDS: IBUPROFEN 600 MG (MOTRIN) TAB PO SCH (08:23)
[2022-03-12] MEDS: PANTOPRAZOLE 40 MG (PROTONIX) VIAL IV SCH (08:24)
[2022-03-12] MEDS: ENOXAPARIN 40 MG/0.4 ML (LOVENOX) SYR SC SCH (08:24)
[2022-03-12] MEDS: FLUTICASONE NASAL SPRAY (FLONASE) 16 GM BTL NS SCH (08:24)
[2022-03-12] MEDS ORDERED: ACETAMINOPHEN 500 MG TAB (TYLENOL) PO ONE (09:45)
--- NOTE | 2022-03-12 13:14 | Diagnostic Imaging Report ---
HISTORY: Pneumonia, COPD COMPARISON: 03/04/2022 TECHNIQUE: Frontal view of the chest FINDINGS: There is elevation of the right hemidiaphragm with heterogeneous airspace opacities in the right lung. There are also airspace opacities in the left lung base. Overall aeration is stable since the prior exam. There is rightward deviation of the trachea which is unchanged. The cardiac silhouette is stable in size. There is no pleural effusion or pneumothorax. There is a left shoulder arthroplasty. IMPRESSION: 1. Elevated right hemidiaphragm with bilateral pulmonary airspace opacities, may be due to scarring or infection. Findings are unchanged since the prior exam. Dictated by: Dictated on workstation # [id number]
[2022-03-12] MEDS: ACETAMINOPHEN 500 MG TAB (TYLENOL) PO SCH ×2 (14:20→20:15)
[2022-03-12 15:33] LABS: ABG BASE EXCESS 6.3 MMOL/L (-2.5-2.5); ABG OXYGEN SATURATION 85 % (94-100); ABG PCO2 41 MMHG (35-45); ABG PH 7.47 (7.37-7.43); ABG PO2 47 MMHG (79-93); ABG TCO2 31.3 MMOL/L (21.0-31.0)
[2022-03-12 15:34] LABS: ALLENS TEST YES-POS; INSPIRED O2 10 L; PATIENT TEMP 37; VENTILATOR NO
--- NOTE | 2022-03-12 15:59 | Progress Note - Hospitalist ---
Subjective HPI/CC On Admission Date Seen by Provider: Mar 12, 2022 Time Seen by Provider: 11:45 Patient 66-year-old male with a past medical history of lung cancer, hypertension, COPD who presented to the emergency department due to cough. He states that he saw his doctor earlier this week and was doing fine though he th ought he may have been wheezing a little. He also follows with pulmonary rehab and seemed to be fine with that. But then 2 or 3 days ago he started to worsen. His cough got much worse and he also noticed some blood-tinged sputum. He decided to seek evaluation in the emergency room yesterday as he continued to worsen. He was found to have pneumonia and meet sepsis criteria so was admitted for further management. He reports feeling better today though did have very severe episode of coughing for 2 hours overnight. This was improved with hydrocodone. Tessalon has not been helping him. Subjective/Events-last exam His headache is better. His shortness of breath is maybe slightly better. His arm is feeling better. He is not having any abdominal pain. His legs are swo llen, right greater than left. Objective Exam Vital Signs Vital Signs Date Time Temp Pulse Resp B/P (MAP) Pulse Ox O2 Delivery O2 Flow Rate FiO2 03/12/22 13:55 91 High Flow N/C 8.00 03/12/22 11:14 37.0 87 20 152/84 Capillary Refill : Less Than 3 Seconds General Appearance: No Apparent Distress, Anxious Respiratory: Lungs Clear, No Respiratory Distress Cardiovascular: No Murmur, Tachycardia Gastrointestinal: Normal Bowel Sounds, Soft Extremity: No Inflammation; Pedal Edema, Swelling (right greater than left) Neurologic/Psychiatric: Alert, Motor Weakness Skin: Normal Color, Warm/Dry Results/Procedures Lab Laboratory Tests 03/12/22 06:15 Patient resulted labs reviewed. Imaging: Reviewed Imaging Report Assessment/Plan Assessment and Plan Assess & Plan/Chief Complaint Sepsis due to MSSA pneumonia Acute on chronic respiratory failure with hypoxia COPD with acute exacerbation History of lung cancer and lobectomy Sputum culture with MSSA Continue Zosyn Decreasing steroids MAT protocol Continue supplemental oxygen as needed, weaning as able TeleICU following, consult pulmonology when moves to the floor ABG with hypoxia on 10 L Begin Vapotherm Obtain repeat CTA chest Leg swelling Ddimer ordered US venous left lower extremity ordered Headache Schedule Tylenol Oxycodone as needed Robitussin for cough CT Head negative for acute pathology Elevated LFTs Cholelithiasis RUQ ultrasound unremarkable CT with stone in the gallbladder neck HIDA without contrast in the gallbladder, consistent with acute cholecystitis Surgery following, planning for outpatient follow up for possible cholecystectomy LFTs trending back up today Superficial thrombophlebitis s/p IV infiltration US negative for abscess, showed superficial thrombophlebitis Warm compresses Stop Ibuprofen HTN BP increasing Stopping Ibupforen Decreasing steroids Continue Amlodipine Begin Coreg DVT ppx: Lovenox Diagnosis/Problems Diagnosis/Problems (1) Acute on chronic respiratory failure with hypoxia Status: Acute (2) Sepsis Status: Acute Qualifiers: Sepsis type: sepsis due to unspecified organism Sepsis acute organ dysfunction status: unspecified Qualified Codes: A41.9 - Sepsis, unspecified organism (3) Pneumonia Status: Acute Qualifiers: Pneumonia type: due to methicillin-sensitive Staphylococcus aureus (MSSA) Laterality: right Lung location: upper lobe of lung Qualified Codes: J15.211 - Pneumonia due to methicillin susceptible Staphylococcus aureus (4) History of lung cancer Status: Acute (5) Elevated LFTs Status: Acute (6) Acute cholecystitis Status: Acute (7) Superficial thrombophlebitis of left upper extremity Status: Acute URIEL XAVIER MD Mar 12, 2022 15:59
[2022-03-12] MEDS ORDERED: IOHEXOL 350 MG/ML 100 ML (OMNIPAQUE 350) VIAL IV ONE (16:15)
[2022-03-12] MEDS ORDERED: NS 100 ML (IVPB) BAG IV ONE (16:15)
--- NOTE | 2022-03-12 17:44 | Diagnostic Imaging Report ---
PROCEDURE: CT angiography of the chest with contrast. TECHNIQUE: Multiple contiguous axial images were obtained through the chest after uneventful bolus administration of intravenous contrast. 3D reconstructed CTA MIP acquisitions were also performed. Auto Exposure Controls were utilized during the CT exam to meet ALARA standards for radiation dose reduction. INDICATION: Respiratory failure. FINDINGS: There is severe bullous emphysematous disease in the lungs, bilaterally. There appears to be a moderately large right pneumothorax. Thoracic aorta is normal in caliber and without evidence of dissection. There is no filling defect within the pulmonary arteries to suggest pulmonary embolism. There is no pathologically enlarged adenopathy. There is cholelithiasis. Remainder of intra-abdominal structures are unremarkable. There are degenerative changes in the spine. IMPRESSION: 1. Severe bullous emphysematous disease in the lungs, bilaterally, with a moderate right pneumothorax. 2. Cholelithiasis. 3. No evidence of aortic dissection, aneurysm or pulmonary embolism. Dictated by: Dictated on workstation # [id number]
[2022-03-12] MEDS: methylPREDNISolone 40 MG/ML (Solu-MEDROL) VIAL IV SCH (18:18)
[2022-03-12] MEDS: guaiFENesin/DM (ROBITUSSIN DM) 10 ML UDC PO PRN (20:15)
--- NOTE | 2022-03-13 02:00 | Tele-ICU Progress Note ---
Progress Note CXR reviewed , no Ptx appreciated. CT chest reviewed. Large, gigantic bullae seen, per radiology report Large Ptx. Per nursing Pt remained on Vapotherm 25 L , 100%. BP stable, Sats 93%, RR 26 and HR 80s. Pt viewed on camera, no acute distress. Focused Exam Height, Weight, BMI Height: 5'69.00" Weight: 145lbs. oz. 74.127561yw; 25.17 BMI Method: JANET ROSAS MD Mar 13, 2022 02:00
[2022-03-13] MEDS: RT-ALBUTEROL/IPRATROPIUM 3 ML (DUONEB) VIAL INH SCH ×6 (02:09→22:44)
[2022-03-13 05:32] LABS: BASOPHILS % (AUTO) 0 % (0-10); EOSINOPHILS % (AUTO) 0 % (0-10); HEMATOCRIT 37 % (40-54); LYMPHOCYTES # (AUTO) 1.1 10^3/uL (1.0-4.0); LYMPHOCYTES % (AUTO) 7 % (12-44); MEAN CORPUSCULAR HEMOGLOBIN 31 pg (25-34); MEAN CORPUSCULAR HGB CONC 33 g/dL (32-36); MEAN CORPUSCULAR VOLUME 94 fL (80-99); MEAN PLATELET VOLUME 9.1 fL (9.0-12.2); MONOCYTES % (AUTO) 6 % (0-12); NEUTROPHILS # (AUTO) 14.5 10^3/uL (1.8-7.8); NEUTROPHILS % (AUTO) 86 % (42-75); PLATELET COUNT 629 10^3/uL (130-400); WHITE BLOOD COUNT 16.9 10^3/uL (4.3-11.0)
[2022-03-13 05:43] LABS: ALBUMIN 2.8 GM/DL (3.2-4.5); POTASSIUM 4.7 MMOL/L (3.6-5.0)
[2022-03-13 05:44] LABS: CALCIUM 8.7 MG/DL (8.5-10.1)
[2022-03-13 05:45] LABS: TOTAL PROTEIN 5.5 GM/DL (6.4-8.2)
[2022-03-13 05:47] LABS: BILIRUBIN,TOTAL 0.9 MG/DL (0.1-1.0)
[2022-03-13 05:48] LABS: PHOSPHORUS 3.8 MG/DL (2.3-4.7)
[2022-03-13 05:49] LABS: CREATININE SERUM 0.79 MG/DL (0.60-1.30)
[2022-03-13 05:52] LABS: MAGNESIUM 2.6 MG/DL (1.6-2.4)
[2022-03-13 06:24] LABS: BAND NEUTROPHILS 3 %; LYMPHOCYTES % (MANUAL) 2 %; MONOCYTES % (MANUAL) 4 %; NEUTROPHILS % (MANUAL) 91 %
[2022-03-13 06:25] LABS: ACANTHOCYTES MODERATE
[2022-03-13] MEDS: PIPERACILLIN SODIUM/TAZOBACTAM 4.5 GM in NS (IVPB) 100 ML IV SCH ×2 (06:28→15:07)
[2022-03-13] MEDS: methylPREDNISolone 40 MG/ML (Solu-MEDROL) VIAL IV SCH ×2 (06:28→18:18)
[2022-03-13] MEDS: RT--FLUTICASONE/SALMETEROL 232-14 (AIRDUO RespiCLICK) IH SCH ×2 (06:49→18:49)
--- NOTE | 2022-03-13 07:54 | Diagnostic Imaging Report ---
INDICATION: Pneumothorax. Single AP view of the chest is obtained with comparison made study one day earlier. There is marked air trapping in the upper lobe likely related to emphysema. There appears to be collapse of the right lung with loss of pulmonary markings most pronounced in the apical and basilar regions. There is no midline shift or other significant change. IMPRESSION: Findings are compatible with at least moderate right pneumothorax with extensive background emphysema. No significant midline shift is appreciated. Dictated by: Dictated on workstation # [id number]
[2022-03-13] MEDS: amLODIPine 10 MG (NORVASC) TAB PO SCH (08:56)
[2022-03-13] MEDS: PANTOPRAZOLE 40 MG (PROTONIX) VIAL IV SCH (08:56)
[2022-03-13] MEDS: ACETAMINOPHEN 500 MG TAB (TYLENOL) PO SCH ×3 (08:57→19:58)
[2022-03-13] MEDS: FLUTICASONE NASAL SPRAY (FLONASE) 16 GM BTL NS SCH (08:57)
--- NOTE | 2022-03-13 09:00 | Progress Note - Hospitalist ---
Subjective HPI/CC On Admission Date Seen by Provider: Mar 13, 2022 Patient 66-year-old male with a past medical history of lung cancer, hypertension, COPD who presented to the emergency department due to cough. He states that he saw his doctor earlier this week and was doing fine though he thought he may have been wheezing a little. He also follows with pulmonary rehab and seemed to be fine with that. But then 2 or 3 days ago he started to worsen. His cough got much worse and he also noticed some blood-tinged sputum. He decided to seek evaluation in the emergency room yesterday as he continued to worsen. He was found to have pneumonia and meet sepsis criteria so was admitted for further management. He reports feeling better today though did have very severe episode of coughing for 2 hours overnight. This was improved with hyd rocodone. Tessalon has not been helping him. Subjective/Events-last exam Pt reports doing ok today. Had a very rough day yesterday and transferred to ICU. On vapotherm. at bedside. WE discussed findings from yesterday's CT and plan for surgery consultation for possible thoravent. Objective Exam Vital Signs Vital Signs Date Time Temp Pulse Resp B/P (MAP) Pulse Ox O2 Delivery O2 Flow Rate FiO2 03/13/22 08:00 90 Vapotherm 25.00 100 03/13/22 07:43 36.4 03/13/22 06:00 84 21 133/87 Capillary Refill : Less Than 3 Seconds General Appearance: No Apparent Distress, Chronically ill Respiratory: Other (absent breath sounds on right, rhonchi on left) Cardiovascular: Regular Rate, Rhythm, No Murmur Gastrointestinal: Normal Bowel Sounds, Soft Neurologic/Psychiatric: Alert, Oriented x3 Results/Procedures Lab Laboratory Tests 03/13/22 05:20 Patient resulted labs reviewed. Imaging: Reviewed Imaging Report Assessment/Plan Assessment and Plan Assess & Plan/Chief Complaint Sepsis due to MSSA pneumonia Acute on chronic respiratory failure with hypoxia COPD with acute exacerbation History of lung cancer and lobectomy Pneumothorax Sputum culture with MSSA Continue Zosyn Decreasing steroids MAT protocol TeleICU following, appreciate recs Remains on Vapotherm Discussed with Dr Magaña this AM and reviewed images- he will discuss with Dr Leahy given chronic lung findings as well for possible thoravent Leg swelling D- dimer elevated US venous left lower extremity ordered Headache Tylenol Oxycodone as needed Robitussin for cough CT Head negative for acute pathology Elevated LFTs Cholelithiasis RUQ ultrasound unremarkable CT with stone in the gallbladder neck HIDA without contrast in the gallbladder, consistent with acute cholecystitis Surgery following, planning for outpatient follow up for possible cholecystectomy LFTs remain elevated this AM Superficial thrombophlebitis s/p IV infiltration US negative for abscess, showed superficial thrombophlebitis Warm compresses HTN BP increasing Decreasing steroids Continue Amlodipine and Coreg DVT ppx: Lovenox Diagnosis/Problems Diagnosis/Problems (1) Essential (primary) hypertension (2) Transaminitis (3) Hyperbilirubinemia (4) Hyponatremia (5) Sepsis Status: Acute Qualifiers: Sepsis type: sepsis due to unspecified organism Sepsis acute organ dysfunction status: unspecified Qualified Codes: A41.9 - Sepsis, unspecified organism (6) Pneumonia Status: Acute Qualifiers: Pneumonia type: due to methicillin-sensitive Staphylococcus aureus (MSSA) Laterality: right Lung location: upper lobe of lung Qualified Codes: J15.211 - Pneumonia due to methicillin susceptible Staphylococcus aureus (7) History of lung cancer Status: Acute (8) Post-tussive emesis Status: Acute (9) Hypertrophy of both inferior nasal turbinates ELIN CHEEK MD Mar 13, 2022 09:00
[2022-03-13] MEDS ORDERED: LIDOCAINE 1% INJ 20 ML VIAL ONE (09:09)
--- NOTE | 2022-03-13 09:44 | Diagnostic Imaging Report ---
INDICATION: Pneumothorax, Thora Vent placement. TECHNIQUE: Single view chest 9:19 AM. CORRELATION STUDY: 03/13/2022 FINDINGS: Small caliber thoracostomy tube has been placed over the right lung apex. There is continued rather sizable right-sided pneumothorax with no significant reduction in size of the pneumothorax from prior study. Consolidated, atelectatic right lung is present with elevated right diaphragm. Infiltrate-like opacity about the left lung base with rather severe bullous emphysematous change about the lung apices. Mediastinal structures are generally stable. IMPRESSION: 1. Interval placement of a right-sided small caliber thoracostomy tube. No appreciable reduction in the rather sizable right-sided pneumothorax at this time. Dictated by: Dictated on workstation # [id number]
--- NOTE | 2022-03-13 09:55 | Tele-ICU Progress Note ---
Subjective Date Seen by a Provider: Mar 13, 2022 Time Seen by a Provider: 09:52 Subjective/Events-last exam (Tele-ICU Physician , Progress Note ) Available chart/ vitals / labs / Images reviewed Video assessment done using teleICU camera, rest of exam as per RN Discussed with RN , EXAM PER RN transfered to ICU o9n VT Events overnight : Afebrile FiO2 - VT I/O = + Drips: Pressors: , hemodynamically stable Consultants: sx Hospital course: (03/03) 66 Y admitted with sepsis pneumonia pt has history of lung cancer (03/05) Transfer to ICU with vomiting and increased respiratory distress 03/07 - increased needs for O2 to 10L, CTA neg for PE 03/08 - 5 l O2 , started on ICS/LABA + nebs 03/09 started on IV steroids , changed to Zosyn and added VANCO with increased PCT (03/12) transferred out of ICU around 1700, transferred back to ICU at 2158. Patient had increased O2 needs, found to have a pneumo(03/12) trasnferred out of ICU around 1700, transferred back to ICU at 2158. 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 ) - CTA neg for PE 03/07 and 03/12 - ICS/LABA + nebs - ABX - STARTING IV STEROIDS 03/09 -carefull with not to VO Pneumothorax RIGHT on CT 03/12 ( with severe bullous changes on left and right ) - can not appreciate progression PTX by CXR -possible thoravent vs pig tail chest tube by IR ?, sx on consult , await recom -VT 25 L 100 PNA - flu covid NEG -changed to Zosyn and added VANCO with increased PCT 03/09, cx + for MSSA- SUGGEST TO STOP ZOSYN 03/14 , BUT CONT mssa COVERAGE FEW MORE DAYS History of lung cancer - s/p right upper lobectomy ( chronically elevated right hemidiaphragm Elevated liver enzymes etiology not clear - LIver US 03/06 - limited exam ,no acute findings -asymptomatic cholelithiasis suspected - s/p HIDA - sx follow for outpatient follow up for possible cholecystectomy Peripheral thromboflebitis - US LE 03/13 VTE Prophylaxis: breann 40 Stress Ulcer Prophylaxis: ppi Plans in collaboration with bedside consultants and IM MDs. Discussed with RN to reach out if any questions or concerns Sepsis Event Evaluation Height, Weight, BMI Height: 5'69.00" Weight: 145lbs. oz. 74.211363gi; 25.17 BMI Method: Exam Exam Patient acknowledged, consented, and participated in this virtual visit which was conducted using real time audio/video Vital Signs Date Time Temp Pulse Resp B/P (MAP) Pulse Ox O2 Delivery O2 Flow Rate FiO2 03/13/22 08:00 90 Vapotherm 25.00 100 03/13/22 07:43 36.4 03/13/22 07:00 Vapotherm 25.00 100.00 03/13/22 07:00 87 03/13/22 06:51 Vapotherm 25.00 100 03/13/22 06:50 92 Vapotherm 25.00 100 03/13/22 06:00 84 21 133/87 93 Vapotherm 25.00 95.00 03/13/22 05:00 84 16 140/98 93 Vapotherm 25.00 95.00 03/13/22 04:00 36.6 03/13/22 04:00 81 15 133/87 93 Vapotherm 25.00 95.00 03/13/22 03:00 85 20 134/98 92 Vapotherm 25.00 95.00 03/13/22 02:10 91 Vapotherm 25.00 100 03/13/22 02:00 87 25 125/96 93 Vapotherm 25.00 95.00 03/13/22 01:00 87 03/13/22 01:00 87 27 161/99 91 Vapotherm 25.00 95.00 03/13/22 00:00 36.5 03/13/22 00:00 81 16 135/94 93 Vapotherm 25.00 95.00 03/12/22 23:00 80 14 127/83 93 Vapotherm 25.00 95.00 03/12/22 22:00 80 17 140/92 93 Vapotherm 25.00 95.00 03/12/22 21:22 Vapotherm 25.00 95 03/12/22 21:18 90 Vapotherm 25.00 95 03/12/22 21:00 93 Vapotherm 25.00 100 03/12/22 20:14 94 24 147/98 Vapotherm 25.00 95.00 03/12/22 20:06 36.7 03/12/22 19:00 90 03/12/22 18:23 92 Vapotherm 25.00 95 03/12/22 17:30 93 Vapotherm 25.00 100 03/12/22 17:27 90 03/12/22 16:46 37.2 92 20 169/91 96 Vapotherm 25.00 100.00 03/12/22 16:13 98 Vapotherm 25.00 100 03/12/22 16:04 97 Vapotherm 30.00 100 03/12/22 13:55 91 High Flow N/C 8.00 03/12/22 11:14 37.0 87 20 152/84 95 High Flow N/C 5.00 03/12/22 10:10 93 High Flow N/C 8.00 I & O 03/13/22 07:00 Intake Total 740 ml Output Total 1825 ml Balance -1085 ml Height & Weight Height: 5'69.00" Weight: 145lbs. oz. 74.710163lr; 25.17 BMI Method: General Appearance: No Apparent Distress, Chronically ill HEENT: PERRL/EOMI, Pharynx Normal Neck: Non Tender, Supple Respiratory: Other (absent breath sounds on right, rhonchi on left) Cardiovascular: Regular Rate, Rhythm, No Murmur Capillary Refill: Less Than 3 Seconds Peripheral Pulses: 2+ Radial Pulses (R), 2+ Radial Pulses (L) Gastrointestinal: No distended, No guarding, No rebound, No tenderness Extremity: No Inflammation; Pedal Edema, Swelling (right greater than left) Neurologic/Psychiatric: Alert, Oriented x3 Skin: Normal Color, Warm/Dry Results Lab Laboratory Tests 03/12/22 06:15 03/13/22 05:20 Assessment/Plan Assessment/Plan 1 ALEX LEDESMA MD Mar 13, 2022 09:55
--- NOTE | 2022-03-13 10:57 | Physical Therapy Evaluation ---
PT Evaluation-General Medical Diagnosis Admission Date Mar 03, 2022 at 17:26 Medical Diagnosis: PNA, sepsis Onset Date: Mar 03, 2022 Therapy Diagnosis Therapy Diagnosis: impaired mobility, strength, endurance Height/Weight Height (Feet): 5 Height (Inches): 69.00 Weight (Pounds): 145 Precautions Precautions/Isolations: Standard Precautions Referral Physician: Sara Reason for Referral: Evaluation/Treatment Medical History Pertinent Medical History: COPD Additional Medical History Past Medical History Surgeries: Lobectomy, Orthopedic COPD Currently Using CPAP: No Currently Using BIPAP: No Hypertension TIA Arthritis, Fractures Lung Did You Recieve Any Treatments: Yes What Type of Treatment Did You: Chemotherapy, Radiation, Surgical Intervention Sleep Difficulties Blood Disorders: No Reviewed History: Yes Social History Home: Single Level Current Living Status: Spouse Prior Prior Level of Function SCALE: Activities may be completed with or without assistive devices. 4-Qcwiizfbyk-clthdxi completes the activity by him/herself with no assistance from a helper. 5-Set-up or Clean-up Assistance-helper sets up or cleans up; patient completes activity. Kiel assists only prior to or following the activity. 4-Supervision or Touching Assistance-helper provides verbal cues and/or touching/steadying and/or contact guard assistance as patient completes activity. Assistance may be provided throughout the activity or intermittently. 3-Partial/Moderate Assistance-helper does LESS THAN HALF the effort. Kiel lifts, holds or supports trunk or limbs, but provides less than half the effort. 2-Substantial/Maximal Assistance-helper does MORE THAN HALF the effort. Kiel lifts or holds trunk or limbs and provides more than half the effort. 4-Hjwkmeuvn-ibttlx does ALL the effort. Patient does none of the effort to complete the activity. Or, the assistance of 2 or more helpers is required for the patient to complete the activity. If activity was not attempted, code reason: 7-Patient Refused. 9-Not Applicable-not attempted and the patient did not perform the activity before the current illness, exacerbation or injury. 10-Not Attempted due to Environmental Limitations-(lack of equipment, weather restraints, etc.). 88-Not Attempted due to Medical Conditions or Safety Concerns. Bed Mobility: 6 Transfers (B,C,W/C): 6 Gait: 6 Stairs: 6 Indoor Mobility (Ambulation): Independent Stairs: Independent PT Evaluation-Current Subjective Patient in bed pre tx, agrees to PT, has no complaints of pain at rest. Patient recently had a thoravent placed. Patient is SOB just with talking Pt/Family Goals to be independent at home Objective Patient Orientation: Person, Place, Situation Attachments: Oxygen (vapotherm), IV thoravent ROM/Strength ROM Lower Extremities WNL Strength Lower Extremities grossly 4/5 BLE Sensory Vision: Wears Glasses Hearing: Functional Transfers Roll Left to Right (QC): 6 Sit to Lying (QC): 6 Lying to Sitting/Side of Bed(Q: 6 Patient sits to the side of the bed and after about 1 minute his O2 drops to about 85% very rapidly, he lays back down and it takes a couple of minutes to get back to 90% Balance Sitting Static: Normal Sitting Dynamic: Normal Treatment BLE supine exercise x20 (AP, HS) Assessment/Needs Patient in bed post tx with nurse call, phone, tray, all needs met. Patient has impaired mobility, strength, endurance. His O2 drops with activity. Rehab Potential: Guarded PT Plate Gauger Goals Skilled Nursing Goals PT Skilled Nursing Goals Time Frame: Mar 20, 2022 Roll Left & Right (QC): 6 Sit to Lying (QC): 6 Lying-Sitting on Side/Bed(QC): 6 Sit to Stand (QC): 4 Chair/Uds-yf-Veyfo Xfer(QC): 4 Walk 10 feet (QC): 4 PT Plan Problem List Problem List: Activity Tolerance, Functional Strength, Safety, Balance, Gait, Transfer, ROM Treatment/Plan Treatment Plan: Continue Plan of Care Treatment Duration: Mar 20, 2022 Frequency: 6 times per week Estimated Hrs Per Day: .25 hour per day Patient and/or Family Agrees t: Yes Safety Risks/Education Patient Education: Correct Positioning, Safety Issues Teaching Recipient: Patient Teaching Methods: Demonstration, Discussion Response to Teaching: Reinforcement Needed Discharge Recommendations Plan Patient will perform bed mobility and transfer training, balance and endurance training, functional strengthening, stair training, gait training, and education, to improve functional mobility and independence at home. Therapy Discharge Recommendati: Scheduled Assistance, Home & Family, Post Acute PT Time/GCodes Time In: 1028 Time Out: 1038 Total Billed Treatment Time: 10 Total Billed Treatment 1 visit ARIADNA Tuttle' ROGE SHULTZ PT Mar 13, 2022 10:57
--- NOTE | 2022-03-13 11:46 | Diagnostic Imaging Report ---
PROCEDURE: US right lower extremity venous. TECHNIQUE: Multiple real-time grayscale images were obtained over the right lower extremity in various projections. Additional spectral analysis and color Doppler duplex images were also obtained. INDICATION: Right leg swelling. FINDINGS: There is no evidence of right lower extremity DVT. Right lower extremity deep venous system shows normal compressibility with normal response to augmentation and Valsalva. No fluid collection or mass is detected. IMPRESSION: No evidence of right lower extremity DVT. Dictated by: Dictated on workstation # [id number]
[2022-03-13] MEDS: ENOXAPARIN 40 MG/0.4 ML (LOVENOX) SYR SC SCH (13:17)
[2022-03-13] MEDS: ALPRAZolam 0.5 MG (XANAX) TAB PO PRN (18:40)
--- NOTE | 2022-03-13 20:42 | Progress Note - Surgery ---
Subjective Date Seen by a Provider: Mar 13, 2022 Time Seen by a Provider: 08:15 Subjective/Events-last exam Patient with worsening breathing. Was found to have right pneumothorax. Breathing has continued to decline he and family say over last couple weeks. Has had previous right upper lobectomy. Has bad bullous disease of b/l lungs. Reviewed recent chest x rays and ct scans and feel does have large right pneumothorax along with bad bullous disease b/l and elevated left veda-diaphragm. Objective Exam Vital Signs Date Time Temp Pulse Resp B/P (MAP) Pulse Ox O2 Delivery O2 Flow Rate FiO2 03/13/22 18:48 Vapotherm 25.00 100 03/13/22 18:44 91 Vapotherm 25.00 100 03/13/22 18:00 93 22 112/74 93 Vapotherm 25.00 100.00 03/13/22 17:00 102 120/91 89 Vapotherm 25.00 100.00 03/13/22 16:00 83 119/84 94 Vapotherm 25.00 100.00 03/13/22 16:00 90 Vapotherm 25.00 100 03/13/22 16:00 36.3 03/13/22 15:02 93 Vapotherm 25.00 100 03/13/22 15:00 84 136/94 92 Vapotherm 25.00 100.00 03/13/22 14:00 85 138/86 93 Vapotherm 25.00 100.00 03/13/22 13:00 88 131/85 92 Vapotherm 25.00 100.00 03/13/22 12:28 85 03/13/22 12:00 90 Vapotherm 25.00 100 03/13/22 12:00 36.1 03/13/22 12:00 85 131/86 93 Vapotherm 25.00 100.00 03/13/22 11:00 80 28 122/82 93 Vapotherm 25.00 100.00 03/13/22 10:40 93 Vapotherm 25.00 100 03/13/22 10:00 83 29 142/94 91 Vapotherm 25.00 100.00 03/13/22 09:00 105 30 140/82 90 Vapotherm 25.00 100.00 03/13/22 08:00 92 15 143/93 90 Vapotherm 25.00 100.00 03/13/22 08:00 90 Vapotherm 25.00 100 03/13/22 07:43 36.4 03/13/22 07:00 Vapotherm 25.00 100.00 03/13/22 07:00 87 03/13/22 07:00 89 25 135/91 91 Vapotherm 25.00 100.00 03/13/22 06:51 Vapotherm 25.00 100 03/13/22 06:50 92 Vapotherm 25.00 100 03/13/22 06:00 84 21 133/87 93 Vapotherm 25.00 95.00 03/13/22 05:00 84 16 140/98 93 Vapotherm 25.00 95.00 03/13/22 04:00 36.6 03/13/22 04:00 81 15 133/87 93 Vapotherm 25.00 95.00 03/13/22 03:00 85 20 134/98 92 Vapotherm 25.00 95.00 03/13/22 02:10 91 Vapotherm 25.00 100 03/13/22 02:00 87 25 125/96 93 Vapotherm 25.00 95.00 03/13/22 01:00 87 03/13/22 01:00 87 27 161/99 91 Vapotherm 25.00 95.00 03/13/22 00:00 36.5 03/13/22 00:00 81 16 135/94 93 Vapotherm 25.00 95.00 03/12/22 23:00 80 14 127/83 93 Vapotherm 25.00 95.00 03/12/22 22:00 80 17 140/92 93 Vapotherm 25.00 95.00 03/12/22 21:22 Vapotherm 25.00 95 03/12/22 21:18 90 Vapotherm 25.00 95 03/12/22 21:00 93 Vapotherm 25.00 100 I & O 03/13/22 06:59 Intake Total 740 ml Output Total 1825 ml Balance -1085 ml Capillary Refill : Less Than 3 Seconds General Appearance: No Apparent Distress, Anxious, Chronically ill HEENT: PERRL/EOMI, Pharynx Normal Neck: Normal Inspection, Non Tender, Supple Respiratory: Chest Non Tender, Other (absent breath sounds on right, rhonchi on left, slightly labored breathing) Cardiovascular: Regular Rate, Rhythm, No JVD Peripheral Pulses: 2+ Radial Pulses (R), 2+ Radial Pulses (L) Gastrointestinal: non tender, soft; No distended, No guarding, No rebound, No tenderness Extremity: No Inflammation; Pedal Edema, Swelling (right greater than left) Neurologic/Psychiatric: Alert, Oriented x3 Skin: Normal Color, Warm/Dry Lymphatic: No Adenopathy Results Lab Laboratory Tests 03/13/22 05:20: White Blood Count 16.9H, Red Blood Count 3.91L, Hemoglobin 12.0L, Hematocrit 37L , Mean Corpuscular Volume 94, Mean Corpuscular Hemoglobin 31, Mean Corpuscular Hemoglobin Concent 33, Red Cell Distribution Width 13.6, Platelet Count 629H, Mean Platelet Volume 9.1, Immature Granulocyte % (Auto) 2, Neutrophils (%) (Auto) 86H, Lymphocytes (%) (Auto) 7L, Monocytes (%) (Auto) 6, Eosinophils (%) (Auto) 0, Basophils (%) (Auto) 0, Neutrophils # (Auto) 14.5H, Lymphocytes # (Auto) 1.1, Monocytes # (Auto) 1.0, Eosinophils # (Auto) 0.0, Basophils # (Auto) 0.0, Immature Granulocyte # (Auto) 0.3H, Neutrophils % (Manual) 91, Lymphocytes % (Manual) 2, Monocytes % (Manual) 4, Band Neutrophils 3, Acanthocytes MODERATE, Sodium Level 135, Potassium Level 4.7, Chloride Level 97L, Carbon Dioxide Level 28, Anion Gap 10, Blood Urea Nitrogen 30H, Creatinine 0.79, Estimat Glomerular Filtration Rate 97, BUN/Creatinine Ratio 38, Glucose Level 101, Calcium Level 8.7, Corrected Calcium 9.7, Phosphorus Level 3.8, Magnesium Level 2.6H, Total Bilirubin 0.9, Aspartate Amino Transf (AST/SGOT) 92H, Alanine Aminotransferase (ALT/SGPT) 240H, Alkaline Phosphatase 135, Total Protein 5.5L, Albumin 2.8L Microbiology 03/08/22 Blood Culture - Preliminary, Resulted No growth 03/07/22 Gram Stain - Final, Complete 03/07/22 Sputum Culture - Final, Complete Usual upper respiratory marlon Staphylococcus aureus 03/03/22 Urine Culture - Final, Complete NO GROWTH Assessment/Plan Assessment/Plan Assessment/Plan Right pneumothorax Sepsis Most likely secondary to pneumonia Acute on chronic respiratory failure COPD h/o Lung cancer I reviewed imaging and discussed with Dr. Leahy (radiology). Patient with right moderate to large pneumothorax. I discussed risks and benefits of having a right thoravent chest tube placed. Patient and family agree with placing. Will keep on an antrium to suction. Follow chest x rays, feel overall poor prognosis, due to the severity of his lung disease. Procedure: Right thora-vent placment. Right chest was prepped and draped in sterile fashion. 4mL of lidocaine was used to anesthesize the area. 11 blade was used to make a small skin incision right midclavicular line approximately 4th rib interspace. The thoravent was then advanced throught the chest wall and when entered chest cavity catheter was advanced and trocar removed. Secured in usual fashion. Hooked up to atrium with air leak present. Tolerated well, chest x ray pending. SUKH PLATA DO Mar 13, 2022 20:42
[2022-03-14] MEDS: PIPERACILLIN SODIUM/TAZOBACTAM 4.5 GM in NS (IVPB) 100 ML IV SCH ×4 (00:52→23:26)
[2022-03-14] MEDS: RT-ALBUTEROL/IPRATROPIUM 3 ML (DUONEB) VIAL INH SCH ×6 (02:23→22:44)
[2022-03-14] MEDS: ALPRAZolam 0.5 MG (XANAX) TAB PO PRN ×5 (03:30→17:36)
[2022-03-14 05:10] LABS: BASOPHILS % (AUTO) 0 % (0-10); EOSINOPHILS % (AUTO) 0 % (0-10); HEMATOCRIT 36 % (40-54); HEMOGLOBIN 11.8 g/dL (13.3-17.7); LYMPHOCYTES # (AUTO) 0.7 10^3/uL (1.0-4.0); LYMPHOCYTES % (AUTO) 5 % (12-44); MEAN CORPUSCULAR HEMOGLOBIN 30 pg (25-34); MEAN CORPUSCULAR HGB CONC 33 g/dL (32-36); MEAN CORPUSCULAR VOLUME 92 fL (80-99); MEAN PLATELET VOLUME 9.1 fL (9.0-12.2); MONOCYTES # (AUTO) 0.6 10^3/uL (0.0-1.0); MONOCYTES % (AUTO) 4 % (0-12); NEUTROPHILS # (AUTO) 12.5 10^3/uL (1.8-7.8); NEUTROPHILS % (AUTO) 89 % (42-75); PLATELET COUNT 615 10^3/uL (130-400)
[2022-03-14 05:32] LABS: ALBUMIN 2.6 GM/DL (3.2-4.5); POTASSIUM 4.6 MMOL/L (3.6-5.0)
[2022-03-14 05:33] LABS: CALCIUM 8.3 MG/DL (8.5-10.1)
[2022-03-14 05:36] LABS: BILIRUBIN,TOTAL 0.9 MG/DL (0.1-1.0)
[2022-03-14 05:38] LABS: CREATININE SERUM 0.74 MG/DL (0.60-1.30); PHOSPHORUS 3.9 MG/DL (2.3-4.7)
[2022-03-14 05:41] LABS: MAGNESIUM 2.6 MG/DL (1.6-2.4)
--- NOTE | 2022-03-14 06:40 | Diagnostic Imaging Report ---
INDICATION: Respiratory distress. EXAMINATION: Chest 03/14/2022 COMPARISON: 03/13/2022 FINDINGS: There is a chest tube on the right similar in positioning previous imaging. Pneumothorax on the right appears stable with atelectasis or infiltrate in the right midlung. There is mild elevation of the right hemidiaphragm. There is infiltrate at the left lung base with emphysematous changes throughout the remaining left lung. The heart is stable from previous imaging. Pulmonary vasculature unremarkable. Postoperative changes incidentally noted left shoulder. IMPRESSION: 1. Right-sided chest tube in place with no significant improvement in the sizable right pneumothorax. Underlying areas of atelectasis or infiltrate noted in the right midlung. 2. Left base infiltrate. 3. Emphysematous changes. Dictated by: Dictated on workstation # [id number]
[2022-03-14] MEDS: methylPREDNISolone 40 MG/ML (Solu-MEDROL) VIAL IV SCH ×2 (06:41→17:36)
[2022-03-14] MEDS: RT--FLUTICASONE/SALMETEROL 232-14 (AIRDUO RespiCLICK) IH SCH ×2 (07:12→22:44)
--- NOTE | 2022-03-14 08:17 | Progress Note - Surgery ---
EDUAR BOWLINGAH Michael 03/14/22 0817: Subjective Date Seen by a Provider: Mar 14, 2022 Time Seen by a Provider: 07:01 Subjective/Events-last exam Mr. Oneal is being followed by surgery for asymptomatic cholelithiasis. He is being treated in the ICU for sepsis d/t pneumonia. He has a right-sided pneumothorax. This morning he denies any abdominal pain. He continues to have trouble breathing and shortness of breath. He is maintained on vapotherm. Yesterday a thoravent was placed due to his pneumothorax. This morning he denies discomfort or pain from the procedure. Review of Systems General: No Chills, No Fatigue HEENT: No Head Aches, No Visual Changes Pulmonary: Dyspnea, Cough Cardiovascular: No: Chest Pain, Palpitations Gastrointestinal: No: Nausea, Vomiting, Abdominal Pain Neurological: No: Weakness, Confusion Objective Exam Vital Signs Date Time Temp Pulse Resp B/P (MAP) Pulse Ox O2 Delivery O2 Flow Rate FiO2 03/14/22 07:19 Vapotherm 30.00 100 03/14/22 07:12 94 Vapotherm 30.00 100 03/14/22 06:00 79 21 127/77 96 Vapotherm 30.00 100.00 03/14/22 05:00 76 16 116/74 95 Vapotherm 30.00 100.00 03/14/22 04:51 95 Vapotherm 30.00 100 03/14/22 04:00 79 26 96 Vapotherm 30.00 100.00 03/14/22 03:33 36.4 92 Vapotherm 30.00 100.00 03/14/22 03:16 89 26 121/82 90 Vapotherm 25.00 100.00 03/14/22 03:00 81 24 92 Vapotherm 25.00 100.00 03/14/22 02:23 95 Vapotherm 25.00 100 03/14/22 02:00 73 20 96 Vapotherm 25.00 100.00 03/14/22 01:00 75 26 94 Vapotherm 25.00 100.00 03/14/22 01:00 75 03/14/22 00:54 94 Vapotherm 25.00 100 03/14/22 00:00 73 26 107/77 95 Vapotherm 25.00 100.00 03/14/22 00:00 36.2 Vapotherm 25.00 100.00 03/13/22 23:00 73 28 108/74 96 Vapotherm 25.00 100.00 03/13/22 22:44 95 Vapotherm 25.00 100 03/13/22 22:00 75 22 97/63 97 Vapotherm 25.00 100.00 03/13/22 21:00 89 Vapotherm 25.00 100 03/13/22 21:00 89 24 108/80 92 Vapotherm 25.00 100.00 03/13/22 20:00 95 23 112/87 91 Vapotherm 25.00 100.00 03/13/22 20:00 36.1 03/13/22 19:00 96 03/13/22 19:00 96 22 116/78 92 Vapotherm 25.00 100.00 03/13/22 19:00 Vapotherm 25.00 100.00 03/13/22 18:48 Vapotherm 25.00 100 03/13/22 18:44 91 Vapotherm 25.00 100 03/13/22 18:00 93 22 112/74 93 Vapotherm 25.00 100.00 03/13/22 17:00 102 120/91 89 Vapotherm 25.00 100.00 03/13/22 16:00 83 119/84 94 Vapotherm 25.00 100.00 03/13/22 16:00 90 Vapotherm 25.00 100 03/13/22 16:00 36.3 03/13/22 15:02 93 Vapotherm 25.00 100 03/13/22 15:00 84 136/94 92 Vapotherm 25.00 100.00 03/13/22 14:00 85 138/86 93 Vapotherm 25.00 100.00 03/13/22 13:00 88 131/85 92 Vapotherm 25.00 100.00 03/13/22 12:28 85 03/13/22 12:00 90 Vapotherm 25.00 100 03/13/22 12:00 36.1 03/13/22 12:00 85 131/86 93 Vapotherm 25.00 100.00 03/13/22 11:00 80 28 122/82 93 Vapotherm 25.00 100.00 03/13/22 10:40 93 Vapotherm 25.00 100 03/13/22 10:00 83 29 142/94 91 Vapotherm 25.00 100.00 03/13/22 09:00 105 30 140/82 90 Vapotherm 25.00 100.00 I & O 03/14/22 06:59 Intake Total 1810 ml Output Total 2075 ml Balance -265 ml Capillary Refill : Less Than 3 Seconds General Appearance: No Apparent Distress, Chronically ill HEENT: PERRL/EOMI, Moist Mucous Membranes Neck: Non Tender, Supple Respiratory: No Accessory Muscle Use, No Respiratory Distress, Decreased Breath Sounds (Absent breath sounds on right. Minor crackles on left.), Other (Thoravent in place) Cardiovascular: Normal Peripheral Pulses, Tachycardia Peripheral Pulses: 2+ Radial Pulses (R), 2+ Radial Pulses (L) Gastrointestinal: non tender, soft; No distended, No guarding, No rebound, No tenderness Extremity: Non Tender, Pedal Edema (1+) Neurologic/Psychiatric: Alert, Oriented x3, No Motor/Sensory Deficits Skin: Normal Color, Warm/Dry Results Lab Laboratory Tests 03/14/22 04:21: White Blood Count 14.0H, Red Blood Count 3.91L, Hemoglobin 11.8L, Hematocrit 36L , Mean Corpuscular Volume 92, Mean Corpuscular Hemoglobin 30, Mean Corpuscular Hemoglobin Concent 33, Red Cell Distribution Width 13.4, Platelet Count 615H, Mean Platelet Volume 9.1, Immature Granulocyte % (Auto) 1, Neutrophils (%) (Auto) 89H, Lymphocytes (%) (Auto) 5L, Monocytes (%) (Auto) 4, Eosinophils (%) (Auto) 0, Basophils (%) (Auto) 0, Neutrophils # (Auto) 12.5H, Lymphocytes # (Auto) 0.7L, Monocytes # (Auto) 0.6, Eosinophils # (Auto) 0.0, Basophils # (Auto) 0.0, Immature Granulocyte # (Auto) 0.2H, Sodium Level 134L, Potassium Level 4.6, Chloride Level 98, Carbon Dioxide Level 26, Anion Gap 10, Blood Urea Nitrogen 38H, Creatinine 0.74, Estimat Glomerular Filtration Rate 99, BUN/Creatinine Ratio 51, Glucose Level 110H, Calcium Level 8.3L, Corrected Calcium 9.4, Phosphorus Level 3.9, Magnesium Level 2.6H, Total Bilirubin 0.9, Aspartate Amino Transf (AST/SGOT) 62H, Alanine Aminotransferase (ALT/SGPT) 216H, Alkaline Phosphatase 132, Total Protein 5.0L, Albumin 2.6L Microbiology 03/08/22 Blood Culture - Preliminary, Resulted No growth 03/07/22 Gram Stain - Final, Complete 03/07/22 Sputum Culture - Final, Complete Usual upper respiratory marlon Staphylococcus aureus 03/03/22 Urine Culture - Final, Complete NO GROWTH Assessment/Plan Assessment/Plan Assessment/Plan Right pneumothorax s/p Thoravent placement on 03/13/22 CXR shows ptx still present from yesterday to today with minimal changes No air leak noted on morning exam Sepsis Most likely secondary to pneumonia Acute on chronic respiratory failure COPD h/o Lung cancer Transamninitis Leukocytosis Thrombocytosis Elevated BUN Plan: Continue antibiotics Continue enoxaparin s/p Thoravent placement Will keep on an atrium to suction. Follow chest x rays, feel overall poor prognosis, due to the severity of his lung disease. Plan for outpatient discussion about cholecystectomy after patient recovers from ICU stay SUKH PLATA DO 03/14/22 1620: Subjective Subjective/Events-last exam Patient breathing about the same as yesterday. No significant improvement. Patient had Thora vent placed yesterday. Review of the chest x-rays with Dr. Lehay and feel there is slight improvement of the right chest cavity and left pneumothorax. There is no air leak in the atrium. Objective Exam General Appearance: Anxious, Chronically ill HEENT: PERRL/EOMI, Moist Mucous Membranes Neck: Non Tender, Supple Respiratory: Chest Non Tender, Decreased Breath Sounds (Absent breath sounds on right. Minor crackles on left.), Other (Thoravent in place, no air leak) Cardiovascular: Tachycardia Gastrointestinal: non tender, soft Extremity: Non Tender, No Calf Tenderness, Pedal Edema (1+) Neurologic/Psychiatric: Alert, Oriented x3 Skin: Normal Color, Warm/Dry Assessment/Plan Assessment/Plan Assessment/Plan History of lung cancer status post right upper lobe resection Right pneumothorax status post Thora vent placement with atrium attached COPD Patient with continued pneumothorax of the right chest but he also has significant bad emphysematous/bullous disease. The chest x-ray shows slight improvement but atrium with no air leak. Today reviewed x-rays with Dr. Leahy and due to significant bullous disease and not sure if he will have much improvement. I discussed with the patient's as well who they are discussing palliative care. Continue with current medical management Supervisory-Addendum Brief Verification & Attestation Participated in pt care: history, MDM, physical Personally performed: exam, history, MDM, supervision of care Care discussed with: Medical Student Procedures: n/a Results interpretation: Verified all documentation Verification and Attestation of Medical Student E/M Service A medical student performed and documented this service in my presence. I reviewed and verified all information documented by the medical student and made modifications to such information, when appropriate. I personally performed the physical exam and medical decision making. Sukh Plata, Mar 14, 2022,16:24 JOSE LUIS BOWLING Mar 14, 2022 08:17 SUKH PLATA DO Mar 14, 2022 16:20
[2022-03-14] MEDS: amLODIPine 10 MG (NORVASC) TAB PO SCH (08:54)
[2022-03-14] MEDS: PANTOPRAZOLE 40 MG (PROTONIX) VIAL IV SCH (08:54)
[2022-03-14] MEDS: FLUTICASONE NASAL SPRAY (FLONASE) 16 GM BTL NS SCH (08:55)
[2022-03-14] MEDS: ENOXAPARIN 40 MG/0.4 ML (LOVENOX) SYR SC SCH (08:55)
[2022-03-14] MEDS: ACETAMINOPHEN 500 MG TAB (TYLENOL) PO SCH ×3 (08:55→21:51)
--- NOTE | 2022-03-14 10:53 | Physical Therapy Progress Note ---
Therapy Progress Note Per nurse, patient is on hold today due to medical complications. Will check back tomorrow. ROGE SHULTZ PT Mar 14, 2022 10:53
[2022-03-14] MEDS ORDERED: LIDOCAINE UROJET 2% GEL 10 ML PKG TOP ONE (11:15)
--- NOTE | 2022-03-14 11:52 | Tele-ICU Progress Note ---
Subjective Date Seen by a Provider: Mar 14, 2022 Time Seen by a Provider: 11:51 Subjective/Events-last exam (Tele-ICU Physician , Progress Note ) Available chart/ vitals / labs / Images reviewed Video assessment done using teleICU camera, rest of exam as per RN FiO2 - VT 35 L 100% I/O = + Drips: Pressors: , hemodynamically stable Consultants: gustavo Hospital course: (03/03) 66 Y admitted with sepsis pneumonia pt has history of lung cancer (03/05) Transfer to ICU with vomiting and increased respiratory distress 03/07 - increased needs for O2 to 10L, CTA neg for PE 03/08 - 5 l O2 , started on ICS/LABA + nebs 03/09 started on IV steroids , changed to Zosyn and added VANCO with increased PCT (03/12) transferred out of ICU around 1700, transferred back to ICU at 2158. Patient had increased O2 needs, found to have a pneumo(03/12) trasnferred out of ICU around 1700, transferred back to ICU at 2158. Patient had increased O2 needs, found to have PTX on RIGHT 03/13- Right thora-vent placment. 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 by Dr Magaña - on sucction minimal leak PNA - flu covid NEG -changed to Zosyn and added VANCO with increased PCT 03/09, cx + for MSSA- SUGGEST TO STOP ZOSYN , BUT CONT mssa COVERAGE FEW MORE DAYS History of lung cancer - s/p right upper lobectomy ( chronically elevated right hemidiaphragm Elevated liver enzymes etiology not clear - LIver US 03/06 - limited exam ,no acute findings -asymptomatic cholelithiasis suspected - s/p HIDA - sx follow for outpatient follow up for possible cholecystectomy Peripheral thromboflebitis - US LE 03/13 - no DVT PER RN - PATIENT AND FAMILY CONSIDER COMFORT MEASURES VTE Prophylaxis: breann 40 Stress Ulcer Prophylaxis: ppi Plans in collaboration with bedside consultants and IM MDs. Discussed with RN to reach out if any questions or concerns A total of 20 minutes of critical care time was devoted to this patient today, required to treat and/or prevent further deterioration of critical care condition ( as above) . Sepsis Event Evaluation Height, Weight, BMI Height: 5'69.00" Weight: 145lbs. oz. 74.310107en; 24.94 BMI Method: Exam Exam Patient acknowledged, consented, and participated in this virtual visit which was conducted using real time audio/video Vital Signs Date Time Temp Pulse Resp B/P (MAP) Pulse Ox O2 Delivery O2 Flow Rate FiO2 03/14/22 10:21 88 Vapotherm 35.00 100 03/14/22 09:00 85 27 132/75 91 Vapotherm 30.00 100.00 03/14/22 08:47 95 Vapotherm 30.00 100 03/14/22 08:00 80 26 122/81 94 Vapotherm 30.00 100.00 03/14/22 08:00 36.2 03/14/22 07:19 Vapotherm 30.00 100 03/14/22 07:12 94 Vapotherm 30.00 100 03/14/22 07:00 82 33 123/82 95 Vapotherm 30.00 100.00 03/14/22 07:00 80 03/14/22 06:00 79 21 127/77 96 Vapotherm 30.00 100.00 03/14/22 05:00 76 16 116/74 95 Vapotherm 30.00 100.00 03/14/22 04:51 95 Vapotherm 30.00 100 03/14/22 04:00 79 26 96 Vapotherm 30.00 100.00 03/14/22 03:33 36.4 92 Vapotherm 30.00 100.00 03/14/22 03:16 89 26 121/82 90 Vapotherm 25.00 100.00 03/14/22 03:00 81 24 92 Vapotherm 25.00 100.00 03/14/22 02:23 95 Vapotherm 25.00 100 03/14/22 02:00 73 20 96 Vapotherm 25.00 100.00 03/14/22 01:00 75 26 94 Vapotherm 25.00 100.00 03/14/22 01:00 75 03/14/22 00:54 94 Vapotherm 25.00 100 03/14/22 00:00 73 26 107/77 95 Vapotherm 25.00 100.00 03/14/22 00:00 36.2 Vapotherm 25.00 100.00 03/13/22 23:00 73 28 108/74 96 Vapotherm 25.00 100.00 03/13/22 22:44 95 Vapotherm 25.00 100 03/13/22 22:00 75 22 97/63 97 Vapotherm 25.00 100.00 03/13/22 21:00 89 Vapotherm 25.00 100 03/13/22 21:00 89 24 108/80 92 Vapotherm 25.00 100.00 03/13/22 20:00 95 23 112/87 91 Vapotherm 25.00 100.00 03/13/22 20:00 36.1 03/13/22 19:00 96 03/13/22 19:00 96 22 116/78 92 Vapotherm 25.00 100.00 03/13/22 19:00 Vapotherm 25.00 100.00 03/13/22 18:48 Vapotherm 25.00 100 03/13/22 18:44 91 Vapotherm 25.00 100 03/13/22 18:00 93 22 112/74 93 Vapotherm 25.00 100.00 03/13/22 17:00 102 120/91 89 Vapotherm 25.00 100.00 03/13/22 16:00 83 119/84 94 Vapotherm 25.00 100.00 03/13/22 16:00 90 Vapotherm 25.00 100 03/13/22 16:00 36.3 03/13/22 15:02 93 Vapotherm 25.00 100 03/13/22 15:00 84 136/94 92 Vapotherm 25.00 100.00 03/13/22 14:00 85 138/86 93 Vapotherm 25.00 100.00 03/13/22 13:00 88 131/85 92 Vapotherm 25.00 100.00 03/13/22 12:28 85 03/13/22 12:00 90 Vapotherm 25.00 100 03/13/22 12:00 36.1 03/13/22 12:00 85 131/86 93 Vapotherm 25.00 100.00 I & O 03/14/22 06:59 Intake Total 1810 ml Output Total 2075 ml Balance -265 ml Height & Weight Height: 5'69.00" Weight: 145lbs. oz. 74.587292cg; 24.94 BMI Method: General Appearance: No Apparent Distress, Chronically ill HEENT: PERRL/EOMI, Moist Mucous Membranes Neck: Non Tender, Supple Respiratory: No Accessory Muscle Use, No Respiratory Distress, Decreased Breath Sounds (Absent breath sounds on right. Minor crackles on left.), Other (Thoravent in place) Cardiovascular: Normal Peripheral Pulses, Tachycardia Capillary Refill: Less Than 3 Seconds Peripheral Pulses: 2+ Radial Pulses (R), 2+ Radial Pulses (L) Gastrointestinal: non tender, soft; No distended, No guarding, No rebound, No tenderness Extremity: Non Tender, Pedal Edema (1+) Neurologic/Psychiatric: Alert, Oriented x3, No Motor/Sensory Deficits Skin: Normal Color, Warm/Dry Results Lab Laboratory Tests 03/13/22 05:20 03/14/22 04:21 Assessment/Plan Assessment/Plan 1 ALEX LEDESMA MD Mar 14, 2022 11:51
[2022-03-14] MEDS ORDERED: LIDOCAINE UROJET 2% GEL 10 ML PKG ONE (11:56)
--- NOTE | 2022-03-14 12:00 | Progress Note - Hospitalist ---
DORINDALennieKARRIE OMALLEY 03/14/22 1200: Subjective HPI/CC On Admission Date Seen by Provider: Mar 14, 2022 Time Seen by Provider: 11:10 Patient 66-year-old male with a past medical history of lung cancer, hypertension, COPD who presented to the emergency department due to cough. He states that he saw his doctor earlier this week and was doing fine though he thought he may have been wheezing a little. He also follows with pulmonary rehab and seemed to be fine with that. But then 2 or 3 days ago he started to worsen. His cough got much worse and he also noticed some blood-tinged sputum. He decided to seek evaluation in the emergency room yesterday as he continued to worsen. He was found to have pneumonia and meet sepsis criteria so was admitted for further management. He reports feeling better today though did have very severe episode of coughing for 2 hours overnight. This was improved with hydro codone. Tessalon has not been helping him. Since his admission he has had a Thoravent placed (03/13) for a right sided pneumothorax. He has developed acute cholecystitis. Subjective/Events-last exam Patient reports no acute events overnight. He states that his pain is well contr olled and that his difficulty breathing is about the same as yesterday. He denies any abdominal pain or chest pain. He has not had a bowel movement since 03/11. Objective Exam Vital Signs Vital Signs Date Time Temp Pulse Resp B/P (MAP) Pulse Ox O2 Delivery O2 Flow Rate FiO2 03/14/22 11:00 99 26 107/75 93 Vapotherm 30.00 100.00 03/14/22 10:21 100 03/14/22 08:00 36.2 Capillary Refill : Less Than 3 Seconds General Appearance: No Apparent Distress, Chronically ill HEENT: PERRL/EOMI, Moist Mucous Membranes Neck: Non Tender, Supple Respiratory: Chest Non Tender, Decreased Breath Sounds, Other (Thoravent placed, on vapotherm) Cardiovascular: Regular Rate, Rhythm, No JVD, No Murmur, Normal Peripheral Pulses, Other (1+ TINO bilaterally to the midshin) Gastrointestinal: Normal Bowel Sounds, Non Tender Rectal: Deferred Back: Normal Inspection Extremity: Normal Capillary Refill Neurologic/Psychiatric: Alert, Oriented x3 Skin: Normal Color, Warm/Dry Lymphatic: No Adenopathy Results/Procedures Lab Laboratory Tests 03/14/22 04:21 Patient resulted labs reviewed. Imaging: Reviewed Imaging Report Assessment/Plan Assessment and Plan Assess & Plan/Chief Complaint 1) Sepsis 2/2 MSSA Pneumonia Acute on Chronic Respiratory Failure Hx of Lung cancer s/p lobectomy * Zosyn * Methylprednisone 40mg IV q12h * MAT protocol * Thoravent placed 03/13, surgery following appreciate recs * Vapotherm 2) Acute Cholecystitis * HIDA scan confirmed * Surgery following, appreciate recs * LFTs continue to be elevated but stable 3) Leg Swelling * Ddimer elevated * LE US revealed no evidence of DVT * DVT prophylaxis- Lovanox 4) Superficial Thrombophlebitis * s/p IV infiltration * US negative for abscess, showed superficial thrombophlebitis * Continue warm compresses 5) HTN * Continue Amlodipine and Coreg 6) Goals of Care * Palliative Care consulted, appreciate recs MELYSSA SAAVEDRA DO 03/15/22 0602: Subjective Subjective/Events-last exam Pt is still on Vapotherm 30L at 100% Has a history of lung cancer but no active cancer COPD and smoking history along with pneumonia and radiation for the lung cancer has placed him in a precarious lung function status Acute cholangitis maintained on Zosyn White count is 14 Thoravent in right chest for pneumothorax Palliative care nurse consulted Review of Systems General: Fatigue, Malaise Pulmonary: Dyspnea Objective Exam General Appearance: Chronically ill, Mild Distress Respiratory: Decreased Breath Sounds, Other (Thoravent placed, on vapotherm) Cardiovascular: Tachycardia Assessment/Plan Assessment and Plan Assess & Plan/Chief Complaint DNR Poor prognosis Supervisory-Addendum Brief Verification & Attestation Participated in pt care: history, MDM, physical Personally performed: exam, history, MDM, supervision of care Care discussed with: Medical Student Procedures: n/a Results interpretation: Verified all documentation Verification and Attestation of Medical Student E/M Service A medical student performed and documented this service in my presence. I reviewed and verified all information documented by the medical student and made modifications to such information, when appropriate. I personally performed the physical exam and medical decision making. Melyssa Saavedra, Mar 15, 2022,06:01 KARRIE CORDOVA Mar 14, 2022 12:00 MELYSSA SAAVEDRA DO Mar 15, 2022 06:02
[2022-03-15] MEDS: ALPRAZolam 0.5 MG (XANAX) TAB PO PRN ×3 (01:34→20:36)
[2022-03-15] MEDS: RT-ALBUTEROL/IPRATROPIUM 3 ML (DUONEB) VIAL INH SCH ×3 (02:22→10:46)
[2022-03-15 05:31] LABS: BASOPHILS % (AUTO) 0 % (0-10); EOSINOPHILS % (AUTO) 0 % (0-10); HEMATOCRIT 37 % (40-54); HEMOGLOBIN 12.3 g/dL (13.3-17.7); LYMPHOCYTES # (AUTO) 0.6 10^3/uL (1.0-4.0); LYMPHOCYTES % (AUTO) 4 % (12-44); MEAN CORPUSCULAR HEMOGLOBIN 31 pg (25-34); MEAN CORPUSCULAR HGB CONC 33 g/dL (32-36); MEAN CORPUSCULAR VOLUME 93 fL (80-99); MEAN PLATELET VOLUME 8.9 fL (9.0-12.2); MONOCYTES # (AUTO) 0.4 10^3/uL (0.0-1.0); MONOCYTES % (AUTO) 3 % (0-12); NEUTROPHILS # (AUTO) 14.2 10^3/uL (1.8-7.8); NEUTROPHILS % (AUTO) 92 % (42-75); PLATELET COUNT 654 10^3/uL (130-400); WHITE BLOOD COUNT 15.4 10^3/uL (4.3-11.0)
[2022-03-15 05:42] LABS: ALBUMIN 2.7 GM/DL (3.2-4.5); POTASSIUM 4.6 MMOL/L (3.6-5.0)
[2022-03-15 05:43] LABS: CALCIUM 8.2 MG/DL (8.5-10.1)
[2022-03-15 05:44] LABS: TOTAL PROTEIN 5.1 GM/DL (6.4-8.2)
[2022-03-15 05:46] LABS: BILIRUBIN,TOTAL 0.8 MG/DL (0.1-1.0)
[2022-03-15 05:47] LABS: PHOSPHORUS 3.7 MG/DL (2.3-4.7)
[2022-03-15 05:48] LABS: CREATININE SERUM 0.74 MG/DL (0.60-1.30)
[2022-03-15 05:51] LABS: MAGNESIUM 2.6 MG/DL (1.6-2.4)
[2022-03-15] MEDS: PIPERACILLIN SODIUM/TAZOBACTAM 4.5 GM in NS (IVPB) 100 ML IV SCH (06:31)
[2022-03-15] MEDS: methylPREDNISolone 40 MG/ML (Solu-MEDROL) VIAL IV SCH (06:31)
[2022-03-15] MEDS: ACETAMINOPHEN 500 MG TAB (TYLENOL) PO SCH ×2 (09:00→14:24)
[2022-03-15] MEDS: amLODIPine 10 MG (NORVASC) TAB PO SCH (09:00)
[2022-03-15] MEDS: FLUTICASONE NASAL SPRAY (FLONASE) 16 GM BTL NS SCH (09:01)
[2022-03-15] MEDS: ENOXAPARIN 40 MG/0.4 ML (LOVENOX) SYR SC SCH (09:01)
[2022-03-15] MEDS: PANTOPRAZOLE 40 MG (PROTONIX) VIAL IV SCH (09:01)
[2022-03-15] MEDS ORDERED: morphine INJ 10 MG/ML 1ML (SYR OR VIAL) IVP PRN (09:15)
--- NOTE | 2022-03-15 09:22 | Physical Therapy Progress Note ---
Therapy Progress Note Patient on hold again today per nurse. Will check back tomorrow. ROGE SHULTZ PT Mar 15, 2022 09:22
[2022-03-15] MEDS: RT--FLUTICASONE/SALMETEROL 232-14 (AIRDUO RespiCLICK) IH SCH (10:46)
--- NOTE | 2022-03-15 10:50 | Progress Note - Hospitalist ---
DORINDALennieKARRIE OMALLEY 03/15/22 1050: Subjective HPI/CC On Admission Date Seen by Provider: Mar 15, 2022 Time Seen by Provider: 10:00 Patient 66-year-old male with a past medical history of lung cancer, hypertension, COPD who presented to the emergency department due to cough. He states that he saw his doctor earlier this week and was doing fine though he thought he may have been wheezing a little. He also follows with pulmonary rehab and seemed to be fine with that. But then 2 or 3 days ago he started to worsen. His cough got much worse and he also noticed some blood-tinged sputum. He decided to seek evaluation in the emergency room yesterday as he continued to worsen. He was found to have pneumonia and meet sepsis criteria so was admitted for further management. He reports feeling better today though did have very severe episode of coughing for 2 hours overnight. This was improved with hydro codone. Tessalon has not been helping him. Since his admission he has had a Thoravent placed (03/13) for a right sided pneumothorax. He has developed acute cholecystitis. Subjective/Events-last exam Patient reports no acute events overnight. He is visiting with family and friend s this morning. He states his pain is well controlled but feels that his breathing is becoming more challenging. Objective Exam Vital Signs Vital Signs Date Time Temp Pulse Resp B/P (MAP) Pulse Ox O2 Delivery O2 Flow Rate FiO2 03/15/22 10:00 85 25 132/92 90 Vapotherm 30.00 85.00 03/15/22 08:00 36.4 03/15/22 07:17 80 Capillary Refill : Less Than 3 Seconds General Appearance: No Apparent Distress, Chronically ill HEENT: Moist Mucous Membranes Neck: Normal Inspection, Supple Respiratory: Chest Non Tender, Decreased Breath Sounds, Other (on vapotherm. thoravent in place) Cardiovascular: Regular Rate, Rhythm, No JVD Gastrointestinal: Normal Bowel Sounds, Non Tender Extremity: Normal Capillary Refill, No Calf Tenderness Neurologic/Psychiatric: Alert, Oriented x3 Skin: Normal Color, Warm/Dry Results/Procedures Lab Laboratory Tests 03/15/22 05:15 Patient resulted labs reviewed. Imaging: Reviewed Imaging Report Assessment/Plan Assessment and Plan Assess & Plan/Chief Complaint 1) Sepsis 2/2 MSSA Pneumonia Acute on Chronic Respiratory Failure Hx of Lung cancer s/p lobectomy * Ivonne cason/c * Methylprednisone 40mg IV q12h * MAT protocol * Thoravent placed 03/13, surgery following appreciate recs * Vapotherm: 30L FiO2 80% * Morphine for pain control 2) Acute Cholecystitis * HIDA scan confirmed * Surgery following, appreciate recs * LFTs continue to be elevated but stable 3) Leg Swelling * D-dimer elevated * LE US revealed no evidence of DVT * DVT prophylaxis- Lovanox 4) Superficial Thrombophlebitis * s/p IV infiltration * US negative for abscess, showed superficial thrombophlebitis * Continue warm compresses 5) HTN * Continue Amlodipine and Coreg 6) Goals of Care * Palliative Care consulted, appreciate jls MELYSSA SAAVEDRA DO 03/16/22 0553: Subjective Subjective/Events-last exam Pt wants to go end of life Comfort care protocol initiated Updated family at the bedside Everyone is on the same page Review of Systems Pulmonary: Dyspnea Objective Exam General Appearance: Chronically ill, Mild Distress Respiratory: Accessory Muscle Use, Decreased Breath Sounds Cardiovascular: Regular Rate, Rhythm Assessment/Plan Assessment and Plan Assess & Plan/Chief Complaint Comfort care Supervisory-Addendum Brief Verification & Attestation Participated in pt care: history, MDM, physical Personally performed: exam, history, MDM, supervision of care Care discussed with: Medical Student Procedures: n/a Results interpretation: Verified all documentation Verification and Attestation of Medical Student E/M Service A medical student performed and documented this service in my presence. I reviewed and verified all information documented by the medical student and made modifications to such information, when appropriate. I personally performed the physical exam and medical decision making. Melyssa Saavedra, Mar 16, 2022,05:52 KARRIE CORDOVA Mar 15, 2022 10:50 MELYSSA SAAVEDRA DO Mar 16, 2022 05:53
--- NOTE | 2022-03-15 12:01 | Tele-ICU Progress Note ---
Progress Note (Tele-ICU Physician , Progress Note ) Available chart/ vitals / labs / Images reviewed Video assessment done using teleICU camera, rest of exam as per RN PER RN - PATIENT AND FAMILY DECIDED TO DO ONLY COMFORT MEASURES WILL SIGN OFF Discussed with RN to reach out if any questions or concerns A total of 5 minutes of critical care time was devoted to this patient today, required to treat and/or prevent further deterioration of critical care condition ( as above) . Focused Exam Height, Weight, BMI Height: 5'69.00" Weight: 145lbs. oz. 74.303909qk; 24.94 BMI Method: ALEX LEDESMA MD Mar 15, 2022 12:01
--- NOTE | 2022-03-15 13:35 | Progress Note - Surgery ---
TAWNYAJOSE LUIS Michael 03/15/22 1335: Subjective Date Seen by a Provider: Mar 15, 2022 Time Seen by a Provider: 07:24 Subjective/Events-last exam Mr. Oneal is being followed by surgery for asymptomatic cholelithiasis. He is being treated in the ICU for sepsis d/t pneumonia. He has a right-sided pneumothorax. He has a thoravent placed with a chest tube hooked up to suction. He does not have an air leak. This morning he denies any abdominal pain. He continues to have trouble breathing and shortness of breath. He is maintained on vapotherm. He and his family are considering palliative options. Review of Systems General: No Chills; Fatigue HEENT: No Head Aches, No Visual Changes Pulmonary: Dyspnea, Cough Cardiovascular: No: Chest Pain, Palpitations Gastrointestinal: No: Nausea, Vomiting, Abdominal Pain Neurological: No: Weakness, Confusion Objective Exam Vital Signs Date Time Temp Pulse Resp B/P (MAP) Pulse Ox O2 Delivery O2 Flow Rate FiO2 03/15/22 12:00 36.3 03/15/22 12:00 79 20 122/87 95 Vapotherm 30.00 85.00 03/15/22 11:00 80 24 125/85 94 Vapotherm 30.00 85.00 03/15/22 10:46 94 Vapotherm 25.00 80 03/15/22 10:00 85 25 132/92 90 Vapotherm 30.00 85.00 03/15/22 09:00 88 24 133/85 92 Vapotherm 30.00 85.00 03/15/22 08:00 89 29 110/86 93 Vapotherm 30.00 85.00 03/15/22 08:00 36.4 03/15/22 07:17 93 Vapotherm 30.00 80 03/15/22 07:00 84 21 124/81 93 Vapotherm 30.00 85.00 03/15/22 07:00 85 03/15/22 06:00 82 30 114/78 96 Vapotherm 30.00 85.00 03/15/22 05:00 91 Vapotherm 30.00 90 03/15/22 05:00 80 25 113/84 95 Vapotherm 30.00 85.00 03/15/22 04:00 77 34 101/68 92 Vapotherm 30.00 85.00 03/15/22 04:00 36.0 03/15/22 03:00 77 25 103/78 94 Vapotherm 30.00 85.00 03/15/22 02:22 97 Vapotherm 30.00 90 03/15/22 02:00 75 25 112/82 96 Vapotherm 30.00 90.00 03/15/22 01:00 75 03/15/22 01:00 75 109/67 96 Vapotherm 30.00 90.00 03/15/22 01:00 91 Vapotherm 30.00 90 03/15/22 00:00 76 28 105/74 96 Vapotherm 30.00 90.00 03/15/22 00:00 36.5 03/14/22 23:00 74 36 106/77 96 Vapotherm 30.00 90.00 03/14/22 22:44 96 Vapotherm 30.00 90 03/14/22 22:00 76 21 110/73 95 Vapotherm 30.00 90.00 03/14/22 21:00 76 25 105/76 95 Vapotherm 30.00 90.00 03/14/22 21:00 91 Vapotherm 30.00 90 03/14/22 20:00 75 20 106/66 96 Vapotherm 30.00 90.00 03/14/22 20:00 36.1 03/14/22 19:00 73 03/14/22 19:00 73 26 102/76 95 Vapotherm 30.00 90.00 03/14/22 18:50 93 Vapotherm 30.00 90 03/14/22 18:00 79 24 107/73 94 Vapotherm 30.00 90.00 03/14/22 17:13 92 Vapotherm 30.00 90 03/14/22 17:00 78 27 111/81 94 Vapotherm 30.00 90.00 03/14/22 16:00 36.4 03/14/22 16:00 81 30 123/81 92 Vapotherm 30.00 90.00 03/14/22 15:00 76 24 105/81 95 Vapotherm 30.00 90.00 03/14/22 14:57 Vapotherm 30.00 90.00 03/14/22 14:51 97 Vapotherm 35.00 100 03/14/22 14:00 79 29 92/62 96 Vapotherm 30.00 100.00 I & O 03/15/22 07:00 Intake Total 640 ml Output Total 1450 ml Balance -810 ml Capillary Refill : Less Than 3 Seconds General Appearance: No Apparent Distress, Chronically ill HEENT: PERRL/EOMI, Moist Mucous Membranes Neck: Non Tender, Supple Respiratory: Chest Non Tender, Decreased Breath Sounds, Other (on vapotherm. thoravent in place) Cardiovascular: Regular Rate, Rhythm Peripheral Pulses: 2+ Radial Pulses (R), 2+ Radial Pulses (L) Gastrointestinal: non tender, soft; No distended, No guarding, No rebound Extremity: Non Tender, No Pedal Edema Neurologic/Psychiatric: Alert, Oriented x3 Skin: Normal Color, Warm/Dry Lymphatic: No Adenopathy Results Lab Laboratory Tests 03/15/22 05:15: White Blood Count 15.4H, Red Blood Count 4.00L, Hemoglobin 12.3L, Hematocrit 37L , Mean Corpuscular Volume 93, Mean Corpuscular Hemoglobin 31, Mean Corpuscular Hemoglobin Concent 33, Red Cell Distribution Width 13.6, Platelet Count 654H, Mean Platelet Volume 8.9L, Immature Granulocyte % (Auto) 1, Neutrophils (%) (Auto) 92H, Lymphocytes (%) (Auto) 4L, Monocytes (%) (Auto) 3, Eosinophils (%) (Auto) 0, Basophils (%) (Auto) 0, Neutrophils # (Auto) 14.2H, Lymphocytes # (Auto) 0.6L, Monocytes # (Auto) 0.4, Eosinophils # (Auto) 0.0, Basophils # (Auto) 0.0, Immature Granulocyte # (Auto) 0.1, Sodium Level 136, Potassium Level 4.6, Chloride Level 99, Carbon Dioxide Level 28, Anion Gap 9, Blood Urea Nitrogen 31H, Creatinine 0.74, Estimat Glomerular Filtration Rate 99, BUN/Creatinine Ratio 42, Glucose Level 112H, Calcium Level 8.2L, Corrected Calcium 9.2, Phosphorus Level 3.7, Magnesium Level 2.6H, Total Bilirubin 0.8, Aspartate Amino Transf (AST/SGOT) 40H, Alanine Aminotransferase (ALT/SGPT) 179H, Alkaline Phosphatase 121, Total Protein 5.1L, Albumin 2.7L Microbiology 03/08/22 Blood Culture - Preliminary, Resulted No growth 03/07/22 Gram Stain - Final, Complete 03/07/22 Sputum Culture - Final, Complete Usual upper respiratory marlon Staphylococcus aureus 03/03/22 Urine Culture - Final, Complete NO GROWTH Assessment/Plan Assessment/Plan Assessment/Plan Right pneumothorax s/p Thoravent placement on 03/13/22 No air leak noted on morning exam Sepsis Most likely secondary to pneumonia Acute on chronic respiratory failure COPD h/o Lung cancer Transamninitis Leukocytosis Thrombocytosis Elevated BUN Plan: Continue antibiotics Continue enoxaparin s/p Thoravent placement Will keep on an atrium to suction. Follow chest x rays, feel overall poor prognosis, due to the severity of his lung disease. Palliative care speaking with patient. Patient and family considering options. SUKH MAGAÑA DO 03/15/22 2017: Subjective Subjective/Events-last exam Patient is breathing slightly worse today. He is not wanting much done. He and family are wanting to likely start comfort care measures. They are just waiting for a family member to arrive. Patient thoracostomy tube hooked up to an atrium no air leak currently. Patient on Vapotherm. Objective Exam General Appearance: Anxious, Chronically ill HEENT: PERRL/EOMI, Moist Mucous Membranes Neck: Non Tender Respiratory: Decreased Breath Sounds, Other (on vapotherm. thoravent in place right chest) Cardiovascular: Regular Rate, Rhythm, No JVD Gastrointestinal: non tender, soft Extremity: Normal Inspection, Non Tender Neurologic/Psychiatric: Alert, Oriented x3, No Motor/Sensory Deficits, Normal Mood/Affect Skin: Normal Color, Warm/Dry Lymphatic: No Adenopathy Assessment/Plan Assessment/Plan Assessment/Plan Right pneumothorax s/p Thoravent placement on 03/13/22 No air leak noted on morning exam Sepsis Most likely secondary to pneumonia Acute on chronic respiratory failure COPD h/o Lung cancer Patient overall with poor prognosis. Patient not improving and do not suspect he will improve and patient and family wishing to proceed with comfort care measures. There is no surgical intervention further that I think will help causes symptoms to improve. Patient and family in agreement. Patient had all questions answered. We will follow-up on as needed basis please call if needed. Supervisory-Addendum Brief Verification & Attestation Participated in pt care: history, MDM, physical Personally performed: exam, history, MDM, supervision of care Care discussed with: Medical Student Procedures: n/a Results interpretation: Verified all documentation Verification and Attestation of Medical Student E/M Service A medical student performed and documented this service in my presence. I reviewed and verified all information documented by the medical student and made modifications to such information, when appropriate. I personally performed the physical exam and medical decision making. Sukh Magaña, Mar 15, 2022,20:17 JOSE LUIS BOWLING Mar 15, 2022 13:35 SUKH MAGAÑA DO Mar 15, 2022 20:17
[2022-03-15] MEDS ORDERED: GLYCOPYRROLATE 0.2 MG/ML (ROBINUL) 2 ML VIAL IV PRN ×2 (14:00→15:30)
[2022-03-15] MEDS ORDERED: SCOPOLAMINE 1.5 MG (TRANSDERM-SCOP) PATCH TD ONE (14:00)
[2022-03-15] MEDS ORDERED: SALIVA STIMULANT MOUTH SPRAY (BIOTENE) 1.5 OZ MM PRN (15:30)
[2022-03-15] MEDS ORDERED: BISACODYL 10 MG SUPP (DULCOLAX) PR PRN (15:30)
[2022-03-15] MEDS ORDERED: ONDANSETRON 4 MG/2 ML (SDV) Z0FRAN IVP PRN (15:30)
[2022-03-15] MEDS ORDERED: PROMETHAZINE INJ 25 MG/ML (PHENERGAN) AMP IVP PRN (15:30)
[2022-03-15] MEDS ORDERED: LORazepam INJ 2 MG/ML (ATIVAN) VIAL IVP PRN (15:30)
[2022-03-15] MEDS ORDERED: DIAZEPAM INJ 10 MG/2 ML (VALIUM) SYR IVP PRN (15:30)
[2022-03-15] MEDS ORDERED: RT-ALBUTEROL/IPRATROPIUM 3 ML (DUONEB) VIAL INH PRN (15:30)
[2022-03-15] MEDS ORDERED: ACETAMINOPHEN 650 MG SUPP (TYLENOL) PR PRN (15:30)
[2022-03-15] MEDS ORDERED: LORazepam ORAL CONCENTRATE 2 MG/ML 30 ML (ATIVAN) PO PRN (15:30)
[2022-03-15] MEDS ORDERED: ARTIFICAL TEARS 0.4 ML UNIT DOSE (REFRESH PLUS) OU PRN (15:30)
[2022-03-15] MEDS ORDERED: ATROPINE 1% OPHTHALMIC SOLN 2 ML SL PRN (15:30)
[2022-03-15] MEDS: HYDROmorphone 2 MG/ML VIAL (DILAUDID) IV PRN ×3 (18:21→22:59)
[2022-03-16] MEDS: HYDROmorphone 2 MG/ML VIAL (DILAUDID) IV PRN ×2 (04:30→07:08)
--- NOTE | 2022-03-16 09:14 | Discharge Summary ---
Discharge Summary Hospital Course Was the Problem List Reviewed?: Yes Problems/Dx: (1) Acute on chronic respiratory failure with hypoxia Status: Acute (2) Sepsis Status: Acute Qualifiers: Qualified Codes: A41.9 - Sepsis, unspecified organism (3) Pneumonia Status: Acute Qualifiers: Qualified Codes: J15.211 - Pneumonia due to methicillin susceptible Staphylococcus aureus (4) History of lung cancer Status: Acute (5) Elevated LFTs Status: Acute (6) Acute cholecystitis Status: Acute (7) Superficial thrombophlebitis of left upper extremity Status: Acute Hospital Course Date of Admission: Mar 03, 2022 at 17:26 Admission Diagnosis : Family Physician/Provider: Simon Sandoval MD Date of Discharge: 03/16/22 Discharge Diagnosis: [ ] Hospital Course: Pt had a lengthy hospital course for 14 days after he was admitted for sepsis, pneumonia, and right sided pneumothorax. Pt was placed on antibiotics. Pt had a history of lung cancer and COPD. Pt overall continued to decline. He had lack of lung function. He was weaned off Vapotherm, placed on comfort care, and . Labs and Pending Lab Test: Microbiology 03/08/22 Blood Culture - Preliminary, Resulted No growth 03/07/22 Gram Stain - Final, Complete 03/07/22 Sputum Culture - Final, Complete Usual upper respiratory marlon Staphylococcus aureus 03/03/22 Urine Culture - Final, Complete NO GROWTH Home Meds Active Reported Senna (Sennosides) 8.6 Mg Tablet 8.6 Mg PO DAILY PRN Tylenol Pm Ex-Strength Caplet (Acetaminophen/Diphenhydramine) 500 Mg-25 Mg Tablet 1 Each PO HS PRN Tylenol Extra Strength (Acetaminophen) 500 Mg Tablet 500-1,000 Mg PO Q8H PRN Flonase Allergy Relief (Fluticasone Propionate) 50 Mcg/Actuation Correll.susp 1 Correll NSEACH DAILY PRN Advair Hfa 115-21 Mcg Inhaler (Fluticasone/Salmeterol) 115 Mcg-21 Mcg/Actuation Hfa.aer.ad 2 Puff IH BID Candesartan-Hctz 16-12.5 mg Tb (Candesartan/Hydrochlorothiazid) 16 Mg-12.5 Mg Tablet 0.5 Each PO DAILY PRN Proair Hfa (Albuterol Sulfate) 90 Mcg Hfa.aer.ad 2 Puff IH Q6H PRN Pantoprazole Sodium 40 Mg Tablet.dr 40 Mg PO DAILY Spiriva (Tiotropium Pequea) 18 Mcg Aerp 1 Inh IH DAILY Assessment/Pt Instructions Discharge Planning: <30 minutes discharge planning Discharge Physical Examination Vital Signs Vital Signs Date Time Temp Pulse Resp B/P (MAP) Pulse Ox O2 Delivery O2 Flow Rate FiO2 03/16/22 06:59 Nasal Cannula 2.00 03/15/22 13:00 82 03/15/22 12:00 36.3 03/15/22 12:00 20 122/87 95 03/15/22 10:46 80 Allergies: Coded Allergies: No Known Drug Allergies (Unverified , 08/14/14) Discharge Summary Date of Admission Mar 03, 2022 at 17:26 Date of Discharge Admission Diagnosis Sepsis due to pneumonia Comfort Measures/ End of Life Care: Comfort Measures Discharge Diagnosis Comfort care (1) Acute on chronic respiratory failure with hypoxia Status: Acute (2) Sepsis Status: Acute Qualifiers: Qualified Codes: A41.9 - Sepsis, unspecified organism (3) Pneumonia Status: Acute Qualifiers: Qualified Codes: J15.211 - Pneumonia due to methicillin susceptible Staphylococcus aureus (4) History of lung cancer Status: Acute (5) Elevated LFTs Status: Acute (6) Acute cholecystitis Status: Acute (7) Superficial thrombophlebitis of left upper extremity Status: Acute MÓNICA SAAVEDRA DO Mar 16, 2022 09:14
== END 2022-03-16 07:48 | disposition expired | DRG 871 ==
LOC: EDUNIT# 14:46 → ER 14:47 → CSD 17:26 → ICU 03-05 08:50 → 4TH 03-11 12:30 → CSD 03-12 17:22 → ICU 03-12 21:35 → 4TH 03-15 14:12
PROVIDERS: ADMIT Family Medicine; ATTEND Internal Medicine
PROC: 5A0945A Assistance with Respiratory Ventilation, 24-96 Consecutive Hours, High Flow/Velocity Cannula (ICD-10-PCS; principal; 2022-03-12)
DX: A41.01 Sepsis due to Methicillin susceptible Staphylococcus aureus (principal); J15.211 Pneumonia due to Methicillin susceptible Staphylococcus aureus; J96.21 Acute and chronic respiratory failure with hypoxia; J93.9 Pneumothorax, unspecified; T80.1XXA Vascular complications following infusion, transfusion and therapeutic injection, initial encounter; L03.114 Cellulitis of left upper limb; K80.01 Calculus of gallbladder with acute cholecystitis with obstruction; E87.1 Hypo-osmolality and hyponatremia; Z66 Do not resuscitate; Z51.5 Encounter for palliative care; Z20.822 Contact with and (suspected) exposure to COVID-19; I80.8 Phlebitis and thrombophlebitis of other sites; M79.89 Other specified soft tissue disorders; F41.9 Anxiety disorder, unspecified; J43.9 Emphysema, unspecified; I10 Essential (primary) hypertension; H54.7 Unspecified visual loss; J34.3 Hypertrophy of nasal turbinates; Z87.891 Personal history of nicotine dependence; Z86.73 Personal history of transient ischemic attack (TIA), and cerebral infarction without residual deficits; Z85.118 Personal history of other malignant neoplasm of bronchus and lung; Z90.2 Acquired absence of lung [part of]
CPT/HCPCS: 36410; 36415; 36600; 70450; 71045; 71046; 71275; 76705; 76881; 76937; 78226; 80048; 80053; 80076; 80202; 81000; 82805; 83605; 83735; 84100; 84145; 85007; 85025; 85027; 85379; 85610; 85730; 86141; 87040; 87070; 87077; 87088; 87186; 87205; 87636; 94640; 94664; 94760; 96361; 96365; 96375